=== PATIENT | male | born 1955 | race Caucasian/White ===

== ENCOUNTER 2016-12-12 16:45 | Emergency (ER) | payer BC, OTHER ==
[~2016-12-12] VITALS: Ht 193 cm; Wt 95.0 kg
[~2016-12-12 16:45] MED LIST: CLIN1CAP5 PO; VENTAER INH
[2016-12-12 16:48] VITALS: BP 102/63; PULSE 72; RESP 18; TEMP 98.1; O2SAT 92
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
[2016-12-12] MEDS ORDERED: SODIUM CHLORIDE 0.9% FLUSH 5 ML FLUSH IVF PRN (17:45)
[2016-12-12] MEDS ORDERED: methylPREDNISolone SOD SUCC 125 MG/2 ML VIAL IVP ONE (17:45)
--- NOTE | 2016-12-12 18:01 | RADRPT ---
EXAM DATE/TIME: 12/12/2016 17:45 [facility] COMPARISON: CHEST PA & LAT, July 04, 2016, 11:59. INDICATIONS : Cough, shortness of breath, chest pain. MEDICAL HISTORY : None. SURGICAL HISTORY : None. ENCOUNTER: Initial ACUITY: 1 week PAIN SCORE: 5/10 LOCATION: Bilateral chest FINDINGS: PA and lateral views of the chest demonstrate the lungs to be symmetrically aerated without evidence of mass, infiltrate or effusion. The cardiomediastinal contours are unremarkable. Osseous structure s are intact. CONCLUSION: No acute disease. Mian Freire MD on December 12, 2016 at 18:00 Board Certified Radiologist. This report was verified electronically.
[2016-12-12] MEDS: RESP: ALBUTEROL 2.5 MG/IPRATROPIUM 0.5 MG NEB (SCH) INH (18:02)
--- NOTE | 2016-12-12 18:05 | PD ---
Data Data Last Documented VS Vital Signs Date Time Temp Pulse Resp B/P Pulse Ox O2 Delivery O2 Flow Rate FiO2 12/12/16 17:19 65 18 92 Room Air 12/12/16 16:48 98.1 102/63 Orders Complete Blood Count With Diff (12/12/16 17:32) Comprehensive Metabolic Panel (12/12/16 17:32) B-Type Natriuretic Peptide (12/12/16 17:32) Act Partial Throm Time (Ptt) (12/12/16 17:32) Prothrombin Time / Inr (Pt) (12/12/16 17:32) Magnesium (Mg) (12/12/16 17:32) Ckmb (Isoenzyme) Profile (12/12/16 17:32) Troponin I (12/12/16 17:32) Influenzae A/B Antigen (12/12/16 17:32) Blood Culture (12/12/16 17:32) Iv Access Insert/Monitor (12/12/16 17:32) Electrocardiogram (12/12/16 17:32) Ecg Monitoring (12/12/16 17:32) Oximetry (12/12/16 17:32) Oxygen Administration (12/12/16 17:32) Chest, Pa & Lat (12/12/16 17:32) Sodium Chloride 0.9% Flush (Ns Flush) (12/12/16 17:45) Methylprednisolone So Succ Inj (Solumedr (12/12/16 17:45) Albuterol-Ipratropium Neb (Duoneb Neb) (12/12/16 17:45) Lactic Acid (12/12/16 17:32) MDM Supervised Visit with BRENT: Yes Narrative Course I, Dr. Snell, have reviewed the advance practice practioner's documentation and am in agreement, met with the patient face to face, made the diagnosis, and the medical decision making was done by me. *My assessment and Findings: 61-year-old homeless male with history of COPD still smoking here with approximately one week of cough, cold, chest congestion , subjective fevers and chills. He no longer has any home inhalers. patient looks miserable and has a hacking cough productive of clear sputum on exam but does not appear sick. Diffuse rhonchi and wheezing bilaterally. Smells of alcohol. Differential includes COPD exacerbation, pneumonia, influenza, unlikely sepsis, ACS, new onset heart failure.Will treat symptomatically with nebs, steroids and obtained chest x-ray and blood work for hopeful disposition to home. Deann Snell MD Dec 12, 2016 18:05
[2016-12-12] MEDS ORDERED: MORPHINE SULFATE 4 MG/ML INJ IV PUSH ONE (18:30)
[2016-12-12 18:53] LABS: AUTOMATED NEUTROPHIL # 1.8 TH/MM3 (1.8-7.7); BASOPHIL % 0.8 % (0.0-2.0); EOSINOPHIL % 0.7 % (0.0-4.0); HEMATOCRIT 36.2 % (39.0-51.0); LYMPH % 36.4 % (9.0-44.0); LYMPHOCYTE # 1.5 TH/MM3 (1.0-4.8); MEAN CELL VOLUME 94.6 FL (80.0-100.0); MEAN CORPUSCULAR HEMOGLOBIN 32.9 PG (27.0-34.0); MEAN CORPUSCULAR HGB CONC 34.7 % (32.0-36.0); MONO % 18.1 % (0.0-8.0); PLATELET COUNT 84 TH/MM3 (150-450); RED BLOOD COUNT 3.83 MIL/MM3 (4.50-5.90); WHITE BLOOD COUNT 4.1 TH/MM3 (4.0-11.0)
[2016-12-12 18:57] LABS: HEMO FLAGS AUTO DIFF
[2016-12-12 18:59] LABS: APTT (PATIENT) 29.6 SEC (24.3-30.1); PROTHROMBIN TIME - PATIENT 11.1 SEC (9.8-11.6)
[2016-12-12] MEDS ORDERED: AZITHROMYCIN 250 MG TAB PO ONE (19:15)
[2016-12-12 19:18] LABS: ALKALINE PHOSPHATASE 97 U/L (45-117); ALT (GPT) 55 U/L (12-78); ANION GAP 12 MEQ/L (5-15); AST (GOT) 108 U/L (15-37); BICARBONATE 28.1 MEQ/L (21.0-32.0); BLOOD UREA NITROGEN 6 MG/DL (7-18); CHLORIDE 90 MEQ/L (98-107); CREATINE KINASE 173 U/L (39-308); GLOMERULAR FILTRATION RATE 115 ML/MIN (>89); MAGNESIUM 1.9 MG/DL (1.5-2.5); POTASSIUM 3.5 MEQ/L (3.5-5.1); SODIUM (NA) 130 MEQ/L (136-145); TOTAL BILIRUBIN ADULT 0.4 MG/DL (0.2-1.0)
[2016-12-12 19:31] LABS: CKMB 1.6 NG/ML (0.5-3.6)
[2016-12-12] MEDS ORDERED: PRED20 PO (19:46)
[2016-12-12] MEDS ORDERED: TRAM50TA PO ×2 (19:46→19:49)
[2016-12-12] MEDS ORDERED: AZIT500T2 PO (19:46)
[2016-12-12] MEDS ORDERED: VENTAER INH (19:46)
[2016-12-12 20:16] VITALS: O2SAT 96
[2016-12-12 20:16] LABS: BASOPHILS 1 % (0-2); METAMYELOCYTES 2 % (0-1); PLATELET ESTIMATE SMEAR LOW (NORMAL); PLATELET MORPHOLOGY NORMAL (NORMAL); POLYS (SEG NEUTROPHILS) 47 % (16-70); SCAN/DIFF FINAL DIFF MANUAL; WBC DIFF SAMPLE 100
[2016-12-12 20:17] VITALS: BP 108/58; PULSE 83; RESP 18; O2SAT 96
--- NOTE | 2016-12-13 16:11 | EKG ---
Date Performed: 12/12/2016 Time Performed: 18:59:57 PTAGE: 61 years EKG: Sinus rhythm Compared to prior tracing no significant change BORDERLINE ECG PREVIOUS TRACING : 10/08/2016 19.36 DOCTOR: Devyn Vazquez Interpretating Date/Time 12/13/2016 16:10:07
== END 2016-12-12 20:57 | disposition home or self-care (01) ==
LOC: NEPE 16:45
DX: J44.1 Chronic obstructive pulmonary disease with (acute) exacerbation (principal); R07.89 Other chest pain; R94.31 Abnormal electrocardiogram [ECG] [EKG]; I25.2 Old myocardial infarction; I10 Essential (primary) hypertension; J44.9 Chronic obstructive pulmonary disease, unspecified; G47.30 Sleep apnea, unspecified; F17.210 Nicotine dependence, cigarettes, uncomplicated; Z59.0 Homelessness
CPT/HCPCS: 71020; 80053; 82550; 82552; 83605; 83735; 83880; 84484; 85007; 85027; 85610; 85730; 87040; 93005; 94640; 94664; 96374; 96375; 99284; J2270; J2930

== ENCOUNTER 2017-02-11 17:03 | Inpatient (IN) | payer BC, OTHER ==
[~2017-02-11] VITALS: Ht 190.5 cm; Wt 82.5 kg
[~2017-02-11 17:03] MED LIST changes: +AZIT500T2 PO; +PRED20 PO; +TRAM50TA PO
--- NOTE | 2017-02-11 18:37 | RADRPT ---
EXAM DATE/TIME: 02/11/2017 18:22 [facility] COMPARISON: No previous studies available for comparison. INDICATIONS : Right hip pain after fall. MEDICAL HISTORY : None. SURGICAL HISTORY : None. ENCOUNTER: Initial ACUITY: 1 day PAIN SCORE: 10/10 LOCATION: Right hip. FINDINGS: Normal bone density. Mildly displaced fracture is seen across the right femoral trochanters. CONCLUSION: Right proximal femur fracture. Joey Banks MD on February 11, 2017 at 18:35 Board Certified Radiologist. This report was verified electronically.
[2017-02-11 18:42] VITALS: BP 158/78; PULSE 65; RESP 18; TEMP 98.1; O2SAT 96
[2017-02-11 19:23] VITALS: BP 158/81; PULSE 78; RESP 16; TEMP 98.5; O2SAT 96
--- NOTE | 2017-02-11 19:25 | PD ---
HPI Chief Complaint: Fall Time Seen by Provider: 19:16 Travel History International Travel<30 days: No Contact w/Intl Traveler<30days: No Traveled to known affect area: No History of Present Illness HPI 61-year-old male presents with right hip pain. He tripped on a curb several hours prior to arrival landing on his right hip. No head trauma or loss of consciousness. He is complaining of moderate pain in the right hip, aching, worse with movement. He admits to drinking 4 beers today. Last meal 7-8 hours ago. No other complaints. PFSH Past Medical History Arthritis: Yes Asthma: No Autoimmune Disease: No Blood Disorders: No Anxiety: No Depression: No Heart Rhythm Problems: No Cancer: No Cardiac Catheterization: No Cardiovascular Problems: Yes ([place] 2001) High Cholesterol: No Chemotherapy: No Chest Pain: Yes Congestive Heart Failure: No COPD: Yes Diabetes: Yes (denies) Patient Takes Glucophage: No Diminished Hearing: Yes ([place] ON LEFT) Endocrine: Yes Gastrointestinal Disorders: No GERD: No Glaucoma: No Genitourinary: No Headaches: No Hepatitis: No Hiatal Hernia: Yes Heparin Induced Thrombocytopen: No Hypertension: Yes Immune Disorder: No Inguinal Hernia: Yes Implanted Vascular Access Dvce: No Kidney Stones: No Musculoskeletal: Yes (arthritis) Neurologic: Yes Psychiatric: No Reproductive: No Respiratory: Yes (COPD) Immunizations Current: Yes Migraines: No Myocardial Infarction: Yes Radiation Therapy: No Renal Failure: No Seizures: No Sickle Cell Disease: No Sleep Apnea: Yes Thyroid Disease: No Ulcer: No ?: Not Past Surgical History Abdominal Surgery: Yes (LEFT INGUINAL HERNIA REPAIR) AICD: No Appendectomy: No Arteriovenous Shunt: No Cardiac Surgery: No Cholecystectomy: No Coronary Artery Bypass Graft: No Ear Surgery: No Endocrine Surgery: No Eye Surgery: No Genitourinary Surgery: No Gynecologic Surgery: No Insulin Pump: No Joint Replacement: No Neurologic Surgery: Yes (C-SPINE FUSION (C5-C7 PER EMR)) Oral Surgery: No Pacemaker: No Thoracic Surgery: No Other Surgery: Yes (LT INGUINAL HERNIA REPAIR) Family History Family Myocardial Infarction: No Social History Alcohol Use: Yes (etoh-BEER (USUALLY 4 DAILY)) Tobacco Use: Yes (1/2ppd) Substance Use: No Allergies-Medications (Allergen,Severity, Reaction): Coded Allergies: Ativan (Verified Adverse Reaction, Intermediate, MAKES HIM CRAZY, 02/11/17 ) Ibuprofen (Verified Adverse Reaction, Intermediate, Rash, 02/11/17) Keflex (Verified Adverse Reaction, Intermediate, Hives, 02/11/17) PT STATED THAT THE FIRST TIME HE TOOK KEFLEX IT CAUSED HIVE AND STOMACH UPSET Motrin (Verified Adverse Reaction, Intermediate, N/V, 02/11/17) Zofran (Verified Adverse Reaction, Intermediate, HIVES, 02/11/17) *MDRO Multi-Drug Resistant Organism (Verified Adverse Reaction, Unknown, ) MRSA (wounds) - 08/2014, 07/2014, 2007, 2005 Reported Meds & Prescriptions Reported Meds & Active Scripts Active Tramadol (Tramadol HCl) 50 Mg Tab 50 Mg PO Q6H PRN Prednisone 20 Mg Tab 20 Mg PO BID Ventolin Hfa 18 GM Inh (Albuterol Sulfate) 90 Mcg/Act Aer 2 Puff INH Q4-6H PRN Azithromycin 500 Mg Tab 500 Mg PO DAILY Clindamycin (Clindamycin HCl) 150 Mg Cap 300 Mg PO Q6H 10 Days Review of Systems Except as stated in HPI: all other systems reviewed are Neg Physical Exam Narrative GENERAL: Well-developed well-nourished male in no acute distress SKIN: Warm and dry. Small abrasion lateral right hip. HEAD: Atraumatic. Normocephalic. EYES: Pupils equal and round. No scleral icterus. No injection or drainage. ENT: No nasal bleeding or discharge. Mucous membranes pink and moist. NECK: Trachea midline. No JVD. CARDIOVASCULAR: Regular rate and rhythm. No murmur appreciated. RESPIRATORY: No accessory muscle use. Clear to auscultation. Breath sounds equal bilaterally. GASTROINTESTINAL: Abdomen soft, non-tender, nondistended. Hepatic and splenic margins not palpable. MUSCULOSKELETAL: No obvious deformities. Tender to palpation lateral right hip. Pain with range of motion of the right hip limiting exam. 2+ dorsalis pedis and posterior tibial pulses. NEUROLOGICAL: Awake and alert. No obvious cranial nerve deficits. Motor grossly within normal limits. Normal speech. Data Data Last Documented VS Vital Signs Date Time Temp Pulse Resp B/P Pulse Ox O2 Delivery O2 Flow Rate FiO2 02/11/17 19:23 98.5 78 16 158/81 96 Room Air Orders Hip, Uni(Ap&Lat) W Ap Pelvis (02/11/17 ) Complete Blood Count With Diff (02/11/17 18:51) Basic Metabolic Panel (Bmp) (02/11/17 18:51) Comprehensive Metabolic Panel (02/11/17 18:51) Electrocardiogram (02/11/17 ) Chest, Single Ap (02/11/17 ) Urinalysis - C+S If Indicated (02/11/17 19:45) Splint Or Brace Apply/Monitor (02/11/17 19:45) Morphine Inj (Morphine Inj) (02/11/17 19:45) Consult Orthopedic (02/11/17 ) Admit Order (Ed Use Only) (02/11/17 19:55) Admit To Inpatient (02/11/17 ) Vital Signs (Adult) Q4H (02/11/17 19:56) Activity Bed Rest (02/11/17 19:56) Ruffling Hemmer Automatic / Telemetry .CONTINUOUS (02/11/17 19:56) Diet Npo (02/12/17 Breakfast) Sodium Chloride 0.9% Flush (Ns Flush) (02/11/17 20:00) Sodium Chloride 0.9% Flush (Ns Flush) (02/11/17 21:00) Basic Metabolic Panel (Bmp) (02/12/17 06:00) Complete Blood Count With Diff (02/12/17 06:00) Case Management Consult (02/11/17 19:56) Scd Bilateral/Knee High GREY.BID (02/11/17 19:56) Naloxone Inj (Narcan Inj) (02/11/17 20:00) Inpatient Certification (02/11/17 ) Chlordiazepoxide (Librium) (02/12/17 09:00) Thiamine (Vit B1) (Vitamin B1) (02/11/17 20:00) Thiamine (Vit B1) (Vitamin B1) (02/12/17 09:00) ^ Etoh Withdrawal Precautions (02/11/17 19:56) Morphine Inj (Morphine Inj) (02/11/17 20:00) Metoclopramide Inj (Reglan Inj) (02/11/17 20:15) MDM Medical Decision Making Medical Screen Exam Complete: Yes Emergency Medical Condition: Yes Medical Record Reviewed: Yes Interpretation(s) Hips/pelvic x-ray FINDINGS: Normal bone density. Mildly displaced fracture is seen across the right femoral trochanters. Differential Diagnosis Fracture, contusion, sprain, dislocation, abrasion, bursitis Narrative Course X-ray imaging reveals a proximal right femur fracture. We'll discuss with on- call orthopedist. Discussed with Dr. Barth who would like the patient admitted to medicine, nothing by mouth after midnight, 10 pounds of Mckeon's traction. Procedures EKG Prior to Arrival: Yes Diagnosis Primary Impression: Closed right hip fracture Qualified Code: S72.001A - Closed right hip fracture, initial encounter Admitting Information Admitting Physician Requests: Admit Mark Mendoza Feb 11, 2017 19:25
--- NOTE | 2017-02-11 19:43 | RADRPT ---
EXAM DATE/TIME: 02/11/2017 18:56 [facility] COMPARISON: CHEST SINGLE AP, October 08, 2016, 19:48. INDICATIONS : Evaluate for pneumonia, pneumothorax, or communicable. Patient fell, hip fracture. MEDICAL HISTORY : Hypertension. Chronic obstructive pulmonary disease. Hernia, hiatal.diabetes, SURGICAL HISTORY : None. ENCOUNTER: Subsequent ACUITY: 1 day PAIN SCORE: 0/10 LOCATION: Bilateral chest FINDINGS: A single view of the chest demonstrates the lungs to be symmetrically aerated without evidence of mas s, infiltrate or effusion. The cardiomediastinal contours are unremarkable. Osseous structures are intact. CONCLUSION: No acute disease. Joey Banks MD on February 11, 2017 at 19:41 Board Certified Radiologist. This report was verified electronically.
[2017-02-11] MEDS ORDERED: MORPHINE SULFATE 4 MG/ML INJ IV PUSH ONE (19:45)
[2017-02-11] MEDS ORDERED: SODIUM CHLORIDE 0.9% FLUSH 5 ML FLUSH FLUSH PRN (20:00)
[2017-02-11] MEDS ORDERED: NALOXONE HCL 0.4 MG/ML AMP IV PRN (20:00)
[2017-02-11] MEDS ORDERED: THIAMINE HCL 100 MG TAB PO ONE (20:00)
[2017-02-11 20:05] LABS: AUTOMATED NEUTROPHIL # 1.7 TH/MM3 (1.8-7.7); EOSINOPHIL # 0.1 TH/MM3 (0-0.4); HEMATOCRIT 34.3 % (39.0-51.0); LYMPH % 31.7 % (9.0-44.0); MEAN CELL VOLUME 94.4 FL (80.0-100.0); MEAN CORPUSCULAR HEMOGLOBIN 33.3 PG (27.0-34.0); MEAN CORPUSCULAR HGB CONC 35.2 % (32.0-36.0); MONO % 12.6 % (0.0-8.0); NEUT % 52.7 % (16.0-70.0); PLATELET COUNT 63 TH/MM3 (150-450); RED BLOOD COUNT 3.63 MIL/MM3 (4.50-5.90); RED CELL DISTRIBUTION WIDTH 13.6 % (11.6-17.2); WHITE BLOOD COUNT 3.2 TH/MM3 (4.0-11.0)
[2017-02-11 20:13] LABS: HEMO FLAGS AUTO DIFF
[2017-02-11] MEDS ORDERED: METOCLOPRAMIDE HCL 10 MG/2 ML VIAL IV PUSH ONE (20:15)
[2017-02-11 20:23] LABS: ALT (GPT) 26 U/L (12-78); ANION GAP 7 MEQ/L (5-15); AST (GOT) 54 U/L (15-37); BICARBONATE 30.6 MEQ/L (21.0-32.0); BLOOD UREA NITROGEN 4 MG/DL (7-18); CHLORIDE 101 MEQ/L (98-107); GLOMERULAR FILTRATION RATE 119 ML/MIN (>89); POTASSIUM 3.9 MEQ/L (3.5-5.1); SODIUM (NA) 139 MEQ/L (136-145)
[2017-02-11 20:26] LABS: ALKALINE PHOSPHATASE 66 U/L (45-117); TOTAL BILIRUBIN ADULT 0.3 MG/DL (0.2-1.0)
[2017-02-11 20:27] LABS: BLOOD, URINE TRACE (NEG); COMMENT (UR) CULT NOT INDICATED; CULTURE IF INDICATED CULT NOT INDICATED; GLUCOSE,URINE NEG (NEG); KETONE, URINE NEG (NEG); MUCUS URINE FEW /lpf (OCC); NITRITE,URINE NEG (NEG); URINE COLOR YELLOW (YELLW/STRAW)
--- NOTE | 2017-02-11 20:32 | MB ---
cc: ANGIE BINGHAM M.D. DATE OF CONSULTATION: 02/11/2017 REASON FOR CONSULTATION: Fracture right hip. HISTORY This patient is a 61-year-old white male who states that he was at the local transfer center for the local [employer] system. He tripped over a curb, fell, and sustained injury to his right hip. He was evaluated and brought to the emergency room. He complained of pain in the right hip and unable to ambulate. Denied any loss of consciousness or head trauma. He is complaining of moderate pain in the right hip mostly. He states he ate earlier today. Evaluation showed evidence of a right peritrochanteric hip fracture. I have been asked to see him in consultation by same. PAST MEDICAL HISTORY: Significant for: 1. Arthritis. 2. Previous right shoulder surgery, undergoing repair. 3. COPD. 4. High blood pressure. 5. Previous inguinal hernia repair. 6. History of myocardial infarction. PAST SURGICAL HISTORY Significant for hernia repair as indicated. Cervical spine fusion, C5 to C7. SOCIAL HISTORY He admits to ethanol four beers per day and half pack cigarettes per day. ALLERGIES ATIVAN IBUPROFEN KEFLEX MOTRIN ZOFRAN UNKNOWN ADVERSE REACTION TO MULTI-DRUG RESISTANT ORGANISM. The patient had a history of MRSA. MEDICATIONS 1. Tramadol. 2. Prednisone. 3. Ventolin 4. Erythromycin 5. Clindamycin REVIEW OF SYSTEMS: Negative except for pain in the region of the right hip. PHYSICAL EXAMINATION Alert, cooperative white male. He appears older than his stated age. He complained of pain in the right hip. His right leg is externally rotated. HEENT: Normocephalic, atraumatic. Pupils equal, round, reactive to light. He is missing multiple teeth. Neck: Supple. Well-healed incision is seen. Chest: Clear. Heart: Regular rate and rhythm. Abdomen: Soft, nontender, normoactive bowel sounds. Musculoskeletal: Right hip pain. Evaluation of the right hip, mild swelling. His pain is mostly with internal and external rotation. Dorsalis pedis is 1+, posterior S1 plus, sensation normal, he wiggles his toes. X-RAYS: X-rays reviewed. The radiologist interpretation shows evidence of a right peritrochanteric hip fracture extending to the lesser trochanter. IMPRESSION Right peritrochanteric hip fracture. PLAN Open treatment internal fixation right hip fracture with intramedullary harry. CONSENT: There are risks with surgery including infection, bleeding, loss of motion, continued pain, need for further surgery, neurologic and vascular injury. The patient understands these issues and wishes to press on with surgery as outlined above. The patient has a history of MRSA. The patient is at significant risk for infection with that orginism. The patient is likely colonized. Angie Bingham MD [facility] [place] /7:49 PM /8:20 PM
[2017-02-11 20:42] LABS: PLATELET ESTIMATE SMEAR LOW (NORMAL); PLATELET MORPHOLOGY NORMAL (NORMAL); SCAN/DIFF AUTO DIFF CONFIRMED
[2017-02-11 20:51] VITALS: BP 153/74; TEMP 98.2
[2017-02-11] MEDS: SODIUM CHLORIDE 0.9% FLUSH 5 ML FLUSH FLUSH SCH (21:50)
--- NOTE | 2017-02-11 21:52 | HHI.HP ---
[facility] Service [facility] Primary Care Physician No Primary Care Physician Admission Diagnosis right hip fracture Diagnoses: Chief Complaint: right hip pain Travel History International Travel<30 Days: No Contact w/Intl Traveler <30 Da: No Traveled to Known Affected Are: No History of Present Illness 61 y/o male with a history of CAD, [place], HTN, COPD and arthritis presented to the ED after suffering a fall. [place] and fell landing on his right hip. He is very painful in the right hip and the pain increases with movement. He is currently awaiting to be placed in a bed in order for bucks traction to be applied. He states prior to the fall he denies any chest pain, dizziness, fever or chills. Last 1-2 weeks patient also denies any illness, chest pain, fever or chills. He states he is always short of breath due to his COPD. He does drink daily and states today he had 4 beers. He currently does not have a PCP. Review of Systems Constitutional: DENIES: Fever, Chills Respiratory: COMPLAINS OF: Shortness of breath (always due to copd), DENIES: Cough, Sputum production Cardiovascular: DENIES: Chest pain, Palpitations, Dyspnea on Exertion, Lower Extremity Edema Gastrointestinal: DENIES: Constipation, Diarrhea, Nausea, Vomiting Genitourinary: DENIES: Hematuria, Dysuria Musculoskeletal: COMPLAINS OF: Joint pain, DENIES: Back pain, Neck pain Integumentary: DENIES: Rash Hematologic/lymphatic: DENIES: Lymphadenopathy Neurologic: DENIES: Headache Past Family Social History Past Medical History CAD IA at age 42 HTN COPD not on any oxygen Arthritis Past Surgical History Cervical fusion C5-7 Right Elbow surgery Right Knee surgery bilateral shoulder surgery Reported Medications Reported Meds & Active Scripts Active Tramadol (Tramadol HCl) 50 Mg Tab 50 Mg PO Q6H PRN Ventolin Hfa 18 GM Inh (Albuterol Sulfate) 90 Mcg/Act Aer 2 Puff INH Q4-6H PRN Allergies: Coded Allergies: Ativan (Verified Adverse Reaction, Intermediate, MAKES HIM CRAZY, 02/11/17 ) Ibuprofen (Verified Adverse Reaction, Intermediate, Rash, 02/11/17) Keflex (Verified Adverse Reaction, Intermediate, Hives, 02/11/17) PT STATED THAT THE FIRST TIME HE TOOK KEFLEX IT CAUSED HIVE AND STOMACH UPSET Motrin (Verified Adverse Reaction, Intermediate, N/V, 02/11/17) *MDRO Multi-Drug Resistant Organism (Verified Adverse Reaction, Unknown, ) MRSA (wounds) - 08/2014, 07/2014, 2007, 2005 Active Ordered Medications Current Medications Medications (Trade) Dose Ordered Sig/Guru Route Start Time Stop Time Status Last Admin (NS Flush) 2 ml UNSCH PRN FLUSH 02/11/17 20:00 (NS Flush) 2 ml BID FLUSH 02/11/17 21:00 (Narcan Inj) 0.4 mg UNSCH PRN IV 02/11/17 20:00 (Librium) 25 mg TID PO 02/12/17 09:00 (Vitamin B1) 100 mg DAILY PO 02/12/17 09:00 (Morphine Inj) 2 mg Q3H PRN IV PUSH 02/11/17 20:00 Family History Mom: from ovarian cancer Dad: from Heart disease Sister: Cancer Social History Tobacco use: 1/2 ppd Alcohol use: 4 beers a day Illicit use: Denies Physical Exam Vital Signs Vital Signs Date Time Temp Pulse Resp B/P Pulse Ox O2 Delivery O2 Flow Rate FiO2 02/11/17 20:51 98.2 61 14 153/74 96 02/11/17 20:37 16 02/11/17 19:23 98.5 78 16 158/81 96 Room Air 02/11/17 18:42 98.1 65 18 158/78 96 Room Air 02/11/17 18:42 65 20 98 Room Air Physical Exam GENERAL: This is a well-nourished, patient who is in pain and tremulous SKIN: No rashes, ecchymoses or lesions. Cool and dry. HEAD: Atraumatic. Normocephalic. EYES: Pupils equal round and reactive. Extraocular motions intact. ENT: Nose without bleeding, purulent drainage or septal hematoma. Airway patent. NECK: Trachea midline. No JVD or lymphadenopathy. CARDIOVASCULAR: Regular rate and rhythm without murmurs, gallops, or rubs. RESPIRATORY: Clear to auscultation. Breath sounds equal bilaterally. No wheezes , rales, or rhonchi. GASTROINTESTINAL: Abdomen soft, non-tender, nondistended. No hepato-splenomegaly , or palpable masses. No guarding. MUSCULOSKELETAL: Right leg shorter than left. Right hip joint tenderness. No calf tenderness. NEUROLOGICAL: Awake and alert. Motor and sensory grossly within normal limits. Normal speech. Laboratory Laboratory Tests Test 02/11/17 02/11/17 19:15 19:50 White Blood Count 3.2 Red Blood Count 3.63 Hemoglobin 12.1 Hematocrit 34.3 Mean Corpuscular Volume 94.4 Mean Corpuscular Hemoglobin 33.3 Mean Corpuscular Hemoglobin 35.2 Concent Red Cell Distribution Width 13.6 Platelet Count 63 Mean Platelet Volume 8.8 Neutrophils (%) (Auto) 52.7 Lymphocytes (%) (Auto) 31.7 Monocytes (%) (Auto) 12.6 Eosinophils (%) (Auto) 2.0 Basophils (%) (Auto) 1.0 Neutrophils # (Auto) 1.7 Lymphocytes # (Auto) 1.0 Monocytes # (Auto) 0.4 Eosinophils # (Auto) 0.1 Basophils # (Auto) 0.0 CBC Comment AUTO DIFF Differential Comment AUTO DIFF CONFIRMED Platelet Estimate LOW Platelet Morphology Comment NORMAL Sodium Level 139 Potassium Level 3.9 Chloride Level 101 Carbon Dioxide Level 30.6 Anion Gap 7 Blood Urea Nitrogen 4 Creatinine 0.68 Estimat Glomerular Filtration 119 Rate Random Glucose 102 Calcium Level 7.8 Total Bilirubin 0.3 Aspartate Amino Transf 54 (AST/SGOT) Alanine Aminotransferase 26 (ALT/SGPT) Alkaline Phosphatase 66 Total Protein 7.0 Albumin 3.3 Urine Color YELLOW Urine Turbidity CLEAR Urine pH 5.0 Urine Specific [place] 1.007 Urine Protein NEG Urine Glucose (UA) NEG Urine Ketones NEG Urine Occult Blood TRACE Urine Nitrite NEG Urine Bilirubin NEG Urine Urobilinogen LESS THAN 2.0 Urine Leukocyte Esterase NEG Urine RBC LESS THAN 1 Urine WBC 1 Urine Mucus FEW Microscopic Urinalysis Comment CULT NOT INDICATED Result Diagram: 02/11/17191402/11/171914 Imaging Last Impressions Hip and Pelvis X-Ray 02/11/17 0000 Signed Impressions: Service Date/Time: Saturday, February 11, 2017 18:22 - CONCLUSION: Right proximal femur fracture. Joey Banks MD Chest X-Ray 02/11/17 0000 Signed Impressions: Service Date/Time: Saturday, February 11, 2017 18:56 - CONCLUSION: No acute disease. Joey Banks MD Assessment and Plan Problem List: (1) Closed right hip fracture ICD Code: S72.001A Status: Acute (2) Alcohol abuse ICD Code: F10.10 Status: Chronic Assessment and Plan 61 y/o male with a history of CAD, [place], COPD and arthritis presented to the ED after suffering a fall and landing on his right hip. Closed right hip fracture Images reviewed: hip xray shows a right proximal femur fracture. EKG shows SR. -Consult Orthopedic, Dr. Salmon will take patient to surgery in AM -[place] traction ordered by ortho -Pain management with IV Morphine Alcohol abuse, patient drinks at least 4 beers a day/ with current active withdrawal - pt with noted tremors, tachycardia, flushed skin- reports from pain though looks to be more in acute withdrawal - will give pain meds now - if no improvement, to be aggressive on benzo sedation - checked allergy confirmation with patient - pt is not allergic- will use ativan -Withdrawal precautions -Librium, thiamine and folate scheduled, Ativan PRN -Encouraged to quit COPD, chronic, patient is currently having wheezing Images reviewed: Chest xray shows no acute disease. -Duonebs schedules -Oxygen as needed DVT prophylaxis: SCDs Written by Patricia DUMONT, acting as scribe for Dr. Santoyo on 02/11/17 at 2210. All or portions of this note were transcribed by scribe [PATRICIA GUZMAN]. I, Dr. Linsey Santoyo personally performed the history, physical exam, and medical decision making; and confirmed the accuracy of the information in the transcribed note. Authenticated by Dr. Linsey Santoyo on 02/11/17 at 2210. Discussed Condition With Patient, ED physician and RN Physician Certification 2 Midnight Certification Type: Admission for Inpatient Services Order for Inpatient Services The services are ordered in accordance with Medicare regulations or non- Medicare payer requirements, as applicable. In the case of services not specified as inpatient-only, they are appropriately provided as inpatient services in accordance with the 2-midnight benchmark. Estimated LOS (days): 3 days is the estimated time the patient will need to remain in the hospital, assuming treatment plan goals are met and no additional complications. Post-Hospital Plan: Home Problem Qualifiers (1) Closed right hip fracture: Qualified Code: S72.001A - Closed right hip fracture, initial encounter Patricia Guzman Feb 11, 2017 21:52 Linsey Santoyo MD Feb 12, 2017 07:00
[2017-02-11 22:25] VITALS: BP 135/84; PULSE 86; RESP 19; TEMP 96.6; O2SAT 93
[2017-02-11] MEDS: MORPHINE SULFATE 4 MG/ML INJ IV PUSH PRN (22:35)
[2017-02-11] MEDS ORDERED: RESP: ALBUTEROL 2.5 MG/IPRATROPIUM 0.5 MG NEB (PRN) NEB (23:15)
[2017-02-12] VITALS (7 sets, daily range): BP systolic 118–182; BP diastolic 62–97; PULSE 90–123; RESP 18–22; TEMP 95.7–97.8; O2SAT 93–96
[2017-02-12] MEDS: LORazepam 2 MG/ML VIAL IV PUSH PRN ×3 (00:34→10:31)
[2017-02-12] MEDS: MORPHINE SULFATE 4 MG/ML INJ IV PUSH PRN ×5 (01:28→15:58)
[2017-02-12] MEDS ORDERED: INSULIN HUMAN REGULAR 1,000 UNITS/10 ML VIAL SQ PRN (03:15)
[2017-02-12] MEDS ORDERED: chlordiazePOXIDE 25 MG CAP PO ONE (04:45)
[2017-02-12] MEDS ORDERED: LORazepam 2 MG/ML VIAL IV PUSH ONE (04:45)
[2017-02-12] MEDS: SODIUM CHLORID 0.9% 500 ML IV SCH ×2 (05:00→21:38)
[2017-02-12] MEDS: LACTATED RINGER'S 1000 ML IV SCH (05:07)
[2017-02-12] MEDS: RESP: ALBUTEROL 2.5 MG/IPRATROPIUM 0.5 MG NEB (SCH) NEB ×3 (05:11→16:00)
[2017-02-12 07:12] LABS: BASOPHIL % 0.5 % (0.0-2.0); EOSINOPHIL % 0.1 % (0.0-4.0); LYMPH % 8.5 % (9.0-44.0); LYMPHOCYTE # 0.5 TH/MM3 (1.0-4.8); MEAN CELL VOLUME 94.7 FL (80.0-100.0); MEAN CORPUSCULAR HEMOGLOBIN 32.7 PG (27.0-34.0); MEAN CORPUSCULAR HGB CONC 34.5 % (32.0-36.0); MONO % 11.9 % (0.0-8.0); PLATELET COUNT 52 TH/MM3 (150-450); RED BLOOD COUNT 3.48 MIL/MM3 (4.50-5.90); RED CELL DISTRIBUTION WIDTH 13.4 % (11.6-17.2); WHITE BLOOD COUNT 6.3 TH/MM3 (4.0-11.0)
[2017-02-12 07:15] LABS: HEMO FLAGS AUTO DIFF
[2017-02-12 07:23] LABS: BICARBONATE 27.3 MEQ/L (21.0-32.0); POTASSIUM 3.6 MEQ/L (3.5-5.1)
[2017-02-12 08:00] LABS: PLATELET ESTIMATE SMEAR LOW (NORMAL); PLATELET MORPHOLOGY NORMAL (NORMAL); SCAN/DIFF AUTO DIFF CONFIRMED
[2017-02-12] MEDS: chlordiazePOXIDE 25 MG CAP PO SCH ×3 (08:26→21:38)
[2017-02-12] MEDS: SODIUM CHLORIDE 0.9% FLUSH 5 ML FLUSH FLUSH SCH ×2 (08:26→21:38)
[2017-02-12] MEDS: THIAMINE HCL 100 MG TAB PO SCH (08:30)
[2017-02-12] MEDS ORDERED: cloNIDine HCL 0.1 MG TAB PO PRN (10:30)
--- NOTE | 2017-02-12 11:14 | HHI.PR ---
Subjective Remarks Pt just got some pain meds. States pain is better controlled. at bedside. states that pt doesn't drink much 2 pack but then pt states he drank a 4 pack yesterday morning. She later corrects that they both shared it. she states that he has "nervous shakes" usually. Pt denies any chest pains, SOB, nausea or vomiting but he is somewhat somnolent from the pain medication. Discussed w RN, and pt scheduled for OR at 2:30pm Objective Vitals Vital Signs Date Time Temp Pulse Resp B/P Pulse Ox O2 Delivery O2 Flow Rate FiO2 02/12/17 09:22 95 Nasal Cannula 3.00 02/12/17 08:00 97.8 116 22 182/97 95 02/12/17 06:45 Nasal Cannula 2.00 02/12/17 03:50 96.8 99 20 169/88 96 02/11/17 22:25 96.6 86 19 135/84 93 02/11/17 20:51 98.2 61 14 153/74 96 02/11/17 20:37 16 02/11/17 19:23 98.5 78 16 158/81 96 Room Air 02/11/17 18:42 98.1 65 18 158/78 96 Room Air 02/11/17 18:42 65 20 98 Room Air I/O 02/11/17 02/11/17 02/11/17 02/12/17 02/12/17 02/12/17 07:00 15:00 23:00 07:00 15:00 23:00 Intake Total 180 ml Output Total 300 ml Balance -120 ml Intake Oral 180 ml Output Urine Total 300 ml # Bowel Movements 0 Result Diagram: 02/12/1718 02/12/1718 Imaging Last Impressions Hip and Pelvis X-Ray 02/11/17 0000 Signed Impressions: Service Date/Time: Saturday, February 11, 2017 18:22 - CONCLUSION: Right proximal femur fracture. Joey Banks MD Chest X-Ray 02/11/17 0000 Signed Impressions: Service Date/Time: Saturday, February 11, 2017 18:56 - CONCLUSION: No acute disease. Joey Banks MD Objective Remarks GENERAL: This is a well-nourished, somewhat somnolent but able to answer some questions and tremulous at times. CARDIOVASCULAR: Regular rate and rhythm without murmurs RESPIRATORY: Clear to auscultation. Breath sounds equal bilaterally. No wheezes GASTROINTESTINAL: Abdomen soft, non-tender, nondistended. No hepato-splenomegaly , or palpable masses. No guarding. MUSCULOSKELETAL: right leg w traction. able to wiggle his toes and sensation is intact. NEUROLOGICAL: somnolent secondary to pain meds. some tremors noted in upper extremities. A/P Problem List: (1) Closed right hip fracture ICD Code: S72.001A Status: Acute (2) Alcohol abuse ICD Code: F10.10 Status: Chronic Assessment and Plan 61 y/o male with a history of CAD, [place], COPD and arthritis presented to the ED after suffering a fall and landing on his right hip. Closed right hip fracture hip xray shows a right proximal femur fracture. EKG shows SR. - Dr. Salmon planning to take pt in OR today -[place] traction in place -Pain management with IV Morphine for now and transition to PO narcotics per ortho Alcohol abuse, patient drinks at least 4 beers a day, still has tremors. - folate/thiamine/MV - on librium 25mg TID and ativan prn -Withdrawal/fall and seizure precautions -Encouraged to quit COPD, chronic, patient is currently having wheezing Images reviewed: Chest xray shows no acute disease. -Duonebs schedules -Oxygen as needed elevated BP: could be from pain and/or withdrawal. Added clonidine prn DVT prophylaxis: SCDs and per ortho post surgery Discharge Planning d/c pending further work-up and clinical improvement Problem Qualifiers (1) Closed right hip fracture: Qualified Code: S72.001A - Closed right hip fracture, initial encounter Alison Hadley MD Feb 12, 2017 11:13
[2017-02-12] MEDS ORDERED: FOLIC ACID 1 MG TAB PO ONE (11:15)
[2017-02-12] MEDS ORDERED: MULTIVITAMIN TAB PO ONE (11:15)
[2017-02-12] MEDS ORDERED: NORMOSOL R INJ 1,000 ML IV ONE (12:00)
[2017-02-12] MEDS ORDERED: PHENYLEPH/NS 1000 MCG/10 ML SYR IV ONE (12:00)
[2017-02-12] MEDS ORDERED: NEOSTIGMINE 3 MG/3 ML SYR IV ONE (12:00)
[2017-02-12] MEDS ORDERED: ONDANSETRON HCL 4 MG/2 ML VIAL IV PUSH ONE (12:00)
[2017-02-12] MEDS ORDERED: SODIUM CHLOR 0.9% 250 ML INJ 500 ML IV ONE (12:00)
[2017-02-12] MEDS ORDERED: PROPOFOL 200 MG/20 ML AMP IV ONE (12:00)
--- NOTE | 2017-02-12 13:57 | EKG ---
Date Performed: 02/11/2017 Time Performed: 19:38:03 PTAGE: 61 years EKG: SINUS BRADYCARDIA BORDERLINE ECG PREVIOUS TRACING : 12/12/2016 18.59 DOCTOR: Nicholas Pitt Interpretating Date/Time 02/12/2017 13:52:16
[2017-02-12] MEDS ORDERED: GENTAMICIN SULFATE 80 MG/2 ML VIAL ONE (16:18)
[2017-02-12] MEDS ORDERED: VANCOMYCIN HCL 1000 MG VIAL ONE (17:40)
[2017-02-12] MEDS ORDERED: CLINDAMYCIN PHOS 600 MG/4 ML VIAL ONE (17:40)
[2017-02-12 18:12] LABS: APTT (PATIENT) 27.5 SEC (24.3-30.1); INTERNATIONAL NORMALIZED RATIO 1.1 RATIO; PROTHROMBIN TIME - PATIENT 12.1 SEC (9.8-11.6)
[2017-02-12] MEDS: LACTATED RINGER'S 1000 ML INJ 1,000 ML IV SCH (18:54)
[2017-02-12] MEDS ORDERED: MISCELLANEOUS NURSING INFORMATION XX PRN (19:00)
[2017-02-12] MEDS ORDERED: ONDANSETRON HCL 4 MG/2 ML VIAL IVP PRN (19:00)
[2017-02-12] MEDS ORDERED: MORPHINE SULFATE 8 MG/ML INJ IM PRN (19:00)
[2017-02-12] MEDS ORDERED: SODIUM CHLORIDE 0.9% FLUSH 5 ML FLUSH IVF PRN (19:00)
[2017-02-12] MEDS ORDERED: Post-op Orders (for Pharmacy) MISC XX ONE (19:00)
[2017-02-12] MEDS ORDERED: ALUMINUM/MAGNESIUM/SIMETH 30 ML CUP PO PRN (19:00)
[2017-02-12] MEDS ORDERED: MISCELLANEOUS PHARMACY INFORMATION XX ONE (19:00)
--- NOTE | 2017-02-12 19:00 | PD.OP ---
cc: Levar Barth MD Operative Report Date of Surgery: Feb 12, 2017 Preoperative Diagnosis: Right peritrochanteric hip fracture Postoperative Diagnosis: Same Procedure: Open treatment internal fixation right peritrochanteric hip fracture with intramedullary harry Anesthesia: Gen. Surgeon: Levar Barth Claim Technician(s): FUNMI Taylor Operation and Findings: EBL: 100 INDICATION: This patient is a 61-year-old male who fell yesterday at a local bus stop. He sustained the above fracture. He is felt to be a candidate for open treatment internal fixation. NOTE: She FUNMI Taylor was present for the entire surgical procedure as my speech correction assistant. In my medical opinion her skill and care was necessary for proper management of this patient PROCEDURE: The patient was brought to the operating room and anesthetized in the supine position. He was placed on the fracture table with the right leg held extended. The opposite leg was in the well leg bautista. The hip fracture was reduced anatomically. The hip and leg was scrubbed with alcohol followed by Hibiclens followed by ChloraPrep. A timeout was done and antibiotics were given within 1 hour time window. A longitudinal incision was made over the lateral aspect of the proximal femur. Dissection continued down to the top of the greater trochanter. A cannulated awl was placed down through the top of the greater trochanter followed by placement of the guidepin along the shaft of the femur. This was reamed distally to 1 mm greater than the harry size and proximally to 17 mm. A separate incision was made laterally followed by placement of guidepin to the proper position of the femoral head. This is reamed and tapped in the proper length was placed up into the proper location. A single transverse screw was placed distally through the harry. Intraoperative x-rays were obtained. Alignment was satisfactory. No complication was noted. The wound was irrigated copiously. Hemostasis was controlled. The fascia was closed with interrupted Vicryl suture, subcutaneous tissue 2-0 Vicryl suture, skin with running intradermal 3-0 Vicryl followed by Steri-Strips and benzoin. A sterile dressing was applied The patient was awakened and taken to the recovery room in satisfactory condition. FINDINGS: There was evidence of a peritrochanteric fracture with minimal displacement. The overall alignment was anatomic. No complication was noted. Levar Barth MD Feb 12, 2017 19:00
[2017-02-12] MEDS ORDERED: HYDR-3580 PO (19:07)
[2017-02-12] MEDS ORDERED: ENOX30P SQ (19:07)
[2017-02-12] MEDS ORDERED: *hydrOXYzine 25 MG VIAL PERIprocedural Use ONLY IM ONE (19:30)
[2017-02-12] MEDS ORDERED: *MEPERIDINE 25 MG INJ VIAL PERIprocedural Use ONLY ONE (19:32)
[2017-02-12] MEDS ORDERED: *LABETALOL HCL 100 MG/20 ML VIAL PERIprocedural Use ONLY ONE (19:37)
[2017-02-12] MEDS ORDERED: fentaNYL CITRATE 250 MCG/5 ML AMP ONE (19:40)
[2017-02-12] MEDS ORDERED: *morphine SULFATE 8 MG/ML PERIprocedure ONLY ONE (20:01)
--- NOTE | 2017-02-12 20:22 | RADRPT ---
EXAM DATE/TIME: 02/12/2017 18:48 [facility] COMPARISON: HIP RIGHT (AP&LAT 2/3VWS) W AP PELVIS, February 11, 2017, 18:22. INDICATIONS : ORIF right hip. MEDICAL HISTORY : None. SURGICAL HISTORY : None. ENCOUNTER: Subsequent ACUITY: 2 days PAIN SCORE: Non-responsive. LOCATION: Right hip FINDINGS: Interim nail and harry fixation of the intertrochanteric fracture of the right femur. Alignment is norm al. No new fracture or other acute complication. CONCLUSION: Nail and harry fixation of intertrochanteric fracture with normal appearing alignment. Ward Grant MD on February 12, 2017 at 20:20 Board Certified Radiologist. This report was verified electronically.
[2017-02-12] MEDS ORDERED: SODIUM CHLORIDE 0.9% FLUSH 5 ML FLUSH IVF SCH (21:00)
[2017-02-12] MEDS: SENNOSIDES 8.6 MG TAB PO SCH (21:38)
[2017-02-12] MEDS: MAGNESIUM HYDROXIDE SUSP 30 ML CUP PO SCH (21:38)
[2017-02-13] VITALS (10 sets, daily range): BP systolic 104–155; BP diastolic 66–85; PULSE 81–111; RESP 17–20; TEMP 97–99.2; O2SAT 93–99
[2017-02-13] MEDS: LACTATED RINGER'S 1000 ML INJ 1,000 ML IV SCH ×2 (02:15→19:54)
[2017-02-13] MEDS: LORazepam 2 MG/ML VIAL IV PUSH PRN ×2 (02:15→22:58)
[2017-02-13] MEDS: LACTATED RINGER'S 1000 ML IV SCH (02:16)
[2017-02-13] MEDS: RESP: ALBUTEROL 2.5 MG/IPRATROPIUM 0.5 MG NEB (SCH) NEB ×4 (03:55→22:19)
[2017-02-13] MEDS: VANCOMYCIN INJ 1,000 MG in SODIUM CHLOR 0.9% 250 ML INJ 250 ML IV SCH ×2 (05:01→18:12)
[2017-02-13 05:18] LABS: HEMATOCRIT 28.8 % (39.0-51.0)
[2017-02-13 05:19] LABS: REVIEW FLAG FINAL
--- NOTE | 2017-02-13 07:39 | PD.ORT.PN ---
Subjective Subjective Remarks Moderate right hip pain. No new radiating leg pain. No fever, SOB or CP. Questions about surgery. Does not have a home so questions discharge. Objective Vitals Vital Signs Date Time Temp Pulse Resp B/P Pulse Ox O2 Delivery O2 Flow Rate FiO2 02/13/17 05:25 93 02/13/17 04:00 99.1 111 18 126/66 93 02/13/17 03:57 98 21 02/13/17 00:00 97.0 102 17 121/68 93 02/12/17 20:45 97.0 90 18 118/62 95 02/12/17 20:07 94 16 145/81 94 Nasal Cannula 5 02/12/17 20:00 106 18 162/85 95 Nasal Cannula 5 02/12/17 19:56 Nasal Cannula 4.00 02/12/17 19:45 125 22 176/110 95 Nasal Cannula 5 02/12/17 19:30 98.2 100 22 199/112 96 Nasal Cannula 5 02/12/17 16:00 97.8 117 20 162/90 94 02/12/17 11:50 95.7 123 22 176/93 93 02/12/17 09:22 95 Nasal Cannula 3.00 02/12/17 08:00 97.8 116 22 182/97 95 02/12/17 07:45 101 I/O 02/12/17 02/12/17 02/12/17 02/13/17 02/13/17 02/13/17 07:00 15:00 23:00 07:00 15:00 23:00 Intake Total 180 ml 2000 ml 457 ml Output Total 300 ml 450 ml 500 ml 400 ml Balance -120 ml -450 ml 1500 ml 57 ml Intake Oral 180 ml 0 ml 240 ml IV Total 500 ml 217 ml Other 1500 ml Output Urine Total 300 ml 450 ml 0 ml 400 ml Estimated Blood Loss 200 ml Other 300 ml # Bowel Movements 0 Result Diagram: 02/13/17 0455 02/12/17 0618 Other Results Laboratory Tests Test 02/12/17 17:50 Prothrombin Time 12.1 SEC (9.8-11.6) Prothromb Time International 1.1 RATIO Ratio Objective Remarks Laying in bed, NAD VSS Female friend in room RLE Dressing c/d/i, mild swelling hip, tender, no erythema +motor/sens, +sens, +nvi neg homans Assessment & Plan Ortho Post Op Day #: 1 Problem List: Assessment and Plan pod#1 s/p ORIF R Hip Pain moderately controlled. Right hip tender, postsurgical. PO pain meds as needed. Dry dressing changes daily beginning pod#2. PT - TTWBing RLE. Walker as needed. Lovenox for dvt prophylaxis D/C planning, likely SNF as patient is homeless. F/U in 2 weeks outpatient at [facility]. Edda Uriarte Feb 13, 2017 07:39
[2017-02-13] MEDS: MAGNESIUM HYDROXIDE SUSP 30 ML CUP PO SCH ×2 (09:18→20:05)
[2017-02-13] MEDS: THIAMINE HCL 100 MG TAB PO SCH (09:19)
[2017-02-13] MEDS: FOLIC ACID 1 MG TAB PO SCH (09:19)
[2017-02-13] MEDS: MULTIVITAMIN TAB PO SCH (09:19)
[2017-02-13] MEDS: chlordiazePOXIDE 25 MG CAP PO SCH ×3 (09:19→18:12)
[2017-02-13] MEDS: SODIUM CHLORIDE 0.9% FLUSH 5 ML FLUSH FLUSH SCH ×2 (09:19→20:06)
[2017-02-13] MEDS: ENOXAPARIN SODIUM 30 MG/0.3 ML SYRINGE SQ SCH (09:19)
[2017-02-13] MEDS: ACETAMINOPHEN/HYDROcodone 325 MG/7.5 MG TAB PO PRN ×2 (09:51→17:01)
[2017-02-13] MEDS: BACITRACIN TOP OINT 15 GM TUBE TOP SCH ×2 (16:59→20:04)
--- NOTE | 2017-02-13 17:27 | HHI.PR ---
Subjective Remarks late entry pt feels ok. still has pain, no nausea or vomiting. no CP/SOB. tremors are improved. at bedside. Pt fell trying to get up to use the commode, RN did notify me to this, no LOC, pt did hit his brett. Objective Vitals Vital Signs Date Time Temp Pulse Resp B/P Pulse Ox O2 Delivery O2 Flow Rate FiO2 02/13/17 16:10 98.1 81 19 145/77 99 02/13/17 12:10 97.0 97 18 118/76 96 02/13/17 11:10 99.2 106 18 104/71 93 02/13/17 10:10 98.2 106 20 150/78 98 02/13/17 08:00 99.1 102 18 155/85 94 02/13/17 05:25 93 02/13/17 04:00 99.1 111 18 126/66 93 02/13/17 03:57 98 21 02/13/17 00:00 97.0 102 17 121/68 93 02/12/17 20:45 97.0 90 18 118/62 95 02/12/17 20:07 94 16 145/81 94 Nasal Cannula 5 02/12/17 20:00 106 18 162/85 95 Nasal Cannula 5 02/12/17 19:56 Nasal Cannula 4.00 02/12/17 19:45 125 22 176/110 95 Nasal Cannula 5 02/12/17 19:30 98.2 100 22 199/112 96 Nasal Cannula 5 I/O 02/12/17 02/12/17 02/12/17 02/13/17 02/13/17 02/13/17 07:00 15:00 23:00 07:00 15:00 23:00 Intake Total 180 ml 2000 ml 457 ml Output Total 300 ml 450 ml 500 ml 400 ml Balance -120 ml -450 ml 1500 ml 57 ml Intake Oral 180 ml 0 ml 240 ml IV Total 500 ml 217 ml Other 1500 ml Output Urine Total 300 ml 450 ml 0 ml 400 ml Estimated Blood Loss 200 ml Other 300 ml # Bowel Movements 0 Result Diagram: 02/13/17 0455 02/12/17 0618 Imaging Last Impressions Hip X-Ray 02/12/17 0000 Signed Impressions: Service Date/Time: January 18:48 - CONCLUSION: Nail and harry fixation of intertrochanteric fracture with normal appearing alignment. Ward Grant MD Hip and Pelvis X-Ray 02/11/17 0000 Signed Impressions: Service Date/Time: Saturday, February 11, 2017 18:22 - CONCLUSION: Right proximal femur fracture. Joey Banks MD Chest X-Ray 02/11/17 0000 Signed Impressions: Service Date/Time: Saturday, February 11, 2017 18:56 - CONCLUSION: No acute disease. Joey Banks MD Objective Remarks GENERAL: This is a well-nourished, comfortable. laying in bed CARDIOVASCULAR: Regular rate and rhythm without murmurs RESPIRATORY: Clear to auscultation. Breath sounds equal bilaterally. No wheezes GASTROINTESTINAL: Abdomen soft, non-tender, nondistended. MUSCULOSKELETAL: dressing in place, d/c/i. able to wiggle his toes and sensation is intact. NEUROLOGICAL: tremors improved. awake and alert. A/P Problem List: (1) Closed right hip fracture ICD Code: S72.001A Status: Acute (2) Alcohol abuse ICD Code: F10.10 Status: Chronic Assessment and Plan 61 y/o male with a history of CAD, [place], COPD and arthritis presented to the ED after suffering a fall and landing on his right hip. Closed right hip fracture hip xray shows a right proximal femur fracture. s/p open treatment internal fixation, right perithrochanteric hip fx w intramedulary harry POD#1 -Pain management with IV Morphine and PO narcotics per ortho Alcohol abuse, patient drinks at least 4 beers a day, still has tremors. - folate/thiamine/MV - on librium 25mg TID and ativan prn -Withdrawal/fall and seizure precautions -Encouraged to quit COPD, chronic, patient is currently having wheezing Images reviewed: Chest xray shows no acute disease. -Duonebs schedules -Oxygen as needed elevated BP: could be from pain and/or withdrawal. on clonidine prn DVT prophylaxis: SCDs/lovenox per ortho post surgery Discharge Planning d/c when cleared by orthopedic sx Problem Qualifiers (1) Closed right hip fracture: Qualified Code: S72.001A - Closed right hip fracture, initial encounter Alison Hadley MD Feb 13, 2017 17:27 Alison Hadley MD Feb 13, 2017 17:27
[2017-02-13] MEDS: SENNOSIDES 8.6 MG TAB PO SCH (20:05)
[2017-02-14] VITALS (8 sets, daily range): BP systolic 129–174; BP diastolic 73–87; PULSE 77–106; RESP 18–20; TEMP 96.4–98.1; O2SAT 92–100
[2017-02-14] MEDS: ACETAMINOPHEN/HYDROcodone 325 MG/7.5 MG TAB PO PRN ×2 (02:38→20:56)
[2017-02-14] MEDS: LACTATED RINGER'S 1000 ML INJ 1,000 ML IV SCH ×2 (03:53→18:47)
[2017-02-14] MEDS: LACTATED RINGER'S 1000 ML IV SCH (03:53)
--- NOTE | 2017-02-14 08:01 | PD.ORT.PN ---
Subjective Subjective Remarks pt complains of post op right hip pain did fall out of bed yesterday and has laceration to chin Objective Vitals Vital Signs Date Time Temp Pulse Resp B/P Pulse Ox O2 Delivery O2 Flow Rate FiO2 02/14/17 04:10 97.4 106 20 129/78 98 02/14/17 03:10 18 02/14/17 01:52 Nasal Cannula 2.00 02/14/17 00:10 97.0 89 18 142/73 92 02/13/17 21:00 Nasal Cannula 2.00 02/13/17 20:10 98.6 93 19 125/67 97 02/13/17 16:10 98.1 81 19 145/77 99 02/13/17 12:10 97.0 97 18 118/76 96 02/13/17 11:10 99.2 106 18 104/71 93 02/13/17 10:10 98.2 106 20 150/78 98 I/O 02/13/17 02/13/17 02/13/17 02/14/17 02/14/17 02/14/17 07:00 15:00 23:00 07:00 15:00 23:00 Intake Total 457 ml 960 ml 120 ml Output Total 400 ml 225 ml Balance 57 ml 735 ml 120 ml Intake Oral 240 ml 960 ml 120 ml IV Total 217 ml Output Urine Total 400 ml 225 ml # Voids 5 6 # Bowel Movements 0 0 Result Diagram: 02/13/17 0455 02/12/17 0618 Objective Remarks also seen by Dr. Levar Barth abduction pillow lower extremity NAD VSS Female friend in room RLE Dressing c/d/i, mild swelling hip, tender, no erythema +motor/sens, +sens, +nvi neg homans Assessment & Plan Assessment and Plan pod#2 s/p ORIF R Hip PO pain meds as needed. Dry dressing changes daily beginning today PT - TTWBing RLE. Walker as needed. Lovenox for dvt prophylaxis D/C planning, likely SNF tomorrow as patient is homeless. F/U in 2 weeks outpatient at [facility]. Yenifer Bojorquez Feb 14, 2017 08:01
[2017-02-14] MEDS: MAGNESIUM HYDROXIDE SUSP 30 ML CUP PO SCH ×2 (08:59→20:56)
[2017-02-14] MEDS: FOLIC ACID 1 MG TAB PO SCH (08:59)
[2017-02-14] MEDS: MULTIVITAMIN TAB PO SCH (08:59)
[2017-02-14] MEDS: THIAMINE HCL 100 MG TAB PO SCH (08:59)
[2017-02-14] MEDS: chlordiazePOXIDE 25 MG CAP PO SCH ×3 (08:59→18:22)
[2017-02-14] MEDS: ENOXAPARIN SODIUM 30 MG/0.3 ML SYRINGE SQ SCH (09:00)
[2017-02-14] MEDS: SODIUM CHLORIDE 0.9% FLUSH 5 ML FLUSH FLUSH SCH ×2 (09:00→21:04)
[2017-02-14] MEDS: BACITRACIN TOP OINT 15 GM TUBE TOP SCH ×2 (09:00→21:00)
--- NOTE | 2017-02-14 10:03 | HHI.PR ---
Subjective Remarks Pt states he is ok. Pain controlled. Wants to go home. Denies any CP/SOB/N/V discussed w RN, pt was agitated overnight, pulled IVs, crawling out of bed. Objective Vitals Vital Signs Date Time Temp Pulse Resp B/P Pulse Ox O2 Delivery O2 Flow Rate FiO2 02/14/17 08:10 96.4 77 20 142/77 96 02/14/17 04:10 97.4 106 20 129/78 98 02/14/17 03:10 18 02/14/17 01:52 Nasal Cannula 2.00 02/14/17 00:10 97.0 89 18 142/73 92 02/13/17 21:00 Nasal Cannula 2.00 02/13/17 20:10 98.6 93 19 125/67 97 02/13/17 16:10 98.1 81 19 145/77 99 02/13/17 12:10 97.0 97 18 118/76 96 02/13/17 11:10 99.2 106 18 104/71 93 02/13/17 10:10 98.2 106 20 150/78 98 I/O 02/13/17 02/13/17 02/13/17 02/14/17 02/14/17 02/14/17 07:00 15:00 23:00 07:00 15:00 23:00 Intake Total 457 ml 960 ml 120 ml Output Total 400 ml 225 ml Balance 57 ml 735 ml 120 ml Intake Oral 240 ml 960 ml 120 ml IV Total 217 ml Output Urine Total 400 ml 225 ml # Voids 5 6 # Bowel Movements 0 0 Result Diagram: 02/13/17 0455 02/12/17 0618 Imaging Last Impressions Hip X-Ray 02/12/17 0000 Signed Impressions: Service Date/Time: January 18:48 - CONCLUSION: Nail and harry fixation of intertrochanteric fracture with normal appearing alignment. Ward Grant MD Hip and Pelvis X-Ray 02/11/17 0000 Signed Impressions: Service Date/Time: Saturday, February 11, 2017 18:22 - CONCLUSION: Right proximal femur fracture. Joey Banks MD Chest X-Ray 02/11/17 0000 Signed Impressions: Service Date/Time: Saturday, February 11, 2017 18:56 - CONCLUSION: No acute disease. Joey Banks MD Objective Remarks GENERAL: This is a well-nourished, comfortable. laying in bed CARDIOVASCULAR: Regular rate and rhythm without murmurs RESPIRATORY: Clear to auscultation. Breath sounds equal bilaterally. No wheezes GASTROINTESTINAL: Abdomen soft, non-tender, nondistended. MUSCULOSKELETAL: dressing in place, d/c/i. able to wiggle his toes and sensation is intact. NEUROLOGICAL: tremors improved but still present. Calm when I saw him. awake and alert. A/P Problem List: (1) Closed right hip fracture ICD Code: S72.001A Status: Acute (2) Alcohol abuse ICD Code: F10.10 Status: Chronic Assessment and Plan 61 y/o male with a history of CAD, [place], COPD and arthritis presented to the ED after suffering a fall and landing on his right hip. Closed right hip fracture hip xray shows a right proximal femur fracture. s/p open treatment internal fixation, right perithrochanteric hip fx w intramedulary harry POD#2 -Pain management with IV Morphine and PO narcotics per ortho Alcohol abuse, patient drinks at least 4 beers a day, still has tremors. - folate/thiamine/MV - I will increase librium 50mg TID x 1 day then taper down as pt continues to be agitated per nursing staff, I'm hoping to avoid restraints and ativan prn -Withdrawal/fall and seizure precautions -Encouraged to quit COPD, chronic, patient is currently having wheezing Images reviewed: Chest xray shows no acute disease. -Duonebs schedules -Oxygen as needed elevated BP: could be from pain and/or withdrawal, at this time controlled. on clonidine prn DVT prophylaxis: SCDs/lovenox per ortho post surgery Discharge Planning d/c when cleared by orthopedic sx however it may be a difficult discharge as apparently pt is homeless and has no insurance. I spoke w CM today regarding d/ c planning Problem Qualifiers (1) Closed right hip fracture: Qualified Code: S72.001A - Closed right hip fracture, initial encounter Alison Hadley MD Feb 14, 2017 10:03
[2017-02-14] MEDS: RESP: ALBUTEROL 2.5 MG/IPRATROPIUM 0.5 MG NEB (SCH) NEB ×3 (10:50→21:05)
[2017-02-14 10:57] LABS: HEMATOCRIT 27.3 % (39.0-51.0); MEAN CELL VOLUME 95.5 FL (80.0-100.0); MEAN CORPUSCULAR HEMOGLOBIN 32.9 PG (27.0-34.0); MEAN CORPUSCULAR HGB CONC 34.5 % (32.0-36.0); PLATELET COUNT 67 TH/MM3 (150-450); RED BLOOD COUNT 2.86 MIL/MM3 (4.50-5.90); RED CELL DISTRIBUTION WIDTH 13.3 % (11.6-17.2); WHITE BLOOD COUNT 7.7 TH/MM3 (4.0-11.0)
[2017-02-14 11:00] LABS: REVIEW FLAG FINAL
--- NOTE | 2017-02-14 16:47 | HHI.PR ---
Addendum to Inpatient Note Addendum Reason: Additional Documentation Additional Information Pt has been trying to get out of bed, nursing staff and myself explained to patient that he must remain in bed, he states that he needs to go talk to a nurse then tells nurse that he needs to get out of bed to go smoke. at this time, will try a vest restraint. i did explain to pt that he need to calm down and follow our instructions as he had surgery and can hurt himself. pt voices his understanding but again tries later to get out of bed. restraint in place Alison Hadley MD Feb 14, 2017 16:47
[2017-02-14] MEDS: LORazepam 2 MG/ML VIAL IV PUSH PRN (16:58)
[2017-02-14] MEDS: SENNOSIDES 8.6 MG TAB PO SCH (20:56)
[2017-02-15] VITALS (7 sets, daily range): BP systolic 139–169; BP diastolic 65–83; PULSE 74–92; RESP 18–22; TEMP 96.1–98.3; O2SAT 94–100
[2017-02-15] MEDS: RESP: ALBUTEROL 2.5 MG/IPRATROPIUM 0.5 MG NEB (SCH) NEB ×4 (04:40→21:01)
[2017-02-15] MEDS: LACTATED RINGER'S 1000 ML IV SCH (05:00)
[2017-02-15 06:50] LABS: HEMATOCRIT 24.1 % (39.0-51.0); MEAN CELL VOLUME 93.8 FL (80.0-100.0); MEAN CORPUSCULAR HEMOGLOBIN 33.7 PG (27.0-34.0); MEAN CORPUSCULAR HGB CONC 35.9 % (32.0-36.0); PLATELET COUNT 75 TH/MM3 (150-450); RED BLOOD COUNT 2.57 MIL/MM3 (4.50-5.90); RED CELL DISTRIBUTION WIDTH 12.9 % (11.6-17.2); WHITE BLOOD COUNT 6.2 TH/MM3 (4.0-11.0)
[2017-02-15 06:59] LABS: REVIEW FLAG FINAL
[2017-02-15] MEDS: MAGNESIUM HYDROXIDE SUSP 30 ML CUP PO SCH ×2 (08:25→21:34)
[2017-02-15] MEDS: chlordiazePOXIDE 25 MG CAP PO SCH ×3 (08:26→18:22)
[2017-02-15] MEDS: SODIUM CHLORIDE 0.9% FLUSH 5 ML FLUSH FLUSH SCH ×2 (08:26→21:34)
[2017-02-15] MEDS: ENOXAPARIN SODIUM 30 MG/0.3 ML SYRINGE SQ SCH (08:26)
[2017-02-15] MEDS: THIAMINE HCL 100 MG TAB PO SCH (08:26)
[2017-02-15] MEDS: MULTIVITAMIN TAB PO SCH (08:26)
[2017-02-15] MEDS: FOLIC ACID 1 MG TAB PO SCH (08:26)
[2017-02-15] MEDS: ACETAMINOPHEN/HYDROcodone 325 MG/7.5 MG TAB PO PRN ×2 (08:27→17:18)
--- NOTE | 2017-02-15 08:29 | PD.ORT.PN ---
Subjective Subjective Remarks patient doing well no complaints right hip doing better Objective Vitals Vital Signs Date Time Temp Pulse Resp B/P Pulse Ox O2 Delivery O2 Flow Rate FiO2 02/15/17 04:22 96.8 92 22 145/79 96 02/15/17 00:36 Room Air 02/15/17 00:00 97.6 81 21 169/83 95 02/14/17 22:16 18 02/14/17 20:00 97.9 88 18 174/86 100 02/14/17 15:57 96.8 82 19 169/87 98 02/14/17 15:32 99 21 02/14/17 12:10 98.1 78 19 157/84 93 02/14/17 10:53 96 21 I/O 02/14/17 02/14/17 02/14/17 02/15/17 02/15/17 02/15/17 07:00 15:00 23:00 07:00 15:00 23:00 Intake Total 120 ml 620 ml 50 ml 50 ml Balance 120 ml 620 ml 50 ml 50 ml Intake Oral 120 ml 620 ml 50 ml 50 ml # Voids 6 2 3 3 # Bowel Movements 0 0 0 0 Result Diagram: 02/15/17 0605 02/12/17 0618 Objective Remarks also seen by Dr. Levar Barth patient is in restraints NAD RLE Dressing c/d/i, miminal swelling hip, no erythema +motor/sens, +sens, +nvi neg homans Assessment & Plan Assessment and Plan pod#3 s/p ORIF R Hip PO pain meds as needed. Dry dressing changes daily PT - TTWBing RLE. Walker as needed. Lovenox for dvt prophylaxis D/C planning, may be discharged when bed available, fine from ortho standpoint to be discharged F/U in 2 weeks outpatient at [facility]. Yenifer Bojorquez Feb 15, 2017 08:29
[2017-02-15] MEDS: BACITRACIN TOP OINT 15 GM TUBE TOP SCH ×2 (08:32→21:34)
--- NOTE | 2017-02-15 09:16 | HHI.PR ---
Subjective Remarks Pt laying in bed, wakes up briefly tells me he is tired then falls back to sleep. Pt still agitated trying to get out of bed per RN. She gave him the librium this AM Objective Vitals Vital Signs Date Time Temp Pulse Resp B/P Pulse Ox O2 Delivery O2 Flow Rate FiO2 02/15/17 04:22 96.8 92 22 145/79 96 02/15/17 00:36 Room Air 02/15/17 00:00 97.6 81 21 169/83 95 02/14/17 22:16 18 02/14/17 20:00 97.9 88 18 174/86 100 02/14/17 15:57 96.8 82 19 169/87 98 02/14/17 15:32 99 21 02/14/17 12:10 98.1 78 19 157/84 93 02/14/17 10:53 96 21 I/O 02/14/17 02/14/17 02/14/17 02/15/17 02/15/17 02/15/17 07:00 15:00 23:00 07:00 15:00 23:00 Intake Total 120 ml 620 ml 50 ml 50 ml Balance 120 ml 620 ml 50 ml 50 ml Intake Oral 120 ml 620 ml 50 ml 50 ml # Voids 6 2 3 3 # Bowel Movements 0 0 0 0 Result Diagram: 02/15/17 0602/12/17 0618 Imaging Last Impressions Hip X-Ray 02/12/17 0000 Signed Impressions: Service Date/Time: January 18:48 - CONCLUSION: Nail and harry fixation of intertrochanteric fracture with normal appearing alignment. Ward Grant MD Hip and Pelvis X-Ray 02/11/17 0000 Signed Impressions: Service Date/Time: Saturday, February 11, 2017 18:22 - CONCLUSION: Right proximal femur fracture. Joey Banks MD Chest X-Ray 02/11/17 0000 Signed Impressions: Service Date/Time: Saturday, February 11, 2017 18:56 - CONCLUSION: No acute disease. Joey Banks MD Objective Remarks GENERAL: This is a well-nourished, comfortable. laying in bed asleep CARDIOVASCULAR: Regular rate and rhythm without murmurs RESPIRATORY: Clear to auscultation. Breath sounds equal bilaterally. No wheezes GASTROINTESTINAL: Abdomen soft, non-tender, nondistended. MUSCULOSKELETAL: dressing in place, d/c/i. able to wiggle his toes and sensation is intact. NEUROLOGICAL: tremors improved but still present. wakes up then fall asleep A/P Problem List: (1) Closed right hip fracture ICD Code: S72.001A Status: Acute (2) Alcohol abuse ICD Code: F10.10 Status: Chronic Assessment and Plan 61 y/o male with a history of CAD, [place], COPD and arthritis presented to the ED after suffering a fall and landing on his right hip. Closed right hip fracture hip xray shows a right proximal femur fracture. s/p open treatment internal fixation, right perithrochanteric hip fx w intramedulary harry POD#3 -Pain management with IV Morphine and PO narcotics per ortho Alcohol abuse, patient drinks at least 4 beers a day, still has tremors. - folate/thiamine/MV - Ion librium 50mg TID then start tapering down tomorrow as pt continues to be agitated per nursing staff, currently using vest as restraint. -Withdrawal/fall and seizure precautions -Encouraged to quit COPD, chronic, patient is currently having wheezing Images reviewed: Chest xray shows no acute disease. -Duonebs schedules -Oxygen as needed elevated BP: could be from pain and/or withdrawal, at this time controlled. on clonidine prn DVT prophylaxis: SCDs/lovenox per ortho post surgery Discharge Planning cleared by orthopedic sx however it may be a difficult discharge as apparently pt is homeless and has no insurance. I spoke w CM today regarding d/c planning Problem Qualifiers (1) Closed right hip fracture: Qualified Code: S72.001A - Closed right hip fracture, initial encounter Alison Hadley MD Feb 15, 2017 09:16
[2017-02-15] MEDS: LACTATED RINGER'S 1000 ML INJ 1,000 ML IV SCH ×2 (09:24→21:34)
[2017-02-15] MEDS: SENNOSIDES 8.6 MG TAB PO SCH (21:34)
[2017-02-16] VITALS: BP 142/78; PULSE 69; RESP 20; TEMP 98.6; O2SAT 96
[2017-02-16] MEDS: LACTATED RINGER'S 1000 ML IV SCH (03:43)
[2017-02-16] MEDS: RESP: ALBUTEROL 2.5 MG/IPRATROPIUM 0.5 MG NEB (SCH) NEB (03:46)
[2017-02-16 04:45] VITALS: BP 158/74; PULSE 72; RESP 20; TEMP 98.6; O2SAT 96
[2017-02-16 08:00] VITALS: BP 145/72; PULSE 63; RESP 20; TEMP 99.3; O2SAT 97
[2017-02-16] MEDS: BACITRACIN TOP OINT 15 GM TUBE TOP SCH ×2 (09:00→21:00)
[2017-02-16] MEDS: ENOXAPARIN SODIUM 30 MG/0.3 ML SYRINGE SQ SCH (09:16)
[2017-02-16] MEDS: THIAMINE HCL 100 MG TAB PO SCH (09:16)
[2017-02-16] MEDS: FOLIC ACID 1 MG TAB PO SCH (09:16)
[2017-02-16] MEDS: MULTIVITAMIN TAB PO SCH (09:16)
[2017-02-16] MEDS: chlordiazePOXIDE 25 MG CAP PO SCH ×3 (09:16→17:24)
[2017-02-16] MEDS: MAGNESIUM HYDROXIDE SUSP 30 ML CUP PO SCH ×2 (09:16→21:00)
[2017-02-16] MEDS: ACETAMINOPHEN/HYDROcodone 325 MG/7.5 MG TAB PO PRN (09:17)
[2017-02-16] MEDS: SODIUM CHLORIDE 0.9% FLUSH 5 ML FLUSH FLUSH SCH ×2 (09:17→21:00)
[2017-02-16] MEDS: LACTATED RINGER'S 1000 ML INJ 1,000 ML IV SCH ×2 (10:24→21:44)
[2017-02-16 12:08] VITALS: BP 142/74; PULSE 70; RESP 20; TEMP 97.9; O2SAT 98
--- NOTE | 2017-02-16 12:49 | HHI.PR ---
Subjective Remarks Follow up for right hip fracture. Patient requests to go out and smoke cigarettes. When told that he cannot smoke, patient expressed desire to leave AMA. We discussed at length regarding the risks he will take if he leaves the hospital AGAINST MEDICAL ADVICE. However he insists on leaving the hospital. Objective Vitals Vital Signs Date Time Temp Pulse Resp B/P Pulse Ox O2 Delivery O2 Flow Rate FiO2 02/16/17 12:08 97.9 70 20 142/74 98 02/16/17 08:00 99.3 63 20 145/72 97 02/16/17 04:45 98.6 72 20 158/74 96 02/16/17 00:00 98.6 69 20 142/78 96 02/15/17 21:01 94 21 02/15/17 20:50 98.3 79 20 139/69 100 02/15/17 16:00 96.9 74 22 156/65 97 I/O 02/15/17 02/15/17 02/15/17 02/16/17 02/16/17 02/16/17 07:00 15:00 23:00 07:00 15:00 23:00 Intake Total 50 ml 480 ml 50 ml 120 ml Output Total 0 ml 200 ml Balance 50 ml 480 ml 50 ml -80 ml Intake Oral 50 ml 480 ml 50 ml 120 ml Output Urine Total 0 ml 200 ml # Voids 3 4 # Bowel Movements 0 1 0 0 Result Diagram: 02/15/17 0605 02/12/17 0618 Imaging Last Impressions Hip X-Ray 02/12/17 0000 Signed Impressions: Service Date/Time: January 18:48 - CONCLUSION: Nail and harry fixation of intertrochanteric fracture with normal appearing alignment. Ward Grant MD Hip and Pelvis X-Ray 02/11/17 0000 Signed Impressions: Service Date/Time: Saturday, February 11, 2017 18:22 - CONCLUSION: Right proximal femur fracture. Joey Banks MD Chest X-Ray 02/11/17 0000 Signed Impressions: Service Date/Time: Saturday, February 11, 2017 18:56 - CONCLUSION: No acute disease. Joey Bnaks MD Objective Remarks GENERAL: Alert, oriented 3, NAD. SKIN: Warm and dry. HEAD: Normocephalic. EYES: No scleral icterus. No injection or drainage. NECK: Supple, trachea midline. No JVD or lymphadenopathy. CARDIOVASCULAR: Regular rate and rhythm without murmurs, gallops, or rubs. RESPIRATORY: Breath sounds equal bilaterally. No accessory muscle use. GASTROINTESTINAL: Abdomen soft, non-tender, nondistended. MUSCULOSKELETAL: No cyanosis, or edema. BACK: Nontender without obvious deformity. No CVA tenderness. Procedures Open treatment internal fixation right peritrochanteric hip fracture with intramedullary harry 02/12/2017 A/P Problem List: (1) Closed right hip fracture ICD Code: S72.001A Status: Acute (2) Alcohol abuse ICD Code: F10.10 Status: Chronic Assessment and Plan 61 y/o male with a history of CAD, [place], COPD and arthritis presented to the ED after suffering a fall and landing on his right hip. Closed right hip fracture hip xray shows a right proximal femur fracture. s/p open treatment internal fixation, right perithrochanteric hip fx w intramedulary harry - Pain management with IV Morphine and PO narcotics per ortho - SNF cannot be arranged due to lack of insurance. - Patient cannot be safely discharged either. - Patient wanted to leave AMA today. However, after he tried to get up on his own using a walker, he realized he cannot even stand up. He decided to stay in the hospital. - Continue PT. Alcohol abuse, patient drinks at least 4 beers a day - folate/thiamine/MV - on librium 50mg TID. We will start tapering this week. -Withdrawal/fall and seizure precautions - Encouraged to quit COPD, chronic, patient is currently having wheezing Images reviewed: Chest xray shows no acute disease. -Duonebs schedules -Oxygen as needed Hypertension - currently reasonably controlled. Full code. Lovenox 30mg Q24hrs. Problem Qualifiers (1) Closed right hip fracture: Qualified Code: S72.001A - Closed right hip fracture, initial encounter Vicente Peterson DO Feb 16, 2017 12:49 pm
[2017-02-16 16:13] VITALS: BP 116/63; PULSE 87; RESP 18; TEMP 96.4; O2SAT 97
[2017-02-16 20:00] VITALS: BP 152/72; PULSE 67; RESP 16; TEMP 97; O2SAT 94
[2017-02-16] MEDS: SENNOSIDES 8.6 MG TAB PO SCH (21:00)
[2017-02-17] VITALS: BP 149/76; PULSE 71; RESP 16; TEMP 99.2; O2SAT 94
[2017-02-17] MEDS: LACTATED RINGER'S 1000 ML IV SCH ×2 (03:25→22:08)
[2017-02-17 04:00] VITALS: BP 155/79; PULSE 71; RESP 16; TEMP 97; O2SAT 98
[2017-02-17 08:00] VITALS: BP 113/61; PULSE 76; RESP 18; TEMP 96.8; O2SAT 96
[2017-02-17] MEDS: MAGNESIUM HYDROXIDE SUSP 30 ML CUP PO SCH ×2 (10:16→21:00)
[2017-02-17] MEDS: chlordiazePOXIDE 25 MG CAP PO SCH ×3 (10:17→17:49)
[2017-02-17] MEDS: MULTIVITAMIN TAB PO SCH (10:17)
[2017-02-17] MEDS: ENOXAPARIN SODIUM 30 MG/0.3 ML SYRINGE SQ SCH (10:17)
[2017-02-17] MEDS: THIAMINE HCL 100 MG TAB PO SCH (10:17)
[2017-02-17] MEDS: FOLIC ACID 1 MG TAB PO SCH (10:17)
[2017-02-17] MEDS: SODIUM CHLORIDE 0.9% FLUSH 5 ML FLUSH FLUSH SCH ×2 (10:18→21:00)
[2017-02-17] MEDS: BACITRACIN TOP OINT 15 GM TUBE TOP SCH ×2 (10:19→21:00)
--- NOTE | 2017-02-17 11:12 | HHI.PR ---
Subjective Remarks Follow up for right hip fracture. Patient is doing well. No acute concerns. Denies any chest pain, SOB, fever, chills. Does not talk much. Objective Vitals Vital Signs Date Time Temp Pulse Resp B/P Pulse Ox O2 Delivery O2 Flow Rate FiO2 02/17/17 04:00 97.0 71 16 155/79 98 02/17/17 00:00 99.2 71 16 149/76 94 02/16/17 20:00 97.0 67 16 152/72 94 02/16/17 16:13 96.4 87 18 116/63 97 02/16/17 12:08 97.9 70 20 142/74 98 I/O 02/16/17 02/16/17 02/16/17 02/17/17 02/17/17 02/17/17 07:00 15:00 23:00 07:00 15:00 23:00 Intake Total 120 ml 720 ml 240 ml 240 ml Output Total 200 ml Balance -80 ml 720 ml 240 ml 240 ml Intake Oral 120 ml 720 ml 240 ml 240 ml Output Urine Total 200 ml # Voids 2 2 1 # Bowel Movements 0 1 0 0 Result Diagram: 02/15/17 0605 Imaging Last Impressions Hip X-Ray 02/12/17 0000 Signed Impressions: Service Date/Time: January 18:48 - CONCLUSION: Nail and harry fixation of intertrochanteric fracture with normal appearing alignment. Ward Grant MD Hip and Pelvis X-Ray 02/11/17 0000 Signed Impressions: Service Date/Time: Saturday, February 11, 2017 18:22 - CONCLUSION: Right proximal femur fracture. Joey Banks MD Chest X-Ray 02/11/17 0000 Signed Impressions: Service Date/Time: Saturday, February 11, 2017 18:56 - CONCLUSION: No acute disease. Joey Banks MD Objective Remarks GENERAL: Alert, oriented 3, NAD. SKIN: Warm and dry. HEAD: Normocephalic. EYES: No scleral icterus. No injection or drainage. NECK: Supple, trachea midline. No JVD or lymphadenopathy. CARDIOVASCULAR: Regular rate and rhythm without murmurs, gallops, or rubs. RESPIRATORY: Breath sounds equal bilaterally. No accessory muscle use. GASTROINTESTINAL: Abdomen soft, non-tender, nondistended. MUSCULOSKELETAL: No cyanosis, or edema. BACK: Nontender without obvious deformity. No CVA tenderness. Procedures Open treatment internal fixation right peritrochanteric hip fracture with intramedullary harry 02/12/2017 A/P Problem List: (1) Closed right hip fracture ICD Code: S72.001A Status: Acute (2) Alcohol abuse ICD Code: F10.10 Status: Chronic Assessment and Plan 61 y/o male with a history of CAD, [place], COPD and arthritis presented to the ED after suffering a fall and landing on his right hip. Closed right hip fracture hip xray shows a right proximal femur fracture. s/p open treatment internal fixation, right perithrochanteric hip fx w intramedulary harry - Pain management with IV Morphine and PO narcotics per ortho - SNF cannot be arranged due to lack of insurance. - Patient cannot be safely discharged either. - Patient wanted to leave AMA yesterday. However, after he tried to get up on his own using a walker, he realized he cannot even stand up. He decided to stay in the hospital. - Continue PT. Will request PT To work with him on the weekend as well. Alcohol abuse, patient drinks at least 4 beers a day - folate/thiamine/MV - on librium 50mg TID. We will start tapering this week. -Withdrawal/fall and seizure precautions - Encouraged to quit COPD, chronic, patient is currently having wheezing Images reviewed: Chest xray shows no acute disease. -Duonebs schedules -Oxygen as needed Hypertension - currently reasonably controlled. Full code. Lovenox 30mg Q24hrs. Problem Qualifiers (1) Closed right hip fracture: Qualified Code: S72.001A - Closed right hip fracture, initial encounter Vicente Peterson DO Feb 17, 2017 11:12
[2017-02-17] MEDS: LACTATED RINGER'S 1000 ML INJ 1,000 ML IV SCH ×2 (11:24→22:07)
[2017-02-17 12:00] VITALS: BP_SYST 125; PULSE 76; RESP 18; TEMP 97.4; O2SAT 97
[2017-02-17 16:43] VITALS: BP 148/79; PULSE 67; RESP 14; TEMP 98.7; O2SAT 99
[2017-02-17 17:42] LABS: C. DIFF EPI 027 PRESUMPTIVE NEGATIVE (NEGATIVE); C. DIFF TOXIN PCR NEGATIVE (NEGATIVE)
[2017-02-17 19:26] VITALS: BP 154/79; PULSE 68; RESP 14; TEMP 97.7; O2SAT 97
[2017-02-17] MEDS: SENNOSIDES 8.6 MG TAB PO SCH (21:00)
[2017-02-17] MEDS: ACETAMINOPHEN/HYDROcodone 325 MG/7.5 MG TAB PO PRN (22:12)
[2017-02-18] VITALS: BP 152/79; PULSE 62; RESP 16; TEMP 96.4; O2SAT 97
[2017-02-18 08:00] VITALS: BP 160/77; PULSE 61; RESP 18; TEMP 96.5; O2SAT 98
[2017-02-18] MEDS: FOLIC ACID 1 MG TAB PO SCH (10:21)
[2017-02-18] MEDS: MULTIVITAMIN TAB PO SCH (10:21)
[2017-02-18] MEDS: chlordiazePOXIDE 25 MG CAP PO SCH ×3 (10:21→17:36)
[2017-02-18] MEDS: THIAMINE HCL 100 MG TAB PO SCH (10:21)
[2017-02-18] MEDS: MAGNESIUM HYDROXIDE SUSP 30 ML CUP PO SCH ×3 (10:21→21:35)
[2017-02-18] MEDS: SODIUM CHLORIDE 0.9% FLUSH 5 ML FLUSH FLUSH SCH ×2 (10:21→21:35)
[2017-02-18] MEDS: ENOXAPARIN SODIUM 30 MG/0.3 ML SYRINGE SQ SCH (10:21)
[2017-02-18] MEDS: BACITRACIN TOP OINT 15 GM TUBE TOP SCH ×2 (10:22→21:36)
[2017-02-18 12:00] VITALS: BP 148/84; PULSE 89; RESP 18; TEMP 98.9; O2SAT 98
[2017-02-18] MEDS: LACTATED RINGER'S 1000 ML INJ 1,000 ML IV SCH ×2 (12:24→21:29)
--- NOTE | 2017-02-18 14:18 | HHI.PR ---
Subjective Remarks Follow-up for right hip fracture. Patient is currently doing well, eating his lunch. However he remains somewhat confused. He thinks he is at a fire station. Denies any fever or chills. Objective Vitals Vital Signs Date Time Temp Pulse Resp B/P Pulse Ox O2 Delivery O2 Flow Rate FiO2 02/18/17 12:00 98.9 89 18 148/84 98 02/18/17 08:00 96.5 61 18 160/77 98 02/18/17 00:00 96.4 62 16 152/79 97 02/17/17 19:26 97.7 68 14 154/79 97 02/17/17 16:43 98.7 67 14 148/79 99 I/O 02/17/17 02/17/17 02/17/17 02/18/17 02/18/17 02/18/17 07:00 15:00 23:00 07:00 15:00 23:00 Intake Total 240 ml 600 ml 240 ml 240 ml Balance 240 ml 600 ml 240 ml 240 ml Intake Oral 240 ml 600 ml 240 ml 240 ml # Voids 1 3 2 2 # Bowel Movements 0 1 0 0 Result Diagram: 02/15/17 0605 Imaging Last Impressions Hip X-Ray 02/12/17 0000 Signed Impressions: Service Date/Time: January 18:48 - CONCLUSION: Nail and harry fixation of intertrochanteric fracture with normal appearing alignment. Ward Grant MD Hip and Pelvis X-Ray 02/11/17 0000 Signed Impressions: Service Date/Time: Saturday, February 11, 2017 18:22 - CONCLUSION: Right proximal femur fracture. Joey Banks MD Chest X-Ray 02/11/17 0000 Signed Impressions: Service Date/Time: Saturday, February 11, 2017 18:56 - CONCLUSION: No acute disease. Joey Banks MD Objective Remarks GENERAL: Alert, NAD. SKIN: Warm and dry. HEAD: Normocephalic. EYES: No scleral icterus. No injection or drainage. NECK: Supple, trachea midline. No JVD or lymphadenopathy. CARDIOVASCULAR: Regular rate and rhythm without murmurs, gallops, or rubs. RESPIRATORY: Breath sounds equal bilaterally. No accessory muscle use. GASTROINTESTINAL: Abdomen soft, non-tender, nondistended. MUSCULOSKELETAL: No cyanosis, or edema. BACK: Nontender without obvious deformity. No CVA tenderness. Procedures Open treatment internal fixation right peritrochanteric hip fracture with intramedullary harry 02/12/2017 A/P Problem List: (1) Closed right hip fracture ICD Code: S72.001A Status: Acute (2) Alcohol abuse ICD Code: F10.10 Status: Chronic Assessment and Plan 61 y/o male with a history of CAD, [place], COPD and arthritis presented to the ED after suffering a fall and landing on his right hip. Closed right hip fracture hip xray shows a right proximal femur fracture. s/p open treatment internal fixation, right perithrochanteric hip fx w intramedulary harry - Pain management with IV Morphine and PO narcotics per ortho - SNF cannot be arranged due to lack of insurance. - Patient cannot be safely discharged either. - Continue PT. Alcohol abuse, patient drinks at least 4 beers a day - folate/thiamine/MV - on librium 50mg TID. We will start tapering this week. -Withdrawal/fall and seizure precautions - Encouraged to quit COPD, chronic, patient is currently having wheezing Images reviewed: Chest xray shows no acute disease. -Duonebs schedules -Oxygen as needed Hypertension - currently reasonably controlled. Full code. Lovenox 30mg Q24hrs. Problem Qualifiers (1) Closed right hip fracture: Qualified Code: S72.001A - Closed right hip fracture, initial encounter Vicente Peterson DO Feb 18, 2017 2:18 pm
[2017-02-18 16:20] VITALS: BP 152/80; PULSE 75; RESP 20; TEMP 97.6; O2SAT 98
[2017-02-18 19:59] VITALS: BP 140/70; PULSE 70; RESP 16; TEMP 98.3; O2SAT 96
[2017-02-18] MEDS: LACTATED RINGER'S 1000 ML IV SCH (21:29)
[2017-02-18] MEDS: SENNOSIDES 8.6 MG TAB PO SCH (21:35)
[2017-02-19] VITALS: BP 153/69; PULSE 71; RESP 16; TEMP 97.1; O2SAT 94
[2017-02-19 08:20] VITALS: BP 156/80; PULSE 62; RESP 18; TEMP 95.9; O2SAT 100
[2017-02-19] MEDS: BACITRACIN TOP OINT 15 GM TUBE TOP SCH ×2 (09:00→21:00)
[2017-02-19] MEDS: FOLIC ACID 1 MG TAB PO SCH (10:01)
[2017-02-19] MEDS: MULTIVITAMIN TAB PO SCH (10:01)
[2017-02-19] MEDS: chlordiazePOXIDE 25 MG CAP PO SCH ×3 (10:01→18:43)
[2017-02-19] MEDS: ENOXAPARIN SODIUM 30 MG/0.3 ML SYRINGE SQ SCH (10:01)
[2017-02-19] MEDS: MAGNESIUM HYDROXIDE SUSP 30 ML CUP PO SCH ×2 (10:01→21:01)
[2017-02-19] MEDS: THIAMINE HCL 100 MG TAB PO SCH (10:01)
[2017-02-19] MEDS: SODIUM CHLORIDE 0.9% FLUSH 5 ML FLUSH FLUSH SCH ×2 (10:02→21:01)
--- NOTE | 2017-02-19 12:47 | HHI.PR ---
Subjective Remarks Follow-up for right hip fracture. Patient is currently doing well. Eating lunch. Denies any chest pain, shortness of breath, fever or chills. He reports improvements with physical therapy. Objective Vitals Vital Signs Date Time Temp Pulse Resp B/P Pulse Ox O2 Delivery O2 Flow Rate FiO2 02/19/17 08:20 95.9 62 18 156/80 100 02/19/17 00:00 97.1 71 16 153/69 94 02/18/17 19:59 98.3 70 16 140/70 96 02/18/17 16:20 97.6 75 20 152/80 98 I/O 02/18/17 02/18/17 02/18/17 02/19/17 02/19/17 02/19/17 07:00 15:00 23:00 07:00 15:00 23:00 Intake Total 240 ml 840 ml 240 ml Output Total 600 ml 300 ml Balance 240 ml 240 ml -60 ml Intake Oral 240 ml 840 ml 240 ml Output Urine Total 600 ml 300 ml Stool Total 0 ml # Voids 2 # Bowel Movements 0 0 0 Result Diagram: 02/15/17 0605 Imaging Last Impressions Hip X-Ray 02/12/17 0000 Signed Impressions: Service Date/Time: January 18:48 - CONCLUSION: Nail and harry fixation of intertrochanteric fracture with normal appearing alignment. Ward Grant MD Hip and Pelvis X-Ray 02/11/17 0000 Signed Impressions: Service Date/Time: Saturday, February 11, 2017 18:22 - CONCLUSION: Right proximal femur fracture. Joey Banks MD Chest X-Ray 02/11/17 0000 Signed Impressions: Service Date/Time: Saturday, February 11, 2017 18:56 - CONCLUSION: No acute disease. Joey Banks MD Objective Remarks GENERAL: Alert, NAD. SKIN: Warm and dry. HEAD: Normocephalic. EYES: No scleral icterus. No injection or drainage. NECK: Supple, trachea midline. No JVD or lymphadenopathy. CARDIOVASCULAR: Regular rate and rhythm without murmurs, gallops, or rubs. RESPIRATORY: Breath sounds equal bilaterally. No accessory muscle use. GASTROINTESTINAL: Abdomen soft, non-tender, nondistended. MUSCULOSKELETAL: No cyanosis, or edema. BACK: Nontender without obvious deformity. No CVA tenderness. Procedures Open treatment internal fixation right peritrochanteric hip fracture with intramedullary harry 02/12/2017 A/P Problem List: (1) Closed right hip fracture ICD Code: S72.001A Status: Acute (2) Alcohol abuse ICD Code: F10.10 Status: Chronic Assessment and Plan 61 y/o male with a history of CAD, [place], COPD and arthritis presented to the ED after suffering a fall and landing on his right hip. Closed right hip fracture hip xray shows a right proximal femur fracture. s/p open treatment internal fixation, right perithrochanteric hip fx w intramedulary harry - Pain management with IV Morphine and PO narcotics per ortho - SNF cannot be arranged due to lack of insurance. - Patient cannot be safely discharged either. - Continue daily PT. Alcohol abuse, patient drinks at least 4 beers a day - folate/thiamine/MV - on Librium 50mg TID. -Withdrawal/fall and seizure precautions - Encouraged to quit COPD, chronic, patient is currently having wheezing Images reviewed: Chest xray shows no acute disease. -Duonebs schedules -Oxygen as needed Hypertension - Will start patient on Amlodipine 5mg Qday. Full code. Lovenox 30mg Q24hrs. Problem Qualifiers (1) Closed right hip fracture: Qualified Code: S72.001A - Closed right hip fracture, initial encounter Vicente Peterson DO Feb 19, 2017 12:47 pm
[2017-02-19] MEDS: LACTATED RINGER'S 1000 ML INJ 1,000 ML IV SCH (13:24)
[2017-02-19 14:55] VITALS: BP 159/77; PULSE 65; RESP 18; TEMP 97.7; O2SAT 95
[2017-02-19] MEDS: amLODIPine BESYLATE 5 MG TAB PO SCH (16:44)
[2017-02-19 19:05] VITALS: BP 123/63; PULSE 73; RESP 16; TEMP 98.4; O2SAT 97
[2017-02-19] MEDS: SENNOSIDES 8.6 MG TAB PO SCH (21:01)
[2017-02-20] VITALS: BP 157/77; PULSE 69; RESP 16; TEMP 97.9; O2SAT 95
[2017-02-20] MEDS: LACTATED RINGER'S 1000 ML INJ 1,000 ML IV SCH ×2 (01:54→14:24)
[2017-02-20] MEDS: LACTATED RINGER'S 1000 ML IV SCH (05:00)
[2017-02-20 08:00] VITALS: BP 101/56; PULSE 82; RESP 16; TEMP 96.5; O2SAT 99
[2017-02-20] MEDS: MAGNESIUM HYDROXIDE SUSP 30 ML CUP PO SCH ×3 (09:26→20:27)
[2017-02-20] MEDS: FOLIC ACID 1 MG TAB PO SCH (09:26)
[2017-02-20] MEDS: SODIUM CHLORIDE 0.9% FLUSH 5 ML FLUSH FLUSH SCH ×2 (09:26→20:27)
[2017-02-20] MEDS: chlordiazePOXIDE 25 MG CAP PO SCH ×3 (09:26→17:34)
[2017-02-20] MEDS: THIAMINE HCL 100 MG TAB PO SCH (09:26)
[2017-02-20] MEDS: MULTIVITAMIN TAB PO SCH (09:26)
[2017-02-20] MEDS: amLODIPine BESYLATE 5 MG TAB PO SCH (09:26)
[2017-02-20] MEDS: ENOXAPARIN SODIUM 30 MG/0.3 ML SYRINGE SQ SCH (09:27)
[2017-02-20] MEDS: BACITRACIN TOP OINT 15 GM TUBE TOP SCH ×2 (09:36→20:11)
--- NOTE | 2017-02-20 11:47 | HHI.PR ---
Subjective Remarks Follow-up for right hip fracture. Patient is currently doing well sitting at the side of his bed. Denies any chest pain, shortness of breath, fever or chills. Patient complains of eye allergies. Objective Vitals Vital Signs Date Time Temp Pulse Resp B/P Pulse Ox O2 Delivery O2 Flow Rate FiO2 02/20/17 08:00 96.5 82 16 101/56 99 02/20/17 07:15 Room Air 02/20/17 00:00 97.9 69 16 157/77 95 02/19/17 19:05 98.4 73 16 123/63 97 02/19/17 14:55 97.7 65 18 159/77 95 I/O 02/19/17 02/19/17 02/19/17 02/20/17 02/20/17 02/20/17 07:00 15:00 23:00 07:00 15:00 23:00 Intake Total 240 ml 660 ml 360 ml 480 ml Output Total 300 ml 400 ml Balance -60 ml 660 ml -40 ml 480 ml Intake Oral 240 ml 660 ml 360 ml 480 ml Output Urine Total 300 ml 400 ml # Voids 4 2 # Bowel Movements 0 Imaging Last Impressions Hip X-Ray 02/12/17 0000 Signed Impressions: Service Date/Time: January 18:48 - CONCLUSION: Nail and harry fixation of intertrochanteric fracture with normal appearing alignment. Ward Grant MD Hip and Pelvis X-Ray 02/11/17 0000 Signed Impressions: Service Date/Time: Saturday, February 11, 2017 18:22 - CONCLUSION: Right proximal femur fracture. Joey Banks MD Chest X-Ray 02/11/17 0000 Signed Impressions: Service Date/Time: Saturday, February 11, 2017 18:56 - CONCLUSION: No acute disease. Joey Banks MD Objective Remarks GENERAL: Alert, NAD. SKIN: Warm and dry. HEAD: Normocephalic. EYES: No scleral icterus. Continuous tear drainage. No redness noted. NECK: Supple, trachea midline. No JVD or lymphadenopathy. CARDIOVASCULAR: Regular rate and rhythm without murmurs, gallops, or rubs. RESPIRATORY: Breath sounds equal bilaterally. No accessory muscle use. GASTROINTESTINAL: Abdomen soft, non-tender, nondistended. MUSCULOSKELETAL: No cyanosis, or edema. BACK: Nontender without obvious deformity. No CVA tenderness. Procedures Open treatment internal fixation right peritrochanteric hip fracture with intramedullary harry 02/12/2017 A/P Problem List: (1) Closed right hip fracture ICD Code: S72.001A Status: Acute (2) Alcohol abuse ICD Code: F10.10 Status: Chronic Assessment and Plan 61 y/o male with a history of CAD, [place], COPD and arthritis presented to the ED after suffering a fall and landing on his right hip. Closed right hip fracture hip xray shows a right proximal femur fracture. s/p open treatment internal fixation, right perithrochanteric hip fx w intramedulary harry - Pain management with IV Morphine and PO narcotics per ortho - SNF cannot be arranged due to lack of insurance. - Patient cannot be safely discharged to the street. - Continue daily PT. Alcohol abuse, patient drinks at least 4 beers a day - folate/thiamine/MV - on Librium 50mg TID. -Withdrawal/fall and seizure precautions - Encouraged to quit COPD, chronic, patient is currently having wheezing Images reviewed: Chest xray shows no acute disease. -Duonebs schedules -Oxygen as needed Hypertension - Continue Amlodipine 5mg Qday. - Allergic conjunctivitis - Will start Olopatadine 0.1% Ophth solution in each each Q12hrs. Full code. Lovenox 30mg Q24hrs. Problem Qualifiers (1) Closed right hip fracture: Qualified Code: S72.001A - Closed right hip fracture, initial encounter Vicente Peterson DO Feb 20, 2017 11:47 am
[2017-02-20 12:00] VITALS: BP 115/64; PULSE 79; RESP 17; TEMP 98.8; O2SAT 98
[2017-02-20] MEDS: OLOPATADINE HCL 0.1% OPHT SOLN 5 ML BTL EACH EYE SCH ×2 (13:39→20:10)
[2017-02-20 16:00] VITALS: BP 105/62; PULSE 69; RESP 16; TEMP 97.1; O2SAT 100
[2017-02-20] MEDS: ACETAMINOPHEN/HYDROcodone 325 MG/7.5 MG TAB PO PRN (17:43)
[2017-02-20 20:00] VITALS: BP 119/58; PULSE 66; RESP 16; TEMP 96; O2SAT 100
[2017-02-20] MEDS: SENNOSIDES 8.6 MG TAB PO SCH (20:10)
[2017-02-21] VITALS: BP 142/74; PULSE 63; RESP 16; TEMP 96.4; O2SAT 97
[2017-02-21] MEDS: LACTATED RINGER'S 1000 ML INJ 1,000 ML IV SCH ×3 (02:54→21:00)
[2017-02-21] MEDS: LACTATED RINGER'S 1000 ML IV SCH ×2 (05:00→21:00)
[2017-02-21 08:00] VITALS: BP 147/69; PULSE 66; RESP 18; TEMP 95.6; O2SAT 96
--- NOTE | 2017-02-21 08:41 | HHI.PR ---
Subjective Remarks Follow up for right hip fracture. Patient is currently doing well. Continues to work with physical therapy. Not able to stand up on his own yet. No fever or chills. Objective Vitals Vital Signs Date Time Temp Pulse Resp B/P Pulse Ox O2 Delivery O2 Flow Rate FiO2 02/21/17 00:00 96.4 63 16 142/74 97 02/20/17 20:00 96.0 66 16 119/58 100 02/20/17 16:00 97.1 69 16 105/62 100 02/20/17 12:00 98.8 79 17 115/64 98 I/O 02/20/17 02/20/17 02/20/17 02/21/17 02/21/17 02/21/17 07:00 15:00 23:00 07:00 15:00 23:00 Intake Total 480 ml 240 ml 720 ml Output Total 300 ml Balance 480 ml -60 ml 720 ml Intake Oral 480 ml 240 ml 720 ml Output Urine Total 300 ml # Voids 2 1 2 Objective Remarks GENERAL: Alert, NAD. SKIN: Warm and dry. HEAD: Normocephalic. EYES: No scleral icterus. Continuous tear drainage. No redness noted. NECK: Supple, trachea midline. No JVD or lymphadenopathy. CARDIOVASCULAR: Regular rate and rhythm without murmurs, gallops, or rubs. RESPIRATORY: Breath sounds equal bilaterally. No accessory muscle use. GASTROINTESTINAL: Abdomen soft, non-tender, nondistended. MUSCULOSKELETAL: No cyanosis, or edema. BACK: Nontender without obvious deformity. No CVA tenderness. Procedures Open treatment internal fixation right peritrochanteric hip fracture with intramedullary harry 02/12/2017 A/P Problem List: (1) Closed right hip fracture ICD Code: S72.001A Status: Acute (2) Alcohol abuse ICD Code: F10.10 Status: Chronic Assessment and Plan 61 y/o male with a history of CAD, [place], COPD and arthritis presented to the ED after suffering a fall and landing on his right hip. Closed right hip fracture hip xray shows a right proximal femur fracture. s/p open treatment internal fixation, right perithrochanteric hip fx w intramedulary harry - Pain management with IV Morphine and PO narcotics per ortho - SNF cannot be arranged due to lack of insurance. - Patient cannot be safely discharged to the street. - Continue daily PT. Alcohol abuse, patient drinks at least 4 beers a day - folate/thiamine/MV - on Librium 50mg TID. -Withdrawal/fall and seizure precautions - Encouraged to quit COPD, chronic, patient is currently having wheezing Images reviewed: Chest xray shows no acute disease. -Duonebs schedules -Oxygen as needed Hypertension - Continue Amlodipine 5mg Qday. - Allergic conjunctivitis - Will start Olopatadine 0.1% Ophth solution in each each Q12hrs. Full code. Lovenox 30mg Q24hrs. 02/21/2017 : No change in management. Continue PT. Problem Qualifiers (1) Closed right hip fracture: Qualified Code: S72.001A - Closed right hip fracture, initial encounter Vicente Peterson DO Feb 21, 2017 08:41
[2017-02-21] MEDS: THIAMINE HCL 100 MG TAB PO SCH (08:56)
[2017-02-21] MEDS: chlordiazePOXIDE 25 MG CAP PO SCH ×3 (08:56→18:09)
[2017-02-21] MEDS: amLODIPine BESYLATE 5 MG TAB PO SCH (08:56)
[2017-02-21] MEDS: MULTIVITAMIN TAB PO SCH (08:56)
[2017-02-21] MEDS: FOLIC ACID 1 MG TAB PO SCH (08:56)
[2017-02-21] MEDS: SODIUM CHLORIDE 0.9% FLUSH 5 ML FLUSH FLUSH SCH ×2 (09:00→20:57)
[2017-02-21] MEDS: ENOXAPARIN SODIUM 30 MG/0.3 ML SYRINGE SQ SCH (09:00)
[2017-02-21] MEDS: MAGNESIUM HYDROXIDE SUSP 30 ML CUP PO SCH ×2 (09:02→20:56)
[2017-02-21] MEDS: OLOPATADINE HCL 0.1% OPHT SOLN 5 ML BTL EACH EYE SCH ×2 (09:03→20:57)
[2017-02-21] MEDS: BACITRACIN TOP OINT 15 GM TUBE TOP SCH ×2 (09:03→20:55)
[2017-02-21 12:00] VITALS: BP 120/61; PULSE 52; RESP 18; TEMP 95.8; O2SAT 100
[2017-02-21] MEDS: ACETAMINOPHEN/HYDROcodone 325 MG/7.5 MG TAB PO PRN ×2 (12:16→18:09)
[2017-02-21 16:00] VITALS: BP 115/67; PULSE 69; RESP 18; TEMP 98; O2SAT 98
[2017-02-21 20:00] VITALS: BP 104/59; PULSE 61; RESP 20; TEMP 96.9; O2SAT 97
[2017-02-21] MEDS: SENNOSIDES 8.6 MG TAB PO SCH (20:56)
[2017-02-22] VITALS: BP 120/68; PULSE 70; RESP 18; TEMP 95.4; O2SAT 97
[2017-02-22 04:00] VITALS: BP 117/59; PULSE 67; RESP 18; TEMP 96.8; O2SAT 98
[2017-02-22] MEDS: ACETAMINOPHEN/HYDROcodone 325 MG/7.5 MG TAB PO PRN ×2 (05:15→20:19)
[2017-02-22 08:00] VITALS: BP 118/71; PULSE 63; RESP 18; TEMP 96.9; O2SAT 95
[2017-02-22] MEDS: MAGNESIUM HYDROXIDE SUSP 30 ML CUP PO SCH ×2 (09:00→20:19)
[2017-02-22] MEDS: SODIUM CHLORIDE 0.9% FLUSH 5 ML FLUSH FLUSH SCH ×2 (09:00→20:19)
[2017-02-22] MEDS: FOLIC ACID 1 MG TAB PO SCH (10:08)
[2017-02-22] MEDS: THIAMINE HCL 100 MG TAB PO SCH (10:08)
[2017-02-22] MEDS: chlordiazePOXIDE 25 MG CAP PO SCH ×3 (10:09→17:22)
[2017-02-22] MEDS: amLODIPine BESYLATE 5 MG TAB PO SCH (10:09)
[2017-02-22] MEDS: MULTIVITAMIN TAB PO SCH (10:09)
[2017-02-22] MEDS: OLOPATADINE HCL 0.1% OPHT SOLN 5 ML BTL EACH EYE SCH ×2 (10:10→20:19)
[2017-02-22] MEDS: ENOXAPARIN SODIUM 30 MG/0.3 ML SYRINGE SQ SCH (10:10)
[2017-02-22] MEDS: BACITRACIN TOP OINT 15 GM TUBE TOP SCH ×2 (10:13→20:19)
[2017-02-22 12:00] VITALS: BP 135/61; PULSE 60; RESP 18; TEMP 96.6; O2SAT 98
[2017-02-22 16:00] VITALS: BP 131/72; PULSE 65; RESP 18; TEMP 96.5; O2SAT 98
[2017-02-22] MEDS: LACTATED RINGER'S 1000 ML INJ 1,000 ML IV SCH (16:24)
[2017-02-22 20:00] VITALS: BP 137/70; PULSE 65; RESP 16; TEMP 98; O2SAT 98
[2017-02-22] MEDS: SENNOSIDES 8.6 MG TAB PO SCH (20:19)
--- NOTE | 2017-02-22 23:38 | HHI.PR ---
Subjective Remarks Follow up for right hip fracture. Patient wakes up and indicates no acute concerns. However, he has been very drowsy today. Objective Vitals Vital Signs Date Time Temp Pulse Resp B/P Pulse Ox O2 Delivery O2 Flow Rate FiO2 02/22/17 20:00 98.0 65 16 137/70 98 02/22/17 19:19 Room Air 02/22/17 16:00 96.5 65 18 131/72 98 02/22/17 12:00 96.6 60 18 135/61 98 02/22/17 08:00 98 Room Air 02/22/17 08:00 96.9 63 18 118/71 95 02/22/17 04:00 96.8 67 18 117/59 98 02/22/17 00:00 95.4 70 18 120/68 97 I/O 02/21/17 02/21/17 02/21/17 02/22/17 02/22/17 02/22/17 07:00 15:00 23:00 07:00 15:00 23:00 Intake Total 1300 ml 480 ml Output Total 400 ml 450 ml Balance 900 ml 30 ml Intake Oral 1300 ml 480 ml Output Urine Total 400 ml 450 ml # Voids 2 # Bowel Movements 1 0 Imaging Last Impressions Hip X-Ray 02/12/17 0000 Signed Impressions: Service Date/Time: January 18:48 - CONCLUSION: Nail and harry fixation of intertrochanteric fracture with normal appearing alignment. Ward Grant MD Hip and Pelvis X-Ray 02/11/17 0000 Signed Impressions: Service Date/Time: Saturday, February 11, 2017 18:22 - CONCLUSION: Right proximal femur fracture. Joey Banks MD Chest X-Ray 02/11/17 0000 Signed Impressions: Service Date/Time: Saturday, February 11, 2017 18:56 - CONCLUSION: No acute disease. Joey Banks MD Objective Remarks GENERAL: Alert, NAD. SKIN: Warm and dry. HEAD: Normocephalic. EYES: No scleral icterus. Continuous tear drainage. No redness noted. NECK: Supple, trachea midline. No JVD or lymphadenopathy. CARDIOVASCULAR: Regular rate and rhythm without murmurs, gallops, or rubs. RESPIRATORY: Breath sounds equal bilaterally. No accessory muscle use. GASTROINTESTINAL: Abdomen soft, non-tender, nondistended. MUSCULOSKELETAL: No cyanosis, or edema. BACK: Nontender without obvious deformity. No CVA tenderness. Procedures Open treatment internal fixation right peritrochanteric hip fracture with intramedullary harry 02/12/2017 A/P Problem List: (1) Closed right hip fracture ICD Code: S72.001A Status: Acute (2) Alcohol abuse ICD Code: F10.10 Status: Chronic Assessment and Plan 61 y/o male with a history of CAD, [place], COPD and arthritis presented to the ED after suffering a fall and landing on his right hip. Closed right hip fracture hip xray shows a right proximal femur fracture. s/p open treatment internal fixation, right perithrochanteric hip fx w intramedulary harry - Pain management with IV Morphine and PO narcotics per ortho - SNF cannot be arranged due to lack of insurance. - Patient cannot be safely discharged to the street. - Continue daily PT. Alcohol abuse, patient drinks at least 4 beers a day - folate/thiamine/MV - on Librium 50mg TID. -Withdrawal/fall and seizure precautions - Encouraged to quit COPD, chronic, patient is currently having wheezing Images reviewed: Chest xray shows no acute disease. -Duonebs schedules -Oxygen as needed Hypertension - Continue Amlodipine 5mg Qday. - Allergic conjunctivitis - Will start Olopatadine 0.1% Ophth solution in each each Q12hrs. Full code. Lovenox 30mg Q24hrs. 02/22/2017 : No change in management. Continue PT. Problem Qualifiers (1) Closed right hip fracture: Qualified Code: S72.001A - Closed right hip fracture, initial encounter Vicente Peterson DO Feb 22, 2017 23:38
[2017-02-23] VITALS: BP 129/71; PULSE 67; RESP 16; TEMP 97.2; O2SAT 100
[2017-02-23] MEDS: LACTATED RINGER'S 1000 ML INJ 1,000 ML IV SCH ×2 (04:54→07:57)
[2017-02-23] MEDS: LACTATED RINGER'S 1000 ML IV SCH (05:00)
[2017-02-23 08:00] VITALS: BP 116/63; PULSE 72; RESP 16; TEMP 97.9; O2SAT 97
[2017-02-23] MEDS: SODIUM CHLORIDE 0.9% FLUSH 5 ML FLUSH FLUSH SCH ×2 (09:00→21:00)
[2017-02-23] MEDS: OLOPATADINE HCL 0.1% OPHT SOLN 5 ML BTL EACH EYE SCH ×2 (09:00→21:18)
[2017-02-23] MEDS: amLODIPine BESYLATE 5 MG TAB PO SCH (09:53)
[2017-02-23] MEDS: MAGNESIUM HYDROXIDE SUSP 30 ML CUP PO SCH ×2 (09:53→21:00)
[2017-02-23] MEDS: THIAMINE HCL 100 MG TAB PO SCH (09:53)
[2017-02-23] MEDS: chlordiazePOXIDE 25 MG CAP PO SCH ×3 (09:53→16:49)
[2017-02-23] MEDS: ENOXAPARIN SODIUM 30 MG/0.3 ML SYRINGE SQ SCH (09:53)
[2017-02-23] MEDS: MULTIVITAMIN TAB PO SCH (09:53)
[2017-02-23] MEDS: FOLIC ACID 1 MG TAB PO SCH (09:53)
[2017-02-23] MEDS: BACITRACIN TOP OINT 15 GM TUBE TOP SCH ×2 (09:54→21:32)
[2017-02-23] MEDS: ACETAMINOPHEN/HYDROcodone 325 MG/7.5 MG TAB PO PRN ×2 (09:55→21:19)
[2017-02-23 12:00] VITALS: BP 96/50; PULSE 67; RESP 16; TEMP 98.1; O2SAT 97
[2017-02-23 16:00] VITALS: BP 110/60; PULSE 72; RESP 18; TEMP 98; O2SAT 97
--- NOTE | 2017-02-23 16:31 | HHI.PR ---
Subjective Remarks Follow up for right hip fracture. Mr. Ochoa is doing well. Denies any acute concerns. He reports improvement with physical therapy. Objective Vitals Vital Signs Date Time Temp Pulse Resp B/P Pulse Ox O2 Delivery O2 Flow Rate FiO2 02/23/17 08:00 97.9 72 16 116/63 97 02/23/17 00:00 97.2 67 16 129/71 100 02/22/17 20:00 98.0 65 16 137/70 98 02/22/17 19:19 Room Air I/O 02/22/17 02/22/17 02/22/17 02/23/17 02/23/17 02/23/17 07:00 15:00 23:00 07:00 15:00 23:00 Intake Total 1320 ml Output Total 950 ml Balance 370 ml Intake Oral 1320 ml Output Urine Total 950 ml # Bowel Movements 0 Objective Remarks GENERAL: Alert, NAD. SKIN: Warm and dry. HEAD: Normocephalic. EYES: No scleral icterus. Continuous tear drainage. No redness noted. NECK: Supple, trachea midline. No JVD or lymphadenopathy. CARDIOVASCULAR: Regular rate and rhythm without murmurs, gallops, or rubs. RESPIRATORY: Breath sounds equal bilaterally. No accessory muscle use. GASTROINTESTINAL: Abdomen soft, non-tender, nondistended. MUSCULOSKELETAL: No cyanosis, or edema. BACK: Nontender without obvious deformity. No CVA tenderness. Procedures Open treatment internal fixation right peritrochanteric hip fracture with intramedullary harry 02/12/2017 A/P Problem List: (1) Closed right hip fracture ICD Code: S72.001A Status: Acute (2) Alcohol abuse ICD Code: F10.10 Status: Chronic Assessment and Plan 61 y/o male with a history of CAD, [place], COPD and arthritis presented to the ED after suffering a fall and landing on his right hip. Closed right hip fracture hip xray shows a right proximal femur fracture. s/p open treatment internal fixation, right perithrochanteric hip fx w intramedulary harry - Pain management with IV Morphine and PO narcotics per ortho - SNF cannot be arranged due to lack of insurance. - Patient cannot be safely discharged to the street. - Continue daily PT. Alcohol abuse, patient drinks at least 4 beers a day - folate/thiamine/MV - on Librium 50mg TID. -Withdrawal/fall and seizure precautions - Encouraged to quit COPD, chronic, patient is currently having wheezing Images reviewed: Chest xray shows no acute disease. -Duonebs schedules -Oxygen as needed Hypertension - Continue Amlodipine 5mg Qday. - Allergic conjunctivitis - Olopatadine 0.1% Ophth solution in each each Q12hrs. - D/C Sitter. If no sitter required, potentially transfer patient to [facility] (5th floor) on 02/24/2017. Full code. Lovenox 30mg Q24hrs. Problem Qualifiers (1) Closed right hip fracture: Qualified Code: S72.001A - Closed right hip fracture, initial encounter Vicente Peterson DO Feb 23, 2017 4:31 pm
[2017-02-23 19:45] VITALS: BP 122/62; PULSE 67; RESP 18; TEMP 97; O2SAT 99
[2017-02-23] MEDS: SENNOSIDES 8.6 MG TAB PO SCH (21:32)
[2017-02-24 00:44] VITALS: BP 147/75; PULSE 58; RESP 17; TEMP 96; O2SAT 97
[2017-02-24] MEDS: LACTATED RINGER'S 1000 ML IV SCH (01:04)
[2017-02-24] MEDS: LACTATED RINGER'S 1000 ML INJ 1,000 ML IV SCH ×2 (01:05→09:16)
[2017-02-24] MEDS: ACETAMINOPHEN/HYDROcodone 325 MG/7.5 MG TAB PO PRN ×4 (01:20→15:49)
[2017-02-24 04:41] VITALS: BP 143/71; PULSE 56; RESP 17; TEMP 97.9; O2SAT 97
[2017-02-24 08:00] VITALS: BP 96/56; PULSE 75; RESP 18; TEMP 97; O2SAT 98
[2017-02-24] MEDS: SODIUM CHLORIDE 0.9% FLUSH 5 ML FLUSH FLUSH SCH ×2 (09:00→20:36)
[2017-02-24] MEDS: OLOPATADINE HCL 0.1% OPHT SOLN 5 ML BTL EACH EYE SCH ×2 (09:00→20:36)
[2017-02-24] MEDS: BACITRACIN TOP OINT 15 GM TUBE TOP SCH ×2 (09:00→20:38)
[2017-02-24] MEDS: chlordiazePOXIDE 25 MG CAP PO SCH ×4 (09:14→17:06)
[2017-02-24] MEDS: FOLIC ACID 1 MG TAB PO SCH (09:14)
[2017-02-24] MEDS: MAGNESIUM HYDROXIDE SUSP 30 ML CUP PO SCH ×2 (09:14→20:30)
[2017-02-24] MEDS: MULTIVITAMIN TAB PO SCH (09:14)
[2017-02-24] MEDS: THIAMINE HCL 100 MG TAB PO SCH (09:14)
[2017-02-24] MEDS: amLODIPine BESYLATE 5 MG TAB PO SCH (09:14)
[2017-02-24] MEDS: ENOXAPARIN SODIUM 30 MG/0.3 ML SYRINGE SQ SCH (09:15)
[2017-02-24 12:00] VITALS: BP 114/61; PULSE 72; RESP 16; TEMP 98.4; O2SAT 95
--- NOTE | 2017-02-24 13:57 | HHI.PR ---
Subjective Remarks Follow up for right hip fracture. Sitting in his chair, Mr. Ochoa has no specific concerns. He feels that his strength is improving with physical therapy. [place] at bedside. Patient is going to be transferred to [facility]. Fiance requests a ride to [facility] with patient. Objective Vitals Vital Signs Date Time Temp Pulse Resp B/P Pulse Ox O2 Delivery O2 Flow Rate FiO2 02/24/17 12:00 98.4 72 16 114/61 95 02/24/17 08:00 97.0 75 18 96/56 98 02/24/17 04:41 97.9 56 17 143/71 97 02/24/17 00:44 96.0 58 17 147/75 97 02/23/17 19:45 97.0 67 18 122/62 99 02/23/17 16:00 98.0 72 18 110/60 97 I/O 02/23/17 02/23/17 02/23/17 02/24/17 02/24/17 02/24/17 07:00 15:00 23:00 07:00 15:00 23:00 Intake Total 240 ml 240 ml 240 ml Output Total 300 ml Balance -60 ml 240 ml 240 ml Intake Oral 240 ml 240 ml 240 ml Output Urine Total 300 ml # Voids 1 2 11 # Bowel Movements 0 0 Imaging Last Impressions Hip X-Ray 02/12/17 0000 Signed Impressions: Service Date/Time: January 18:48 - CONCLUSION: Nail and harry fixation of intertrochanteric fracture with normal appearing alignment. Ward Grant MD Hip and Pelvis X-Ray 02/11/17 0000 Signed Impressions: Service Date/Time: Saturday, February 11, 2017 18:22 - CONCLUSION: Right proximal femur fracture. Joey Banks MD Chest X-Ray 02/11/17 0000 Signed Impressions: Service Date/Time: Saturday, February 11, 2017 18:56 - CONCLUSION: No acute disease. Joey Banks MD Objective Remarks GENERAL: Alert, NAD. SKIN: Warm and dry. HEAD: Normocephalic. EYES: No scleral icterus. Continuous tear drainage. No redness noted. NECK: Supple, trachea midline. No JVD or lymphadenopathy. CARDIOVASCULAR: Regular rate and rhythm without murmurs, gallops, or rubs. RESPIRATORY: Breath sounds equal bilaterally. No accessory muscle use. GASTROINTESTINAL: Abdomen soft, non-tender, nondistended. MUSCULOSKELETAL: No cyanosis, or edema. BACK: Nontender without obvious deformity. No CVA tenderness. Procedures Open treatment internal fixation right peritrochanteric hip fracture with intramedullary harry 02/12/2017 A/P Problem List: (1) Closed right hip fracture ICD Code: S72.001A Status: Acute (2) Alcohol abuse ICD Code: F10.10 Status: Chronic Assessment and Plan 61 y/o male with a history of CAD, [place], COPD and arthritis presented to the ED after suffering a fall and landing on his right hip. Closed right hip fracture hip xray shows a right proximal femur fracture. s/p open treatment internal fixation, right perithrochanteric hip fx w intramedulary harry - Pain management with IV Morphine and PO narcotics per ortho - SNF cannot be arranged due to lack of insurance. - Patient cannot be safely discharged to the street. - Continue daily PT. Alcohol abuse, patient drinks at least 4 beers a day - folate/thiamine/MV - Was on Librium 50mg TID, we will reduce Librium to 25mg TID. We can gradually decrease Librium dosage. -Withdrawal/fall and seizure precautions - Encouraged to quit COPD, chronic, patient is currently having wheezing Images reviewed: Chest xray shows no acute disease. -Duonebs schedules -Oxygen as needed Hypertension - Continue Amlodipine 5mg Qday. - Allergic conjunctivitis - Olopatadine 0.1% Ophth solution in each each Q12hrs. - Transfer patient to [facility]. Full code. Lovenox 30mg Q24hrs. Problem Qualifiers (1) Closed right hip fracture: Qualified Code: S72.001A - Closed right hip fracture, initial encounter Vicente Peterson DO Feb 24, 2017 13:57
[2017-02-24 15:30] VITALS: BP 130/77; PULSE 62; RESP 20; TEMP 96.8; O2SAT 98
[2017-02-24 20:00] VITALS: BP 101/58; PULSE 72; RESP 14; TEMP 97.4; O2SAT 95
[2017-02-24] MEDS: SENNOSIDES 8.6 MG TAB PO SCH (20:31)
[2017-02-25] MEDS: LACTATED RINGER'S 1000 ML IV SCH (05:00)
[2017-02-25] MEDS: LACTATED RINGER'S 1000 ML INJ 1,000 ML IV SCH ×2 (06:54→17:30)
[2017-02-25 08:00] VITALS: BP 115/69; PULSE 76; RESP 17; TEMP 97.8; O2SAT 98
[2017-02-25] MEDS: chlordiazePOXIDE 25 MG CAP PO SCH ×3 (08:28→17:30)
[2017-02-25] MEDS: MAGNESIUM HYDROXIDE SUSP 30 ML CUP PO SCH (08:28)
[2017-02-25] MEDS: amLODIPine BESYLATE 5 MG TAB PO SCH (08:28)
[2017-02-25] MEDS: THIAMINE HCL 100 MG TAB PO SCH (08:28)
[2017-02-25] MEDS: MULTIVITAMIN TAB PO SCH (08:28)
[2017-02-25] MEDS: FOLIC ACID 1 MG TAB PO SCH (08:28)
[2017-02-25] MEDS: OLOPATADINE HCL 0.1% OPHT SOLN 5 ML BTL EACH EYE SCH (08:29)
[2017-02-25] MEDS: ENOXAPARIN SODIUM 30 MG/0.3 ML SYRINGE SQ SCH (08:29)
[2017-02-25] MEDS: SODIUM CHLORIDE 0.9% FLUSH 5 ML FLUSH FLUSH SCH (08:30)
[2017-02-25] MEDS: BACITRACIN TOP OINT 15 GM TUBE TOP SCH ×2 (08:30→21:21)
--- NOTE | 2017-02-25 17:58 | HHI.PR ---
Subjective Remarks Patient seen and examined today. Patient is very lethargic. Review records does indicate patient is on high doses of sedating medications. Patient is was sitter because he keeps trying to climb out of bed. Patient denies any pain at this time. Objective Vitals Vital Signs Date Time Temp Pulse Resp B/P Pulse Ox O2 Delivery O2 Flow Rate FiO2 02/25/17 08:00 97.8 76 17 115/69 98 02/24/17 20:00 97.4 72 14 101/58 95 I/O 02/24/17 02/24/17 02/24/17 02/25/17 02/25/17 02/25/17 07:00 15:00 23:00 07:00 15:00 23:00 Intake Total 240 ml 500 ml 480 ml 720 ml Output Total 350 ml 600 ml 400 ml Balance 240 ml 500 ml 130 ml 120 ml -400 ml Intake Oral 240 ml 500 ml 480 ml 720 ml Output Urine Total 350 ml 600 ml 400 ml # Voids 11 3 # Bowel Movements 0 0 0 0 1 Objective Remarks GENERAL: Well-developed, well-nourished, in no acute distress. Rather somnolent HEENT: Head is normocephalic without any lesions or masses noted. Facial features are symmetric. Eyes: Extraocular muscles are intact. Patient does have dried exudative material and eyelashes. NECK: Supple without any masses. Trachea midline no deviation. No JVD, CARDIAC: Regular rhythm, regular rate. S1/S2 are heard. No murmurs gallops or rubs. LUNGS: Clear to auscultation bilaterally. No wheeze, rhonchi or rales. No use of accessory muscles on inspiration or expiration. ABDOMEN: Soft, nontender. Nondistended. Bowel sounds heard in all 4 quadrants. No organomegaly or masses. Negative rebound, negative guarding EXTREMITIES: No edema, pulses are equal bilaterally. No cyanosis or clubbing NEUROLOGY: Mood and affect appear appropriate. Cranial nerves II through XII grossly intact. Moving all extremities, speech is clear Procedures Open treatment internal fixation right peritrochanteric hip fracture with intramedullary harry 02/12/2017 Urinary Catheter: No Vascular Central Line Catheter: No A/P Assessment and Plan Closed right hip fracture, status post fall s/p open treatment internal fixation, right perithrochanteric hip fx w intramedulary harry Will require orthopedic management while in [place] for weightbearing status and physical therapy recommendations Orthopedic recommendations is toe-touch weightbearing right lower extremity, walker as needed Pain management, patient denying any pain at this time Lortab 7.5, 2 tablets every 4 hours as needed for pain 510, discontinue this dose at this time Start Lortab 7.5 one tablet every 6 hours as needed for pain less than 610 Start Lortab 5 one tablet every 6 hours needed for pain 15 Alcohol abuse, patient did drink at least 4 beers a day At this point patient been hospitalized for 14 days, no longer at risk for any withdrawal symptoms from alcohol Continue folate/thiamine Patient was on high-dose Librium for initial withdrawal. We'll need to wean at this time to avoid benzodiazepine withdrawal Librium 25mg TID. Reduced to 15 mg 3 times daily Chronic obstructive pulmonary disease Patient without any clinical symptoms at this time, O2 saturation is 98% on room air Hypertension, blood pressure stable Continue Norvasc 5 mg daily Conjunctivitis Erythromycin ophthalmologic solution 4 times daily for 7 days DVT prevention Subcutaneous Lovenox Attending Statement Patient seen. Agree with above. Rupesh Land Feb 25, 2017 17:58 Rupesh Portillo MD Feb 25, 2017 18:10
[2017-02-25] MEDS ORDERED: LACTULOSE SYRUP 20 GM/30 ML CUP PO PRN (18:00)
[2017-02-25] MEDS ORDERED: ONDANSETRON ODT 4 MG TAB PO PRN (18:00)
[2017-02-25] MEDS ORDERED: chlordiazePOXIDE 25 MG CAP PO SCH (18:00)
[2017-02-25] MEDS: ERYTHROMYCIN 0.5% OPTH OINT 3.5 GM TUBO EACH EYE SCH (18:13)
[2017-02-25 20:00] VITALS: BP 141/79; PULSE 73; RESP 16; TEMP 97.8; O2SAT 100
--- NOTE | 2017-02-25 22:17 | PD.ORT.PN ---
Subjective Subjective Remarks Patients progress reviewed. Not following commands well Sedated 13 day post op Objective Vitals Vital Signs Date Time Temp Pulse Resp B/P Pulse Ox O2 Delivery O2 Flow Rate FiO2 02/25/17 08:00 97.8 76 17 115/69 98 I/O 02/24/17 02/24/17 02/24/17 02/25/17 02/25/17 02/25/17 07:00 15:00 23:00 07:00 15:00 23:00 Intake Total 240 ml 500 ml 480 ml 720 ml Output Total 350 ml 600 ml 400 ml Balance 240 ml 500 ml 130 ml 120 ml -400 ml Intake Oral 240 ml 500 ml 480 ml 720 ml Output Urine Total 350 ml 600 ml 400 ml # Voids 11 3 # Bowel Movements 0 0 0 0 1 Objective Remarks also seen by Dr. Levar Barth patient is in restraints NAD RLE Dressing c/d/i, miminal swelling hip, no erythema +motor/sens, +sens, +nvi neg homans Assessment & Plan Assessment and Plan pod#[id number] s/p ORIF R Hip PO pain meds as needed. Will defer to managing physician Dry dressing changes daily. If stays dry can leave open to air. PT - TTWBing RLE. Walker as needed. This will not change until 6 weeks post op Lovenox for dvt prophylaxis, usually for 25 days post op Fine from ortho standpoint to be discharged, when arrangements made F/U in 4 weeks outpatient at [facility]. Will obtain xray now Levar Barth MD Feb 25, 2017 22:17
[2017-02-26] MEDS: ERYTHROMYCIN 0.5% OPTH OINT 3.5 GM TUBO EACH EYE SCH ×4 (00:16→17:09)
[2017-02-26 08:13] VITALS: BP 128/66; PULSE 65; RESP 18; TEMP 97.1; O2SAT 97
[2017-02-26] MEDS: BACITRACIN TOP OINT 15 GM TUBE TOP SCH ×2 (09:00→22:12)
--- NOTE | 2017-02-26 10:17 | HHI.PR ---
Subjective Remarks Patient seen and examined today. Patient is much more alert after decreasing down sedative medication. Patient is able to speak today. Voice and his opinion about his condition and that he is getting stronger and walking. He does not want a sitter in the room. I notified him that we will continue monitor him while we decrease to medications and/or if there is no risk will discontinue the sitter. Objective Vitals Vital Signs Date Time Temp Pulse Resp B/P Pulse Ox O2 Delivery O2 Flow Rate FiO2 02/26/17 08:13 97.1 65 18 128/66 97 02/25/17 20:00 97.8 73 16 141/79 100 I/O 02/25/17 02/25/17 02/25/17 02/26/17 02/26/17 02/26/17 07:00 15:00 23:00 07:00 15:00 23:00 Intake Total 720 ml 480 ml 480 ml Output Total 600 ml 2100 ml 450 ml Balance 120 ml -1620 ml 30 ml Intake Oral 720 ml 480 ml 480 ml Output Urine Total 600 ml 2100 ml 450 ml # Bowel Movements 0 1 0 Objective Remarks GENERAL: Well-developed, well-nourished, in no acute distress. Rather somnolent HEENT: Head is normocephalic without any lesions or masses noted. Facial features are symmetric. Eyes: Extraocular muscles are intact. Patient does have dried exudative material and eyelashes. NECK: Supple without any masses. Trachea midline no deviation. No JVD, CARDIAC: Regular rhythm, regular rate. S1/S2 are heard. No murmurs gallops or rubs. LUNGS: Clear to auscultation bilaterally. No wheeze, rhonchi or rales. No use of accessory muscles on inspiration or expiration. ABDOMEN: Soft, nontender. Nondistended. Bowel sounds heard in all 4 quadrants. No organomegaly or masses. Negative rebound, negative guarding EXTREMITIES: No edema, pulses are equal bilaterally. No cyanosis or clubbing NEUROLOGY: Mood and affect appear appropriate. Cranial nerves II through XII grossly intact. Moving all extremities, speech is clear Procedures Open treatment internal fixation right peritrochanteric hip fracture with intramedullary harry 02/12/2017 Urinary Catheter: No Vascular Central Line Catheter: No A/P Assessment and Plan Closed right hip fracture, status post fall s/p open treatment internal fixation, right perithrochanteric hip fx w intramedulary harry Will require orthopedic management while in [place] for weightbearing status and physical therapy recommendations Orthopedic recommendations is toe-touch weightbearing right lower extremity, walker as needed Pain management, patient denying any pain at this time Lortab 7.5, 2 tablets every 4 hours as needed for pain 510, discontinue this dose at this time Start Lortab 7.5 one tablet every 6 hours as needed for pain less than 610 Start Lortab 5 one tablet every 6 hours needed for pain 15 Alcohol abuse, patient did drink at least 4 beers a day At this point patient been hospitalized for 14 days, no longer at risk for any withdrawal symptoms from alcohol Continue folate/thiamine Patient was on high-dose Librium for initial withdrawal. We'll need to wean at this time to avoid benzodiazepine withdrawal Librium 15 mg TID, reduce to 10 mg 3 times a day Chronic obstructive pulmonary disease Patient without any clinical symptoms at this time, O2 saturation is 98% on room air Hypertension, blood pressure stable Continue Norvasc 5 mg daily Conjunctivitis Erythromycin ophthalmologic solution 4 times daily for 7 days DVT prevention Subcutaneous Lovenox Rupesh Land Feb 26, 2017 10:16
--- NOTE | 2017-02-26 11:27 | RADHPO ---
EXAM DATE/TIME: 02/26/2017 10:54 [facility] COMPARISON: HIP RIGHT (AP&LAT 2/3VWS) W AP PELVIS, February 11, 2017, 18:22. INDICATIONS : Right hip pain, post op 2 weeks. MEDICAL HISTORY : None. SURGICAL HISTORY : orif right hip ENCOUNTER: Subsequent ACUITY: 2 weeks PAIN SCORE: 9/10 LOCATION: Right hip FINDINGS: 3 views of the pelvis and right hip show interval placement of an intramedullary harry and femoral neck screw which traverses an intertrochanteric fracture of the right hip. He did alignment is noted. The femoral neck screw is contained within the cortical confines of the femoral head. Osteoarthritis is seen involving both hip joints. No other fracture seen. Prior left angle hernia repair utilizing mesh . Constipation. CONCLUSION: 1. Postoperative changes of the right hip with good alignment. 2. Bilateral hip osteoarthritis. 3. Constipation. Ephraim Vann Jr., MD on February 26, 2017 at 11:21 Board Certified Radiologist. This report was verified electronically.
[2017-02-26] MEDS: FOLIC ACID 1 MG TAB PO SCH (12:09)
[2017-02-26] MEDS: ENOXAPARIN SODIUM 30 MG/0.3 ML SYRINGE SQ SCH (12:09)
[2017-02-26] MEDS: THIAMINE HCL 100 MG TAB PO SCH (12:09)
--- NOTE | 2017-02-26 12:20 | PD.ORT.PN ---
Subjective Subjective Remarks Patients progress reviewed. Not following commands well Sedated 14 day post op Objective Vitals Vital Signs Date Time Temp Pulse Resp B/P Pulse Ox O2 Delivery O2 Flow Rate FiO2 02/26/17 08:13 97.1 65 18 128/66 97 02/25/17 20:00 97.8 73 16 141/79 100 I/O 02/25/17 02/25/17 02/25/17 02/26/17 02/26/17 02/26/17 07:00 15:00 23:00 07:00 15:00 23:00 Intake Total 720 ml 480 ml 480 ml Output Total 600 ml 2100 ml 450 ml Balance 120 ml -1620 ml 30 ml Intake Oral 720 ml 480 ml 480 ml Output Urine Total 600 ml 2100 ml 450 ml # Bowel Movements 0 1 0 Objective Remarks X-rays reviewed. No evidence of any significant subsidence. Alignment is satisfactory Assessment & Plan Ortho Post Op Day #: 14 Problem List: Assessment and Plan pod#14 s/p ORIF R Hip PO pain meds as needed. Will defer to managing physician Dry dressing changes daily. If stays dry can leave open to air. PT - TTWBing RLE. Walker as needed. This will not change until 6 weeks post op Lovenox for dvt prophylaxis, usually for 25 days post op Fine from ortho standpoint to be discharged, when arrangements made F/U in 4 weeks outpatient at [facility]. X-ray reviewed which shows excellent alignment, no signs of failure. Levar Barth MD Feb 26, 2017 12:20
[2017-02-26 20:00] VITALS: BP 135/77; PULSE 62; RESP 22; TEMP 97.8; O2SAT 98
[2017-02-26] MEDS: ACETAMINOPHEN/HYDROcodone 325 MG/7.5 MG TAB PO PRN (22:12)
[2017-02-26] MEDS ORDERED: HALOPERIDOL LACTATE 5 MG/ML AMP IV PUSH ONE (23:30)
[2017-02-27] MEDS: ERYTHROMYCIN 0.5% OPTH OINT 3.5 GM TUBO EACH EYE SCH ×5 (00:46→23:58)
[2017-02-27] MEDS: ACETAMINOPHEN/HYDROcodone 325 MG/7.5 MG TAB PO PRN (05:28)
[2017-02-27 07:15] VITALS: BP 117/67; PULSE 59; RESP 20; TEMP 97.9; O2SAT 99
[2017-02-27] MEDS: BACITRACIN TOP OINT 15 GM TUBE TOP SCH ×2 (09:00→21:06)
[2017-02-27] MEDS: THIAMINE HCL 100 MG TAB PO SCH (09:01)
[2017-02-27] MEDS: FOLIC ACID 1 MG TAB PO SCH (09:01)
[2017-02-27] MEDS: ENOXAPARIN SODIUM 30 MG/0.3 ML SYRINGE SQ SCH (09:01)
--- NOTE | 2017-02-27 11:42 | HHI.PR ---
Subjective Remarks Patient seen and examined today. Patient is indicating he wants to go home. Reviewed orthopedic note who indicated patient may be discharged with toe-touch weightbearing on his right lower extremity. Objective Vitals Vital Signs Date Time Temp Pulse Resp B/P Pulse Ox O2 Delivery O2 Flow Rate FiO2 02/27/17 07:15 97.9 59 20 117/67 99 02/27/17 06:28 16 02/26/17 20:00 97.8 62 22 135/77 98 I/O 02/26/17 02/26/17 02/26/17 02/27/17 02/27/17 02/27/17 07:00 15:00 23:00 07:00 15:00 23:00 Intake Total 480 ml 1070 ml 480 ml Output Total 450 ml 0 ml Balance 30 ml 1070 ml 480 ml Intake Oral 480 ml 1070 ml 480 ml Output Urine Total 450 ml 0 ml # Voids 6 2 # Bowel Movements 0 2 Objective Remarks GENERAL: Well-developed, well-nourished, in no acute distress. Rather somnolent HEENT: Head is normocephalic without any lesions or masses noted. Facial features are symmetric. Eyes: Extraocular muscles are intact. Patient does have dried exudative material and eyelashes. NECK: Supple without any masses. Trachea midline no deviation. No JVD, CARDIAC: Regular rhythm, regular rate. S1/S2 are heard. No murmurs gallops or rubs. LUNGS: Clear to auscultation bilaterally. No wheeze, rhonchi or rales. No use of accessory muscles on inspiration or expiration. ABDOMEN: Soft, nontender. Nondistended. Bowel sounds heard in all 4 quadrants. No organomegaly or masses. Negative rebound, negative guarding EXTREMITIES: No edema, pulses are equal bilaterally. No cyanosis or clubbing NEUROLOGY: Mood and affect appear appropriate. Cranial nerves II through XII grossly intact. Moving all extremities, speech is clear Procedures Open treatment internal fixation right peritrochanteric hip fracture with intramedullary harry 02/12/2017 Urinary Catheter: No Vascular Central Line Catheter: No A/P Assessment and Plan Closed right hip fracture, status post fall s/p open treatment internal fixation, right perithrochanteric hip fx w intramedulary harry Will require orthopedic management while in [place] for weightbearing status and physical therapy recommendations Orthopedic recommendations is toe-touch weightbearing right lower extremity, walker as needed Recommended continuation toe-touch weightbearing for total of 6 weeks postop Pain management, patient denying any pain at this time Lortab 7.5 one tablet every 6 hours as needed for pain less than 610 Lortab 5 one tablet every 6 hours needed for pain 15 Alcohol abuse, patient did drink at least 4 beers a day At this point patient been hospitalized for 14 days, no longer at risk for any withdrawal symptoms from alcohol Continue folate/thiamine Patient was on high-dose Librium for initial withdrawal. We'll need to wean at this time to avoid benzodiazepine withdrawal Librium 10 mg 3 times a day Chronic obstructive pulmonary disease Patient without any clinical symptoms at this time, O2 saturation is 98% on room air Hypertension, blood pressure stable Continue Norvasc 5 mg daily Conjunctivitis Erythromycin ophthalmologic solution 4 times daily for 7 days DVT prevention Subcutaneous Lovenox Discharge Planning gis manager discharge planning. PT still recommending patient needs to go to PT at rehabilitation. With bedside commode, wheelchair, wheeled walker. Rupesh Land Feb 27, 2017 11:42
[2017-02-27] MEDS ORDERED: ACETAMINOPHEN 325 MG TAB PO PRN (11:45)
[2017-02-27] MEDS: ACETAMINOPHEN/HYDROcodone 325 MG/5 MG TAB PO PRN (14:11)
[2017-02-27 20:00] VITALS: BP 158/87; PULSE 65; RESP 20; TEMP 95.9; O2SAT 100
[2017-02-28] MEDS: ERYTHROMYCIN 0.5% OPTH OINT 3.5 GM TUBO EACH EYE SCH ×4 (06:14→23:37)
[2017-02-28 08:00] VITALS: BP 109/59; PULSE 93; RESP 20; TEMP 96.9; O2SAT 99
[2017-02-28] MEDS: BACITRACIN TOP OINT 15 GM TUBE TOP SCH ×2 (09:00→20:12)
--- NOTE | 2017-02-28 09:34 | HHI.PR ---
Subjective Remarks Patient seen and examined today. Patient denies any new complaints. No change clinical status. patient wants to go home, constipated today Objective Vitals Vital Signs Date Time Temp Pulse Resp B/P Pulse Ox O2 Delivery O2 Flow Rate FiO2 02/27/17 20:00 95.9 65 20 158/87 100 I/O 02/27/17 02/27/17 02/27/17 02/28/17 02/28/17 02/28/17 07:00 15:00 23:00 07:00 15:00 23:00 Intake Total 480 ml 820 ml 240 ml 240 ml 100 ml Output Total 0 ml 600 ml 800 ml Balance 480 ml 820 ml -360 ml -560 ml 100 ml Intake Oral 480 ml 820 ml 240 ml 240 ml 100 ml Output Urine Total 0 ml 600 ml 800 ml # Voids 2 3 Objective Remarks GENERAL: Well-developed, well-nourished, in no acute distress. alert and orientated X 4 HEENT: Head is normocephalic without any lesions or masses noted. Facial features are symmetric. Eyes: Extraocular muscles are intact. Patient does have dried exudative material and eyelashes. NECK: Supple without any masses. Trachea midline no deviation. No JVD, CARDIAC: Regular rhythm, regular rate. S1/S2 are heard. No murmurs gallops or rubs. LUNGS: Clear to auscultation bilaterally. No wheeze, rhonchi or rales. No use of accessory muscles on inspiration or expiration. ABDOMEN: Soft, nontender. Nondistended. Bowel sounds heard in all 4 quadrants. No organomegaly or masses. Negative rebound, negative guarding EXTREMITIES: No edema, pulses are equal bilaterally. No cyanosis or clubbing NEUROLOGY: Mood and affect appear appropriate. Cranial nerves II through XII grossly intact. Moving all extremities, speech is clear Procedures Open treatment internal fixation right peritrochanteric hip fracture with intramedullary harry 02/12/2017 Urinary Catheter: No Vascular Central Line Catheter: No A/P Assessment and Plan Closed right hip fracture, status post fall s/p open treatment internal fixation, right perithrochanteric hip fx w intramedulary harry Will require orthopedic management while in [place] for weightbearing status and physical therapy recommendations Orthopedic recommendations is toe-touch weightbearing right lower extremity, walker as needed Recommended OK to be discharges with continuation toe-touch weightbearing for total of 6 weeks postop Pain management, patient denying any pain at this time Lortab 7.5 one tablet every 6 hours as needed for pain less than 610 Lortab 5 one tablet every 6 hours needed for pain 15 Alcohol abuse, patient did drink at least 4 beers a day At this point patient been hospitalized for 14 days, no longer at risk for any withdrawal symptoms from alcohol Continue folate/thiamine Patient was on high-dose Librium for initial withdrawal. We'll need to wean at this time to avoid benzodiazepine withdrawal Discontinue Librium 10 mg 3 times a day Chronic obstructive pulmonary disease Patient without any clinical symptoms at this time, O2 saturation is 98% on room air Hypertension, blood pressure stable Continue Norvasc 5 mg daily Conjunctivitis Erythromycin ophthalmologic solution 4 times daily for 7 days DVT prevention Subcutaneous Lovenox Discharge Planning recruiter account manager discharge planning. PT still recommending patient needs to go to PT at rehabilitation. With bedside commode, wheelchair, wheeled walker. Rupesh Land Feb 28, 2017 09:34
[2017-02-28] MEDS: FOLIC ACID 1 MG TAB PO SCH (09:40)
[2017-02-28] MEDS: THIAMINE HCL 100 MG TAB PO SCH (09:40)
[2017-02-28] MEDS: ENOXAPARIN SODIUM 30 MG/0.3 ML SYRINGE SQ SCH (09:40)
[2017-02-28 20:00] VITALS: BP 130/75; PULSE 64; RESP 20; TEMP 98.7; O2SAT 100
[2017-02-28] MEDS: ACETAMINOPHEN/HYDROcodone 325 MG/5 MG TAB PO PRN (20:19)
[2017-03-01] MEDS: ERYTHROMYCIN 0.5% OPTH OINT 3.5 GM TUBO EACH EYE SCH ×3 (06:37→17:16)
[2017-03-01 08:00] VITALS: BP 127/77; PULSE 79; RESP 18; TEMP 96.8; O2SAT 97
[2017-03-01] MEDS: ENOXAPARIN SODIUM 30 MG/0.3 ML SYRINGE SQ SCH (08:00)
[2017-03-01] MEDS: FOLIC ACID 1 MG TAB PO SCH (08:32)
[2017-03-01] MEDS: THIAMINE HCL 100 MG TAB PO SCH (08:32)
[2017-03-01] MEDS: ACETAMINOPHEN/HYDROcodone 325 MG/5 MG TAB PO PRN (08:33)
[2017-03-01] MEDS: BACITRACIN TOP OINT 15 GM TUBE TOP SCH ×2 (08:34→20:04)
--- NOTE | 2017-03-01 10:32 | HHI.PR ---
Subjective Remarks Patient seen and examined today. Patient frustrated because he cannot go home. Patient still with sitter. Nursing staff indicates that he is a fall risk and requires sitters still. Objective Vitals Vital Signs Date Time Temp Pulse Resp B/P Pulse Ox O2 Delivery O2 Flow Rate FiO2 03/01/17 09:36 16 03/01/17 08:00 96.8 79 18 127/77 97 02/28/17 20:00 98.7 64 20 130/75 100 I/O 02/28/17 02/28/17 02/28/17 03/01/17 03/01/17 03/01/17 07:00 15:00 23:00 07:00 15:00 23:00 Intake Total 240 ml 340 ml 600 ml 720 ml Output Total 800 ml 450 ml 250 ml 750 ml Balance -560 ml -110 ml 350 ml -30 ml Intake Oral 240 ml 340 ml 600 ml 720 ml Output Urine Total 800 ml 450 ml 250 ml 750 ml # Bowel Movements 0 0 0 Objective Remarks GENERAL: Well-developed, well-nourished, in no acute distress. alert and orientated X 4 HEENT: Head is normocephalic without any lesions or masses noted. Facial features are symmetric. Eyes: Extraocular muscles are intact. Patient does have dried exudative material and eyelashes. NECK: Supple without any masses. Trachea midline no deviation. No JVD, CARDIAC: Regular rhythm, regular rate. S1/S2 are heard. No murmurs gallops or rubs. LUNGS: Clear to auscultation bilaterally. No wheeze, rhonchi or rales. No use of accessory muscles on inspiration or expiration. ABDOMEN: Soft, nontender. Nondistended. Bowel sounds heard in all 4 quadrants. No organomegaly or masses. Negative rebound, negative guarding EXTREMITIES: No edema, pulses are equal bilaterally. No cyanosis or clubbing NEUROLOGY: Mood and affect appear appropriate. Cranial nerves II through XII grossly intact. Moving all extremities, speech is clear Procedures Open treatment internal fixation right peritrochanteric hip fracture with intramedullary harry 02/12/2017 Urinary Catheter: No Vascular Central Line Catheter: No A/P Assessment and Plan Closed right hip fracture, status post fall s/p open treatment internal fixation, right perithrochanteric hip fx w intramedulary harry Will require orthopedic management while in [place] for weightbearing status and physical therapy recommendations Orthopedic recommendations is toe-touch weightbearing right lower extremity, walker as needed Recommended OK to be discharges with continuation toe-touch weightbearing for total of 6 weeks postop Pain management, patient denying any pain at this time Lortab 5 one tablet every 6 hours needed for pain 6-10 Alcohol abuse, patient did drink at least 4 beers a day At that time patient presented to [facility] patient had been hospitalized over 14 days, no longer at risk for any withdrawal symptoms from alcohol Continue folate/thiamine Patient was on high-dose Librium for initial withdrawal. Patient has been weaned off all Librium at this time. Chronic obstructive pulmonary disease Patient without any clinical symptoms at this time, O2 saturation is 98% on room air Hypertension, blood pressure stable Continue Norvasc 5 mg daily Conjunctivitis Erythromycin ophthalmologic solution 4 times daily for 7 days DVT prevention Subcutaneous Lovenox Discharge Planning post exchange manager discharge planning. PT still recommending patient needs to go to PT at rehabilitation. With bedside commode, wheelchair, wheeled walker. Rupesh Land Mar 01, 2017 10:32
[2017-03-01 20:00] VITALS: BP 138/74; PULSE 70; RESP 22; TEMP 96.4; O2SAT 100
[2017-03-02] MEDS: ERYTHROMYCIN 0.5% OPTH OINT 3.5 GM TUBO EACH EYE SCH ×3 (00:20→10:10)
[2017-03-02 08:00] VITALS: BP 115/79; PULSE 68; RESP 16; TEMP 96.6; O2SAT 98
[2017-03-02] MEDS: ENOXAPARIN SODIUM 30 MG/0.3 ML SYRINGE SQ SCH (08:00)
[2017-03-02] MEDS: BACITRACIN TOP OINT 15 GM TUBE TOP SCH (09:00)
--- NOTE | 2017-03-02 09:54 | HHI.PR ---
Subjective Remarks Patient seen and examined today. Patient sitting on edge of bed with shoes on, wanting to leave today. Denies any new complaints. Afebrile. Objective Vitals Vital Signs Date Time Temp Pulse Resp B/P Pulse Ox O2 Delivery O2 Flow Rate FiO2 03/02/17 08:00 96.6 68 16 115/79 98 03/01/17 20:00 96.4 70 22 138/74 100 I/O 03/01/17 03/01/17 03/01/17 03/02/17 03/02/17 03/02/17 07:00 15:00 23:00 07:00 15:00 23:00 Intake Total 720 ml 360 ml 720 ml 480 ml 100 ml Output Total 750 ml 350 ml 600 ml Balance -30 ml 10 ml 120 ml 480 ml 100 ml Intake Oral 720 ml 360 ml 720 ml 480 ml 100 ml Output Urine Total 750 ml 350 ml 600 ml # Voids 2 3 # Bowel Movements 0 0 0 0 Objective Remarks GENERAL: Well-developed, well-nourished, in no acute distress. alert and orientated X 4 HEENT: Head is normocephalic without any lesions or masses noted. Facial features are symmetric. Eyes: Extraocular muscles are intact. Patient does have dried exudative material and eyelashes. NECK: Supple without any masses. Trachea midline no deviation. No JVD, CARDIAC: Regular rhythm, regular rate. S1/S2 are heard. No murmurs gallops or rubs. LUNGS: Clear to auscultation bilaterally. No wheeze, rhonchi or rales. No use of accessory muscles on inspiration or expiration. ABDOMEN: Soft, nontender. Nondistended. Bowel sounds heard in all 4 quadrants. No organomegaly or masses. Negative rebound, negative guarding EXTREMITIES: No edema, pulses are equal bilaterally. No cyanosis or clubbing NEUROLOGY: Mood and affect appear appropriate. Cranial nerves II through XII grossly intact. Moving all extremities, speech is clear Procedures Open treatment internal fixation right peritrochanteric hip fracture with intramedullary harry 02/12/2017 A/P Problem List: (1) Closed right hip fracture ICD Code: S72.001A Status: Acute (2) Alcohol abuse ICD Code: F10.10 Status: Chronic Assessment and Plan Closed right hip fracture, status post fall s/p open treatment internal fixation, right perithrochanteric hip fx w intramedulary harry Will require orthopedic management while in [place] for weightbearing status and physical therapy recommendations Orthopedic recommendations is toe-touch weightbearing right lower extremity, walker as needed Recommended [place] to be discharges with continuation toe-touch weightbearing for total of 6 weeks postop Pain management, patient denying any pain at this time Lortab 5 one tablet every 6 hours needed for pain 6-10 Alcohol abuse, patient did drink at least 4 beers a day At that time patient presented to [facility] patient had been hospitalized over 14 days, no longer at risk for any withdrawal symptoms from alcohol Continue folate/thiamine Patient was on high-dose Librium for initial withdrawal. Patient has been weaned off all Librium at this time. Chronic obstructive pulmonary disease Patient without any clinical symptoms at this time, O2 saturation is 98% on room air Hypertension, blood pressure stable Continue Norvasc 5 mg daily Conjunctivitis Erythromycin ophthalmologic solution 4 times daily for 7 days DVT prevention Subcutaneous Lovenox Discharge Planning personal fitness manager discharge planning. PT still recommending patient needs to go to PT at rehabilitation. With bedside commode, wheelchair, wheeled walker. Problem Qualifiers (1) Closed right hip fracture: Qualified Code: S72.001A - Closed right hip fracture, initial encounter Rupesh Land Mar 02, 2017 09:53
[2017-03-02] MEDS: FOLIC ACID 1 MG TAB PO SCH (10:09)
[2017-03-02] MEDS: THIAMINE HCL 100 MG TAB PO SCH (10:10)
--- NOTE | 2017-05-06 16:44 | HHI.DS ---
Discharge Summary Admission Date Feb 11, 2017 at 19:56 Discharge Date: Mar 02, 2017 Admitting Diagnosis right hip fracture (1) Closed right hip fracture ICD Code: S72.001A (2) Alcohol abuse ICD Code: F10.10 Procedures Open treatment internal fixation right peritrochanteric hip fracture with intramedullary harry 02/12/2017 Brief History - From Admission 61 y/o male with a history of CAD, LA, HTN, COPD and arthritis presented to the ED after suffering a fall. [place] and fell landing on his right hip. He is very painful in the right hip and the pain increases with movement. He is currently awaiting to be placed in a bed in order for bucks traction to be applied. He states prior to the fall he denies any chest pain, dizziness, fever or chills. Last 1-2 weeks patient also denies any illness, chest pain, fever or chills. He states he is always short of breath due to his COPD. He does drink daily and states today he had 4 beers. He currently does not have a PCP. Imaging Last Impressions Hip and Pelvis X-Ray 02/25/17 0000 Signed Impressions: Service Date/Time: January 10:54 - CONCLUSION: 1. Postoperative changes of the right hip with good alignment. 2. Bilateral hip osteoarthritis. 3. Constipation. Ephraim Vann Jr., MD Hip X-Ray 02/12/17 0000 Signed Impressions: Service Date/Time: January 18:48 - CONCLUSION: Nail and harry fixation of intertrochanteric fracture with normal appearing alignment. Ward Grant MD Chest X-Ray 02/11/17 0000 Signed Impressions: Service Date/Time: Saturday, February 11, 2017 18:56 - CONCLUSION: No acute disease. Joey Banks MD PE at Discharge GENERAL: Well-developed, well-nourished, in no acute distress. alert and orientated X 4 HEENT: Head is normocephalic without any lesions or masses noted. Facial features are symmetric. Eyes: Extraocular muscles are intact. Patient does have dried exudative material and eyelashes. NECK: Supple without any masses. Trachea midline no deviation. No JVD, CARDIAC: Regular rhythm, regular rate. S1/S2 are heard. No murmurs gallops or rubs. LUNGS: Clear to auscultation bilaterally. No wheeze, rhonchi or rales. No use of accessory muscles on inspiration or expiration. ABDOMEN: Soft, nontender. Nondistended. Bowel sounds heard in all 4 quadrants. No organomegaly or masses. Negative rebound, negative guarding EXTREMITIES: No edema, pulses are equal bilaterally. No cyanosis or clubbing NEUROLOGY: Mood and affect appear appropriate. Cranial nerves II through XII grossly intact. Moving all extremities, speech is clear Hospital Course Patient left AGAINST MEDICAL ADVICE Closed right hip fracture, status post fall s/p open treatment internal fixation, right perithrochanteric hip fx w intramedulary harry Will require orthopedic management while in [place] for weightbearing status and physical therapy recommendations Orthopedic recommendations is toe-touch weightbearing right lower extremity, walker as needed Recommended OK to be discharges with continuation toe-touch weightbearing for total of 6 weeks postop Pain management, patient denying any pain at this time Lortab 5 one tablet every 6 hours needed for pain 6-10 Alcohol abuse, patient did drink at least 4 beers a day At that time patient presented to [facility] patient had been hospitalized over 14 days, no longer at risk for any withdrawal symptoms from alcohol Continue folate/thiamine Patient was on high-dose Librium for initial withdrawal. Patient has been weaned off all Librium at this time. Chronic obstructive pulmonary disease Patient without any clinical symptoms at this time, O2 saturation is 98% on room air Hypertension, blood pressure stable Continue Norvasc 5 mg daily Conjunctivitis Erythromycin ophthalmologic solution 4 times daily for 7 days Pt Condition on Discharge: Guarded Discharge Disposition: Discharge Home Discharge Time: <= 30 minutes Rupesh Land May 06, 2017 16:43
== END 2017-03-02 11:11 | disposition left against medical advice (07) | DRG 481 ==
LOC: NEDAMB 17:03 → NEDA 19:56 → N06A 22:28 → PH5A 02-24 15:33
PROVIDERS: ADMIT Family Medicine; ATTEND Family Medicine
PROC: 0QS606Z Reposition Right Upper Femur with Intramedullary Internal Fixation Device, Open Approach (ICD-10-PCS; principal; 2017-02-12 17:41)
DX: S72.101A Unspecified trochanteric fracture of right femur, initial encounter for closed fracture (principal); F10.231 Alcohol dependence with withdrawal delirium; I10 Essential (primary) hypertension; S01.81XA Laceration without foreign body of other part of head, initial encounter; H10.10 Acute atopic conjunctivitis, unspecified eye; Z78.1 Physical restraint status; J44.9 Chronic obstructive pulmonary disease, unspecified; I25.2 Old myocardial infarction; M19.90 Unspecified osteoarthritis, unspecified site; H91.92 Unspecified hearing loss, left ear; I25.10 Atherosclerotic heart disease of native coronary artery without angina pectoris; G47.30 Sleep apnea, unspecified; K59.00 Constipation, unspecified; F17.210 Nicotine dependence, cigarettes, uncomplicated; W10.1XXA Fall (on)(from) sidewalk curb, initial encounter; W06.XXXA Fall from bed, initial encounter; Y92.521 Bus station as the place of occurrence of the external cause; Z59.0 Homelessness; Z88.1 Allergy status to other antibiotic agents; Z88.6 Allergy status to analgesic agent; Z98.1 Arthrodesis status
CPT/HCPCS: 71010; 73502; 76000; 76937; 80048; 80053; 81001; 85014; 85018; 85025; 85027; 85384; 85610; 85730; 86850; 86900; 86901; 87493; 87641; 93005; 94150; 94640; 94664; C1713; J1580; J1650; J2060; J2175; J2270; J2370; J2405; J2710; J2765; J3010; J3370; J3410; J7050; J7120

== ENCOUNTER 2017-03-12 15:17 | Inpatient (IN) | payer OTHER ==
[~2017-03-12] VITALS: Ht 190.5 cm; Wt 88.2 kg
[~2017-03-12 15:17] MED LIST changes: -AZIT500T2 PO; -CLIN1CAP5 PO; +ENOX30P SQ; +HYDR-3580 PO; -PRED20 PO
[2017-03-12 15:54] VITALS: BP 119/70; PULSE 85; RESP 20; TEMP 98.5; O2SAT 96
--- NOTE | 2017-03-12 16:33 | PD ---
Physical Exam Time Seen by Provider: 16:28 Narrative 61yo M c/o R leg pain and swelling x 1 week. ago. Had broken femur and surgical repair x [address] Gomez is surgeon; has f/u appt Thursday. Right foot numbness. Taking Coumadin. Denies fever, vomiting. VSS Seen in triage. Awaiting bed placement. Data Data Last Documented VS Vital Signs Date Time Temp Pulse Resp B/P Pulse Ox O2 Delivery O2 Flow Rate FiO2 03/12/17 15:54 98.5 85 20 119/70 96 Room Air MDM Supervised Visit with BRENT: Janice Randall Mar 12, 2017 16:33
--- NOTE | 2017-03-12 18:08 | PD ---
HPI Chief Complaint: Edema Time Seen by Provider: 18:07 Travel History International Travel<30 days: No Contact w/Intl Traveler<30days: No Traveled to known affect area: No History of Present Illness HPI 61-year-old male came to the emergency room with history of right leg numbness and swelling. Patient says that he had a hip replacement surgery done a few weeks ago. His right leg has been swelling and that's the leg at the hip or was operated on. He is mostly on wheelchair. He says he was not discharged home on any medication from the rehabilitation. He lives in a house with some people. He looks disheveled and extremely poor skin hygiene. Vital signs were stable. [facility] Past Medical History Narrative Medical List of his past medical, surgical, social and family history was reviewed from the nursing note. Hx Anticoagulant Therapy: Yes (coumadin) Arthritis: Yes Asthma: No Autoimmune Disease: No Blood Disorders: No Anxiety: No Depression: No Heart Rhythm Problems: No Cancer: No Cardiac Catheterization: No Cardiovascular Problems: Yes (htn,mi) High Cholesterol: No Chemotherapy: No Chest Pain: Yes Congestive Heart Failure: No COPD: Yes Diabetes: Yes (denies) Diminished Hearing: Yes (IQUGMIUT ON LEFT) Endocrine: Yes Gastrointestinal Disorders: No GERD: No Glaucoma: No Genitourinary: No Headaches: No Hepatitis: No Hiatal Hernia: Yes Heparin Induced Thrombocytopen: No Hypertension: Yes Immune Disorder: No Inguinal Hernia: Yes Implanted Vascular Access Dvce: No Kidney Stones: No Musculoskeletal: Yes (arthritis) Neurologic: Yes Psychiatric: No Reproductive: No Respiratory: Yes (COPD) Immunizations Current: Yes Migraines: No Myocardial Infarction: Yes Radiation Therapy: No Renal Failure: No Seizures: No Sickle Cell Disease: No Sleep Apnea: Yes Thyroid Disease: No Ulcer: No Past Surgical History Abdominal Surgery: Yes (LEFT INGUINAL HERNIA REPAIR) AICD: No Appendectomy: No Arteriovenous Shunt: No Cardiac Surgery: No Cholecystectomy: No Coronary Artery Bypass Graft: No Ear Surgery: No Endocrine Surgery: No Eye Surgery: No Genitourinary Surgery: No Gynecologic Surgery: No Insulin Pump: No Joint Replacement: No Neurologic Surgery: Yes (C-SPINE FUSION (C5-C7 PER EMR)) Oral Surgery: No Pacemaker: No Thoracic Surgery: No Other Surgery: Yes (LT INGUINAL HERNIA REPAIR) Social History Alcohol Use: Yes (etoh-BEER (USUALLY 4 DAILY)) Tobacco Use: Yes (1/2ppd) Substance Use: No Allergies-Medications (Allergen,Severity, Reaction): 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 Reported Meds & Prescriptions Reported Meds & Active Scripts Active Hydrocodone-Acetaminophen 7.5-325 mg Tab 1 Tab PO Q4H PRN Lovenox Inj (Enoxaparin Sodium) 30 Mg/0.3 Ml Syr 30 Mg SQ Q24H Tramadol (Tramadol HCl) 50 Mg Tab 50 Mg PO Q6H PRN Ventolin Hfa 18 GM Inh (Albuterol Sulfate) 90 Mcg/Act Aer 2 Puff INH Q4-6H PRN Narrative Medication List of his home medications reviewed from the nursing note Review of Systems Except as stated in HPI: all other systems reviewed are Neg Physical Exam Narrative GENERAL: Awake, alert, disheveled, extremely poor skin hygiene SKIN: Focused skin assessment warm/dry. HEAD: Atraumatic. Normocephalic. EYES: Pupils equal and round. No scleral icterus. No injection or drainage. ENT: No nasal bleeding or discharge. Mucous membranes pink and moist. NECK: Trachea midline. No JVD. CARDIOVASCULAR: Regular rate and rhythm. No murmur appreciated. RESPIRATORY: No accessory muscle use. Clear to auscultation. Breath sounds equal bilaterally. GASTROINTESTINAL: Abdomen soft, non-tender, nondistended. Hepatic and splenic margins not palpable. MUSCULOSKELETAL: No obvious deformities. No clubbing. No cyanosis. Right leg swelling, distal pulses present NEUROLOGICAL: Awake and alert. No obvious cranial nerve deficits. Motor grossly within normal limits. Normal speech. PSYCHIATRIC: Appropriate mood and affect; insight and judgment normal. Data Data Last Documented VS Orders Us Leg Venous Doppler (03/12/17 ) Basic Metabolic Panel (Bmp) (03/12/17 20:09) Complete Blood Count With Diff (03/12/17 20:09) Prothrombin Time / Inr (Pt) (03/12/17 20:09) Act Partial Throm Time (Ptt) (03/12/17 20:09) Iv Access Insert/Monitor (03/12/17 20:09) Ecg Monitoring (03/12/17 20:09) Oximetry (03/12/17 20:09) Sodium Chloride 0.9% Flush (Ns Flush) (03/12/17 20:15) Enoxaparin Inj (Lovenox Inj) (03/12/17 21:30) Consult Orthopedic (03/12/17 ) Admit Order (Ed Use Only) (03/12/17 21:24) MDM Medical Decision Making Medical Screen Exam Complete: Yes Emergency Medical Condition: Yes Medical Record Reviewed: Yes Differential Diagnosis Right leg DVT, dependent edema, postsurgical changes Narrative Course 6:25 PM I have ordered an ultrasound to rule out DVT. Awaiting for the ultrasound to be done and reported. Most probably I'll have to sign out the case to the oncoming ER physician at 7 PM. Scripts Rivaroxaban Starter Pack 15 & 20 mg (Xarelto Starter Pack 15 & 20 mg)1 Tab Tab1 Tab PO DIRECTED 30 Days Ref 0 take 15 mg PO BID for 14 days, then take 20 mg PO daily thereafter. Prov:Viviana Mendoza MD 03/14/17 Didier Sanchez MD Mar 12, 2017 18:08
--- NOTE | 2017-03-12 20:00 | RADRPT ---
EXAM DATE/TIME: 03/12/2017 18:43 [facility] COMPARISON: No previous studies available for comparison. INDICATIONS : Right leg swelling and pain. MEDICAL HISTORY : Hypertension. Myocardial infarction. Chronic obstructive pulmonary disease. Hearing loss. Cerebrov ascular accident. Anticoagulant therapy, Coumadin. Chest pain. Sleep apnea. Hiatal hernia. Inguinal h ernia. Arthritis. Back pain. Endocrine disorder. MRSA. SURGICAL HISTORY : C-spine fusion C5-C7. Left inguinal hernia surgery. Bilateral shoulder surgery. Left ankle surgery. L eft elbow surgery. ENCOUNTER: Initial ACUITY: 2 weeks PAIN SCORE: 10/10 LOCATION: Right leg. TECHNIQUE: Venous ultrasound of the leg was performed from the inguinal ligament to the proximal calf. Real-soledad e, color Doppler and spectral tracing, compression and augmentation techniques were used. FINDINGS: There is incomplete compressibility of the right calf posterior tibial vein. The popliteal vein, supe rficial femoral vein, common femoral vein and visualized iliac are patent and unremarkable. CONCLUSION: DVT with partial recanalization involving the right calf posterior tibial vein. Ward Wolfe MD on March 12, 2017 at 19:48 Board Certified Radiologist. This report was verified electronically.
[2017-03-12] MEDS ORDERED: SODIUM CHLORIDE 0.9% FLUSH 10 ML FLUSH IV FLUSH PRN ×2 (20:15→21:30)
[2017-03-12 20:26] LABS: BASOPHIL % 0.8 % (0.0-2.0); EOSINOPHIL # 0.2 TH/MM3 (0-0.4); EOSINOPHIL % 4.2 % (0.0-4.0); HEMATOCRIT 31.2 % (39.0-51.0); HEMO FLAGS DIFF FINAL; LYMPH % 33.5 % (9.0-44.0); LYMPHOCYTE # 1.9 TH/MM3 (1.0-4.8); MEAN CELL VOLUME 92.1 FL (80.0-100.0); MEAN CORPUSCULAR HEMOGLOBIN 32.3 PG (27.0-34.0); MEAN CORPUSCULAR HGB CONC 35.1 % (32.0-36.0); MONO % 7.6 % (0.0-8.0); NEUT % 53.9 % (16.0-70.0); PLATELET COUNT 226 TH/MM3 (150-450); RED BLOOD COUNT 3.38 MIL/MM3 (4.50-5.90); RED CELL DISTRIBUTION WIDTH 14.6 % (11.6-17.2); WHITE BLOOD COUNT 5.6 TH/MM3 (4.0-11.0)
[2017-03-12 20:44] LABS: PROTHROMBIN TIME - PATIENT 11.4 SEC (9.8-11.6)
[2017-03-12 20:49] LABS: BICARBONATE 29.2 MEQ/L (21.0-32.0); POTASSIUM 3.5 MEQ/L (3.5-5.1)
[2017-03-12 21:00] VITALS: BP 119/71; PULSE 67; RESP 16; O2SAT 96
--- NOTE | 2017-03-12 21:23 | PD ---
Physical Exam Narrative The patient was initially evaluated by the previous provider and sent out to me at the beginning of my shift pending right lower extremity venous duplex and disposition. See her note for further details. Briefly this is a 61-year-old male who last month had a right proximal femur/ right hip fracture that was operated on by Dr. Levar Barth, here for evaluation of right lower extremity pain and swelling. Symptoms have been progressively worsening over the last week. Pain is moderate to severe, constant, worse with palpation and movement. Patient reports that he is unable to ambulate because of the pain. He is also complaining of feeling numbness in his right leg. No chest pain or dyspnea. No fevers or chills. Vital signs are within normal limits. CBC shows WBC 5.6, hemoglobin 10.9, hematocrit 31.2, platelets 226. BMP is unremarkable. Right lower extremity duplex: CONCLUSION: DVT with partial recanalization involving the right calf posterior tibial vein. On exam the patient has significant right lower extremity swelling with diffuse tenderness. There is good capillary refill. Brisk dorsalis pedis pulses bilaterally. No signs of phlegmasia cerulea dolens. Right lateral hip surgical incision scar is well-healed with no signs of infection. The patient is very disheveled. He has no insurance and has no primary care physician will follow-up with. Case discussed with orthopedic surgeon Dr. Warner who is covering for Dr. Barth. He agrees with admission for anticoagulation and would like a courtesy consult be placed to Dr. Barth. Case discussed with hospitalist Dr. Santoyo who will admit the patient to her service. Data Data Last Documented VS Vital Signs Date Time Temp Pulse Resp B/P Pulse Ox O2 Delivery O2 Flow Rate FiO2 03/12/17 21:00 67 16 119/71 96 Room Air 03/12/17 15:54 98.5 Orders Us Leg Venous Doppler (03/12/17 ) Basic Metabolic Panel (Bmp) (03/12/17 20:09) Complete Blood Count With Diff (03/12/17 20:09) Prothrombin Time / Inr (Pt) (03/12/17 20:09) Act Partial Throm Time (Ptt) (03/12/17 20:09) Iv Access Insert/Monitor (03/12/17 20:09) Ecg Monitoring (03/12/17 20:09) Oximetry (03/12/17 20:09) Sodium Chloride 0.9% Flush (Ns Flush) (03/12/17 20:15) Enoxaparin Inj (Lovenox Inj) (03/12/17 21:30) Consult Orthopedic (03/12/17 ) Labs Laboratory Tests Test 03/12/17 19:00 White Blood Count 5.6 TH/MM3 Red Blood Count 3.38 MIL/MM3 Hemoglobin 10.9 GM/DL Hematocrit 31.2 % Mean Corpuscular Volume 92.1 FL Mean Corpuscular Hemoglobin 32.3 PG Mean Corpuscular Hemoglobin 35.1 % Concent Red Cell Distribution Width 14.6 % Platelet Count 226 TH/MM3 Mean Platelet Volume 8.0 FL Neutrophils (%) (Auto) 53.9 % Lymphocytes (%) (Auto) 33.5 % Monocytes (%) (Auto) 7.6 % Eosinophils (%) (Auto) 4.2 % Basophils (%) (Auto) 0.8 % Neutrophils # (Auto) 3.0 TH/MM3 Lymphocytes # (Auto) 1.9 TH/MM3 Monocytes # (Auto) 0.4 TH/MM3 Eosinophils # (Auto) 0.2 TH/MM3 Basophils # (Auto) 0.0 TH/MM3 CBC Comment DIFF FINAL Differential Comment Prothrombin Time 11.4 SEC Prothromb Time International 1.0 RATIO Ratio Activated Partial 29.0 SEC Thromboplast Time Sodium Level 136 MEQ/L Potassium Level 3.5 MEQ/L Chloride Level 99 MEQ/L Carbon Dioxide Level 29.2 MEQ/L Anion Gap 8 MEQ/L Blood Urea Nitrogen 5 MG/DL Creatinine 0.70 MG/DL Estimat Glomerular Filtration 115 ML/MIN Rate Random Glucose 78 MG/DL Calcium Level 8.4 MG/DL [facility] Supervised Visit with BRENT: No Diagnosis Primary Impression: DVT (deep venous thrombosis) Qualified Code: I82.401 - Acute deep vein thrombosis (DVT) of right lower extremity, unspecified vein Admitting Information Admitting Physician Requests: Observation Ken Fregoso MD Mar 12, 2017 21:23
[2017-03-12] MEDS ORDERED: ALBUTEROL SULFATE 90 MCG/ACT HFA 8 GM INHALER INH PRN (21:30)
[2017-03-12] MEDS ORDERED: ONDANSETRON HCL 4 MG/2 ML VIAL IVP PRN (21:30)
[2017-03-12] MEDS ORDERED: ACETAMINOPHEN 325 MG TAB PO PRN (21:30)
[2017-03-12] MEDS ORDERED: ENOXAPARIN SODIUM 100 MG/ML SYRINGE SQ ONE (21:30)
[2017-03-12] MEDS ORDERED: NALOXONE HCL 0.4 MG/ML AMP IV PRN (21:30)
[2017-03-12] MEDS: ACETAMINOPHEN/HYDROcodone 325 MG/7.5 MG TAB PO PRN (22:40)
[2017-03-12 22:50] VITALS: BP 114/60; PULSE 87; RESP 20; TEMP 98.9; O2SAT 97
[2017-03-13] VITALS (9 sets, daily range): BP systolic 120–173; BP diastolic 63–83; PULSE 58–86; RESP 17–22; TEMP 96.7–98.7; O2SAT 93–99
[2017-03-13] MEDS ORDERED: LORazepam 2 MG/ML VIAL IV PUSH PRN ×4 (00:15)
[2017-03-13] MEDS ORDERED: LORazepam 2 MG TAB PO PRN (00:15)
[2017-03-13] MEDS ORDERED: FLUMAZENIL 0.5 MG/5 ML VIAL IV PUSH PRN (00:15)
[2017-03-13] MEDS ORDERED: LORazepam 1 MG TAB PO PRN (00:15)
--- NOTE | 2017-03-13 03:01 | HHI.HP ---
[facility] No Primary Care Physician Admission Diagnosis DVT Diagnoses: Chief Complaint: R ankle edema and pain Travel History International Travel<30 Days: No Contact w/Intl Traveler <30 Da: No Traveled to Known Affected Are: No History of Present Illness This is a 61-year-old male patient with past medical history which includes hypertension, CAD status post [place] in his 40s without cardiac stent placement, COPD not on home oxygen. Patient was discharged on 03/03/2017 after having a RLE edema since Thursday or Thursday. On 02/12/2017 patient underwent Open treatment internal fixation right peritrochanteric hip fracture with intramedullary harry by Dr Barth and was discharged 03/03/2017. Patient has not been taking anticoagulation since discharge. Patient presented to the emergency department today with complaints of right lower extremity edema and pain. Symptoms have been progressively worsening over the last week. Pain is moderate to severe, constant, worse with palpation and movement. Patient reports that he is unable to ambulate because of the pain. He is also complaining of feeling numbness in his right leg for the past 2-3 days. Patient denies signs of active bleeding, shortness of breath, chest pain, history of DVT. Patient does complain of occasional burning with urination. Review of Systems Except as stated in HPI: all other systems reviewed are Neg Past Family Social History Past Medical History hypertension, CAD status post [place] in his 40s without cardiac stent placement, COPD not on home oxygen Past Surgical History 02/12/2017 patient underwent Open treatment internal fixation right peritrochanteric hip fracture with intramedullary harry by Dr Barth Cervical fusion C5-7 Right Elbow surgery Right Knee surgery bilateral shoulder surgery Reported Medications Hydrocodone-Acetaminophen 7.5-325 mg Tab 1 Tab PO Q4H PRN Tramadol (Tramadol HCl) 50 Mg Tab 50 Mg PO Q6H PRN Ventolin Hfa 18 GM Inh (Albuterol Sulfate) 90 Mcg/Act Aer 2 Puff INH Q4-6H PRN Allergies: 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, 07/2014, 2007, 2005; (hip) - 03/26/17 MRSA PCR Screen POSITIVE - 02/12/2017 Active Ordered Medications Current Medications Medications (Trade) Dose Ordered Sig/Guru Route Start Time Stop Time Status Last Admin (NS Flush) 2 ml UNSCH PRN IV FLUSH 03/12/17 20:15 (NS Flush) 2 ml UNSCH PRN IV FLUSH 03/12/17 21:30 (NS Flush) 2 ml BID IV FLUSH 03/13/17 09:00 (Tylenol) 650 mg Q4H PRN PO 03/12/17 21:30 (Zofran Inj) 4 mg Q6H PRN IVP 03/12/17 21:30 (Narcan Inj) 0.4 mg UNSCH PRN IV 03/12/17 21:30 Enoxaparin Sodium 90 mg 90 mg Q12H SQ 03/13/17 09:30 (Coumadin Consult Pharmacy) 0 ml @ 0 mls/hr UNSCH OTHER 03/12/17 21:30 (Proair Hfa Inh) 2 puff Q4H PRN INH 03/12/17 21:30 ([place] 7.5-325 Mg) 1 tab Q4H PRN PO 03/12/17 21:30 03/13/17 04:43 (Ultram) 50 mg Q6H PRN PO 03/12/17 21:30 (Romazicon Inj) 0.2 mg Q1M PRN IV PUSH 03/13/17 00:15 (Ativan) 1 mg Q4H PRN PO 03/13/17 00:15 (Ativan Inj) 1 mg Q4H PRN IV PUSH 03/13/17 00:15 (Ativan) 2 mg Q2H PRN PO 03/13/17 00:15 (Ativan Inj) 2 mg Q2H PRN IV PUSH 03/13/17 00:15 (Ativan Inj) 2 mg Q1H PRN IV PUSH 03/13/17 00:15 (Ativan Inj) 2 mg Q15M PRN IV PUSH 03/13/17 00:15 Family History Mom: from ovarian cancer Dad: from Heart disease Sister: Cancer Social History Tobacco use: 1/2 ppd Alcohol use: 4 beers a day Illicit drug use: Denies Physical Exam Vital Signs Vital Signs Date Time Temp Pulse Resp B/P Pulse Ox O2 Delivery O2 Flow Rate FiO2 03/13/17 01:41 67 03/13/17 00:34 98.7 86 18 127/63 94 03/12/17 23:54 16 03/12/17 22:50 98.9 87 20 114/60 97 03/12/17 21:00 67 16 119/71 96 Room Air 03/12/17 15:54 98.5 85 20 119/70 96 Room Air Physical Exam GENERAL: This is a well-nourished, well-developed patient, appears uncomfortable but in no acute distress SKIN: Right lower extremity edematous and erythematous EYES: Extraocular motions intact. No scleral icterus. No injection or drainage. CARDIOVASCULAR: Regular rate and rhythm without murmurs, gallops, or rubs. RESPIRATORY: Clear to auscultation. Breath sounds equal bilaterally. No wheezes , rales, or rhonchi. GASTROINTESTINAL: Abdomen soft, non-tender, nondistended. No hepato-splenomegaly , or palpable masses. No guarding. MUSCULOSKELETAL: Right lower extremity edematous and erythematous NEUROLOGICAL: Awake and alert. No focal deficits appreciated. Motor and sensory grossly within normal limits. Five out of 5 muscle strength in all muscle groups. Normal speech. Laboratory Laboratory Tests Test 03/12/17 19:00 White Blood Count 5.6 Red Blood Count 3.38 Hemoglobin 10.9 Hematocrit 31.2 Mean Corpuscular Volume 92.1 Mean Corpuscular Hemoglobin 32.3 Mean Corpuscular Hemoglobin 35.1 Concent Red Cell Distribution Width 14.6 Platelet Count 226 Mean Platelet Volume 8.0 Neutrophils (%) (Auto) 53.9 Lymphocytes (%) (Auto) 33.5 Monocytes (%) (Auto) 7.6 Eosinophils (%) (Auto) 4.2 Basophils (%) (Auto) 0.8 Neutrophils # (Auto) 3.0 Lymphocytes # (Auto) 1.9 Monocytes # (Auto) 0.4 Eosinophils # (Auto) 0.2 Basophils # (Auto) 0.0 CBC Comment DIFF FINAL Differential Comment Prothrombin Time 11.4 Prothromb Time International 1.0 Ratio Activated Partial 29.0 Thromboplast Time Sodium Level 136 Potassium Level 3.5 Chloride Level 99 Carbon Dioxide Level 29.2 Anion Gap 8 Blood Urea Nitrogen 5 Creatinine 0.70 Estimat Glomerular Filtration 115 Rate Random Glucose 78 Calcium Level 8.4 Result Diagram: 03/12/17 1900 03/12/17 190 Imaging Last Impressions Lower Extremity Ultrasound 03/12/17 0000 Signed Impressions: Service Date/Time: , March 12, 2017 18:43 - CONCLUSION: DVT with partial recanalization involving the right calf posterior tibial vein. Ward Wolfe MD Assessment and Plan Problem List: (1) DVT (deep venous thrombosis) ICD Code: I82.409 Status: Acute (2) Alcohol abuse ICD Code: F10.10 Status: Chronic Assessment and Plan This is a 61-year-old male patient with past medical history which includes hypertension, CAD status post [place] in his 40s without cardiac stent placement, COPD not on home oxygen. Patient was discharged on 03/03/2017 after having a RLE edema since Thursday or Thursday. On 02/12/2017 patient underwent Open treatment internal fixation right peritrochanteric hip fracture with intramedullary harry by Dr Barth and was discharged 03/03/2017. Patient has not been taking anticoagulation since discharge. Patient presented to the emergency department today with complaints of right lower extremity edema and pain. Right lower extremity DVT Lower extremity ultrasound reveals: DVT with partial recanalization involving the right calf posterior tibial vein. Heparin drip patient did not take anticoagulation after discharge due to cost Consulted pharmacy for Coumadin Coumadin teaching ordered Dysuria- UA ordered and pending Hypertension- chronic not on home medication Monitor trend while in the hospital EtOH abuse/dependence CIWA protocol Add Thiamine and folic acid supplementation DVT prophylaxis patient is on heparin drip Discussed with ER provider, nursing inpatient Written by Aure Fitzpatrick, acting as scribe for Dr. Santoyo on 03/13/17 at 05: 55. This note was transcribed by scribe [Aure Fitzpatrick]. I, Dr. Linsey Santoyo personally performed the history, physical exam, and medical decision making; and confirmed the accuracy of the information in the transcribed note. Authenticated by Dr. Linsey Santoyo on03/13/17 at 05:55. Problem Qualifiers (1) DVT (deep venous thrombosis): Qualified Code: I82.401 - Acute deep vein thrombosis (DVT) of right lower extremity, unspecified vein Aure Fitzpatrick Mar 13, 2017 03:01 Linsey Santoyo MD May 11, 2017 11:35
[2017-03-13] MEDS: ACETAMINOPHEN/HYDROcodone 325 MG/7.5 MG TAB PO PRN ×3 (04:43→18:26)
[2017-03-13] MEDS: SODIUM CHLORIDE 0.9% FLUSH 10 ML FLUSH IV FLUSH SCH ×2 (09:00→21:39)
[2017-03-13 09:22] LABS: AUTOMATED NEUTROPHIL # 2.2 TH/MM3 (1.8-7.7); BASOPHIL % 0.7 % (0.0-2.0); EOSINOPHIL # 0.2 TH/MM3 (0-0.4); EOSINOPHIL % 4.2 % (0.0-4.0); HEMATOCRIT 31.6 % (39.0-51.0); HEMO FLAGS DIFF FINAL; LYMPH % 29.2 % (9.0-44.0); LYMPHOCYTE # 1.2 TH/MM3 (1.0-4.8); MEAN CELL VOLUME 92.8 FL (80.0-100.0); MEAN CORPUSCULAR HEMOGLOBIN 31.2 PG (27.0-34.0); MEAN CORPUSCULAR HGB CONC 33.6 % (32.0-36.0); MONO % 12.9 % (0.0-8.0); PLATELET COUNT 175 TH/MM3 (150-450); RED BLOOD COUNT 3.41 MIL/MM3 (4.50-5.90); RED CELL DISTRIBUTION WIDTH 14.8 % (11.6-17.2); WHITE BLOOD COUNT 4.1 TH/MM3 (4.0-11.0)
[2017-03-13] MEDS ORDERED: ENOXAPARIN SODIUM 100 MG/ML SYRINGE SQ SCH (09:30)
[2017-03-13 09:45] LABS: BICARBONATE 29.9 MEQ/L (21.0-32.0); POTASSIUM 3.9 MEQ/L (3.5-5.1)
[2017-03-13] MEDS: RIVAROXABAN 15 MG TAB PO SCH ×2 (10:00→21:39)
[2017-03-13] MEDS: FOLIC ACID 1 MG TAB PO SCH (10:01)
[2017-03-13] MEDS: THIAMINE HCL 100 MG TAB PO SCH (10:02)
--- NOTE | 2017-03-13 10:35 | HHI.PR ---
Subjective Remarks Follow-up for RLE DVT s/p right hip fracture repair. Patient's at bedside. The patient recently left the hospital in [place] against medical advice. The patient states that he was not giving any medications when he was discharged from the hospital there. He does not believe that he left AGAINST MEDICAL ADVICE. He had previously been recommended for right lower extremity toe touch weightbearing. He states that he's been trying to ambulate since being discharged, but is only been able to walk for 5 steps. For the past few days she's developed pain and swelling in his right lower extremity. He verbalizes understanding of the need to be on full anticoagulation and to continue with outpatient follow-up for that. He is agreeable for Xarelto. He states that he's been staying in a friend's home, normally stays with different friends at their homes. Objective Vitals Vital Signs Date Time Temp Pulse Resp B/P Pulse Ox O2 Delivery O2 Flow Rate FiO2 03/13/17 08:35 93 21 03/13/17 08:34 97.0 61 18 173/79 93 03/13/17 06:15 67 18 169/77 94 03/13/17 05:56 16 03/13/17 04:55 98.4 58 20 170/83 97 03/13/17 01:41 67 03/13/17 00:34 98.7 86 18 127/63 94 03/12/17 22:50 98.9 87 20 114/60 97 03/12/17 21:00 67 16 119/71 96 Room Air 03/12/17 15:54 98.5 85 20 119/70 96 Room Air Result Diagram: 03/13/17 0847 03/13/17 0847 Imaging Last Impressions Lower Extremity Ultrasound 03/12/17 0000 Signed Impressions: Service Date/Time: February 18:43 - CONCLUSION: DVT with partial recanalization involving the right calf posterior tibial vein. Ward Wolfe MD Objective Remarks GENERAL: Well-developed well-nourished. In no acute distress. SKIN: Warm and dry. Sunburn on bilateral lower extremities. HEENT: Normocephalic. Pupils equal and round. Mucous membranes pink and moist. CARDIOVASCULAR: Regular rate and rhythm. No murmur appreciated. RESPIRATORY: No accessory muscle use. Clear to auscultation. Breath sounds equal bilaterally. GASTROINTESTINAL: Abdomen soft, non-tender, nondistended. Bowel sounds x4. MUSCULOSKELETAL: Right lower extremity with some swelling and edema below the knee. No clubbing or cyanosis. NEUROLOGICAL: Awake and alert. No focal neurological deficits. Moves upper and lower extremities spontaneously. Normal speech. PSYCHIATRIC: Appropriate mood and affect; insight and judgment normal. A/P Problem List: (1) DVT (deep venous thrombosis) ICD Code: I82.409 Status: Acute (2) Alcohol abuse ICD Code: F10.10 Status: Chronic Assessment and Plan 61-year-old male patient with past medical history which includes hypertension, CAD status post [place] in his 40s without cardiac stent placement, COPD not on home oxygen. Patient was discharged on 03/03/2017 after having a RLE edema since Thursday or Thursday. On 02/12/2017 patient underwent Open treatment internal fixation right peritrochanteric hip fracture with intramedullary harry by Dr Barth and was discharged 03/03/2017. Patient has not been taking anticoagulation since discharge. Patient presented to the emergency department today with complaints of right lower extremity edema and pain. Right lower extremity DVT Lower extremity ultrasound reveals: DVT with partial recanalization involving the right calf posterior tibial vein. Discussed with case management, patient qualifies for patient assistance, change full anticoagulation from Lovenox to Xarelto Pain control with oral [place] Dysuria- UA ordered and pending Hypertension- chronic not on home medication Clonidine as needed EtOH abuse/dependence [facility] protocol Thiamine and folic acid supplementation S/P ORIF right hip fracture Consult Dr. Barth Bedrest for now, activity per orthopedics, previously toe-touch weightbearing PT eval after orthopedic recommendation DVT prophylaxis: Xarelto Discharge Planning Discussed with case management, patient meets inpatient criteria, will admit. Problem Qualifiers (1) DVT (deep venous thrombosis): Qualified Code: I82.401 - Acute deep vein thrombosis (DVT) of right lower extremity, unspecified vein Kota Roman Mar 13, 2017 10:35
[2017-03-13] MEDS: cloNIDine HCL 0.1 MG TAB PO PRN (21:40)
[2017-03-14] VITALS (10 sets, daily range): BP systolic 139–176; BP diastolic 67–94; PULSE 47–69; RESP 16–22; TEMP 96.7–98.5; O2SAT 97–100
[2017-03-14 06:10] LABS: BACTERIA, URINE RARE /hpf; BLOOD, URINE NEG (NEG); COMMENT (UR) CULT NOT INDICATED; CULTURE IF INDICATED CULT NOT INDICATED; GLUCOSE,URINE NEG (NEG); KETONE, URINE NEG (NEG); NITRITE,URINE NEG (NEG); RENAL EPITHELIAL CELLS <1 /hpf; SQUAMOUS EPITHELIAL CELL URINE <1 /hpf (0-5); URINE COLOR YELLOW (YELLW/STRAW)
--- NOTE | 2017-03-14 08:39 | PD.ORT.PN ---
Subjective Subjective Remarks Patient laying comfortably in bed. Presented to [facility] where DVT was found in right lower extremity, posterior tibial vein. 1 month out from ORIF of right hip fracture with Dr. Levar Barth. He states '[facility] did not give me anything upon discharge'. It is documented patient left AMA. Admits to right lower extremity calf pain and numbess. No new complaints at this time. Objective Vitals Vital Signs Date Time Temp Pulse Resp B/P Pulse Ox O2 Delivery O2 Flow Rate FiO2 03/14/17 04:00 96.7 69 22 159/79 97 03/14/17 01:10 97 03/14/17 00:00 97.9 67 22 161/81 98 03/13/17 20:00 96.7 60 22 120/64 93 03/13/17 15:48 97.0 74 17 165/79 99 03/13/17 13:33 16 03/13/17 08:35 93 21 03/13/17 08:34 97.0 61 18 173/79 93 I/O 03/13/17 03/13/17 03/13/17 03/14/17 03/14/17 03/14/17 07:00 15:00 23:00 07:00 15:00 23:00 Intake Total 480 ml 480 ml Balance 480 ml 480 ml Intake Oral 480 ml 480 ml # Voids 3 3 # Bowel Movements 0 0 Result Diagram: 03/13/17 0847 03/13/17 0847 Imaging Last Impressions Lower Extremity Ultrasound 03/12/17 0000 Signed Impressions: Service Date/Time: February 18:43 - CONCLUSION: DVT with partial recanalization involving the right calf posterior tibial vein. Ward Wolfe MD Procedures Open treatment internal fixation right peritrochanteric hip fracture with intramedullary harry (02/11/17 Dr Levar Barth) Objective Remarks RLE: incision line is well healed. No erythema or drainage from operative site. Admits to calf and thigh pain. Positive Alayna's sign. 2+ pedal pulses. Good cap refill. Neurovascular intact. Assessment & Plan Problem List: (1) Closed right hip fracture (2) DVT (deep venous thrombosis) (3) Alcohol abuse Assessment and Plan Open treatment internal fixation right peritrochanteric hip fracture with intramedullary harry (02/11/17 Dr Levar Barth) Ortho status stable. As the patient has not followed up in an out patient setting, right hip x-rays have been ordered for evaluation. Ok to consult physical therapy. Progress rehab per DVT protocol. Weight bear as tolerated from an orthopedic standpoint. Appreciate medical team's involvement in patient 's care and DVT management. Xarelto for DVT management per medicine. Discharge planning. Latonia Taylor Mar 14, 2017 08:39
[2017-03-14] MEDS: RIVAROXABAN 15 MG TAB PO SCH ×2 (08:53→20:06)
[2017-03-14] MEDS: THIAMINE HCL 100 MG TAB PO SCH (08:53)
[2017-03-14] MEDS: SODIUM CHLORIDE 0.9% FLUSH 10 ML FLUSH IV FLUSH SCH ×2 (08:53→20:07)
[2017-03-14] MEDS: FOLIC ACID 1 MG TAB PO SCH (08:53)
[2017-03-14] MEDS: cloNIDine HCL 0.1 MG TAB PO PRN (08:53)
[2017-03-14] MEDS: ACETAMINOPHEN/HYDROcodone 325 MG/7.5 MG TAB PO PRN ×2 (08:54→12:42)
[2017-03-14] MEDS ORDERED: RIVA1TAB PO (11:03)
--- NOTE | 2017-03-14 13:33 | HHI.PR ---
Subjective Remarks Follow-up for RLE DVT s/p right hip fracture repair. The patient continues to complain of right hip pain today. He also still has some swelling of his right foot. He states he tried to stand with therapy today, and was unable to stand up secondary to hip pain. He denies any tremors or feelings of withdrawal. Currently [place] living in a camp and does not have a permanent residence. Agreeable for transfer to [place] for continued PT until he is able to ambulate safely. Objective Vitals Vital Signs Date Time Temp Pulse Resp B/P Pulse Ox O2 Delivery O2 Flow Rate FiO2 03/14/17 12:00 98.1 50 18 146/70 98 03/14/17 10:16 99 21 03/14/17 07:40 97.1 47 17 176/81 99 03/14/17 04:00 96.7 69 22 159/79 97 03/14/17 01:10 97 03/14/17 00:00 97.9 67 22 161/81 98 03/13/17 20:00 96.7 60 22 120/64 93 03/13/17 15:48 97.0 74 17 165/79 99 03/13/17 13:33 16 I/O 03/13/17 03/13/17 03/13/17 03/14/17 03/14/17 03/14/17 07:00 15:00 23:00 07:00 15:00 23:00 Intake Total 480 ml 480 ml Balance 480 ml 480 ml Intake Oral 480 ml 480 ml # Voids 3 3 # Bowel Movements 0 0 Result Diagram: 03/13/17 0847 03/13/17 0847 Imaging Last Impressions Lower Extremity Ultrasound 03/12/17 0000 Signed Impressions: Service Date/Time: February 18:43 - CONCLUSION: DVT with partial recanalization involving the right calf posterior tibial vein. Ward Wolfe MD Objective Remarks GENERAL: Well-developed well-nourished. In no acute distress. SKIN: Warm and dry. Sunburn on bilateral lower extremities. HEENT: Normocephalic. Pupils equal and round. Mucous membranes pink and moist. CARDIOVASCULAR: Regular rate and rhythm. No murmur appreciated. RESPIRATORY: No accessory muscle use. Clear to auscultation. Breath sounds equal bilaterally. GASTROINTESTINAL: Abdomen soft, non-tender, nondistended. Bowel sounds x4. MUSCULOSKELETAL: Right lower extremity with some mild swelling and edema below the knee. No clubbing or cyanosis. NEUROLOGICAL: Awake and alert. No focal neurological deficits. Moves upper and lower extremities spontaneously. Normal speech. PSYCHIATRIC: Appropriate mood and affect; insight and judgment normal. A/P Problem List: (1) DVT (deep venous thrombosis) ICD Code: I82.409 Status: Acute (2) Alcohol abuse ICD Code: F10.10 Status: Chronic Assessment and Plan 61-year-old male patient with past medical history which includes hypertension, CAD status post [place] in his 40s without cardiac stent placement, COPD not on home oxygen. Patient was discharged on 03/03/2017 after having a RLE edema since Thursday or Thursday. On 02/12/2017 patient underwent Open treatment internal fixation right peritrochanteric hip fracture with intramedullary harry by Dr Barth and was discharged 03/03/2017. Patient has not been taking anticoagulation since discharge. Patient presented to the emergency department today with complaints of right lower extremity edema and pain. Right lower extremity DVT Lower extremity ultrasound reveals: DVT with partial recanalization involving the right calf posterior tibial vein. Discussed with case management, patient qualifies for patient assistance, continue Xarelto Pain control with oral [place] Dysuria- UA ordered and pending Hypertension- chronic not on home medication Clonidine as needed EtOH abuse/dependence [facility] protocol Thiamine and folic acid supplementation Patient counseled on cessation S/P ORIF right hip fracture Consulted Dr. Barth, recommended repeat imaging for stability, and patient cleared for PT and weightbearing as tolerated to the right lower extremity PT consulted, patient is unable to stand currently and is nonambulatory, continue PT while admitted DVT prophylaxis: Xarelto Discharge Planning The patient will need to remain in the hospital for continued therapy until he is able to ambulate safely. Attending Statement This note was transcribed by mirian Roman. I, Dr. Viviana Mendoza personally performed the history, physical exam, and medical decision making; and confirmed the accuracy of the information in the transcribed note. Authenticated by Dr. Viviana Mendoza on 03/14/17 at 20:40. Problem Qualifiers (1) DVT (deep venous thrombosis): Qualified Code: I82.401 - Acute deep vein thrombosis (DVT) of right lower extremity, unspecified vein Kota Roman Mar 14, 2017 13:33 Viviana Mendoza MD Mar 14, 2017 20:41
--- NOTE | 2017-03-14 17:34 | RADRPT ---
EXAM DATE/TIME: 03/14/2017 17:06 [place] COMPARISON: HIP RIGHT (AP&LAT 2/3VWS) WO AP PELVIS, February 12, 2017, 18:48. INDICATIONS : Right hip pain after fall. MEDICAL HISTORY : None. SURGICAL HISTORY : ORIF right hip. ENCOUNTER: Subsequent ACUITY: 1 month PAIN SCORE: 10/10 LOCATION: Right hip. FINDINGS: Previous harry and screw fixation right femur for fracture. Hypertrophic changes of lesser trochanter. No acute fracture or dislocation. CONCLUSION: 1. Fixation right hip. No acute findings. Aurelio Romero MD on March 14, 2017 at 17:31 Board Certified Radiologist. This report was verified electronically.
[2017-03-15] MEDS: ACETAMINOPHEN/HYDROcodone 325 MG/7.5 MG TAB PO PRN ×2 (00:06→05:17)
[2017-03-15 08:00] VITALS: BP 180/70; PULSE 52; RESP 20; TEMP 97.1; O2SAT 97
[2017-03-15] MEDS: RIVAROXABAN 15 MG TAB PO SCH ×2 (10:07→20:02)
[2017-03-15] MEDS: THIAMINE HCL 100 MG TAB PO SCH (10:08)
[2017-03-15] MEDS: FOLIC ACID 1 MG TAB PO SCH (10:08)
[2017-03-15] MEDS: SODIUM CHLORIDE 0.9% FLUSH 10 ML FLUSH IV FLUSH SCH (10:08)
--- NOTE | 2017-03-15 11:39 | HHI.PR ---
Subjective Remarks Patient seen and examined today with Dr. Easley. Patient was recently admitted the hospital from 02/11/17 until 03/02/17 in which at that time he left the hospital AGAINST MEDICAL ADVICE. During that admission the patient was in [place] at the end of his stay because of long-term care needs. The patient was with toe-touch weightbearing to right lower extremity due to a closed right hip fracture. The patient left the hospital his medical advice. The patient came back to the hospital on 03/12/17 because of right lower extremity numbness and swelling. Patient had workup done in found to have DVT of the right lower extremity. Patient was admitted the hospital started on Xarelto. It was indicated that the patient cannot ambulate on his right lower extremity due to the pain and swelling. Because of difficult discharging it was recommended the patient be transferred back to [place] for continued care and management. Upon evaluating the patient today he is still complaining of right lower extremity pain. He is anticoagulated at this time on Xarelto, orthopedic has evaluated the patient and indicates that physical therapy can be consulted and he can weight-bear as tolerated on his right lower extremity. Physical therapy will be consulted and await their clearance for patient to be discharged Objective Vitals Vital Signs Date Time Temp Pulse Resp B/P Pulse Ox O2 Delivery O2 Flow Rate FiO2 03/15/17 08:00 97.1 52 20 180/70 97 03/15/17 06:17 16 03/14/17 20:30 98.0 48 22 160/78 100 03/14/17 20:00 97.8 58 18 166/94 98 03/14/17 15:32 98.5 60 16 139/67 98 03/14/17 12:00 98.1 50 18 146/70 98 I/O 03/14/17 03/14/17 03/14/17 03/15/17 03/15/17 03/15/17 07:00 15:00 23:00 07:00 15:00 23:00 Intake Total 480 ml 720 ml 240 ml 480 ml Output Total 700 ml 550 ml Balance 480 ml 20 ml 240 ml -70 ml Intake Oral 480 ml 720 ml 240 ml 480 ml Output Urine Total 700 ml 550 ml # Voids 3 1 # Bowel Movements 0 0 0 Result Diagram: 03/13/17 0847 03/13/1747 Objective Remarks GENERAL: Well-developed, well-nourished, in no acute distress. alert and orientated HEENT: Head is normocephalic without any lesions or masses noted. Facial features are symmetric. Eyesextraocular muscles are intact. Conjunctivae were clear. NECK: Supple without any masses. Trachea midline no deviation. No JVD, CARDIAC: Regular rhythm, regular rate. S1/S2 are heard. No murmurs gallops or rubs. LUNGS: Clear to auscultation bilaterally. No wheeze, rhonchi or rales. No use of accessory muscles on inspiration or expiration. ABDOMEN: Soft, nontender. Nondistended. Bowel sounds heard in all 4 quadrants. No organomegaly or masses. Negative rebound, negative guarding EXTREMITIES: No edema, pulses are equal bilaterally. No cyanosis or clubbing NEUROLOGY: Mood and affect appear appropriate. Cranial nerves II through XII grossly intact. Moving all extremities, speech is clear Urinary Catheter: No Vascular Central Line Catheter: No A/P Assessment and Plan Right lower extremity DVT Lower extremity ultrasound reveals: DVT with partial recanalization involving the right calf posterior tibial vein. Patient started on Xarelto, case management indicates that the patient qualifies for patient assistance, Pain control with oral [place] Dysuria- Urinalysis is clear Hypertension Start Norvasc 5 mg daily Clonidine as needed EtOH abuse/dependence Discontinue CIWA protocol Continue Thiamine and folic acid supplementation Patient counseled on cessation S/P ORIF right hip fracture Consulted Dr. Barth, repeat imaging did not indicate any acute abnormality Orthopedic clear the patient for weightbearing as tolerated and physical therapy DVT prophylaxis: Xarelto Written by Rupesh Land, acting as scribe for Dr. Easley on 03/15/17 at 16: 07. This note was transcribed by scribe Rupesh Land. I, Dr. Vernon Easley personally performed the history, physical exam, and medical decision making; and confirmed the accuracy of the information in the transcribed note. Authenticated by Dr. Vernon Easley on 03/15/17 at 16:08. Discharge Planning Discharge home once cleared by physical therapy Rupesh Land Mar 15, 2017 11:39 Veronn Easley MD Mar 15, 2017 16:07
[2017-03-15] MEDS ORDERED: ONDANSETRON ODT 4 MG TAB PO PRN (11:45)
[2017-03-15] MEDS ORDERED: CALCIUM CARBONATE 500 MG CHEWABLE TAB CHEW PRN (11:45)
[2017-03-15] MEDS ORDERED: MAGNESIUM HYDROXIDE SUSP 30 ML CUP PO PRN (11:45)
[2017-03-15] MEDS ORDERED: amLODIPine BESYLATE 5 MG TAB PO SCH (12:00)
[2017-03-15 20:00] VITALS: BP 178/87; PULSE 53; RESP 20; TEMP 98.8; O2SAT 97
[2017-03-15] MEDS: traMADol HCL 50 MG TAB PO PRN (20:02)
[2017-03-16 08:00] VITALS: BP 143/81; PULSE 52; RESP 16; TEMP 96.8; O2SAT 97
[2017-03-16] MEDS: FOLIC ACID 1 MG TAB PO SCH (09:29)
[2017-03-16] MEDS: RIVAROXABAN 15 MG TAB PO SCH ×2 (09:30→21:41)
[2017-03-16] MEDS: THIAMINE HCL 100 MG TAB PO SCH (09:30)
[2017-03-16] MEDS: amLODIPine BESYLATE 5 MG TAB PO SCH (09:30)
[2017-03-16] MEDS: traMADol HCL 50 MG TAB PO PRN ×2 (10:24→18:49)
--- NOTE | 2017-03-16 10:34 | HHI.PR ---
Subjective Remarks Patient seen and examined today in follow-up for DVT of the right lower extremity. Patient states that he still experiencing numbness on the bottom of his right foot since surgery. Notify this could be a normal variant could take 6 months to year to recover feeling. Repeat x-rays do not indicate any acute abnormality. Patient still DVT and he states that his leg is very weak. Objective Vitals Vital Signs Date Time Temp Pulse Resp B/P Pulse Ox O2 Delivery O2 Flow Rate FiO2 03/16/17 08:00 96.8 52 16 143/81 97 03/15/17 21:02 16 03/15/17 20:00 98.8 53 20 178/87 97 Manual Cuff/Auscultation I/O 03/15/17 03/15/17 03/15/17 03/16/17 03/16/17 03/16/17 07:00 15:00 23:00 07:00 15:00 23:00 Intake Total 480 ml 722 ml 240 ml Output Total 550 ml 675 ml 725 ml 600 ml Balance -70 ml 47 ml -485 ml -600 ml Intake Oral 480 ml 720 ml 240 ml IV Total 2 ml Output Urine Total 550 ml 675 ml 725 ml 600 ml # Voids 2 2 # Bowel Movements 0 0 1 Result Diagram: 03/13/1747 03/13/1747 Objective Remarks GENERAL: Well-developed, well-nourished, in no acute distress. alert and orientated HEENT: Head is normocephalic without any lesions or masses noted. Facial features are symmetric. Eyesextraocular muscles are intact. Conjunctivae were clear. NECK: Supple without any masses. Trachea midline no deviation. No JVD, CARDIAC: Regular rhythm, regular rate. S1/S2 are heard. No murmurs gallops or rubs. LUNGS: Clear to auscultation bilaterally. No wheeze, rhonchi or rales. No use of accessory muscles on inspiration or expiration. ABDOMEN: Soft, nontender. Nondistended. Bowel sounds heard in all 4 quadrants. No organomegaly or masses. Negative rebound, negative guarding EXTREMITIES: No edema, pulses are equal bilaterally. No cyanosis or clubbing NEUROLOGY: Mood and affect appear appropriate. Cranial nerves II through XII grossly intact. Moving all extremities, speech is clear Urinary Catheter: No Vascular Central Line Catheter: No A/P Assessment and Plan Right lower extremity DVT Lower extremity ultrasound reveals: DVT with partial recanalization involving the right calf posterior tibial vein. Patient started on Xarelto, case management indicates that the patient qualifies for patient assistance, Pain control Tylenol for pain 1-5, tramadol for pain 610 Dysuria- Urinalysis is clear Hypertension Increased to Norvasc 10 mg daily Clonidine as needed EtOH abuse/dependence Discontinued [facility] protocol Continue Thiamine and folic acid supplementation Patient counseled on cessation S/P ORIF right hip fracture Consulted Dr. Barth, repeat imaging did not indicate any acute abnormality Orthopedic clear the patient for weightbearing as tolerated and physical therapy Continue physical therapy, await their recommendations for discharge DVT prophylaxis: Xarelto Discharge Planning Discharge home once cleared by physical therapy Rupesh Land Mar 16, 2017 10:34
[2017-03-16 20:00] VITALS: BP 148/90; PULSE 56; RESP 20; TEMP 98.7; O2SAT 98
[2017-03-17] MEDS: traMADol HCL 50 MG TAB PO PRN ×3 (05:29→20:41)
[2017-03-17 08:00] VITALS: BP 154/88; PULSE 50; RESP 18; TEMP 96.8; O2SAT 97
[2017-03-17] MEDS: THIAMINE HCL 100 MG TAB PO SCH (09:24)
[2017-03-17] MEDS: FOLIC ACID 1 MG TAB PO SCH (09:26)
[2017-03-17] MEDS: amLODIPine BESYLATE 5 MG TAB PO SCH (09:26)
[2017-03-17] MEDS: RIVAROXABAN 15 MG TAB PO SCH ×2 (09:27→20:40)
--- NOTE | 2017-03-17 14:59 | HHI.PR ---
Subjective Remarks Follow-up for right lower extremity DVT s/p right hip fracture. The patient states that he's been getting stronger when ambulating with PT and being able to walk farther. Still requiring some assistance to ambulate and only able to ambulate around the room. Still has some hip pain with weightbearing, but it is improving. Right foot numbness has improved. Right lower extremity swelling has improved. The patient does have some pain of his right knee. He' s been eating well. He states he's only had one bowel movement in 3 days. Objective Vitals Vital Signs Date Time Temp Pulse Resp B/P Pulse Ox O2 Delivery O2 Flow Rate FiO2 03/17/17 08:00 96.8 50 18 154/88 97 03/17/17 07:00 18 03/16/17 20:00 98.7 56 20 148/90 98 I/O 03/16/17 03/16/17 03/16/17 03/17/17 03/17/17 03/17/17 07:00 15:00 23:00 07:00 15:00 23:00 Intake Total 1200 ml 150 ml 240 ml Output Total 600 ml 150 ml 300 ml 300 ml Balance -600 ml 1050 ml -150 ml -60 ml Intake Oral 1200 ml 150 ml 240 ml Output Urine Total 600 ml 150 ml 300 ml 300 ml # Voids 2 4 1 # Bowel Movements 1 0 0 Result Diagram: 03/13/17 0847 03/13/17 0847 Imaging Last Impressions Hip X-Ray 03/14/17 0000 Signed Impressions: Service Date/Time: Tuesday, March 14, 2017 17:06 - CONCLUSION: 1. Fixation right hip. No acute findings. Aurelio Romero MD Lower Extremity Ultrasound 03/12/17 0000 Signed Impressions: Service Date/Time: February 18:43 - CONCLUSION: DVT with partial recanalization involving the right calf posterior tibial vein. Ward Wolfe MD Objective Remarks GENERAL: Well-developed well-nourished. In no acute distress. SKIN: Warm and dry. No lesions noted. HEENT: Normocephalic. Pupils equal and round. Mucous membranes pink and moist. CARDIOVASCULAR: Regular rate and rhythm. No murmur appreciated. RESPIRATORY: No accessory muscle use. Clear to auscultation. Breath sounds equal bilaterally. GASTROINTESTINAL: Abdomen soft, non-tender, nondistended. Bowel sounds x4. MUSCULOSKELETAL: No edema. Right knee with no effusion, full passive ROM. No clubbing or cyanosis. NEUROLOGICAL: Awake and alert. No focal neurological deficits. Moves upper and lower extremities spontaneously. Normal speech. No tremors. PSYCHIATRIC: Appropriate mood and affect; insight and judgment normal. A/P Problem List: (1) DVT (deep venous thrombosis) ICD Code: I82.409 Status: Acute (2) Alcohol abuse ICD Code: F10.10 Status: Chronic Assessment and Plan 61-year-old male patient with past medical history which includes hypertension, CAD status post [place] in his 40s without cardiac stent placement, COPD not on home oxygen. Patient was discharged on 03/03/2017 after having a RLE edema since Thursday or Thursday. On 02/12/2017 patient underwent Open treatment internal fixation right peritrochanteric hip fracture with intramedullary harry by Dr Barth and was discharged 03/03/2017. Patient has not been taking anticoagulation since discharge. Patient presented to the emergency department with complaints of right lower extremity edema and pain. Right lower extremity DVT Lower extremity ultrasound reveals: DVT with partial recanalization involving the right calf posterior tibial vein. Discussed with case management, patient qualifies for patient assistance, continue Xarelto Pain control with tramadol and Tylenol Hypertension- chronic not on home medication Started on amlodipine, dose titrated up to 10 mg. Clonidine as needed BP improving, monitor and adjust meds as needed EtOH abuse/dependence No further signs of withdrawal, CIWA protocol was discontinued Thiamine and folic acid supplementation Patient counseled on cessation S/P ORIF right hip fracture Consulted Dr. Barth, repeat imaging of the hip did not indicate any acute abnormality. Orthopedics cleared the patient for PT and weightbearing as tolerated to the right lower extremity Continue PT while admitted, patient slowly improving Constipation, likely secondary to narcotics and decreased activity Start Colace scheduled and continue MOM as needed DVT prophylaxis: Xarelto Discharge Planning Patient is uninsured. The patient will need to remain in the hospital for continued therapy until he is able to ambulate safely. Problem Qualifiers (1) DVT (deep venous thrombosis): Qualified Code: I82.401 - Acute deep vein thrombosis (DVT) of right lower extremity, unspecified vein Kota Roman Mar 17, 2017 14:59
[2017-03-17] MEDS: DOCUSATE SODIUM 100 MG CAP PO SCH ×2 (16:00→20:40)
[2017-03-17 20:00] VITALS: BP 146/70; PULSE 62; RESP 21; TEMP 96.4; O2SAT 100
[2017-03-18 08:00] VITALS: BP 143/82; PULSE 54; RESP 19; TEMP 98; O2SAT 97
[2017-03-18] MEDS: DOCUSATE SODIUM 100 MG CAP PO SCH ×2 (08:56→20:47)
[2017-03-18] MEDS: FOLIC ACID 1 MG TAB PO SCH (08:57)
[2017-03-18] MEDS: RIVAROXABAN 15 MG TAB PO SCH ×2 (08:57→20:47)
[2017-03-18] MEDS: amLODIPine BESYLATE 5 MG TAB PO SCH (08:57)
[2017-03-18] MEDS: THIAMINE HCL 100 MG TAB PO SCH (08:57)
[2017-03-18] MEDS: traMADol HCL 50 MG TAB PO PRN ×2 (08:58→20:51)
--- NOTE | 2017-03-18 10:34 | HHI.PR ---
Subjective Remarks Follow-up for DVT status post right hip fracture. Admits to some pain in his R knee and hip. Patient states he started working with PT recently and is progressing and was able to transfer independently from bed to recliner. Objective Vitals Vital Signs Date Time Temp Pulse Resp B/P Pulse Ox O2 Delivery O2 Flow Rate FiO2 03/18/17 08:00 98.0 54 19 143/82 97 03/17/17 20:00 96.4 62 21 146/70 100 03/17/17 15:23 18 I/O 03/17/17 03/17/17 03/17/17 03/18/17 03/18/17 03/18/17 07:00 15:00 23:00 07:00 15:00 23:00 Intake Total 150 ml 240 ml 840 ml 240 ml 420 ml Output Total 300 ml 300 ml 250 ml 750 ml 200 ml Balance -150 ml -60 ml 590 ml -510 ml 220 ml Intake Oral 150 ml 240 ml 840 ml 240 ml 420 ml Output Urine Total 300 ml 300 ml 250 ml 750 ml 200 ml # Voids 1 3 # Bowel Movements 0 Objective Remarks GENERAL: Well-nourished, well-developed patient in no apparent distress. SKIN: Warm and dry. HEAD: Atraumatic. Normocephalic. CARDIOVASCULAR: Regular rate and rhythm. RESPIRATORY: No accessory muscle use. Clear to auscultation. Breath sounds equal bilaterally. GASTROINTESTINAL: Abdomen soft, non-tender, nondistended. MUSCULOSKELETAL: Mildly limited extension of the right knee. 2+ DP and TP pulses bilaterally. No lower extremity edema bilaterally. NEUROLOGICAL: Awake and alert. Normal speech. PSYCHIATRIC: Appropriate mood and affect; insight and judgment normal. Urinary Catheter: No Vascular Central Line Catheter: No A/P Problem List: (1) DVT (deep venous thrombosis) ICD Code: I82.409 Status: Acute (2) Alcohol abuse ICD Code: F10.10 Status: Chronic Assessment and Plan 61-year-old male patient with past medical history which includes hypertension, CAD status post [place] in his 40s without cardiac stent placement, COPD not on home oxygen. On 02/12/2017 patient underwent open reduction internal fixation right peritrochanteric hip fracture with intramedullary harry by Dr Barth and was discharged 03/03/2017. Patient presented to the emergency department with complaints of right lower extremity edema and pain. Patient had not been taking anticoagulation since discharge. Right lower extremity DVT Lower extremity ultrasound reveals: DVT with partial recanalization involving the right calf posterior tibial vein. Discussed with case management, patient qualifies for patient assistance, continue Xarelto Pain control with tramadol and Tylenol Hypertension- chronic not on home medication Started on amlodipine, dose titrated up to 10 mg on 03/16. Clonidine as needed BP improving, monitor and adjust meds as needed EtOH abuse/dependence No further signs of withdrawal, CIWA protocol was discontinued Thiamine and folic acid supplementation Patient counseled on cessation S/P ORIF right hip fracture Consulted Dr. Barth, repeat imaging of the hip did not indicate any acute abnormality. Orthopedics cleared the patient for PT and weightbearing as tolerated to the right lower extremity Continue PT while admitted, patient slowly improving Constipation, likely secondary to narcotics and decreased activity Continue scheduled Colace and MOM as needed DVT prophylaxis: Xarelto Discharge Planning PT recommends home health care. Patient is self-pay. CM following. Will discharge when cleared by PT. Problem Qualifiers (1) DVT (deep venous thrombosis): Qualified Code: I82.401 - Acute deep vein thrombosis (DVT) of right lower extremity, unspecified vein Juani Tillman Mar 18, 2017 10:34
[2017-03-18 20:00] VITALS: BP 131/78; PULSE 62; RESP 20; TEMP 97.3; O2SAT 97
[2017-03-19 08:00] VITALS: BP 146/87; PULSE 53; RESP 18; TEMP 98.7; O2SAT 99
[2017-03-19] MEDS: amLODIPine BESYLATE 5 MG TAB PO SCH (08:59)
[2017-03-19] MEDS: RIVAROXABAN 15 MG TAB PO SCH ×2 (09:00→20:37)
[2017-03-19] MEDS: DOCUSATE SODIUM 100 MG CAP PO SCH ×2 (09:00→20:37)
[2017-03-19] MEDS: FOLIC ACID 1 MG TAB PO SCH (09:00)
[2017-03-19] MEDS: THIAMINE HCL 100 MG TAB PO SCH (09:00)
--- NOTE | 2017-03-19 11:11 | HHI.PR ---
Subjective Remarks Follow-up for DVT status post right hip fracture. at bedside. No acute complaints. Objective Vitals Vital Signs Date Time Temp Pulse Resp B/P Pulse Ox O2 Delivery O2 Flow Rate FiO2 03/19/17 08:00 98.7 53 18 146/87 99 03/18/17 21:51 16 03/18/17 20:00 97.3 62 20 131/78 97 I/O 03/18/17 03/18/17 03/18/17 03/19/17 03/19/17 03/19/17 07:00 15:00 23:00 07:00 15:00 23:00 Intake Total 240 ml 1020 ml 240 ml 240 ml Output Total 750 ml 200 ml 200 ml 550 ml 300 ml Balance -510 ml 820 ml 40 ml -310 ml -300 ml Intake Oral 240 ml 1020 ml 240 ml 240 ml Output Urine Total 750 ml 200 ml 200 ml 550 ml 300 ml Objective Remarks GENERAL: Well-nourished, well-developed patient in no apparent distress. SKIN: Warm and dry. HEAD: Atraumatic. Normocephalic. CARDIOVASCULAR: Regular rate and rhythm. RESPIRATORY: No accessory muscle use. Clear to auscultation. Breath sounds equal bilaterally. GASTROINTESTINAL: Abdomen soft, non-tender, nondistended. MUSCULOSKELETAL: Tender over R proximal lateral femur. R knee with normal extension compared to yesterday. 2+ DP and TP pulses bilaterally. No lower extremity edema bilaterally. NEUROLOGICAL: Awake and alert. Normal speech. PSYCHIATRIC: Appropriate mood and affect; insight and judgment normal. Urinary Catheter: No Vascular Central Line Catheter: No A/P Problem List: (1) DVT (deep venous thrombosis) ICD Code: I82.409 Status: Acute (2) Alcohol abuse ICD Code: F10.10 Status: Chronic Assessment and Plan 61-year-old male patient with past medical history which includes hypertension, CAD status post [place] in his 40s without cardiac stent placement, COPD not on home oxygen. On 02/12/2017 patient underwent open reduction internal fixation right peritrochanteric hip fracture with intramedullary harry by Dr Batrh and was discharged 03/03/2017. Patient presented to the emergency department with complaints of right lower extremity edema and pain. Patient had not been taking anticoagulation since discharge. Right lower extremity DVT Lower extremity ultrasound reveals: DVT with partial recanalization involving the right calf posterior tibial vein. Discussed with case management, patient qualifies for patient assistance, continue Xarelto Pain control with tramadol and Tylenol Hypertension- chronic not on home medication Started on amlodipine, dose titrated up to 10 mg on 03/16. Clonidine as needed BP elevated at 146/87 this morning but it's only been a few days since increasing amlodipine dose. If BP continues to run high, will need to add another agent. EtOH abuse/dependence No further signs of withdrawal, CIWA protocol was discontinued Thiamine and folic acid supplementation Patient counseled on cessation S/P ORIF right hip fracture Consulted Dr. Barth, repeat imaging of the hip did not indicate any acute abnormality. Orthopedics cleared the patient for PT and weightbearing as tolerated to the right lower extremity Continue PT Constipation, likely secondary to narcotics and decreased activity Continue scheduled Colace and MOM as needed DVT prophylaxis: Xarelto Discharge Planning 03/19: Spoke to Arnav CARRANZA, in regards to possibly establishing home health PT as recommended by PT. Problem Qualifiers (1) DVT (deep venous thrombosis): Qualified Code: I82.401 - Acute deep vein thrombosis (DVT) of right lower extremity, unspecified vein Juani Tillman Mar 19, 2017 11:10
[2017-03-19 20:00] VITALS: BP 143/77; PULSE 59; RESP 22; TEMP 99; O2SAT 99
[2017-03-20 08:00] VITALS: BP 119/71; PULSE 63; RESP 18; TEMP 97; O2SAT 97
[2017-03-20] MEDS: DOCUSATE SODIUM 100 MG CAP PO SCH ×2 (08:52→20:44)
[2017-03-20] MEDS: amLODIPine BESYLATE 5 MG TAB PO SCH (08:52)
[2017-03-20] MEDS: THIAMINE HCL 100 MG TAB PO SCH (08:52)
[2017-03-20] MEDS: FOLIC ACID 1 MG TAB PO SCH (08:52)
[2017-03-20] MEDS: traMADol HCL 50 MG TAB PO PRN ×2 (08:53→20:44)
[2017-03-20] MEDS: RIVAROXABAN 15 MG TAB PO SCH ×2 (08:53→20:44)
--- NOTE | 2017-03-20 10:11 | HHI.PR ---
Subjective Remarks Follow-up for DVT status post right hip fracture. Patient states his right ankle pain is improved but he still has pain in the right knee and hip. Denies any shortness of breath. Objective Vitals Vital Signs Date Time Temp Pulse Resp B/P Pulse Ox O2 Delivery O2 Flow Rate FiO2 03/20/17 08:00 97.0 63 18 119/71 97 03/19/17 20:00 99.0 59 22 143/77 99 I/O 03/19/17 03/19/17 03/19/17 03/20/17 03/20/17 03/20/17 07:00 15:00 23:00 07:00 15:00 23:00 Intake Total 240 ml 600 ml 480 ml 480 ml Output Total 550 ml 1100 ml 400 ml 750 ml Balance -310 ml -500 ml 80 ml -270 ml Intake Oral 240 ml 600 ml 480 ml 480 ml Output Urine Total 550 ml 1100 ml 400 ml 750 ml # Bowel Movements 1 0 0 Objective Remarks GENERAL: Well-nourished, well-developed patient in no apparent distress. SKIN: Warm and dry. HEAD: Atraumatic. Normocephalic. CARDIOVASCULAR: Regular rate and rhythm. RESPIRATORY: No accessory muscle use. Clear to auscultation. Breath sounds equal bilaterally. MUSCULOSKELETAL: 2+ DP and TP pulses bilaterally. NEUROLOGICAL: Awake and alert. Normal speech. PSYCHIATRIC: Appropriate mood and affect; insight and judgment normal. Urinary Catheter: No Vascular Central Line Catheter: No A/P Problem List: (1) DVT (deep venous thrombosis) ICD Code: I82.409 Status: Acute (2) Alcohol abuse ICD Code: F10.10 Status: Chronic Assessment and Plan 61-year-old male patient with past medical history which includes hypertension, CAD status post [place] in his 40s without cardiac stent placement, COPD not on home oxygen. On 02/12/2017 patient underwent open reduction internal fixation right peritrochanteric hip fracture with intramedullary harry by Dr Barth and was discharged 03/03/2017. Patient presented to the emergency department with complaints of right lower extremity edema and pain. Patient had not been taking anticoagulation since discharge. Right lower extremity DVT Lower extremity ultrasound reveals: DVT with partial recanalization involving the right calf posterior tibial vein. Discussed with case management, patient qualifies for patient assistance, continue Xarelto Pain control with tramadol and Tylenol Hypertension- chronic not on home medication: Improved. BP this morning 119/71. Started on amlodipine, dose titrated up to 10 mg on 03/16. Clonidine as needed EtOH abuse/dependence No further signs of withdrawal, CIWA protocol was discontinued Thiamine and folic acid supplementation Patient counseled on cessation S/P ORIF right hip fracture Consulted Dr. Barth, repeat imaging of the hip did not indicate any acute abnormality. Orthopedics cleared the patient for PT and weightbearing as tolerated to the right lower extremity Continue PT Constipation, likely secondary to narcotics and decreased activity Continue scheduled Colace and MOM as needed DVT prophylaxis: Xarelto Discharge Planning 03/20: Patient informs me he and his live in [place] [facility]; homeless. Patient to remain hospitalized until cleared by PT. Problem Qualifiers (1) DVT (deep venous thrombosis): Qualified Code: I82.401 - Acute deep vein thrombosis (DVT) of right lower extremity, unspecified vein Juani Tillman Mar 20, 2017 10:11 extremity, unspecified vein Juani Tillman Mar 20, 2017 10:11
[2017-03-20 20:00] VITALS: BP 139/83; PULSE 54; RESP 18; TEMP 98.2; O2SAT 100
[2017-03-21 08:00] VITALS: BP 141/80; PULSE 54; RESP 18; TEMP 98; O2SAT 97
[2017-03-21] MEDS: FOLIC ACID 1 MG TAB PO SCH (08:37)
[2017-03-21] MEDS: DOCUSATE SODIUM 100 MG CAP PO SCH ×2 (08:37→20:46)
[2017-03-21] MEDS: amLODIPine BESYLATE 5 MG TAB PO SCH (08:37)
[2017-03-21] MEDS: THIAMINE HCL 100 MG TAB PO SCH (08:37)
[2017-03-21] MEDS: RIVAROXABAN 15 MG TAB PO SCH ×2 (08:37→20:46)
[2017-03-21] MEDS: traMADol HCL 50 MG TAB PO PRN ×2 (08:38→17:06)
--- NOTE | 2017-03-21 11:52 | HHI.PR ---
Subjective Remarks Follow-up for DVT status post right hip fracture. Admits to pain lateral R hip and knee last night. Objective Vitals Vital Signs Date Time Temp Pulse Resp B/P Pulse Ox O2 Delivery O2 Flow Rate FiO2 03/21/17 09:38 16 03/21/17 08:00 98.0 54 18 141/80 97 03/20/17 20:00 98.2 54 18 139/83 100 I/O 03/20/17 03/20/17 03/20/17 03/21/17 03/21/17 03/21/17 07:00 15:00 23:00 07:00 15:00 23:00 Intake Total 480 ml 1080 ml 720 ml Output Total 750 ml 200 ml 575 ml Balance -270 ml 880 ml 145 ml Intake Oral 480 ml 1080 ml 720 ml Output Urine Total 750 ml 200 ml 575 ml # Voids 1 # Bowel Movements 0 0 0 Objective Remarks GENERAL: Well-nourished, well-developed patient in no apparent distress. SKIN: Warm and dry. HEAD: Atraumatic. Normocephalic. CARDIOVASCULAR: Regular rate and rhythm. RESPIRATORY: No accessory muscle use. Clear to auscultation. Breath sounds equal bilaterally. MUSCULOSKELETAL: 2+ DP and TP pulses bilaterally. Tender over R lateral knee. NEUROLOGICAL: Awake and alert. Normal speech. PSYCHIATRIC: Appropriate mood and affect; insight and judgment normal. Urinary Catheter: No Vascular Central Line Catheter: No A/P Problem List: (1) DVT (deep venous thrombosis) ICD Code: I82.409 Status: Acute (2) Alcohol abuse ICD Code: F10.10 Status: Chronic Assessment and Plan 61-year-old male patient with past medical history which includes hypertension, CAD status post [place] in his 40s without cardiac stent placement, COPD not on home oxygen. On 02/12/2017 patient underwent open reduction internal fixation right peritrochanteric hip fracture with intramedullary harry by Dr Barth and was discharged 03/03/2017. Patient presented to the emergency department with complaints of right lower extremity edema and pain. Patient had not been taking anticoagulation since discharge. Right lower extremity DVT Lower extremity ultrasound reveals: DVT with partial recanalization involving the right calf posterior tibial vein. Discussed with case management, patient qualifies for patient assistance, continue Xarelto Pain control with tramadol and Tylenol Hypertension- chronic not on home medication: Started on amlodipine, dose titrated up to 10 mg on 03/16. Clonidine as needed Monitor BP and adjust medication as needed EtOH abuse/dependence No further signs of withdrawal, CIWA protocol was discontinued Thiamine and folic acid supplementation Patient counseled on cessation S/P ORIF right hip fracture Consulted Dr. Barth, repeat imaging of the hip did not indicate any acute abnormality. Orthopedics cleared the patient for PT and weightbearing as tolerated to the right lower extremity Continue PT Constipation, likely secondary to narcotics and decreased activity Continue scheduled Colace and MOM as needed DVT prophylaxis: Xarelto Discharge Planning 03/20: Patient informs me he and his live in a camp in the [facility]; homeless. Patient to remain hospitalized until cleared by PT. Problem Qualifiers (1) DVT (deep venous thrombosis): Qualified Code: I82.401 - Acute deep vein thrombosis (DVT) of right lower extremity, unspecified vein Juani Tillman Mar 21, 2017 11:52
[2017-03-21 19:15] VITALS: BP 140/80; PULSE 98; RESP 20; TEMP 98.5; O2SAT 99
[2017-03-22 08:00] VITALS: BP 147/77; PULSE 53; RESP 20; TEMP 97.7; O2SAT 97
[2017-03-22] MEDS: amLODIPine BESYLATE 5 MG TAB PO SCH (09:02)
[2017-03-22] MEDS: RIVAROXABAN 15 MG TAB PO SCH ×2 (09:02→20:55)
[2017-03-22] MEDS: DOCUSATE SODIUM 100 MG CAP PO SCH ×2 (09:02→20:56)
[2017-03-22] MEDS: THIAMINE HCL 100 MG TAB PO SCH (09:02)
[2017-03-22] MEDS: FOLIC ACID 1 MG TAB PO SCH (09:02)
[2017-03-22] MEDS: traMADol HCL 50 MG TAB PO PRN ×2 (09:03→17:31)
--- NOTE | 2017-03-22 11:57 | HHI.PR ---
Subjective Remarks Follow-up for DVT right leg status post right hip fracture. Patient states he never received his pain medication last night after asking for it several times. He states he couldn't sleep and went to bed around 2 AM only sleeping approximately 2 hours until he was up again. He states the pain around the knee is better but he now has pain in the thigh. He states he may have had trouble sleeping regardless of the pain. Objective Vitals Vital Signs Date Time Temp Pulse Resp B/P Pulse Ox O2 Delivery O2 Flow Rate FiO2 03/22/17 10:03 16 03/22/17 08:00 97.7 53 20 147/77 97 03/21/17 19:15 98.5 98 20 140/80 99 I/O 03/21/17 03/21/17 03/21/17 03/22/17 03/22/17 03/22/17 07:00 15:00 23:00 07:00 15:00 23:00 Intake Total 720 ml 1240 ml 240 ml Output Total 575 ml 1100 ml 450 ml Balance 145 ml 140 ml -210 ml Intake Oral 720 ml 1240 ml 240 ml Output Urine Total 575 ml 1100 ml 450 ml # Bowel Movements 0 1 Objective Remarks GENERAL: Well-nourished, well-developed patient in no apparent distress. SKIN: Warm and dry. HEAD: Atraumatic. Normocephalic. CARDIOVASCULAR: Regular rate and rhythm. RESPIRATORY: No accessory muscle use. Clear to auscultation. Breath sounds equal bilaterally. MUSCULOSKELETAL: 2+ DP and TP pulses bilaterally. NEUROLOGICAL: Awake and alert. Normal speech. PSYCHIATRIC: Appropriate mood and affect; insight and judgment normal. Urinary Catheter: No Vascular Central Line Catheter: No A/P Problem List: (1) DVT (deep venous thrombosis) ICD Code: I82.409 Status: Acute (2) Alcohol abuse ICD Code: F10.10 Status: Chronic Assessment and Plan 61-year-old male patient with past medical history which includes hypertension, CAD status post [place] in his 40s without cardiac stent placement, COPD not on home oxygen. On 02/12/2017 patient underwent open reduction internal fixation right peritrochanteric hip fracture with intramedullary harry by Dr Barth and was discharged 03/03/2017. Patient presented to the emergency department with complaints of right lower extremity edema and pain. Patient had not been taking anticoagulation since discharge. Right lower extremity DVT Lower extremity ultrasound reveals: DVT with partial recanalization involving the right calf posterior tibial vein. Discussed with case management, patient qualifies for patient assistance, continue Xarelto Pain control with tramadol and Tylenol Hypertension- chronic not on home medication: Started on amlodipine, dose titrated up to 10 mg on 03/16. BP has improved since increasing dose. Still elevated this morning before med given, but BP is not persistently high any longer. Clonidine as needed EtOH abuse/dependence No further signs of withdrawal, CIWA protocol was discontinued Thiamine and folic acid supplementation Patient counseled on cessation S/P ORIF right hip fracture Consulted Dr. Barth, repeat imaging of the hip did not indicate any acute abnormality. Orthopedics cleared the patient for PT and weightbearing as tolerated to the right lower extremity Continue PT Constipation, likely secondary to narcotics and decreased activity Continue scheduled Colace and MOM as needed Insomnia: Patient states he barely slept last night which could be mostly due to pain and not receiving his medication. Avoid antihistamines due to interaction with tramadol. Avoid narcotics. Will start melatonin and ensure patient's pain medication is administered as indicated. DVT prophylaxis: Xarelto Discharge Planning 03/20: Patient informs me he and his live in a camp in the [facility]; homeless. Patient to remain hospitalized until cleared by PT. Problem Qualifiers (1) DVT (deep venous thrombosis): Qualified Code: I82.401 - Acute deep vein thrombosis (DVT) of right lower extremity, unspecified vein Juani Tillman Mar 22, 2017 11:57
[2017-03-22 19:15] VITALS: BP 123/71; PULSE 68; RESP 17; TEMP 98; O2SAT 98
[2017-03-22] MEDS: MELATONIN 5 MG TAB PO PRN (20:56)
[2017-03-23] MEDS: traMADol HCL 50 MG TAB PO PRN ×3 (00:34→22:07)
[2017-03-23 08:00] VITALS: BP 125/90; PULSE 59; RESP 58; TEMP 98; O2SAT 96
[2017-03-23] MEDS: FOLIC ACID 1 MG TAB PO SCH (08:18)
[2017-03-23] MEDS: DOCUSATE SODIUM 100 MG CAP PO SCH ×2 (08:19→21:06)
[2017-03-23] MEDS: THIAMINE HCL 100 MG TAB PO SCH (08:19)
[2017-03-23] MEDS: amLODIPine BESYLATE 5 MG TAB PO SCH (08:19)
[2017-03-23] MEDS: RIVAROXABAN 15 MG TAB PO SCH ×2 (08:19→21:06)
--- NOTE | 2017-03-23 10:36 | HHI.PR ---
Subjective Remarks Follow-up for DVT right leg status post right hip fracture, recent insomnia. Patient was started on melatonin last night. He states he dozed off at 11:30pm , woke up at 12:30am and took the melatonin and then slept till 6 am, much improved from prior night. Objective Vitals Vital Signs Date Time Temp Pulse Resp B/P Pulse Ox O2 Delivery O2 Flow Rate FiO2 03/23/17 08:00 98.0 59 58 125/90 96 03/23/17 07:51 20 03/22/17 19:15 98.0 68 17 123/71 98 I/O 03/22/17 03/22/17 03/22/17 03/23/17 03/23/17 03/23/17 07:00 15:00 23:00 07:00 15:00 23:00 Intake Total 240 ml 800 ml Output Total 450 ml 1400 ml 350 ml Balance -210 ml -600 ml -350 ml Intake Oral 240 ml 800 ml Output Urine Total 450 ml 1400 ml 350 ml # Bowel Movements 0 Objective Remarks GENERAL: Well-nourished, well-developed patient in no apparent distress. SKIN: Warm and dry. HEAD: Atraumatic. Normocephalic. CARDIOVASCULAR: Regular rate and rhythm. RESPIRATORY: No accessory muscle use. Clear to auscultation. Breath sounds equal bilaterally. GASTROINTESTINAL: Abdomen soft, non-tender, non-distended. MUSCULOSKELETAL: 2+ DP and TP pulses bilaterally. NEUROLOGICAL: Awake and alert. Normal speech. PSYCHIATRIC: Appropriate mood and affect; insight and judgment normal. Urinary Catheter: No Vascular Central Line Catheter: No A/P Problem List: (1) DVT (deep venous thrombosis) ICD Code: I82.409 Status: Acute (2) Alcohol abuse ICD Code: F10.10 Status: Chronic Assessment and Plan 61-year-old male patient with past medical history which includes hypertension, CAD status post [place] in his 40s without cardiac stent placement, COPD not on home oxygen. On 02/12/2017 patient underwent open reduction internal fixation right peritrochanteric hip fracture with intramedullary harry by Dr Barth and was discharged 03/03/2017. Patient presented to the emergency department with complaints of right lower extremity edema and pain. Patient had not been taking anticoagulation since discharge. Right lower extremity DVT Lower extremity ultrasound reveals: DVT with partial recanalization involving the right calf posterior tibial vein. Discussed with case management, patient qualifies for patient assistance, continue Xarelto Pain control with tramadol and Tylenol Hypertension- chronic not on home medication: Started on amlodipine, dose titrated up to 10 mg on 03/16. BP has improved since increasing dose. Monitor. Clonidine as needed EtOH abuse/dependence No further signs of withdrawal, CIWA protocol was discontinued Thiamine and folic acid supplementation Patient counseled on cessation S/P ORIF right hip fracture Consulted Dr. Barth, repeat imaging of the hip did not indicate any acute abnormality. Orthopedics cleared the patient for PT and weightbearing as tolerated to the right lower extremity Continue PT Constipation, likely secondary to narcotics and decreased activity Continue scheduled Colace and MOM as needed Insomnia: Improved. Avoid antihistamines due to interaction with tramadol. Avoid narcotics. Continue Melatonin and ensure patient's pain medication is administered as indicated. DVT prophylaxis: Xarelto Discharge Planning 03/20: Patient informs me he and his live in a camp in the [facility]; homeless. Patient to remain hospitalized until cleared by PT. 03/23: Per CM, patient can utilize services through homeless [facility] and patient assistance program once discharged. Problem Qualifiers (1) DVT (deep venous thrombosis): Qualified Code: I82.401 - Acute deep vein thrombosis (DVT) of right lower extremity, unspecified vein Juani Tillman Mar 23, 2017 10:36
[2017-03-23 20:00] VITALS: BP 128/71; PULSE 56; RESP 16; TEMP 98.6; O2SAT 96
[2017-03-23] MEDS: MELATONIN 5 MG TAB PO PRN (22:07)
[2017-03-24] MEDS: DOCUSATE SODIUM 100 MG CAP PO SCH ×2 (07:50→20:09)
[2017-03-24] MEDS: FOLIC ACID 1 MG TAB PO SCH (07:50)
[2017-03-24] MEDS: amLODIPine BESYLATE 5 MG TAB PO SCH (07:50)
[2017-03-24] MEDS: RIVAROXABAN 15 MG TAB PO SCH ×2 (07:50→20:09)
[2017-03-24] MEDS: THIAMINE HCL 100 MG TAB PO SCH (07:51)
[2017-03-24 08:00] VITALS: BP 141/86; PULSE 53; RESP 18; TEMP 97.7; O2SAT 98
--- NOTE | 2017-03-24 11:26 | HHI.PR ---
Subjective Remarks Patient seen and examined today for follow-up on DVT of the right lower extremity. Patient denies any new complaints today. He was seen resting in bed and flexing his legs without any signs of discomfort. He indicates that the swelling and pain is improving. I review medical records it does appear as if he is requiring pain medication as prescribed. Awaiting physical therapy to clear the patient be discharged Objective Vitals Vital Signs Date Time Temp Pulse Resp B/P Pulse Ox O2 Delivery O2 Flow Rate FiO2 03/24/17 08:00 97.7 53 18 141/86 98 03/23/17 20:00 98.6 56 16 128/71 96 I/O 03/23/17 03/23/17 03/23/17 03/24/17 03/24/17 03/24/17 07:00 15:00 23:00 07:00 15:00 23:00 Intake Total 720 ml 480 ml 480 ml 100 ml Output Total 350 ml 500 ml 800 ml Balance -350 ml 720 ml -20 ml -320 ml 100 ml Intake Oral 720 ml 480 ml 480 ml 100 ml Output Urine Total 350 ml 500 ml 800 ml # Voids 7 # Bowel Movements 1 0 0 Objective Remarks GENERAL: Well-developed, well-nourished, in no acute distress. alert and orientated HEENT: Head is normocephalic without any lesions or masses noted. Facial features are symmetric. Eyesextraocular muscles are intact. Conjunctivae were clear. NECK: Supple without any masses. Trachea midline no deviation. No JVD, CARDIAC: Regular rhythm, regular rate. S1/S2 are heard. No murmurs gallops or rubs. LUNGS: Clear to auscultation bilaterally. No wheeze, rhonchi or rales. No use of accessory muscles on inspiration or expiration. ABDOMEN: Soft, nontender. Nondistended. Bowel sounds heard in all 4 quadrants. No organomegaly or masses. Negative rebound, negative guarding EXTREMITIES: No edema, pulses are equal bilaterally. No cyanosis or clubbing NEUROLOGY: Mood and affect appear appropriate. Cranial nerves II through XII grossly intact. Moving all extremities, speech is clear Urinary Catheter: No Vascular Central Line Catheter: No A/P Assessment and Plan Right lower extremity DVT Lower extremity ultrasound reveals: DVT with partial recanalization involving the right calf posterior tibial vein. Continue Xarelto, case management indicates that the patient qualifies for patient assistance, Pain control Tylenol for pain 1-10 Dysuria- Urinalysis is clear Hypertension Norvasc 10 mg daily Clonidine as needed EtOH abuse/dependence Discontinued [facility] protocol Continue Thiamine and folic acid supplementation Patient counseled on cessation S/P ORIF right hip fracture Consulted Dr. Barth, repeat imaging did not indicate any acute abnormality Orthopedic clear the patient for weightbearing as tolerated and physical therapy Continue physical therapy, await their recommendations for discharge DVT prophylaxis: Xarelto Discharge Planning Discharge home once cleared by physical therapy. At the present time he is ambulating 60 feet slowly with contact guard. Physical therapy indicated patient required to be discharged home with home health PT Rupesh Land Mar 24, 2017 11:26
[2017-03-24 20:00] VITALS: BP 141/78; PULSE 62; RESP 17; TEMP 98.2; O2SAT 96
[2017-03-25] MEDS: FOLIC ACID 1 MG TAB PO SCH (07:42)
[2017-03-25] MEDS: DOCUSATE SODIUM 100 MG CAP PO SCH ×2 (07:42→21:00)
[2017-03-25] MEDS: THIAMINE HCL 100 MG TAB PO SCH (07:42)
[2017-03-25] MEDS: amLODIPine BESYLATE 5 MG TAB PO SCH (07:42)
[2017-03-25] MEDS: RIVAROXABAN 15 MG TAB PO SCH ×2 (07:43→21:16)
[2017-03-25 08:00] VITALS: BP 140/84; PULSE 64; RESP 19; TEMP 98.6; O2SAT 98
--- NOTE | 2017-03-25 10:08 | HHI.PR ---
Subjective Remarks Patient seen and examined today for follow-up on DVT. Patient states that his right foot still feels as if the skin is still tight. He is concerned that he developed a red inflamed area on his surgical site. Objective Vitals Vital Signs Date Time Temp Pulse Resp B/P Pulse Ox O2 Delivery O2 Flow Rate FiO2 03/25/17 08:00 98.6 64 19 140/84 98 03/24/17 20:00 98.2 62 17 141/78 96 I/O 03/24/17 03/24/17 03/24/17 03/25/17 03/25/17 03/25/17 07:00 15:00 23:00 07:00 15:00 23:00 Intake Total 480 ml 960 ml 480 ml 480 ml 100 ml Output Total 800 ml 700 ml 250 ml 800 ml 250 ml Balance -320 ml 260 ml 230 ml -320 ml -150 ml Intake Oral 480 ml 960 ml 480 ml 480 ml 100 ml Output Urine Total 800 ml 700 ml 250 ml 800 ml 250 ml # Bowel Movements 0 1 0 0 Objective Remarks GENERAL: Well-developed, well-nourished, in no acute distress. alert and orientated HEENT: Head is normocephalic without any lesions or masses noted. Facial features are symmetric. Eyesextraocular muscles are intact. Conjunctivae were clear. NECK: Supple without any masses. Trachea midline no deviation. No JVD, CARDIAC: Regular rhythm, regular rate. S1/S2 are heard. No murmurs gallops or rubs. LUNGS: Clear to auscultation bilaterally. No wheeze, rhonchi or rales. No use of accessory muscles on inspiration or expiration. ABDOMEN: Soft, nontender. Nondistended. Bowel sounds heard in all 4 quadrants. No organomegaly or masses. Negative rebound, negative guarding EXTREMITIES: No edema, pulses are equal bilaterally. No cyanosis or clubbing. Right hip surgical incision area with inflammation and erythema noted at the distal end of the scar. No fluctuance was noted. NEUROLOGY: Mood and affect appear appropriate. Cranial nerves II through XII grossly intact. Moving all extremities, speech is clear Urinary Catheter: No Vascular Central Line Catheter: No A/P Assessment and Plan Right lower extremity DVT Lower extremity ultrasound reveals: DVT with partial recanalization involving the right calf posterior tibial vein. Continue Xarelto, case management indicates that the patient qualifies for patient assistance, Pain control Tylenol for pain 1-10 Dysuria- Urinalysis is clear Hypertension Norvasc 10 mg daily Clonidine as needed EtOH abuse/dependence Discontinued [facility] protocol Continue Thiamine and folic acid supplementation Patient counseled on cessation S/P ORIF right hip fracture Consulted Dr. Barth, repeat imaging did not indicate any acute abnormality Orthopedic clear the patient for weightbearing as tolerated and physical therapy Continue physical therapy, await their recommendations for discharge Wound care nurse evaluation of surgical incision site. Indicates that there is fluctuance, exudative material Wound care nurse recommending orthopedic reevaluation for surgical site infection DVT prophylaxis: Xarelto Discharge Planning Discharge home once cleared by physical therapy. At the present time he is ambulating 70 feet slowly with standby assist. Physical therapy indicated patient required to be discharged home with home health PT Rupesh Land Mar 25, 2017 10:08
[2017-03-25 20:00] VITALS: BP 133/75; PULSE 74; RESP 20; TEMP 98.8; O2SAT 98
[2017-03-25] MEDS: MELATONIN 5 MG TAB PO PRN (23:08)
[2017-03-26] MEDS: amLODIPine BESYLATE 5 MG TAB PO SCH (08:57)
[2017-03-26] MEDS: DOCUSATE SODIUM 100 MG CAP PO SCH ×2 (08:58→21:18)
[2017-03-26] MEDS: RIVAROXABAN 15 MG TAB PO SCH ×2 (08:58→21:18)
[2017-03-26] MEDS: FOLIC ACID 1 MG TAB PO SCH (08:58)
[2017-03-26] MEDS: THIAMINE HCL 100 MG TAB PO SCH (08:58)
[2017-03-26 09:36] VITALS: BP 138/68; PULSE 59; RESP 15; TEMP 97.4; O2SAT 100
--- NOTE | 2017-03-26 11:03 | HHI.PR ---
Subjective Remarks Patient seen and examined today for follow-up on DVT. Patient denies any new complaints. No change in clinical status. Still awaiting physical therapy to clear the patient to be discharged Objective Vitals Vital Signs Date Time Temp Pulse Resp B/P Pulse Ox O2 Delivery O2 Flow Rate FiO2 03/26/17 09:36 97.4 59 15 138/68 100 03/25/17 20:00 98.8 74 20 133/75 98 I/O 03/25/17 03/25/17 03/25/17 03/26/17 03/26/17 03/26/17 07:00 15:00 23:00 07:00 15:00 23:00 Intake Total 480 ml 820 ml 240 ml 360 ml Output Total 800 ml 900 ml 300 ml 400 ml Balance -320 ml -80 ml -60 ml -40 ml Intake Oral 480 ml 820 ml 240 ml 360 ml Output Urine Total 800 ml 900 ml 300 ml 400 ml # Voids 0 3 # Bowel Movements 0 1 0 0 Objective Remarks GENERAL: Well-developed, well-nourished, in no acute distress. alert and orientated HEENT: Head is normocephalic without any lesions or masses noted. Facial features are symmetric. Eyesextraocular muscles are intact. Conjunctivae were clear. NECK: Supple without any masses. Trachea midline no deviation. No JVD, CARDIAC: Regular rhythm, regular rate. S1/S2 are heard. No murmurs gallops or rubs. LUNGS: Clear to auscultation bilaterally. No wheeze, rhonchi or rales. No use of accessory muscles on inspiration or expiration. ABDOMEN: Soft, nontender. Nondistended. Bowel sounds heard in all 4 quadrants. No organomegaly or masses. Negative rebound, negative guarding EXTREMITIES: No edema, pulses are equal bilaterally. No cyanosis or clubbing. Right hip surgical incision area with inflammation and erythema noted at the distal end of the scar. No fluctuance was noted. NEUROLOGY: Mood and affect appear appropriate. Cranial nerves II through XII grossly intact. Moving all extremities, speech is clear Urinary Catheter: No Vascular Central Line Catheter: No A/P Problem List: (1) Alcohol abuse ICD Code: F10.10 Status: Chronic Assessment and Plan Right lower extremity DVT Lower extremity ultrasound reveals: DVT with partial recanalization involving the right calf posterior tibial vein. Continue Xarelto, case management indicates that the patient qualifies for patient assistance, Pain control Tylenol for pain 1-10 Hypertension Norvasc 10 mg daily Clonidine as needed EtOH abuse/dependence Discontinued [facility] protocol Continue Thiamine and folic acid supplementation Patient counseled on cessation S/P ORIF right hip fracture Reconsulted Dr. Barth, for postsurgical wound abscess Orthopedic clear the patient for weightbearing as tolerated and physical therapy Continue physical therapy, await their recommendations for discharge Wound care nurse evaluation of surgical incision site. Indicates that there is fluctuance, exudative material Wound care nurse recommending orthopedic reevaluation for surgical site infection DVT prophylaxis: Rowdy Discharge Planning Discharge home once cleared by physical therapy. At the present time he is ambulating 80 feet slowly with standby assist. Physical therapy indicated patient required to be discharged home with home health PT Rupesh Land Mar 26, 2017 11:03
--- NOTE | 2017-03-26 15:54 | PD.ORT.PN ---
Subjective Subjective Remarks Sitting in chair. I have been asked to reevaluate him for an infection in his right hip. He is 6 weeks now status post IM harry of the right occipital femur for a peritrochanteric fracture Objective Vitals Vital Signs Date Time Temp Pulse Resp B/P Pulse Ox O2 Delivery O2 Flow Rate FiO2 03/26/17 09:36 97.4 59 15 138/68 100 03/25/17 20:00 98.8 74 20 133/75 98 I/O 03/25/17 03/25/17 03/25/17 03/26/17 03/26/17 03/26/17 07:00 15:00 23:00 07:00 15:00 23:00 Intake Total 480 ml 820 ml 240 ml 360 ml 100 ml Output Total 800 ml 900 ml 300 ml 400 ml Balance -320 ml -80 ml -60 ml -40 ml 100 ml Intake Oral 480 ml 820 ml 240 ml 360 ml 100 ml Output Urine Total 800 ml 900 ml 300 ml 400 ml # Voids 0 3 # Bowel Movements 0 1 0 0 Imaging Last Impressions Lower Extremity Ultrasound 03/12/17 0000 Signed Impressions: Service Date/Time: February 18:43 - CONCLUSION: DVT with partial recanalization involving the right calf posterior tibial vein. Ward Wolfe MD Procedures Open treatment internal fixation right peritrochanteric hip fracture with intramedullary harry (02/11/17 Dr Levar Barth) Objective Remarks RLE: Incision shows a small area approximately the there appears to been a stitch abscess with slight drainage. There is no evidence of an abscess. This does not communicate deep. Full range of motion the hip. The distal incisions looked totally normal. A slight amount of drainage from the incision is noted. Calf tenderness. Mild swelling right leg versus left Assessment & Plan Problem List: (1) Closed right hip fracture (2) DVT (deep venous thrombosis) (3) Alcohol abuse Assessment and Plan Open treatment internal fixation right peritrochanteric hip fracture with intramedullary harry (02/11/17 Dr Levar Barth) A culture should be obtained from the hip. I spoke with the nurse about this. Dressing change daily and scrubbed this area. This should be watched over time, but I doubt that will need surgical treatment. Consider antibiotics for appropriate coverage of this infection. This appears to be a very superficial infection that has no evidence of deep communication Levar Barth MD Mar 26, 2017 15:54
[2017-03-26 20:00] VITALS: BP 115/71; PULSE 68; RESP 20; TEMP 97.6; O2SAT 100
[2017-03-27 08:00] VITALS: BP 126/74; PULSE 60; RESP 16; TEMP 98.7; O2SAT 100
[2017-03-27] MEDS: FOLIC ACID 1 MG TAB PO SCH (09:03)
[2017-03-27] MEDS: RIVAROXABAN 15 MG TAB PO SCH ×2 (09:03→22:04)
[2017-03-27] MEDS: DOCUSATE SODIUM 100 MG CAP PO SCH ×2 (09:03→22:05)
[2017-03-27] MEDS: amLODIPine BESYLATE 5 MG TAB PO SCH (09:03)
[2017-03-27] MEDS: THIAMINE HCL 100 MG TAB PO SCH (09:03)
--- NOTE | 2017-03-27 10:21 | HHI.PR ---
Subjective Remarks Patient seen and examined today in follow-up for DVT. Patient states that he is having some stiffness noted in his right groin area on same side that he had surgery. Patient was evaluated by orthopedics yesterday. Objective Vitals Vital Signs Date Time Temp Pulse Resp B/P Pulse Ox O2 Delivery O2 Flow Rate FiO2 03/27/17 08:00 98.7 60 16 126/74 100 03/26/17 20:00 97.6 68 20 115/71 100 I/O 03/26/17 03/26/17 03/26/17 03/27/17 03/27/17 03/27/17 07:00 15:00 23:00 07:00 15:00 23:00 Intake Total 360 ml 100 ml 1560 ml 480 ml Output Total 400 ml 750 ml Balance -40 ml 100 ml 1560 ml -270 ml Intake Oral 360 ml 100 ml 1560 ml 480 ml Output Urine Total 400 ml 750 ml # Voids 3 5 2 # Bowel Movements 0 1 0 Objective Remarks GENERAL: Well-developed, well-nourished, in no acute distress. alert and orientated HEENT: Head is normocephalic without any lesions or masses noted. Facial features are symmetric. Eyesextraocular muscles are intact. Conjunctivae were clear. NECK: Supple without any masses. Trachea midline no deviation. No JVD, CARDIAC: Regular rhythm, regular rate. S1/S2 are heard. No murmurs gallops or rubs. LUNGS: Clear to auscultation bilaterally. No wheeze, rhonchi or rales. No use of accessory muscles on inspiration or expiration. ABDOMEN: Soft, nontender. Nondistended. Bowel sounds heard in all 4 quadrants. No organomegaly or masses. Negative rebound, negative guarding EXTREMITIES: No edema, pulses are equal bilaterally. No cyanosis or clubbing. Right hip surgical incision area with inflammation and erythema noted at the distal end of the scar. No fluctuance was noted. NEUROLOGY: Mood and affect appear appropriate. Cranial nerves II through XII grossly intact. Moving all extremities, speech is clear Urinary Catheter: No Vascular Central Line Catheter: No A/P Assessment and Plan Right lower extremity DVT Lower extremity ultrasound reveals: DVT with partial recanalization involving the right calf posterior tibial vein. Continue Xarelto, case management indicates that the patient qualifies for patient assistance, Pain control Tylenol for pain 1-10 Hypertension Norvasc 10 mg daily Clonidine as needed EtOH abuse/dependence Discontinued [facility] protocol Continue Thiamine and folic acid supplementation Patient counseled on cessation S/P ORIF right hip fracture Reconsulted Dr. Barth, for postsurgical wound abscess Orthopedic clear the patient for weightbearing as tolerated and physical therapy Continue physical therapy, await their recommendations for discharge Right hip surgical scar cellulitis/abscess Orthopedic evaluated patient who indicates that is a non-complicated superficial wound, recommended appropriate antibiotics and culture Wound care nurse evaluation of surgical incision site. Indicates that there is fluctuance, exudative material Wound care nurse recommending orthopedic reevaluation for surgical site infection Started Bactrim DS 1 tablet twice daily Wound culture pending at this time DVT prophylaxis: Xarelto Discharge Planning Discharge home once cleared by physical therapy. At the present time he is ambulating 80 feet slowly with standby assist. Physical therapy indicated patient required to be discharged home with home health PT Rupesh Land Mar 27, 2017 10:21
[2017-03-27] MEDS: SULFAMETHOXAZOLE-TRIMETHOPRIM DS 800-160 MG TAB PO SCH ×2 (10:30→22:04)
[2017-03-27 20:00] VITALS: BP 136/77; PULSE 63; RESP 21; TEMP 97.8; O2SAT 100
[2017-03-27] MEDS ORDERED: ACETAMINOPHEN/HYDROcodone 325 MG/5 MG TAB PO ONE (21:00)
[2017-03-28 08:00] VITALS: BP 154/64; PULSE 57; RESP 20; TEMP 98.4; O2SAT 98
[2017-03-28] MEDS: DOCUSATE SODIUM 100 MG CAP PO SCH ×3 (09:00→21:02)
[2017-03-28] MEDS: SULFAMETHOXAZOLE-TRIMETHOPRIM DS 800-160 MG TAB PO SCH ×2 (09:19→21:02)
[2017-03-28] MEDS: THIAMINE HCL 100 MG TAB PO SCH (09:19)
[2017-03-28] MEDS: RIVAROXABAN 15 MG TAB PO SCH ×2 (09:19→21:02)
[2017-03-28] MEDS: FOLIC ACID 1 MG TAB PO SCH (09:19)
[2017-03-28] MEDS: amLODIPine BESYLATE 5 MG TAB PO SCH (09:19)
--- NOTE | 2017-03-28 11:54 | HHI.PR ---
Subjective Remarks Patient seen and examined today in follow-up on DVT. Patient states he still having pain in his right hip area. No change in clinical status Objective Vitals Vital Signs Date Time Temp Pulse Resp B/P Pulse Ox O2 Delivery O2 Flow Rate FiO2 03/28/17 08:00 98.4 57 20 154/64 98 03/27/17 20:00 97.8 63 21 136/77 100 I/O 03/27/17 03/27/17 03/27/17 03/28/17 03/28/17 03/28/17 07:00 15:00 23:00 07:00 15:00 23:00 Intake Total 480 ml 1230 ml 480 ml 240 ml Output Total 750 ml 650 ml 300 ml Balance -270 ml 1230 ml -170 ml -60 ml Intake Oral 480 ml 1230 ml 480 ml 240 ml Output Urine Total 750 ml 650 ml 300 ml # Voids 2 3 # Bowel Movements 0 Objective Remarks GENERAL: Well-developed, well-nourished, in no acute distress. alert and orientated HEENT: Head is normocephalic without any lesions or masses noted. Facial features are symmetric. Eyesextraocular muscles are intact. Conjunctivae were clear. NECK: Supple without any masses. Trachea midline no deviation. No JVD, CARDIAC: Regular rhythm, regular rate. S1/S2 are heard. No murmurs gallops or rubs. LUNGS: Clear to auscultation bilaterally. No wheeze, rhonchi or rales. No use of accessory muscles on inspiration or expiration. ABDOMEN: Soft, nontender. Nondistended. Bowel sounds heard in all 4 quadrants. No organomegaly or masses. Negative rebound, negative guarding EXTREMITIES: No edema, pulses are equal bilaterally. No cyanosis or clubbing. Right hip surgical incision area with inflammation and erythema noted at the distal end of the scar. No fluctuance was noted. NEUROLOGY: Mood and affect appear appropriate. Cranial nerves II through XII grossly intact. Moving all extremities, speech is clear Urinary Catheter: No Vascular Central Line Catheter: No A/P Assessment and Plan Right lower extremity DVT Lower extremity ultrasound reveals: DVT with partial recanalization involving the right calf posterior tibial vein. Continue Xarelto, case management indicates that the patient qualifies for patient assistance, Pain control Tylenol for pain 1-10 Hypertension Norvasc 10 mg daily Clonidine as needed EtOH abuse/dependence Discontinued [facility] protocol Continue Thiamine and folic acid supplementation Patient counseled on cessation S/P ORIF right hip fracture Reconsulted Dr. Barth, for postsurgical wound abscess Orthopedic clear the patient for weightbearing as tolerated and physical therapy Continue physical therapy, await their recommendations for discharge Physical therapy recommending wheelchair with removable legs. Right hip surgical scar cellulitis/abscess Orthopedic evaluated patient who indicates that is a non-complicated superficial wound, recommended appropriate antibiotics and culture Wound care nurse evaluation of surgical incision site. Indicates that there is fluctuance, exudative material Wound care nurse recommending orthopedic reevaluation for surgical site infection Started Bactrim DS 1 tablet twice daily Wound culture pending at this time DVT prophylaxis: Xarelto Discharge Planning Discharge home once wheelchair can be arranged. At the present time he is ambulating 100 feet slowly with standby assist. Physical therapy indicated patient required to be discharged with outpatient PT if can be arranged. uRpesh Land Mar 28, 2017 11:53
[2017-03-28] MEDS ORDERED: WHEEMIS3 (11:57)
[2017-03-28 20:00] VITALS: BP 126/71; PULSE 70; RESP 16; TEMP 98.7; O2SAT 96
[2017-03-28] MEDS: MELATONIN 5 MG TAB PO PRN (21:02)
[2017-03-29 08:00] VITALS: BP 121/75; PULSE 63; RESP 21; TEMP 95.9; O2SAT 99
[2017-03-29] MEDS: FOLIC ACID 1 MG TAB PO SCH (09:51)
[2017-03-29] MEDS: amLODIPine BESYLATE 5 MG TAB PO SCH (09:51)
[2017-03-29] MEDS: SULFAMETHOXAZOLE-TRIMETHOPRIM DS 800-160 MG TAB PO SCH ×2 (09:51→21:40)
[2017-03-29] MEDS: DOCUSATE SODIUM 100 MG CAP PO SCH ×2 (09:51→21:41)
[2017-03-29] MEDS: THIAMINE HCL 100 MG TAB PO SCH (09:52)
[2017-03-29] MEDS: RIVAROXABAN 15 MG TAB PO SCH ×2 (09:52→21:41)
--- NOTE | 2017-03-29 11:03 | HHI.PR ---
Subjective Remarks Patient seen and examined today for follow-up on DVT. Patient denies any new complaints today. Awaiting case management to supply the patient with wheelchair for discharge planning Objective Vitals Vital Signs Date Time Temp Pulse Resp B/P Pulse Ox O2 Delivery O2 Flow Rate FiO2 03/29/17 08:00 95.9 63 21 121/75 99 03/28/17 20:00 98.7 70 16 126/71 96 I/O 03/28/17 03/28/17 03/28/17 03/29/17 03/29/17 03/29/17 07:00 15:00 23:00 07:00 15:00 23:00 Intake Total 240 ml 960 ml 480 ml 480 ml Output Total 300 ml 650 ml 850 ml Balance -60 ml 310 ml 480 ml -370 ml Intake Oral 240 ml 960 ml 480 ml 480 ml Output Urine Total 300 ml 650 ml 850 ml # Voids 2 # Bowel Movements 0 0 0 Objective Remarks GENERAL: Well-developed, well-nourished, in no acute distress. alert and orientated HEENT: Head is normocephalic without any lesions or masses noted. Facial features are symmetric. Eyesextraocular muscles are intact. Conjunctivae were clear. NECK: Supple without any masses. Trachea midline no deviation. No JVD, CARDIAC: Regular rhythm, regular rate. S1/S2 are heard. No murmurs gallops or rubs. LUNGS: Clear to auscultation bilaterally. No wheeze, rhonchi or rales. No use of accessory muscles on inspiration or expiration. ABDOMEN: Soft, nontender. Nondistended. Bowel sounds heard in all 4 quadrants. No organomegaly or masses. Negative rebound, negative guarding EXTREMITIES: No edema, pulses are equal bilaterally. No cyanosis or clubbing. Right hip surgical incision area with inflammation and erythema noted at the distal end of the scar. No fluctuance was noted. NEUROLOGY: Mood and affect appear appropriate. Cranial nerves II through XII grossly intact. Moving all extremities, speech is clear Urinary Catheter: No Vascular Central Line Catheter: No A/P Assessment and Plan Right lower extremity DVT Lower extremity ultrasound reveals: DVT with partial recanalization involving the right calf posterior tibial vein. Continue Xarelto, case management indicates that the patient qualifies for patient assistance, Pain control Tylenol for pain 1-10 Hypertension Norvasc 10 mg daily Clonidine as needed EtOH abuse/dependence Discontinued [facility] protocol Continue Thiamine and folic acid supplementation Patient counseled on cessation S/P ORIF right hip fracture Reconsulted Dr. Barth, for postsurgical wound abscess Orthopedic clear the patient for weightbearing as tolerated and physical therapy Continue physical therapy, await their recommendations for discharge Physical therapy recommending wheelchair with removable legs. Right hip surgical scar cellulitis/abscess Orthopedic evaluated patient who indicates that is a non-complicated superficial wound, recommended appropriate antibiotics and culture Wound care nurse evaluation of surgical incision site. Indicates that there is fluctuance, exudative material Wound care nurse recommending orthopedic reevaluation for surgical site infection Started Bactrim DS 1 tablet twice daily Wound culture indicate MRSA which is sensitive to Bactrim DVT prophylaxis: Xarelto Discharge Planning Discharge home once wheelchair can be arranged. At the present time he is ambulating 100 feet slowly with standby assist. Physical therapy indicated patient required to be discharged with outpatient PT if can be arranged. Rupesh Land Mar 29, 2017 11:03
[2017-03-29 20:00] VITALS: BP 147/84; PULSE 61; RESP 21; TEMP 98.7; O2SAT 100
[2017-03-29] MEDS: MELATONIN 5 MG TAB PO PRN (21:40)
[2017-03-30 08:00] VITALS: BP 104/74; PULSE 62; RESP 18; TEMP 97.6; O2SAT 99
[2017-03-30] MEDS: amLODIPine BESYLATE 5 MG TAB PO SCH (09:00)
[2017-03-30] MEDS: SULFAMETHOXAZOLE-TRIMETHOPRIM DS 800-160 MG TAB PO SCH ×2 (09:53→20:22)
[2017-03-30] MEDS: THIAMINE HCL 100 MG TAB PO SCH (09:54)
[2017-03-30] MEDS: DOCUSATE SODIUM 100 MG CAP PO SCH ×2 (09:54→20:22)
[2017-03-30] MEDS: FOLIC ACID 1 MG TAB PO SCH (09:54)
[2017-03-30] MEDS: RIVAROXABAN 15 MG TAB PO SCH ×2 (09:54→20:22)
--- NOTE | 2017-03-30 13:22 | HHI.PR ---
Subjective Remarks Patient seen and examined today in follow-up for DVT. Patient is doing better. Physical therapy has cleared patient to go home and is recommending a wheelchair. Patient will be discharged once wheelchair provided by case management Objective Vitals Vital Signs Date Time Temp Pulse Resp B/P Pulse Ox O2 Delivery O2 Flow Rate FiO2 03/30/17 08:00 97.6 62 18 104/74 99 03/29/17 20:00 98.7 61 21 147/84 100 I/O 03/29/17 03/29/17 03/29/17 03/30/17 03/30/17 03/30/17 07:00 15:00 23:00 07:00 15:00 23:00 Intake Total 480 ml 720 ml 720 ml 720 ml Output Total 850 ml 950 ml 275 ml 500 ml Balance -370 ml -230 ml 445 ml 220 ml Intake Oral 480 ml 720 ml 720 ml 720 ml IV Total 0 ml Output Urine Total 850 ml 950 ml 275 ml 500 ml # Bowel Movements 0 0 0 0 Objective Remarks GENERAL: Well-developed, well-nourished, in no acute distress. alert and orientated HEENT: Head is normocephalic without any lesions or masses noted. Facial features are symmetric. Eyesextraocular muscles are intact. Conjunctivae were clear. NECK: Supple without any masses. Trachea midline no deviation. No JVD, CARDIAC: Regular rhythm, regular rate. S1/S2 are heard. No murmurs gallops or rubs. LUNGS: Clear to auscultation bilaterally. No wheeze, rhonchi or rales. No use of accessory muscles on inspiration or expiration. ABDOMEN: Soft, nontender. Nondistended. Bowel sounds heard in all 4 quadrants. No organomegaly or masses. Negative rebound, negative guarding EXTREMITIES: No edema, pulses are equal bilaterally. No cyanosis or clubbing. Right hip surgical incision area with inflammation and erythema noted at the distal end of the scar. No fluctuance was noted. NEUROLOGY: Mood and affect appear appropriate. Cranial nerves II through XII grossly intact. Moving all extremities, speech is clear Urinary Catheter: No Vascular Central Line Catheter: No A/P Assessment and Plan Right lower extremity DVT Lower extremity ultrasound reveals: DVT with partial recanalization involving the right calf posterior tibial vein. Continue Xarelto, case management indicates that the patient qualifies for patient assistance, Pain control Tylenol for pain 1-10 Hypertension Norvasc 10 mg daily Clonidine as needed EtOH abuse/dependence Discontinued [facility] protocol Continue Thiamine and folic acid supplementation Patient counseled on cessation S/P ORIF right hip fracture Reconsulted Dr. Barth, for postsurgical wound abscess Orthopedic clear the patient for weightbearing as tolerated and physical therapy Continue physical therapy, await their recommendations for discharge Physical therapy recommending wheelchair with removable legs. Right hip surgical scar cellulitis/abscess Orthopedic evaluated patient who indicates that is a non-complicated superficial wound, recommended appropriate antibiotics and culture Wound care nurse evaluation of surgical incision site. Indicates that there is fluctuance, exudative material Wound care nurse recommending orthopedic reevaluation for surgical site infection Started Bactrim DS 1 tablet twice daily Wound culture indicate MRSA which is sensitive to Bactrim DVT prophylaxis: Xarelto Discharge Planning Discharge home once wheelchair can be arranged. At the present time he is ambulating 100 feet slowly with standby assist. Physical therapy indicated patient required to be discharged with outpatient PT if can be arranged. Rupesh Land March 30, 2017 13:21
[2017-03-30 20:00] VITALS: BP 103/71; PULSE 77; RESP 20; TEMP 97.8; O2SAT 99
[2017-03-31 08:00] VITALS: BP 115/67; PULSE 59; RESP 16; TEMP 99.2; O2SAT 100
[2017-03-31] MEDS: DOCUSATE SODIUM 100 MG CAP PO SCH ×2 (08:20→20:22)
[2017-03-31] MEDS: SULFAMETHOXAZOLE-TRIMETHOPRIM DS 800-160 MG TAB PO SCH ×2 (08:20→20:21)
[2017-03-31] MEDS: RIVAROXABAN 15 MG TAB PO SCH ×2 (08:20→20:22)
[2017-03-31] MEDS: FOLIC ACID 1 MG TAB PO SCH (08:20)
[2017-03-31] MEDS: THIAMINE HCL 100 MG TAB PO SCH (08:20)
[2017-03-31] MEDS: amLODIPine BESYLATE 5 MG TAB PO SCH (08:20)
[2017-03-31] MEDS ORDERED: ACETAMINOPHEN/HYDROcodone 325 MG/5 MG TAB PO SCH (15:30)
--- NOTE | 2017-03-31 16:09 | HHI.PR ---
Subjective Remarks Follow-up for DVT status post right hip fracture. Patient rates his pain right hip is 7/10 and states he gets cramping in the right thigh. Denies any shortness of breath. Objective Vitals Vital Signs Date Time Temp Pulse Resp B/P Pulse Ox O2 Delivery O2 Flow Rate FiO2 03/31/17 08:00 99.2 59 16 115/67 100 03/30/17 20:00 97.8 77 20 103/71 99 I/O 03/30/17 03/30/17 03/30/17 03/31/17 03/31/17 03/31/17 07:00 15:00 23:00 07:00 15:00 23:00 Intake Total 720 ml 240 ml 860 ml 870 ml Output Total 500 ml 800 ml Balance 220 ml 240 ml 60 ml 870 ml Intake Oral 720 ml 240 ml 860 ml 870 ml Output Urine Total 500 ml 800 ml # Voids 2 3 # Bowel Movements 0 1 0 1 Objective Remarks GENERAL: Well-nourished, well-developed patient in no apparent distress. SKIN: Warm and dry. CARDIOVASCULAR: Regular rate and rhythm. RESPIRATORY: No accessory muscle use. Clear to auscultation. Breath sounds equal bilaterally. GASTROINTESTINAL: Abdomen soft, non-tender, non-distended. MUSCULOSKELETAL: 2+ DP and TP pulses bilaterally. No lower leg edema bilaterally. NEUROLOGICAL: Awake and alert. Normal speech. PSYCHIATRIC: Appropriate mood and affect; insight and judgment normal. Urinary Catheter: No Vascular Central Line Catheter: No A/P Problem List: (1) Alcohol abuse ICD Code: F10.10 Status: Chronic Assessment and Plan 61-year-old male patient with past medical history which includes hypertension, CAD status post [place] in his 40s without cardiac stent placement, COPD not on home oxygen. On 02/12/2017 patient underwent open reduction internal fixation right peritrochanteric hip fracture with intramedullary harry by Dr Barth and was discharged 03/03/2017. Patient presented to the emergency department with complaints of right lower extremity edema and pain. Patient had not been taking anticoagulation since discharge. Right lower extremity DVT Lower extremity ultrasound reveals: DVT with partial recanalization involving the right calf posterior tibial vein. Continue Xarelto, case management indicates that the patient qualifies for patient assistance, Pain control Tylenol for pain 1-10 Patient requests pain med be added back on; agreeable to once daily as needed ; Lortab 5/325 mg once daily prn pain 5-10 ordered. Hypertension Norvasc 10 mg daily Clonidine as needed EtOH abuse/dependence Discontinued [facility] protocol Continue Thiamine and folic acid supplementation Patient counseled on cessation S/P ORIF right hip fracture Reconsulted Dr. Barth, for postsurgical wound abscess Weightbearing as tolerated Continue physical therapy; recommending wheelchair with removable legs. Right hip surgical scar cellulitis/abscess Wound care nurse evaluation of surgical incision site. Indicates that there is fluctuance, exudative material Wound care nurse recommending orthopedic reevaluation for surgical site infection Orthopedic evaluated patient who indicates that is a non-complicated superficial wound, recommended appropriate antibiotics and culture Continue Bactrim DS 1 tablet twice daily stop date 04/06/17. Wound culture indicate MRSA which is sensitive to Bactrim DVT prophylaxis: Xarelto Discharge Planning 03/20: Patient informs me he and his live in a camp in the [facility]; homeless. Patient to remain hospitalized until cleared by PT. 03/23: Per CM, patient can utilize services through [facility] and patient assistance program once discharged. 03/31/17: I spoke with upper caser Arnav Roman who states that wheelchair should have been delivered yesterday. I informed case management the patient will need Xarelto. Will provide 30 day free voucher. manager php states the patient can then follow up with nurse at the [facility] to further assist him with obtaining medication. I spoke with PT who states the patient is able to ambulate, but does not know if he can stand up from the supine position on the ground as patient [place] no bed [place]. manager php states patient does not qualify for correction placement. Will discuss with PT again tomorrow. Likely discharge tomorrow. Needs bus pass on discharge. Juani Tillman March 31, 2017 16:09
[2017-03-31] MEDS ORDERED: ACETAMINOPHEN/HYDROcodone 325 MG/5 MG TAB PO PRN (16:15)
[2017-03-31 20:00] VITALS: BP 153/83; PULSE 70; RESP 20; TEMP 97.6; O2SAT 100
[2017-04-01 08:00] VITALS: BP 138/78; PULSE 56; RESP 20; TEMP 97.5; O2SAT 99
--- NOTE | 2017-04-01 08:52 | HHI.PR ---
Subjective Remarks Follow-up for DVT status post right hip fracture. The patient states he took a pain pill last night. Patient is currently on Bactrim for right hip infection. He is tolerating it well. Denies any diarrhea. Denies any shortness of breath. Objective Vitals Vital Signs Date Time Temp Pulse Resp B/P Pulse Ox O2 Delivery O2 Flow Rate FiO2 04/01/17 08:00 97.5 56 20 138/78 99 04/01/17 00:00 18 03/31/17 20:00 97.6 70 20 153/83 100 I/O 03/31/17 03/31/17 03/31/17 04/01/17 04/01/17 04/01/17 07:00 15:00 23:00 07:00 15:00 23:00 Intake Total 860 ml 870 ml 480 ml 480 ml 100 ml Output Total 800 ml Balance 60 ml 870 ml 480 ml 480 ml 100 ml Intake Oral 860 ml 870 ml 480 ml 480 ml 100 ml Output Urine Total 800 ml # Voids 3 2 3 # Bowel Movements 0 1 Objective Remarks GENERAL: Well-nourished, well-developed patient in no apparent distress. SKIN: Warm and dry. Surgical site to right hip appears only with small opening distally. No active drainage. No surrounding erythema. No palpable fluctuance. CARDIOVASCULAR: Regular rate and rhythm. RESPIRATORY: No accessory muscle use. Clear to auscultation. Breath sounds equal bilaterally. GASTROINTESTINAL: Abdomen soft, non-tender, non-distended. MUSCULOSKELETAL: 2+ DP pulses bilaterally. No lower leg edema bilaterally. NEUROLOGICAL: Awake and alert. Normal speech. PSYCHIATRIC: Appropriate mood and affect; insight and judgment normal. Urinary Catheter: No Vascular Central Line Catheter: No A/P Problem List: (1) Alcohol abuse ICD Code: F10.10 Status: Chronic Assessment and Plan 61-year-old male patient with past medical history which includes hypertension, CAD status post [place] in his 40s without cardiac stent placement, COPD not on home oxygen. On 02/12/2017 patient underwent open reduction internal fixation right peritrochanteric hip fracture with intramedullary harry by Dr Barth and was discharged 03/03/2017. Patient presented to the emergency department with complaints of right lower extremity edema and pain. Patient had not been taking anticoagulation since discharge. Right lower extremity DVT Lower extremity ultrasound reveals: DVT with partial recanalization involving the right calf posterior tibial vein. Continue Xarelto, case management indicates that the patient qualifies for patient assistance. Pain control Tylenol for pain 1-10 Lortab 5/325 mg once daily prn pain 5-10. Hypertension Norvasc 10 mg daily Clonidine as needed EtOH abuse/dependence Discontinued [facility] protocol Continue Thiamine and folic acid supplementation Patient counseled on cessation S/P ORIF right hip fracture Reconsulted Dr. Barth, for postsurgical wound abscess Weightbearing as tolerated Continue physical therapy; recommending wheelchair with removable legs. Right hip surgical scar cellulitis/abscess: Resolving Wound care nurse evaluation of surgical incision site. Indicates that there is fluctuance, exudative material Wound care nurse recommending orthopedic reevaluation for surgical site infection Orthopedic evaluated patient who indicates that is a non-complicated superficial wound, recommended appropriate antibiotics and culture Continue Bactrim DS 1 tablet twice daily stop date 04/06/17. Wound culture indicates MRSA which is sensitive to Bactrim. DVT prophylaxis: Xarelto Discharge Planning 04/01/17: Patient states he has a mattress at his encamp[place] and will not be lying directly on the ground. He believes he will be able to get up from it ok. I spoke with CHRISTIANNE Hurtado, who has cleared the patient for discharge. He is advised to keep the wound to his right hip clean to avoid hardware infection. Patient is advised to follow-up with nurse at [facility] for wound dressings to right hip, instructions in discharge. The Xarelto regimen was explained to the patient and he understands that he needs to finish the 15 mg twice a day and then start the 20 mg daily. A Xarelto voucher has been placed on the chart. I spoke with Arnav Roman, renal case manager, who will arrange for the patient's medications to be obtained. The wheelchair is to be delivered this afternoon to the hospital. Needs bus pass on discharge. Patient was informed of the risk of development of PE with DVT. He is advised to return to the emergency department if he develops any chest pain or shortness of breath. Juani Tillman April 01, 2017 08:52
[2017-04-01] MEDS: RIVAROXABAN 15 MG TAB PO SCH (09:05)
[2017-04-01] MEDS: amLODIPine BESYLATE 5 MG TAB PO SCH (09:05)
[2017-04-01] MEDS: THIAMINE HCL 100 MG TAB PO SCH (09:05)
[2017-04-01] MEDS: FOLIC ACID 1 MG TAB PO SCH (09:05)
[2017-04-01] MEDS: SULFAMETHOXAZOLE-TRIMETHOPRIM DS 800-160 MG TAB PO SCH (09:05)
[2017-04-01] MEDS: DOCUSATE SODIUM 100 MG CAP PO SCH (09:05)
[2017-04-01] MEDS ORDERED: XARE15TA PO (09:16)
[2017-04-01] MEDS ORDERED: XARE20TA PO (09:16)
[2017-04-01] MEDS ORDERED: VITA100T2 PO (09:16)
[2017-04-01] MEDS ORDERED: AMLO5 PO (09:16)
[2017-04-01] MEDS ORDERED: FOLI1TAB4 PO (09:16)
[2017-04-01] MEDS ORDERED: BACT800T5 PO (09:31)
--- NOTE | 2017-04-01 16:13 | HHI.DCPOC ---
Discharge Care Plan Diagnosis: (1) DVT (deep venous thrombosis) (2) s/p ORIF R hip (3) Surgical wound infection Goals to Promote Your Health * To prevent worsening of your condition and complications * To maintain your health at the optimal level Directions to Meet Your Goals Take your medications as prescribed Follow your dietary instruction Follow activity as directed Keep your appointments as scheduled Take your immunizations and boosters as scheduled If your symptoms worsen call your PCP, if no PCP go to Urgent Care Center or Emergency Room Smoking is Dangerous to Your Health. Avoid second hand smoke Call the 24-hour hour crisis hotline for domestic abuse at Juani Tillman April 01, 2017 16:13
--- NOTE | 2017-04-01 18:11 | HHI.DS ---
Discharge Summary Admission Date Mar 13, 2017 at 13:48 Discharge Date: April 01, 2017 Admitting Diagnosis DVT (1) DVT (deep venous thrombosis) ICD Code: I82.409 Diagnosis: Principal (2) HTN (hypertension) ICD Code: I10 Diagnosis: Principal (3) s/p ORIF R hip Diagnosis: Principal (4) Alcohol abuse ICD Code: F10.10 Diagnosis: Principal Procedures None Brief History - From Admission This is a 61-year-old male patient with past medical history which includes hypertension, CAD status post IA in his 40s without cardiac stent placement, COPD not on home oxygen. Patient was discharged on 03/03/2017 after having a RLE edema since Thursday or Thursday. On 02/12/2017 patient underwent Open treatment internal fixation right peritrochanteric hip fracture with intramedullary harry by Dr Barth and was discharged 03/03/2017. Patient has not been taking anticoagulation since discharge. Patient presented to the emergency department today with complaints of right lower extremity edema and pain. Symptoms have been progressively worsening over the last week. Pain is moderate to severe, constant, worse with palpation and movement. Patient reports that he is unable to ambulate because of the pain. He is also complaining of feeling numbness in his right leg for the past 2-3 days. Patient denies signs of active bleeding, shortness of breath, chest pain, history of DVT. Patient does complain of occasional burning with urination. Imaging Last Impressions Hip X-Ray 03/14/17 0000 Signed Impressions: Service Date/Time: Tuesday, March 14, 2017 17:06 - CONCLUSION: 1. Fixation right hip. No acute findings. Aurelio Romero MD Lower Extremity Ultrasound 03/12/17 0000 Signed Impressions: Service Date/Time: February 18:43 - CONCLUSION: DVT with partial recanalization involving the right calf posterior tibial vein. Ward Wolfe MD PE at Discharge GENERAL: Well-nourished, well-developed patient in no apparent distress. SKIN: Warm and dry. Surgical site to right hip appears only with small opening distally. No active drainage. No surrounding erythema. No palpable fluctuance. CARDIOVASCULAR: Regular rate and rhythm. RESPIRATORY: No accessory muscle use. Clear to auscultation. Breath sounds equal bilaterally. GASTROINTESTINAL: Abdomen soft, non-tender, non-distended. MUSCULOSKELETAL: 2+ DP pulses bilaterally. No lower leg edema bilaterally. NEUROLOGICAL: Awake and alert. Normal speech. PSYCHIATRIC: Appropriate mood and affect; insight and judgment normal. Hospital Course Patient had presented to the ED on 03/12/17 with right lower extremity edema and pain after undergoing ORIF of the right hip on 02/12/17. Orthopedics had documented the patient left PO rehabilitation against medical advice after being discharged from hospital after surgery. Patient was found to have a DVT in his right lower extremity, partial recanalization involving the right calf posterior tibial vein. He was given 1 dose of Lovenox and subsequently started on Xarelto. The patient was evaluated by orthopedics regarding his hip fracture and had new x-rays; was advised to be weightbearing as tolerated. He was found to have a infection to his incision site and was started on Bactrim which he will continue until 04/06/17. Infection appears resolved; only slight opening distally. Patient has been working with physical therapy and has improved using a front wheeled walker without loss of balance today. His pain medication had been discontinued, but he requested again it be given once a day as needed as he continues to have hip pain. He received a dose last night but did not use any today and will not be discharged with any pain medication. The patient has had hypertension during hospitalization which has improved with amlodipine use. Patient cleared by PT. Stable for discharge. Pt Condition on Discharge: Fair Discharge Disposition: Discharge Home Discharge Time: <= 30 minutes Discharge Instructions DIET: Follow Instructions for: Heart Healthy Diet Activities you can perform: Weight Bearing as Harish Activities to Avoid: Lifting/Bending, Strenuous Activity, Driving Follow up Referrals: PCP Follow-up - 1 Week New Medications: Wheelchair (Wheelchair) 1 Mis Mis 1 EA .ROUTE DIRECTED Wheelchair with removable legs #1 Ref 0 EA Amlodipine (Norvasc) 5 Mg Tab 10 MG PO DAILY Blood Pressure Management #30 TAB Folic Acid (Folate) 1 Mg Tab 1 MG PO DAILY Nutritional Supplement #30 TAB Rivaroxaban (Xarelto) 20 Mg Tab 20 MG PO DAILY Start morning of 04/03/17. DVT #30 TAB Rivaroxaban (Xarelto) 15 Mg Tab 15 MG PO BID Start night of 04/01/17. DVT #3 TAB Sulfamethoxazole-Trimethoprim (Bactrim DS) 800-160 Mg Tab 1 TAB PO Q12HR Start night of 04/01/17. Infection #11 TAB Thiamine (Vitamin B-1) 100 Mg Tab 100 MG PO DAILY Nutritional Supplement #30 TAB Continued Medications: Albuterol 18 GM Inh (Ventolin Hfa 18 GM Inh) 90 Mcg/Act Aer 2 PUFF INH Q4-6H PRN SHORTNESS OF BREATH #1 INHALER Discontinued Medications: Enoxaparin Inj (Lovenox Inj) 30 Mg/0.3 Ml Syr 30 MG SQ Q24H Prevent Blood Clot #25 INJECTION Hydrocodone-Acetaminophen (Hydrocodone-Acetaminophen) 7.5-325 mg Tab 1 TAB PO Q4H PRN PAIN LESS THAN 5 ON SCALE #50 TAB Tramadol (Tramadol) 50 Mg Tab 50 MG PO Q6H PRN PAIN #20 TAB Juani Tillman April 01, 2017 18:10
[2017-04-03] MEDS ORDERED: RIVAROXABAN 20 MG TAB PO SCH (09:00)
== END 2017-04-01 16:00 | disposition home or self-care (01) | DRG 300 ==
LOC: NEPE 15:17 → NEDA 21:25 → NEPFCDU 22:18 → OBSVTOIN 03-13 13:48 → N06B 03-13 15:44 → PH5A 03-14 21:34
PROVIDERS: ADMIT Hospitalist; ATTEND Hospitalist
DX: I82.401 Acute embolism and thrombosis of unspecified deep veins of right lower extremity (principal); L03.115 Cellulitis of right lower limb; I10 Essential (primary) hypertension; T81.4XXA Infection following a procedure, initial encounter; J44.9 Chronic obstructive pulmonary disease, unspecified; G47.30 Sleep apnea, unspecified; G47.00 Insomnia, unspecified; I25.10 Atherosclerotic heart disease of native coronary artery without angina pectoris; I25.2 Old myocardial infarction; K59.03 Drug induced constipation; T40.605A Adverse effect of unspecified narcotics, initial encounter; F10.10 Alcohol abuse, uncomplicated; H91.90 Unspecified hearing loss, unspecified ear; F17.200 Nicotine dependence, unspecified, uncomplicated; Z79.01 Long term (current) use of anticoagulants; Z96.649 Presence of unspecified artificial hip joint; Z98.1 Arthrodesis status; I82.449 Acute embolism and thrombosis of unspecified tibial vein
CPT/HCPCS: 73502; 80048; 81001; 85025; 85610; 85730; 86403; 87070; 87147; 87186; 87205; 93971; G0378; J1650

== ENCOUNTER 2017-06-10 09:36 | Inpatient (IN) | payer SELFPAY ==
[~2017-06-10] VITALS: Ht 190.5 cm; Wt 92.5 kg
[~2017-06-10 09:36] MED LIST changes: +AMLO5 PO; +BACT800T5 PO; -ENOX30P SQ; +FOLI1TAB4 PO; -HYDR-3580 PO; -TRAM50TA PO; +VITA100T2 PO; +WHEEMIS3; +XARE15TA PO; +XARE20TA PO
[2017-06-10 09:43] VITALS: BP 100/63; PULSE 90; RESP 20; TEMP 99.5; O2SAT 96
[2017-06-10] MEDS ORDERED: VANCOMYCIN INJ 1,000 MG in SODIUM CHLOR 0.9% 250 ML INJ 250 ML IV ONE (11:15)
[2017-06-10] MEDS ORDERED: MORPHINE SULFATE 8 MG/ML INJ IV PUSH ONE (11:15)
[2017-06-10] MEDS ORDERED: ONDANSETRON HCL 4 MG/2 ML VIAL IV PUSH ONE (11:15)
[2017-06-10] MEDS ORDERED: CIPROFLOXACIN 400 MG PREMIX 200 ML IV ONE (11:15)
[2017-06-10 12:19] LABS: AUTOMATED NEUTROPHIL # 6.8 TH/MM3 (1.8-7.7); BASOPHIL % 0.4 % (0.0-2.0); EOSINOPHIL % 0.3 % (0.0-4.0); HEMATOCRIT 39.7 % (39.0-51.0); HEMO FLAGS DIFF FINAL; LYMPH % 10.4 % (9.0-44.0); MEAN CELL VOLUME 92.4 FL (80.0-100.0); MEAN CORPUSCULAR HEMOGLOBIN 32.8 PG (27.0-34.0); MEAN CORPUSCULAR HGB CONC 35.5 % (32.0-36.0); MONO % 16.3 % (0.0-8.0); NEUT % 72.6 % (16.0-70.0); PLATELET COUNT 154 TH/MM3 (150-450); RED CELL DISTRIBUTION WIDTH 15.1 % (11.6-17.2); WHITE BLOOD COUNT 9.4 TH/MM3 (4.0-11.0)
[2017-06-10 12:40] LABS: ALT (GPT) 16 U/L (12-78)
[2017-06-10 12:42] LABS: ANION GAP 12 MEQ/L (5-15); AST (GOT) 38 U/L (15-37); BICARBONATE 21.5 MEQ/L (21.0-32.0); BLOOD UREA NITROGEN 5 MG/DL (7-18); CHLORIDE 94 MEQ/L (98-107); GLOMERULAR FILTRATION RATE 135 ML/MIN (>89); SODIUM (NA) 127 MEQ/L (136-145)
[2017-06-10 12:44] LABS: POTASSIUM 4.3 MEQ/L (3.5-5.1)
[2017-06-10 12:45] LABS: ALKALINE PHOSPHATASE 98 U/L (45-117); TOTAL BILIRUBIN ADULT 0.7 MG/DL (0.2-1.0)
--- NOTE | 2017-06-10 13:55 | RADRPT ---
EXAM DATE/TIME: 06/10/2017 13:46 [facility] COMPARISON: No previous studies available for comparison. INDICATIONS : Left lower leg pain, wound on lateral side mid shaft for 1 week. MEDICAL HISTORY : None. SURGICAL HISTORY : None. ENCOUNTER: Initial ACUITY: 1 week PAIN SCORE: 9/10 LOCATION: Left tib/fib FINDINGS: No definite fractures, or dislocations are identified. No definite lytic or sclerotic lesion is seen . Soft tissue swelling is identified at the site of patient's wound without signs of osteomyelitis. CONCLUSION: Soft tissue swelling and no definite fracture or osteomyelitis for technique. KUbaldo Valerio MD on June 10, 2017 at 13:52 Board Certified Radiologist. This report was verified electronically.
--- NOTE | 2017-06-10 14:00 | HHI.HP ---
HPI Service [facility] Primary Care Physician Unknown Admission Diagnosis Diagnoses: Chief Complaint: left leg redness/swelling/pain Travel History International Travel<30 Days: No Contact w/Intl Traveler <30 Da: No Traveled to Known Affected Are: No History of Present Illness Written by Kelly Collazo, acting as scribe for Dr. Porter on 06/10/17 at 13: 59. 62-year-old homeless male with history of right hip fracture, DVT on Xarelto, COPD, HTN, alcohol abuse, tobacco use, presents with a 1 week history of worsening left lower extremity erythema, edema, and pain. The patient was recently hospitalized in January2017 for right hip fracture s/p ORIF by Dr. Barth on 02/12/17, then left AMA on 03/02/17, returned to [facility] -04/01/17 diagnosed with RLE DVT, discharged on Xarelto. He has been home for 2 months now. Approximately 1 month ago he started noticing bilateral worsening ankle edema. One week ago he noticed an open wound on the left lower lateral leg. He cannot recall any recent injury or fall although does continue to drink alcohol. He reports 10/10 uncontrolled throbbing pain of bilateral legs. He has been taking tylenol without any relief. A few days ago he started to notice worsening erythema surrounding the wound with purulent drainage. He also noticed a smaller ulceration on the right anterior hartley. Denies fevers/ chills. He has been ambulating only few steps but mostly wheelchair bound since his hip fracture. He reports compliance with his Xarelto however is "almost out " of the medication. He has no other medical complaints at this time. Review of Systems Except as stated in HPI: all other systems reviewed are Neg Past Family Social History Past Medical History CAD, NC x1, no stents COPD Chronic bronchitis Hypertension Right hip fracture DVT on Xarelto Past Surgical History 02/12/2017 ORIF right hip fracture with intramedullary harry by Dr Barth Left elbow surgery Hand surgery x7 Cervical fusion C5-7 Right Knee surgery bilateral shoulder surgery Reported Medications Bactrim DS (Sulfamethoxazole-Trimethoprim) 800-160 Mg Tab 1 Tab PO Q12HR Start night of 04/01/17. Xarelto (Rivaroxaban) 20 Mg Tab 20 Mg PO DAILY Start morning of 04/03/17. Norvasc (Amlodipine Besylate) 5 Mg Tab 10 Mg PO DAILY Wheelchair (Device) 1 Mis Mis 1 Ea .ROUTE DIRECTED Wheelchair with removable legs Ventolin Hfa 18 GM Inh (Albuterol Sulfate) 90 Mcg/Act Aer 2 Puff INH Q4-6H PRN Allergies: 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, 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, 2007, 2005; (hip) - 03/26/17 MRSA PCR Screen POSITIVE - 02/12/2017 Active Ordered Medications Current Medications Medications (Trade) Dose Ordered Sig/Guru Route Start Time Stop Time Status Last Admin (Norvasc) 10 mg DAILY PO 06/11/17 09:00 Rivaroxaban 20 mg 20 mg DAILY PO 06/11/17 09:00 Pharmacy Profile Note 0 ml @ 0 mls/hr UNSCH OTHER 06/10/17 14:15 (NS 1000 ml Inj) 1,000 ml @ 100 mls/hr Q10H IV 06/10/17 14:15 06/10/17 15:02 (NS Flush) 2 ml UNSCH PRN IV FLUSH 06/10/17 14:15 (NS Flush) 2 ml BID IV FLUSH 06/10/17 21:00 (Tylenol) 650 mg Q4H PRN PO 06/10/17 14:15 (Tylenol) 650 mg Q6H PRN PO 06/10/17 14:15 (Roxicodone) 10 mg Q4H PRN PO 06/10/17 14:15 (Morphine Inj) 2 mg Q3H PRN IV 06/10/17 14:15 (Roxicodone) 5 mg Q4H PRN PO 06/10/17 14:15 (Narcan Inj) 0.4 mg UNSCH PRN IV 06/10/17 14:15 Senna/Docusate Sodium 1 tab 1 tab BID PO 06/10/17 21:00 (Vancomycin Inj/ NS 500 ml Inj) 515 ml @ 250 mls/hr Q12H IV 06/10/17 21:00 Miscellaneous Information SPECIFIC LAB TO BE DRAWN:VANCOMYCIN TROUGH DATE TO... ONCE ONCE .XX 06/12/17 08:45 06/12/17 08:46 Family History Mother with ovarian cancer, Father with heart disease, CHF, Sister with cancer Social History Drinks alcohol daily, usually 4-5 beers, now down to 2-3 beers/day Smokes tobacco 1/2 PPD Denies any illicit drug use Physical Exam Vital Signs Vital Signs Date Time Temp Pulse Resp B/P Pulse Ox O2 Delivery O2 Flow Rate FiO2 06/10/17 09:43 99.5 90 20 100/63 96 Room Air Physical Exam GENERAL: Well-nourished, well-developed unkempt appearing male patient in NAD. SKIN: Warm and dry. No rash. Left lateral lower extremity with large wound/ ulceration with foul odor, purulent drainage, and surrounding erythema/edema/ induration; with +TTP. Right anterior hartley with smaller wound and mild surrounding erythema. HEAD: Normocephalic. Atraumatic. EYES: Pupils equal and round. No scleral icterus. No injection or drainage. ENT: No nasal bleeding or discharge. Mucous membranes pink and moist. NECK: Supple. Trachea midline. CARDIOVASCULAR: Regular rate and rhythm. S1, S2 noted. No murmur appreciated. RESPIRATORY: No accessory muscle use. Clear to auscultation. Breath sounds equal bilaterally. GASTROINTESTINAL: Abdomen soft, non-tender, nondistended. Normoactive bowel sounds x4. MUSCULOSKELETAL: No obvious deformities. Bilateral 1+ lower extremity edema with Left leg larger than the right; with +calf tenderness bilaterally. NEUROLOGICAL: Awake and alert. No obvious cranial nerve deficits. Motor grossly within normal limits. Normal speech. PSYCHIATRIC: Appropriate mood and affect; insight and judgment normal. Laboratory Laboratory Tests Test 06/10/17 11:20 White Blood Count 9.4 Red Blood Count 4.30 Hemoglobin 14.1 Hematocrit 39.7 Mean Corpuscular Volume 92.4 Mean Corpuscular Hemoglobin 32.8 Mean Corpuscular Hemoglobin 35.5 Concent Red Cell Distribution Width 15.1 Platelet Count 154 Mean Platelet Volume 8.9 Neutrophils (%) (Auto) 72.6 Lymphocytes (%) (Auto) 10.4 Monocytes (%) (Auto) 16.3 Eosinophils (%) (Auto) 0.3 Basophils (%) (Auto) 0.4 Neutrophils # (Auto) 6.8 Lymphocytes # (Auto) 1.0 Monocytes # (Auto) 1.5 Eosinophils # (Auto) 0.0 Basophils # (Auto) 0.0 CBC Comment DIFF FINAL Differential Comment Sodium Level 127 Potassium Level 4.3 Chloride Level 94 Carbon Dioxide Level 21.5 Anion Gap 12 Blood Urea Nitrogen 5 Creatinine 0.61 Estimat Glomerular Filtration 135 Rate Random Glucose 78 Calcium Level 8.7 Total Bilirubin 0.7 Aspartate Amino Transf 38 (AST/SGOT) Alanine Aminotransferase 16 (ALT/SGPT) Alkaline Phosphatase 98 Total Protein 8.0 Albumin 3.3 Date/Time Procedure Status Source Growth 06/10/17 13:45 Gram Stain Received Wound Leg Pending 06/10/17 13:45 Wound Culture Received Wound Leg Pending Result Diagram: 06/10/17 1120 06/10/17 1120 Imaging Last Impressions Tibia/Fibula X-Ray 06/10/17 0000 Signed Impressions: Service Date/Time: Saturday, June 10, 2017 13:46 - CONCLUSION: Soft tissue swelling and no definite fracture or osteomyelitis for technique. Darya Valerio MD Lower Extremity Ultrasound 06/10/17 0000 Signed Impressions: Service Date/Time: Saturday, June 10, 2017 14:43 - CONCLUSION: Normal examination. Darya Valerio MD Assessment and Plan Problem List: (1) Bilateral lower leg cellulitis ICD Code: L03.116 Status: Acute (2) Hyponatremia ICD Code: E87.1 Status: Acute Assessment and Plan 62-year-old homeless male with history of right hip fracture, DVT on Xarelto, COPD, HTN, presents with a 1 week history of worsening left lower extremity erythema, edema, and pain. Bilateral Lower Extremity Cellulitis: left leg worse than the right. BLE Doppler U/S negative for DVT. Left tib/fib xray with soft tissue swelling, no definite fracture or osteomyelitis. Afebrile, no leukocytosis however with mild left shift. -Continue antibiotics with IV Vanco, pharmacy consulted -Follow wound culture -Obtain blood culture -Elevate the legs -Pain control with tylenol, oxycodone prn, and IV morphine prn breakthrough pain -consult wound care and PT Chronic RLE DVT: diagnosed on 03/12/17, s/p right hip fracture/ORIF. Repeat Doppler U/S negative for DVT. -continue patient's Xarelto Acute Hyponatremia: Na 127, previously 139 in February2017. Suspect secondary to alcohol abuse. -give IVF with NS -repeat BMP in am Hypertension: BP currently well controlled. -continue patient's Norvasc -monitor BP, adjust antihypertensives as needed COPD: chronic, stable, does not appear to be in exacerbation -duonebs prn Alcohol Abuse: patient reportedly only drinks 2-3 beers daily, however previously drinking 4-5 beers/day -patient with allergy to Ativan, unable to initiate CIWA protocol -continue thiamine/folate/MV -seizure precautions -monitor closely for withdrawal Tobacco Abuse: chronic -patient decline nicotine patch at this time DVT Prophylaxis: on Xarelto Discussed Condition With Patient, ER MD Attending Statement This note was transcribed by mirian Collazo. I, Dr. David Porter personally performed the history, physical exam, and medical decision making; and confirmed the accuracy of the information in the transcribed note. Authenticated by Dr. David Porter on 06/11/17 at 09:18. Kelly Collazo PA-C Jun 10, 2017 13:59 David Porter DO Jun 11, 2017 09:18
[2017-06-10] MEDS ORDERED: MORPHINE SULFATE 4 MG/ML INJ IV PRN (14:15)
[2017-06-10] MEDS ORDERED: NALOXONE HCL 0.4 MG/ML AMP IV PRN (14:15)
[2017-06-10] MEDS ORDERED: Vancomycin Consult Pharmacy 1 EA OTHER SCH (14:15)
[2017-06-10] MEDS ORDERED: ACETAMINOPHEN 325 MG TAB PO PRN ×2 (14:15)
[2017-06-10] MEDS ORDERED: SODIUM CHLORIDE 0.9% FLUSH 10 ML FLUSH IV FLUSH PRN (14:15)
--- NOTE | 2017-06-10 14:54 | PD ---
HPI Chief Complaint: Skin Problem Time Seen by Provider: 10:29 Travel History International Travel<30 days: No Contact w/Intl Traveler<30days: No Traveled to known affect area: No History of Present Illness HPI This is a 62-year-old male patient who is homeless who presents with a complaint of left leg pain and swelling and discoloration. Patient states 2 weeks ago he noted a scratch on his left lower leg. Over the past 2 weeks he has noticed progressive progressive symptoms as previously discussed. Patient does not recall a traumatic injury to the affected left leg. Patient denies fever and chills. PFSH Past Medical History Hx Anticoagulant Therapy: Yes (coumadin) Arthritis: Yes Asthma: No Autoimmune Disease: No Blood Disorders: No Anxiety: No Depression: No Heart Rhythm Problems: No Cancer: No Cardiac Catheterization: No Cardiovascular Problems: Yes High Cholesterol: No Chemotherapy: No Chest Pain: Yes Congestive Heart Failure: No COPD: Yes Diabetes: Yes (denies) Patient Takes Glucophage: No Diminished Hearing: Yes (AGDAAGUX ON LEFT) Endocrine: Yes Gastrointestinal Disorders: No GERD: No Glaucoma: No Genitourinary: No Headaches: No Hepatitis: No Hiatal Hernia: Yes Heparin Induced Thrombocytopen: No Hypertension: Yes Immune Disorder: No Inguinal Hernia: Yes Implanted Vascular Access Dvce: No Kidney Stones: No Musculoskeletal: Yes (arthritis) Neurologic: Yes Psychiatric: No Reproductive: No Respiratory: Yes (COPD) Immunizations Current: Yes Migraines: No Myocardial Infarction: Yes Radiation Therapy: No Renal Failure: No Seizures: No Sickle Cell Disease: No Sleep Apnea: Yes Thyroid Disease: No Ulcer: No Past Surgical History Abdominal Surgery: Yes (LEFT INGUINAL HERNIA REPAIR) AICD: No Appendectomy: No Arteriovenous Shunt: No Cardiac Surgery: No Cholecystectomy: No Coronary Artery Bypass Graft: No Ear Surgery: No Endocrine Surgery: No Eye Surgery: No Genitourinary Surgery: No Gynecologic Surgery: No Insulin Pump: No Joint Replacement: No Neurologic Surgery: Yes (C-SPINE FUSION (C5-C7 PER EMR)) Oral Surgery: No Pacemaker: No Thoracic Surgery: No Other Surgery: Yes (LT INGUINAL HERNIA REPAIR) Social History Alcohol Use: Yes (etoh-BEER (USUALLY 4 DAILY)) Tobacco Use: Yes (1/2ppd) Substance Use: No Allergies-Medications (Allergen,Severity, Reaction): 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, 07/2014, 2007, 2005; (hip) - 03/26/17 MRSA PCR Screen POSITIVE - 02/12/2017 Reported Meds & Prescriptions Reported Meds & Active Scripts Active Bactrim DS (Sulfamethoxazole-Trimethoprim) 800-160 Mg Tab 1 Tab PO Q12HR Start night of 04/01/17. Xarelto (Rivaroxaban) 20 Mg Tab 20 Mg PO DAILY Start morning of 04/03/17. Norvasc (Amlodipine Besylate) 5 Mg Tab 10 Mg PO DAILY Wheelchair (Device) 1 Mis Mis 1 Ea .ROUTE DIRECTED Wheelchair with removable legs Ventolin Hfa 18 GM Inh (Albuterol Sulfate) 90 Mcg/Act Aer 2 Puff INH Q4-6H PRN Review of Systems ROS Limitations: Clinical Condition Except as stated in HPI: all other systems reviewed are Neg General / Constitutional: No: Fever, Chills, Weight Gain, Weight Loss, Other Eyes: No: Diploplia, Blurred Vision, Photophobia, Drainage, Redness, Foreign Body Sensation, Pain, Tearing, Blind Spots, Visual changes, Blindness, Other HENT: No: Headaches, Vertigo, Lightheadedness, Sore Throat, Rhinitis, Rhinorrhea, Congestion, Nosebleed, Neck Stiffness, Neck Pain, Masses, Gingival Bleeding, Dental Difficulties, Ear Discharge, Earache, Other Cardiovascular: No: Chest Pain or Discomfort, Palpitations, Irregular Rhythm, Tachycardia, Diaphoresis, Syncope, Dyspnea on exertion, Varicosities, Edema, Cyanosis, Varicosities, Phlebitis, Claudication, Other Respiratory: No: Cough, Shortness of Breath, Wheezing, Sneezing, Orthopnea, Hemoptysis, Stridor, Night Sweats, Pleuritic Pain, Other Gastrointestinal: No: Nausea, Vomiting, Diarrhea, Abdominal Pain, Hematemesis, Hematochezia, Constipation, Changes in Bowel Habits, Indigestion, Dysphagia, Loss of Appetite, Other Genitourinary: No: Urgency, Frequency, Dysuria, Nocturia, Hematuria, Decreased Urinary Output, Oliguria, Hesitancy, Dribbling, Incontinence, Pelvic Pain, Flank Pain, Dyspareunia, Discharge, Dysmenorrhea, Menorrhagia, Metorrhagia, Vaginal Bleeding, Other Musculoskeletal: Positive: Edema, Pain, No: Myalgias, Arthralgias, Limited ROM , Weakness, Cramping, Atrophy, Other Skin: Positive Change in Pigmentation, Positive Lesions, No Rash, No Itching, No Dryness, No Lumps, No Hives, No Change in nails, No Alopecia, No Breast Lumps , No Breast Tenderness, No Breast Swelling, No Other Neurologic: No: Weakness, Dizziness, Syncope, Focal Abnormalities, Coordination Problem, Tremor, Ataxia, Headache, Change in Mentation, Slurred Speech, Paresthesia, Incontinence, Seizures, Sensory Disturbance, Other Psychiatric: No: Anxiety, Depression, Suicidal Ideations, Disorder of Thought, Mood Disorder, Substance Abuse, Homicidal Ideation, Other Endocrine: No: Heat Intolerance, Cold Intolerance, Polyuria, Polydipsia, Other Hematologic/Lymphatic: No: Easy Bruising, Lymph Node Enlargement, Other Physical Exam Exam Limitations: Clinical Condition Narrative GENERAL: 62-year-old male patient in no acute distress patient has poor hygiene clothing is unkempt SKIN: There is gross swelling of the left lower extremity with associated erythema and warmth of the left lower extremity. There is an ulcerated lesion of the left lower extremity with drainage of yellow colored serous type fluid HEAD: Atraumatic. Normocephalic. EYES: Pupils equal and round and reactive . No scleral icterus. No injection or drainage. ENT: No nasal bleeding or discharge. Mucous membranes pink and moist. NECK: Trachea midline. No JVD. CARDIOVASCULAR: S1-S2 appreciated. Regular rate and rhythm. No murmur appreciated. Pulses normal throughout. RESPIRATORY: No accessory muscle use. Clear to auscultation. Breath sounds equal bilaterally. GASTROINTESTINAL: Abdomen soft, non-tender, nondistended. Hepatic and splenic margins not palpable. Bowel sounds normal. No peritoneal signs. MUSCULOSKELETAL: See skin exam range of motion of joints in the affected left lower extremity are normal obvious bony deformity noted NEUROLOGICAL: Awake and alert and oriented 3.. No obvious cranial nerve deficits. Motor and sensory exam grossly within normal limits. Normal speech. No meningeal signs. PSYCHIATRIC: Appropriate mood and affect; insight and judgment normal. No suicidal or homicidal ideation. Data Data Last Documented VS Vital Signs Date Time Temp Pulse Resp B/P Pulse Ox O2 Delivery O2 Flow Rate FiO2 06/10/17 09:43 99.5 90 20 100/63 96 Room Air Orders Complete Blood Count With Diff (06/10/17 11:11) Comprehensive Metabolic Panel (06/10/17 11:11) Wound Culture And Gram Stain (06/10/17 11:11) Morphine Inj (Morphine Inj) (06/10/17 11:15) Ondansetron Inj (Zofran Inj) (06/10/17 11:15) Ciprofloxacin 400 Mg Premix (Cipro 400 M (06/10/17 11:15) Vancomycin Inj (Vancomycin Inj) (06/10/17 11:15) Tibia/Fibula (Ap/Lat) (06/10/17 ) Amlodipine (Norvasc) (06/11/17 09:00) Rivaroxaban (Xarelto) (06/11/17 09:00) Vancomycin Consult Pharmacy (Vancomycin (06/10/17 14:15) Admit To Inpatient (06/10/17 ) Vital Signs (Adult) Q4H (06/10/17 14:15) Activity Oob With Assistance (06/10/17 14:15) Diet Heart Healthy (06/10/17 Dinner) Sodium Chlor 0.9% 1000 Ml Inj (Ns 1000 M (06/10/17 14:15) Sodium Chloride 0.9% Flush (Ns Flush) (06/10/17 14:15) Sodium Chloride 0.9% Flush (Ns Flush) (06/10/17 21:00) Acetaminophen (Tylenol) (06/10/17 14:15) Comprehensive Metabolic Panel (06/11/17 06:00) Complete Blood Count With Diff (06/11/17 06:00) Blood Culture (06/10/17 14:15) Pt Request For Service (06/10/17 14:15) Case Management Consult (06/10/17 14:15) Acetaminophen (Tylenol) (06/10/17 14:15) Oxycodone (Roxicodone) (06/10/17 14:15) Morphine Inj (Morphine Inj) (06/10/17 14:15) Oxycodone (Roxicodone) (06/10/17 14:15) Naloxone Inj (Narcan Inj) (06/10/17 14:15) Docusate Sodium-Senna (Tiffanie-Colace) (06/10/17 21:00) Inpatient Certification (06/10/17 ) Us Leg Venous Doppler Bilat (06/10/17 ) Consult Wound / Ostomy Nurse (06/10/17 ) Vancomycin Inj (Vancomycin Inj) (06/10/17 21:00) Misc. Nursing Information (06/12/17 08:45) Labs Laboratory Tests Test 06/10/17 11:20 White Blood Count 9.4 TH/MM3 Red Blood Count 4.30 MIL/MM3 Hemoglobin 14.1 GM/DL Hematocrit 39.7 % Mean Corpuscular Volume 92.4 FL Mean Corpuscular Hemoglobin 32.8 PG Mean Corpuscular Hemoglobin 35.5 % Concent Red Cell Distribution Width 15.1 % Platelet Count 154 TH/MM3 Mean Platelet Volume 8.9 FL Neutrophils (%) (Auto) 72.6 % Lymphocytes (%) (Auto) 10.4 % Monocytes (%) (Auto) 16.3 % Eosinophils (%) (Auto) 0.3 % Basophils (%) (Auto) 0.4 % Neutrophils # (Auto) 6.8 TH/MM3 Lymphocytes # (Auto) 1.0 TH/MM3 Monocytes # (Auto) 1.5 TH/MM3 Eosinophils # (Auto) 0.0 TH/MM3 Basophils # (Auto) 0.0 TH/MM3 CBC Comment DIFF FINAL Differential Comment Sodium Level 127 MEQ/L Potassium Level 4.3 MEQ/L Chloride Level 94 MEQ/L Carbon Dioxide Level 21.5 MEQ/L Anion Gap 12 MEQ/L Blood Urea Nitrogen 5 MG/DL Creatinine 0.61 MG/DL Estimat Glomerular Filtration 135 ML/MIN Rate Random Glucose 78 MG/DL Calcium Level 8.7 MG/DL Total Bilirubin 0.7 MG/DL Aspartate Amino Transf 38 U/L (AST/SGOT) Alanine Aminotransferase 16 U/L (ALT/SGPT) Alkaline Phosphatase 98 U/L Total Protein 8.0 GM/DL Albumin 3.3 GM/DL MDM Medical Decision Making Medical Screen Exam Complete: Yes Emergency Medical Condition: Yes Medical Record Reviewed: Yes Interpretation(s) X-ray of the tib-fib is negative for fracture or dislocation is no evidence of osteomyelitis at this time WBC is normal Sodium is 127 Differential Diagnosis Differential diagnosis cellulitis osteomyelitis puncture wound DVT Narrative Course This is a 8-year-old male homeless gentleman with evidence of left lower extremity cellulitis with an associated puncture wound that is draining serous fluid white cell count is normal but there is a slight left shift x-ray is negative for osteomyelitis at this time patient given ciprofloxacin and vancomycin and wound cultures were performed A shunt to be admitted to the medical floor sodium 127 given normal saline infusion . There is a question of DVT due to the marked swelling of the lower extremity ultrasound will be performed inpatient patient will be prophylactically placed on Lovenox patient is currently having no shortness of breath and denies chest pain. Maya Johnson MD Jun 10, 2017 14:54
[2017-06-10] MEDS ORDERED: ENOXAPARIN SODIUM 100 MG/ML SYRINGE SQ ONE (15:00)
[2017-06-10] MEDS: SODIUM CHLOR 0.9% 1000 ML INJ 1,000 ML IV SCH ×2 (15:02→22:56)
[2017-06-10 15:16] VITALS: BP_SYST 156; BP_SYST 78; BP_DIAS 78; PULSE 100; RESP 20
--- NOTE | 2017-06-10 15:42 | RADRPT ---
EXAM DATE/TIME: 06/10/2017 14:43 [facility] COMPARISON: No previous studies available for comparison. INDICATIONS : Bilateral leg pain. MEDICAL HISTORY : Hypertension. Myocardial infarction. Chronic obstructive pulmonary disease. SURGICAL HISTORY : C-spine fusion C5-C7. Left inguinal hernia surgery. Bilateral shoulder ENCOUNTER: Initial ACUITY: 2 day PAIN SCORE: 8/10 LOCATION: Bilateral legs. TECHNIQUE: Venous ultrasound of the left and right leg was performed from the inguinal ligament to the proximal calf. Real-time, color Doppler and spectral tracing, compression and augmentation techniques were us ed. FINDINGS: RIGHT LEG: There is normal compressibility of the deep venous system from the inguinal region to the proximal ca lf. No echogenic clot is seen in the lumen of the common femoral, femoral, popliteal, and posterior tibial veins. There is a normal response of the venous system to proximal and distal augmentation an d respiration. LEFT LEG: There is normal compressibility of the deep venous system from the inguinal region to the proximal ca lf. No echogenic clot is seen in the lumen of the common femoral, femoral, popliteal, and posterior tibial veins. There is a normal response of the venous system to proximal and distal augmentation an d respiration. CONCLUSION: Normal examination. Darya Valerio MD on June 10, 2017 at 15:40 Board Certified Radiologist. This report was verified electronically.
[2017-06-10] MEDS ORDERED: RESP: ALBUTEROL 2.5 MG/IPRATROPIUM 0.5 MG NEB (PRN) NEB (16:30)
[2017-06-10] MEDS ORDERED: cloNIDine HCL 0.1 MG TAB PO PRN (17:15)
[2017-06-10 18:48] VITALS: BP 151/72; PULSE 80
[2017-06-10 20:00] VITALS: BP 159/74; PULSE 80; RESP 18; TEMP 100.3; O2SAT 98
[2017-06-10] MEDS: SODIUM CHLORIDE 0.9% FLUSH 10 ML FLUSH IV FLUSH SCH (22:56)
[2017-06-10] MEDS: DOCUSATE SODIUM 50 MG/SENNA 8.6 MG TAB PO SCH (22:56)
[2017-06-10] MEDS: VANCOMYCIN INJ 1,500 MG in SODIUM CHLORID 0.9% 500 ML INJ 500 ML IV SCH (23:08)
[2017-06-11] VITALS: BP 142/80; PULSE 70; RESP 18; TEMP 98.7; O2SAT 98
[2017-06-11 04:00] VITALS: BP 143/69; PULSE 69; RESP 18; TEMP 98.6; O2SAT 98
[2017-06-11 08:00] VITALS: BP 136/72; PULSE 56; RESP 20; TEMP 96.6; O2SAT 97
[2017-06-11] MEDS: MULTIVITAMINS/MINERALS THERAPEUTIC TAB PO SCH (09:49)
[2017-06-11] MEDS: FOLIC ACID 1 MG TAB PO SCH (09:49)
[2017-06-11] MEDS: THIAMINE HCL 100 MG TAB PO SCH (09:49)
[2017-06-11] MEDS: RIVAROXABAN 20 MG TAB PO SCH (09:49)
[2017-06-11] MEDS: amLODIPine BESYLATE 5 MG TAB PO SCH (09:50)
[2017-06-11] MEDS: DOCUSATE SODIUM 50 MG/SENNA 8.6 MG TAB PO SCH ×2 (09:50→21:45)
[2017-06-11] MEDS: SODIUM CHLORIDE 0.9% FLUSH 10 ML FLUSH IV FLUSH SCH ×2 (09:50→21:45)
[2017-06-11 10:07] LABS: AUTOMATED NEUTROPHIL # 4.8 TH/MM3 (1.8-7.7); BASOPHIL % 0.5 % (0.0-2.0); EOSINOPHIL % 0.4 % (0.0-4.0); HEMATOCRIT 39.9 % (39.0-51.0); HEMO FLAGS DIFF FINAL; LYMPH % 10.7 % (9.0-44.0); LYMPHOCYTE # 0.7 TH/MM3 (1.0-4.8); MEAN CORPUSCULAR HEMOGLOBIN 31.4 PG (27.0-34.0); MEAN CORPUSCULAR HGB CONC 33.4 % (32.0-36.0); MONO % 16.8 % (0.0-8.0); NEUT % 71.6 % (16.0-70.0); PLATELET COUNT 124 TH/MM3 (150-450); RED BLOOD COUNT 4.25 MIL/MM3 (4.50-5.90); RED CELL DISTRIBUTION WIDTH 14.9 % (11.6-17.2); WHITE BLOOD COUNT 6.7 TH/MM3 (4.0-11.0)
[2017-06-11] MEDS: SODIUM CHLOR 0.9% 1000 ML INJ 1,000 ML IV SCH ×2 (10:30→18:27)
[2017-06-11 10:34] LABS: ANION GAP 6 MEQ/L (5-15); AST (GOT) 18 U/L (15-37); BICARBONATE 30.2 MEQ/L (21.0-32.0); BLOOD UREA NITROGEN 8 MG/DL (7-18); CHLORIDE 98 MEQ/L (98-107); GLOMERULAR FILTRATION RATE 143 ML/MIN (>89); POTASSIUM 3.7 MEQ/L (3.5-5.1); SODIUM (NA) 134 MEQ/L (136-145)
[2017-06-11 10:39] LABS: ALKALINE PHOSPHATASE 85 U/L (45-117); ALT (GPT) 13 U/L (12-78); TOTAL BILIRUBIN ADULT 0.6 MG/DL (0.2-1.0)
[2017-06-11] MEDS: VANCOMYCIN INJ 1,500 MG in SODIUM CHLORID 0.9% 500 ML INJ 500 ML IV SCH ×2 (11:22→21:45)
--- NOTE | 2017-06-11 11:40 | HHI.PR ---
Subjective Remarks Follow up for bilateral lower extremity cellulitis, hyponatremia, alcohol abuse. The patient was seen with PT and RN at bedside. The patient reports continued LLE pain, edema, and erythema with purulent drainage from the wound. Denies fevers/chills. He is attempting ambulation with physical therapy. He denies any tremor or abdominal pain. He is tolerating oral intake. Objective Vitals Vital Signs Date Time Temp Pulse Resp B/P Pulse Ox O2 Delivery O2 Flow Rate FiO2 06/11/17 08:00 96.6 56 20 136/72 97 06/11/17 04:44 Room Air 06/11/17 04:00 98.6 69 18 143/69 98 06/11/17 00:00 98.7 70 18 142/80 98 06/10/17 20:00 100.3 80 18 159/74 98 06/10/17 18:48 80 151/72 06/10/17 15:16 100 20 156/78 I/O 06/10/17 06/10/17 06/10/17 06/11/17 06/11/17 06/11/17 07:00 15:00 23:00 07:00 15:00 23:00 Intake Total 700 ml Output Total 500 ml Balance 200 ml Intake Oral 700 ml Output Urine Total 500 ml # Bowel Movements 0 Result Diagram: 06/11/1718 06/11/1718 Imaging Last Impressions Tibia/Fibula X-Ray 06/10/17 0000 Signed Impressions: Service Date/Time: Saturday, June 10, 2017 13:46 - CONCLUSION: Soft tissue swelling and no definite fracture or osteomyelitis for technique. KUbaldo Valerio MD Lower Extremity Ultrasound 06/10/17 0000 Signed Impressions: Service Date/Time: Saturday, June 10, 2017 14:43 - CONCLUSION: Normal examination. Darya Valerio MD Objective Remarks GENERAL: Well-nourished, well-developed unkempt appearing male patient in NAD. SKIN: Warm and dry. No rash. Left lateral lower extremity with large wound/ ulceration with foul odor, purulent drainage, and surrounding erythema/edema/ induration; with +TTP. Right anterior hartley with smaller wound and mild surrounding erythema/edema. HEENT: Normocephalic. Atraumatic.Pupils equal and round. Mucous membranes pink and moist. NECK: Supple. Trachea midline. CARDIOVASCULAR: Regular rate and rhythm. S1, S2 noted. No murmur appreciated. RESPIRATORY: No accessory muscle use. Clear to auscultation. Breath sounds equal bilaterally. GASTROINTESTINAL: Abdomen soft, non-tender, nondistended. Normoactive bowel sounds x4. MUSCULOSKELETAL: No obvious deformities. Bilateral 1+ lower extremity edema with Left leg larger than the right. Bilateral calves nontender today. NEUROLOGICAL: Awake and alert. No obvious cranial nerve deficits. Motor grossly within normal limits. Normal speech. PSYCHIATRIC: Appropriate mood and affect; insight and judgment normal. Medications and IVs Current Medications Medications (Trade) Dose Ordered Sig/Guru Route Start Time Stop Time Status Last Admin (Norvasc) 10 mg DAILY PO 06/11/17 09:00 06/11/17 09:50 Rivaroxaban 20 mg 20 mg DAILY PO 06/11/17 09:00 06/11/17 09:49 Pharmacy Profile Note 0 ml @ 0 mls/hr UNSCH OTHER 06/10/17 14:15 (NS 1000 ml Inj) 1,000 ml @ 100 mls/hr Q10H IV 06/10/17 14:15 06/11/17 10:30 (NS Flush) 2 ml UNSCH PRN IV FLUSH 06/10/17 14:15 (NS Flush) 2 ml BID IV FLUSH 06/10/17 21:00 06/11/17 09:50 (Tylenol) 650 mg Q4H PRN PO 06/10/17 14:15 (Tylenol) 650 mg Q6H PRN PO 06/10/17 14:15 (Roxicodone) 10 mg Q4H PRN PO 06/10/17 14:15 06/11/17 04:24 (Morphine Inj) 2 mg Q3H PRN IV 06/10/17 14:15 (Roxicodone) 5 mg Q4H PRN PO 06/10/17 14:15 (Narcan Inj) 0.4 mg UNSCH PRN IV 06/10/17 14:15 Senna/Docusate Sodium 1 tab 1 tab BID PO 06/10/17 21:00 06/11/17 09:50 (Vancomycin Inj/ NS 500 ml Inj) 515 ml @ 250 mls/hr Q12H IV 06/10/17 21:00 06/11/17 11:22 Miscellaneous Information SPECIFIC LAB TO BE DRAWN:VANCOMYCIN TROUGH DATE TO... ONCE ONCE .XX 06/12/17 08:45 06/12/17 08:46 (Folate) 1 mg DAILY PO 06/11/17 09:00 06/16/17 08:59 06/11/17 09:49 (Vitamin B1) 100 mg DAILY PO 06/11/17 09:00 06/11/17 09:49 (Theragran M Tab) 1 tab DAILY PO 06/11/17 09:00 06/16/17 08:59 06/11/17 09:49 (Catapres) 0.1 mg Q6H PRN PO 06/10/17 17:15 Urinary Catheter: No A/P Problem List: (1) Bilateral lower leg cellulitis ICD Code: L03.116 Status: Acute (2) Hyponatremia ICD Code: E87.1 Status: Acute Assessment and Plan 62-year-old homeless male with history of right hip fracture, DVT on Xarelto, COPD, HTN, presents with a 1 week history of worsening left lower extremity erythema, edema, and pain. Bilateral Lower Extremity Cellulitis: left leg worse than the right. BLE Doppler U/S negative for DVT. Left tib/fib xray with soft tissue swelling, no definite fracture or osteomyelitis. Afebrile, no leukocytosis however with mild left shift. -Continue antibiotics with IV Vanco, pharmacy consulted -Follow wound culture and blood cultures -Elevate the legs -Pain control with tylenol, oxycodone prn, and IV morphine prn breakthrough pain -consulted wound care and PT Chronic RLE DVT: diagnosed on 03/12/17, s/p right hip fracture/ORIF. Repeat Doppler U/S negative for DVT. -continue patient's Xarelto Acute Hyponatremia: Na 127, previously 139 in February2017. Suspect secondary to alcohol abuse. -give IVF with NS -repeat BMP shows improvement with Na 134 today Hypertension: BP currently well controlled. -continue patient's Norvasc -monitor BP, adjust antihypertensives as needed COPD: chronic, stable, does not appear to be in exacerbation -duonebs prn Alcohol Abuse: patient reportedly only drinks 2-3 beers daily, however previously drinking 4-5 beers/day -patient with allergy to Ativan, unable to initiate CIWA protocol -continue thiamine/folate/MV -seizure precautions -monitor closely for withdrawal Tobacco Abuse: chronic -patient decline nicotine patch at this time DVT Prophylaxis: on Xarelto Discharge Planning Discharge pending further clinical improvement. Likely discharge in 2-3 days. Kelly Collazo PA-C Jun 11, 2017 11:40 am
[2017-06-11 12:00] VITALS: BP 138/74; PULSE 62; RESP 20; TEMP 98.6; O2SAT 97
--- NOTE | 2017-06-11 12:33 | PD.WCN.NOT ---
Wound Consult Description: L lower extremity, R anterior hartley Communicated with: RN Nat caballero and Doctor Charlotte Recommendation: Recommend to cleanse wound with normal saline or wound cleanser and apply single layer of Xeroform gauze dressing over open part of wound only. cover with dry 4x4 gauze pads and secure with rolled gauze and tape.Please change dressing daily or PRN if saturated or dislodged Please cleanse weeping scabs to R anterior hartley with normal saline or wound cleanser. Please apply Xeroform gauze dressing in single over just over weeping scabs. Secure dressing with rolled gauze and tape. Please change dressing daily or PRN if saturated or dislodged. Please continue to elevate bilateral lower extremities. Additional Information: Patient seen on for evaluation of wound to L leg. Patient assessed with the assistance of Trudy WILBURN and headline writer. Patient is noted with pitting edema to bilateral lower extremities worse on Left than on Right. Removed rolled gauze and non stick dressing in place to reveal large deflated blister wound on L lower lateral leg, etiology is unknown. Patient is unable to remember how wound occurred. Entire deflated blister wound measures 9 cm x 10cm, with opening measuring 5cm x 5cm x ~0.2 cm. Tissue in opened area presents with ~80% pale red tissue and ~20% white tissue. Wound is without odor and minimal Sero- sanguinous drainage.Periwound is erythematous and with increased heat. Wound culture with heavy growth coag positive Staph Aureus . Cleansed opened wound with normal saline and applied Xeroform single layer gauze dressing just over opened area in deflated blister wound. Covered with 2 dry 4x4 gauze pads and secured with rolled gauze and tape. R anterior hartley noted with 2 weeping scabs. Drainage is minimal and sero- sanguinous without odor. Cleansed scabs with normal saline and applied Xeroform gauze dressing in single layer just over weeping areas to scabs. Secured dressings with rolled gauze and tape. Chari Pena [facility] Jun 11, 2017 12:33
[2017-06-11 16:00] VITALS: BP 124/62; PULSE 58; RESP 18; TEMP 98.7; O2SAT 96
[2017-06-11 20:00] VITALS: BP 156/72; PULSE 57; RESP 20; TEMP 98.3; O2SAT 98
[2017-06-12] VITALS: BP 134/66; PULSE 61; RESP 20; TEMP 97.6; O2SAT 98
[2017-06-12 04:00] VITALS: BP 150/78; PULSE 54; RESP 20; TEMP 98.1; O2SAT 99
[2017-06-12] MEDS: SODIUM CHLOR 0.9% 1000 ML INJ 1,000 ML IV SCH (05:49)
[2017-06-12 08:00] VITALS: BP 110/67; PULSE 53; RESP 20; TEMP 97.8; O2SAT 99
[2017-06-12] MEDS: RIVAROXABAN 20 MG TAB PO SCH (08:39)
[2017-06-12] MEDS: amLODIPine BESYLATE 5 MG TAB PO SCH (08:39)
[2017-06-12] MEDS: FOLIC ACID 1 MG TAB PO SCH (08:40)
[2017-06-12] MEDS: THIAMINE HCL 100 MG TAB PO SCH (08:40)
[2017-06-12] MEDS: MULTIVITAMINS/MINERALS THERAPEUTIC TAB PO SCH (08:40)
[2017-06-12] MEDS: SODIUM CHLORIDE 0.9% FLUSH 10 ML FLUSH IV FLUSH SCH ×2 (08:41→21:43)
[2017-06-12] MEDS: DOCUSATE SODIUM 50 MG/SENNA 8.6 MG TAB PO SCH ×2 (08:44→21:43)
[2017-06-12] MEDS ORDERED: PHARMACY ORDERED LAB ONE (08:45)
[2017-06-12] MEDS: VANCOMYCIN INJ 1,500 MG in SODIUM CHLORID 0.9% 500 ML INJ 500 ML IV SCH ×2 (09:31→21:45)
--- NOTE | 2017-06-12 10:11 | HHI.PR ---
Subjective Remarks Follow-up for bilateral lower extremity wounds. The patient continues to complain of pain and swelling in his left leg. Doesn't feel like the ulcer is having any improvement. Still with serosanguineous drainage from the left lower extremity ulcer. He reports difficulty walking secondary to leg pain and swelling. He has been trying to establish with [facility] to establish follow-up care. Patient verbalizes understanding that he may need to follow-up with outpatient wound care at discharge. Objective Vitals Vital Signs Date Time Temp Pulse Resp B/P Pulse Ox O2 Delivery O2 Flow Rate FiO2 06/12/17 08:00 97.8 53 20 110/67 99 06/12/17 04:00 98.1 54 20 150/78 99 06/12/17 00:00 97.6 61 20 134/66 98 06/11/17 20:00 98.3 57 20 156/72 98 06/11/17 16:00 98.7 58 18 124/62 96 06/11/17 12:00 98.6 62 20 138/74 97 I/O 06/11/17 06/11/17 06/11/17 06/12/17 06/12/17 06/12/17 07:00 15:00 23:00 07:00 15:00 23:00 Intake Total 700 ml 1022 ml 800 ml Output Total 500 ml Balance 200 ml 1022 ml 800 ml Intake Oral 700 ml IV Total 1022 ml 800 ml Output Urine Total 500 ml # Bowel Movements 0 Result Diagram: 06/11/1718 06/11/17 0918 Imaging Last Impressions Tibia/Fibula X-Ray 06/10/17 0000 Signed Impressions: Service Date/Time: Saturday, June 10, 2017 13:46 - CONCLUSION: Soft tissue swelling and no definite fracture or osteomyelitis for technique. Darya Valerio MD Lower Extremity Ultrasound 06/10/17 0000 Signed Impressions: Service Date/Time: Saturday, June 10, 2017 14:43 - CONCLUSION: Normal examination. Darya Valerio MD Objective Remarks GENERAL: Well-developed well-nourished. In no acute distress. SKIN: Warm and dry. Small noninfectious. Ulcerations on the left shoulder. HEENT: Normocephalic. Pupils equal and round. Mucous membranes pink and moist. CARDIOVASCULAR: Regular rate and rhythm. No murmur appreciated. RESPIRATORY: No accessory muscle use. Clear to auscultation. Breath sounds equal bilaterally. GASTROINTESTINAL: Abdomen soft, non-tender, nondistended. Bowel sounds x4. MUSCULOSKELETAL: Bilateral lower extremities with dressings in place. Left lower extremity with 1+ nonpitting edema. Large ulcer with raised edges on the left. NEUROLOGICAL: Awake and alert. No focal neurological deficits. Moves upper and lower extremities spontaneously. Normal speech. PSYCHIATRIC: Appropriate mood and affect; insight and judgment normal. A/P Problem List: (1) Bilateral lower leg cellulitis ICD Code: L03.116 Status: Acute (2) Hyponatremia ICD Code: E87.1 Status: Acute Assessment and Plan 62-year-old homeless male with history of right hip fracture, DVT on Xarelto, COPD, HTN, presents with a 1 week history of worsening left lower extremity erythema, edema, and pain. Bilateral Lower Extremity Cellulitis: left leg worse than the right. Reviewed: BLE Doppler U/S negative for DVT. Left tib/fib xray with soft tissue swelling, no definite fracture or osteomyelitis. Afebrile, no leukocytosis however with mild left shift. Wound culture with MRSA and GABS. -Continue antibiotics with IV Vanco, pharmacy consulted -Follow wound culture and blood cultures -Elevate the legs -Pain control with tylenol, oxycodone prn, and IV morphine prn breakthrough pain -consulted wound care, continue local wound care, rule out pandemic gangrenosum -Consult wound care M.D./podiatry Chronic RLE DVT: diagnosed on 03/12/17, s/p right hip fracture/ORIF. Repeat Doppler U/S negative for DVT. -continue patient's Xarelto Acute Hyponatremia: Na 127, previously 139 in February2017. Suspect secondary to alcohol abuse. -given IVF, improved to 134 Hypertension: BP currently well controlled. -continue patient's Norvasc -monitor BP, adjust antihypertensives as needed COPD: chronic, stable, does not appear to be in exacerbation -duonebs prn Alcohol Abuse: patient reportedly only drinks 2-3 beers daily, however previously drinking 4-5 beers/day -patient with allergy to Ativan, unable to initiate CIWA protocol -continue thiamine/folate/MV -seizure precautions -monitor closely for withdrawal Tobacco Abuse: chronic -patient declined nicotine patch DVT Prophylaxis: on Xarelto Discharge Planning Pending clinical improvement. Kota Roman Jun 12, 2017 10:11
[2017-06-12 12:00] VITALS: BP 131/64; PULSE 56; RESP 20; TEMP 98; O2SAT 99
[2017-06-12 16:00] VITALS: BP 148/72; PULSE 53; RESP 19; TEMP 98.2; O2SAT 98
[2017-06-12 20:00] VITALS: BP 144/77; PULSE 58; RESP 20; TEMP 98.7; O2SAT 99
[2017-06-13] VITALS: BP 141/88; PULSE 60; RESP 20; TEMP 98.6; O2SAT 99
[2017-06-13 04:00] VITALS: BP 142/80; PULSE 54; RESP 20; TEMP 98.7; O2SAT 98
[2017-06-13 08:00] VITALS: BP 174/88; PULSE 54; RESP 18; TEMP 98.1; O2SAT 98
[2017-06-13] MEDS: THIAMINE HCL 100 MG TAB PO SCH (08:14)
[2017-06-13] MEDS: amLODIPine BESYLATE 5 MG TAB PO SCH (08:15)
[2017-06-13] MEDS: DOCUSATE SODIUM 50 MG/SENNA 8.6 MG TAB PO SCH ×2 (08:15→21:25)
[2017-06-13] MEDS: FOLIC ACID 1 MG TAB PO SCH (08:15)
[2017-06-13] MEDS: RIVAROXABAN 20 MG TAB PO SCH (08:15)
[2017-06-13] MEDS: MULTIVITAMINS/MINERALS THERAPEUTIC TAB PO SCH (08:15)
[2017-06-13] MEDS: VANCOMYCIN INJ 1,500 MG in SODIUM CHLORID 0.9% 500 ML INJ 500 ML IV SCH ×2 (10:08→21:24)
[2017-06-13] MEDS: SODIUM CHLORIDE 0.9% FLUSH 10 ML FLUSH IV FLUSH SCH ×2 (10:08→21:24)
[2017-06-13] MEDS ORDERED: LISINOPRIL 5 MG TAB PO SCH (10:30)
--- NOTE | 2017-06-13 10:46 | PD.WOU.CON ---
Patient Intake Chief Complaint Bilateral lower extremity ulcerations Consult Requested by Dr. Pruitt Reason for Consult Evaluation and treatment of ulcerations Primary Care Physician Unknown History of Present Illness 62 year-old male with history of alcohol abuse and tobacco abuse. Patient was admitted and has bilateral lower extremity ulcerations. He was admitted for hyponatremia with cellulitis of the leg. Patient states the wound is been there a while. He has a history DVT on anticoagulant therapy. Also has a history of hypertension. Currently on Norvasc. 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, 07/2014, 2007, 2005; (hip) - 03/26/17 MRSA PCR Screen POSITIVE - 02/12/2017 MRSA (leg) 06/10/17 Preferred Language to Discuss: Georgian Barriers to Learning: None Teaching Method: Discussion Vital Signs Date Time Temp Pulse Resp B/P Pulse Ox O2 Delivery O2 Flow Rate FiO2 06/13/17 08:00 98.1 54 18 174/88 98 06/13/17 08:00 98 Room Air 06/13/17 04:00 98.7 54 20 142/80 98 06/13/17 00:00 98.6 60 20 141/88 99 06/12/17 20:30 Room Air 06/12/17 20:00 98.7 58 20 144/77 99 06/12/17 16:00 98.2 53 19 148/72 98 06/12/17 12:00 98.0 56 20 131/64 99 Pain scale used: 0-10 numeric scale Pain score: 1 Medications Current Medications Morphine Sulfate (Morphine Inj) 2 mg ONCE ONCE IV PUSH Last administered on t 12:00; Start 06/10/17 at 11:15; Stop 06/10/17 at 11:16; Status DC Ondansetron HCl 4 mg 4 mg ONCE ONCE IV PUSH Last administered on 06/10/17 12: 00; Start 06/10/17 at 11:15; Stop 06/10/17 at 11:16; Status DC Ciprofloxacin/ Dextrose 200 ml @ 200 mls/hr ONCE ONCE IV Last administered on 06/10/17 12:00; Start 06/10/17 at 11:15; Stop 06/10/17 at 12:14; Status DC Vancomycin HCl/ Sodium Chloride (Vancomycin Inj/ NS 250 ml Inj) 260 ml @ 262.5 mls/ hr ONCE ONCE IV Last administered on 06/10/17 12:59; Start 06/10/17 at 11:15; Stop 06/10/17 at 12:14; Status DC Amlodipine Besylate (Norvasc) 10 mg DAILY PO Last administered on 06/13/17 08: 15; Start 06/11/17 at 09:00 Rivaroxaban 20 mg 20 mg DAILY PO Last administered on 06/13/17 08:15; Start at 09:00 Pharmacy Profile Note 0 ml @ 0 mls/hr UNSCH OTHER ; Start 06/10/17 at 14:15 Sodium Chloride (NS 1000 ml Inj) 1,000 ml @ 100 mls/hr Q10H IV Last administered on 06/12/17 05:49; Start 06/10/17 at 14:15; Stop 06/12/17 at 10:04 ; Status DC Sodium Chloride (NS Flush) 2 ml UNSCH PRN IV FLUSH FLUSH AFTER USING IV ACCESS ; Start 06/10/17 at 14:15 Sodium Chloride (NS Flush) 2 ml BID IV FLUSH Last administered on 06/13/17 10: 08; Start 06/10/17 at 21:00 Acetaminophen (Tylenol) 650 mg Q4H PRN PO TEMP > 100.4; Start 06/10/17 at 14:15 Acetaminophen (Tylenol) 650 mg Q6H PRN PO PAIN SCALE 1 TO 2; Start 06/10/17 at 14:15 Oxycodone HCl (Roxicodone) 10 mg Q4H PRN PO PAIN SCALE 6 TO 10 Last administered on 06/13/17 08:16; Start 06/10/17 at 14:15 Morphine Sulfate (Morphine Inj) 2 mg Q3H PRN IV BREAKTHROUGH PAIN; Start at 14:15 Oxycodone HCl (Roxicodone) 5 mg Q4H PRN PO PAIN SCALE 3 TO 5; Start 06/10/17 at 14:15 Naloxone HCl (Narcan Inj) 0.4 mg UNSCH PRN IV SEE LABEL COMMENTS; Start at 14:15 Senna/Docusate Sodium 1 tab 1 tab BID PO Last administered on 06/13/17 08:15; Start 06/10/17 at 21:00 Vancomycin HCl/ Sodium Chloride (Vancomycin Inj/ NS 500 ml Inj) 515 ml @ 250 mls/hr Q12H IV Last administered on 06/13/17 10:08; Start 06/10/17 at 21:00 Miscellaneous Information SPECIFIC LAB TO BE DRAWN:VANCOMYCIN TROUGH DATE TO... ONCE ONCE .XX ; Start 06/12/17 at 08:45; Stop 06/12/17 at 08:46; Status DC Enoxaparin Sodium (Lovenox Inj) 100 mg ONCE ONCE SQ Last administered on 15:13; Start 06/10/17 at 15:00; Stop 06/10/17 at 15:02; Status DC Albuterol/ Ipratropium (Duoneb Neb) 1 ampule Q2HR NEB PRN NEB Dyspnea; Start at 16:30 Folic Acid (Folate) 1 mg DAILY PO Last administered on 06/13/17 08:15; Start 06/11/17 at 09:00; Stop 06/16/17 at 08:59 Thiamine HCl (Vitamin B1) 100 mg DAILY PO Last administered on 06/13/17 08:14 ; Start 06/11/17 at 09:00 Multivitamins/ Minerals Therapeutic (Theragran M Tab) 1 tab DAILY PO Last administered on 06/13/17 08:15; Start 06/11/17 at 09:00; Stop 06/16/17 at 08:59 Clonidine (Catapres) 0.1 mg Q6H PRN PO SEE LABEL COMMENTS; Start 06/10/17 at 17 :15 Lisinopril (Prinivil) 5 mg DAILY PO ; Start 06/13/17 at 10:30 Past, Family & Social History Past Medical History Respiratory: REPORTS HX OF: COPD Cardiovascular: REPORTS HX OF: Coronary artery disease, Deep venous thrombosis , Hypertension Review of Systems Constitutional: COMPLAINS OF: Good general health, DENIES: Recent weight change, Fever, Fatigue, Pain Eyes: DENIES: Blurred/Double vision, Hx eye disease Ears/Nose/Mouth/Throat: DENIES: Ringing in ears, Change in hearing, Deafness/ hearing aid, Sore throat, Trouble swallowing Cardiovascular: COMPLAINS OF: Swelling legs / ankles Respiratory: DENIES: Frequent colds, Difficulty breathing, Cough (productive?) , Asthma / hay fever, Emphysema, TB Gastrointestinal: DENIES: Heartburn, Vomiting, Constipation, Diarrhea, Black Stools, Blood in stools, Peptic ulcer, Abdominal pain Genitourinary: DENIES: Renal disease, Dialysis, Freq or burning urination, Blood in urine, Difficulty in urination, Incontinence Musculoskeletal: DENIES: Leg pain (rest or walk), Back pain, Joint pain/swell/ dysarthr, Deformaties Integumentary: DENIES: Rash, Hx masses/lumps, Birthmrk/wart/lump/nodule, Slow to heal after cuts, Bleeding/bruising tendncy Neurological: DENIES: CVA/Stroke, Spinal Cord Injury, Seizures, Tremors, Numbness/tingling, Changes in sensation, Difficulty with balance Psychiatric: DENIES: Depression/anxiety, Change in memory, Insomnia Endocrine: DENIES: Thyroid disease, Heat/cold intolerance, Excessive thirst Hematologic/Lymphatic: DENIES: Blood borne disease, Anemia, Blood abnormalities Allergic/Immunologic: DENIES: Rheumatoid Arthritis, Skin/Food/Drug reaction, Lupus, Sickle Cell disease, Scleroderma, Vasculitis Wound Assessment Vascular Assessment R Dorsails Pedis: Palpable L Dorsails Pedis: Palpable R Posterior Tibial: Palpable L Posterior Tibial: Palpable Wound Information - Wound One Wound Location: left lateral leg Wound Type: Venous Disease Classification: FT- full thickness Wound Length: 16 cm Wound Width: 10 cm Wound Depth: 0.1 cm deep Exudate: Moderate Exudate Type: Purulent Debridement: No Fibrin Amount: Moderate Granulation Tissue Color: None Granulation Tissue Texture: N/A Exposed: No exposed bone, muscle, tendon Eschar: No Odor: No Dressings: Maxorb Extra AG Wound Two Wound Location: multiple small lesions of the right lower leg Wound Type: Venous Disease Classification: FT- full thickness Exudate: Low Exudate Type: Yellow Debridement: No Fibrin Amount: Mild Granulation Tissue Color: None Granulation Tissue Texture: N/A Exposed: No exposed bone, muscle, tendon Eschar: No Odor: No Periwound Appearance: FINDINGS: Normal Dressings: Maxorb Extra AG Lab and Radiology Results Laboratory Microbiology Date/Time Procedure Status Source Growth 06/10/17 13:45 Gram Stain - Final Complete Wound Leg 06/10/17 13:45 Wound Culture - Final Complete S. Aureus Mrsa Group A Beta Strep 06/11/17 09:12 Aerobic Blood Culture - Preliminary Resulted Blood Peripheral NO GROWTH IN 1 DAY 06/11/17 09:12 Anaerobic Blood Culture - Preliminary Resulted Blood Peripheral NO GROWTH IN 1 DAY 06/11/17 09:18 Aerobic Blood Culture - Preliminary Resulted Blood Peripheral NO GROWTH IN 1 DAY 06/11/17 09:18 Anaerobic Blood Culture - Preliminary Resulted Blood Peripheral NO GROWTH IN 1 DAY Radiology Last Impressions Tibia/Fibula X-Ray 06/10/17 0000 Signed Impressions: Service Date/Time: Saturday, June 10, 2017 13:46 - CONCLUSION: Soft tissue swelling and no definite fracture or osteomyelitis for technique. Darya Valerio MD Lower Extremity Ultrasound 06/10/17 0000 Signed Impressions: Service Date/Time: Saturday, June 10, 2017 14:43 - CONCLUSION: Normal examination. Darya Valerio MD Assessment/Plan Problem List: (1) Bilateral lower leg cellulitis Status: Acute (2) Venous hypertension, chronic, with ulcer and inflammation Status: Chronic (3) Edema of lower extremity Status: Chronic Additional Plans & Procedures PLAN: Change the patient from iodoform to Maxorb extra AG. Change every other day. The patient can be placed on the [facility] plan he may be able to follow- up in the wound Center with myself. Continue to follow. D/W Dr. Pruitt Problem Qualifiers (1) Venous hypertension, chronic, with ulcer and inflammation: Qualified Code: I87.333 - Venous hypertension, chronic, with ulcer and inflammation, bilateral Deng Hays DPM Jun 13, 2017 10:46
--- NOTE | 2017-06-13 11:35 | HHI.PR ---
Subjective Remarks Follow-up for left lower extremity wound. The patient was seen by wound care Mellisa, recommended discontinuing the amlodipine and outpatient follow-up with the wound center. Discussed with RN, patient is able to ambulate unassisted to the restroom, which patient confirms. Left lower extremity remains swollen, but is improving. The patient complains of chronic blurred vision, that he is following up with an eye doctor for outpatient. Objective Vitals Vital Signs Date Time Temp Pulse Resp B/P Pulse Ox O2 Delivery O2 Flow Rate FiO2 06/13/17 08:00 98.1 54 18 174/88 98 06/13/17 08:00 98 Room Air 06/13/17 04:00 98.7 54 20 142/80 98 06/13/17 00:00 98.6 60 20 141/88 99 06/12/17 20:30 Room Air 06/12/17 20:00 98.7 58 20 144/77 99 06/12/17 16:00 98.2 53 19 148/72 98 06/12/17 12:00 98.0 56 20 131/64 99 I/O 06/12/17 06/12/17 06/12/17 06/13/17 06/13/17 06/13/17 07:00 15:00 23:00 07:00 15:00 23:00 Intake Total 800 ml 1360 ml 990 ml Output Total 845 ml 600 ml Balance 800 ml 515 ml 390 ml Intake Oral 1360 ml 480 ml IV Total 800 ml 510 ml Output Urine Total 845 ml 600 ml # Bowel Movements 0 Result Diagram: 06/11/1718 06/11/1718 Imaging Last Impressions Tibia/Fibula X-Ray 06/10/17 0000 Signed Impressions: Service Date/Time: Saturday, June 10, 2017 13:46 - CONCLUSION: Soft tissue swelling and no definite fracture or osteomyelitis for technique. Darya Valerio MD Lower Extremity Ultrasound 06/10/17 0000 Signed Impressions: Service Date/Time: Saturday, June 10, 2017 14:43 - CONCLUSION: Normal examination. Darya Valerio MD Objective Remarks GENERAL: Well-developed well-nourished. In no acute distress. SKIN: Warm and dry. Small, noninfectious appearing ulcerations on the left shoulder. Dry ulcers on the right hartley with no surrounding erythema or drainage. HEENT: Normocephalic. Pupils equal and round. Mucous membranes pink and moist. CARDIOVASCULAR: Regular rate and rhythm. No murmur appreciated. RESPIRATORY: No accessory muscle use. Clear to auscultation. Breath sounds equal bilaterally. GASTROINTESTINAL: Abdomen soft, non-tender, nondistended. Bowel sounds x4. MUSCULOSKELETAL: Large erythematous ulcer with serosanguineous drainage on the left lateral calf. Left lower extremity with 1+ nonpitting edema. NEUROLOGICAL: Awake and alert. No focal neurological deficits. Moves upper and lower extremities spontaneously. Normal speech. PSYCHIATRIC: Appropriate mood and affect; insight and judgment normal. A/P Problem List: (1) Bilateral lower leg cellulitis ICD Code: L03.116 Status: Acute (2) Hyponatremia ICD Code: E87.1 Status: Acute Assessment and Plan 62-year-old homeless male with history of right hip fracture, DVT on Xarelto, COPD, HTN, presents with a 1 week history of worsening left lower extremity erythema, edema, and pain. Left Lower Extremity Cellulitis: left leg worse than the right. Right lower extremity improved. Appears to be clinically improving. Reviewed: BLE Doppler U/S negative for DVT. Left tib/fib xray with soft tissue swelling, no definite fracture or osteomyelitis. Afebrile, no leukocytosis however with mild left shift. Wound culture with MRSA and GABS. Blood cultures with NGTD. -Continue antibiotics with IV Vanco, pharmacy consulted -Elevate lower extremity -Pain control with tylenol, oxycodone prn, and IV morphine prn breakthrough pain -Consulted wound care M.D./podiatry, continue local wound care and arrange for outpatient wound care follow-up -Continue PT Chronic RLE DVT: diagnosed on 03/12/17, s/p right hip fracture/ORIF. Repeat Doppler U/S negative for DVT. -continue patient's Xarelto Acute Hyponatremia: Na 127, previously 139 in February2017. Suspect secondary to alcohol abuse. -given IVF, improved to 134 Hypertension: BP not well-controlled. -discontinue patient's Norvasc with lower extremity edema -Add lisinopril, titrate dose as indicated -Clonidine as needed COPD: chronic, stable, does not appear to be in exacerbation -duonebs prn Alcohol Abuse: patient reportedly only drinks 2-3 beers daily, however previously drinking 4-5 beers/day -patient with allergy to Ativan, unable to initiate CIWA protocol -continue thiamine/folate/MV -seizure precautions -monitor closely for withdrawal Tobacco Abuse: chronic -patient declined nicotine patch DVT Prophylaxis: on Xarelto Discharge Planning Clinically improving, but not ready for oral antibiotics yet. Continue PT. mortuary operations manager consulted for assistance with outpatient follow-up. Kota Roman Jun 13, 2017 11:35
[2017-06-13 12:00] VITALS: BP 153/67; PULSE 66; RESP 20; TEMP 98.2; O2SAT 98
[2017-06-13 16:00] VITALS: BP 156/77; PULSE 52; RESP 20; TEMP 98.5; O2SAT 98
[2017-06-13 20:00] VITALS: BP 161/77; PULSE 57; RESP 18; TEMP 99.2; O2SAT 98
[2017-06-14] VITALS: BP 153/70; PULSE 55; RESP 18; TEMP 98.6; O2SAT 98
[2017-06-14 04:00] VITALS: BP 156/82; PULSE 55; RESP 18; TEMP 98.3; O2SAT 98
[2017-06-14 08:00] VITALS: BP 172/85; PULSE 49; RESP 18; TEMP 98.4; O2SAT 99
[2017-06-14] MEDS: VANCOMYCIN INJ 1,500 MG in SODIUM CHLORID 0.9% 500 ML INJ 500 ML IV SCH (09:08)
[2017-06-14] MEDS: SODIUM CHLORIDE 0.9% FLUSH 10 ML FLUSH IV FLUSH SCH ×2 (09:08→20:50)
[2017-06-14] MEDS: LISINOPRIL 10 MG TAB PO SCH (09:09)
[2017-06-14] MEDS: MULTIVITAMINS/MINERALS THERAPEUTIC TAB PO SCH (09:09)
[2017-06-14] MEDS: FOLIC ACID 1 MG TAB PO SCH (09:09)
[2017-06-14] MEDS: THIAMINE HCL 100 MG TAB PO SCH (09:09)
[2017-06-14] MEDS: RIVAROXABAN 20 MG TAB PO SCH (09:10)
[2017-06-14] MEDS: DOCUSATE SODIUM 50 MG/SENNA 8.6 MG TAB PO SCH ×2 (09:10→20:50)
[2017-06-14 12:00] VITALS: BP 146/70; PULSE 48; RESP 18; TEMP 98.6; O2SAT 100
--- NOTE | 2017-06-14 13:53 | HHI.PR ---
Subjective Remarks The patient was ambulating towards the bathroom. He said his pain in the leg was about a 7 out of 10. He said the pain medications were working. He said he will follow-up with wound care clinic or another community clinic. Discussed with nursing. Objective Vitals Vital Signs Date Time Temp Pulse Resp B/P Pulse Ox O2 Delivery O2 Flow Rate FiO2 06/14/17 12:00 98.6 48 18 146/70 100 06/14/17 08:16 Room Air 06/14/17 08:00 98.4 49 18 172/85 99 06/14/17 04:00 98.3 55 18 156/82 98 06/14/17 00:00 98.6 55 18 153/70 98 06/13/17 21:33 Room Air 06/13/17 20:00 99.2 57 18 161/77 98 06/13/17 16:00 98.5 52 20 156/77 98 I/O 06/13/17 06/13/17 06/13/17 06/14/17 06/14/17 06/14/17 06:59 14:59 22:59 06:59 14:59 22:59 Intake Total 840 ml 720 ml 480 ml Output Total 150 ml 1200 ml 2000 ml Balance 690 ml -480 ml -1520 ml Intake Oral 840 ml 720 ml 480 ml Output Urine Total 150 ml 1200 ml 2000 ml # Voids 3 # Bowel Movements 1 1 0 Result Diagram: 06/11/17 0918 06/14/17 1058 Imaging Last Impressions Tibia/Fibula X-Ray 06/10/17 0000 Signed Impressions: Service Date/Time: Saturday, June 10, 2017 13:46 - CONCLUSION: Soft tissue swelling and no definite fracture or osteomyelitis for technique. Darya Valerio MD Lower Extremity Ultrasound 06/10/17 0000 Signed Impressions: Service Date/Time: Saturday, June 10, 2017 14:43 - CONCLUSION: Normal examination. Darya Valerio MD Objective Remarks GENERAL: Well-developed well-nourished. In no acute distress. SKIN: Warm and dry. Small, noninfectious appearing ulcerations on the left shoulder. Dry ulcers on the right hartley with no surrounding erythema or drainage. HEENT: Normocephalic. Pupils equal and round. Mucous membranes pink and moist. CARDIOVASCULAR: Regular rate and rhythm. No murmur appreciated. RESPIRATORY: No accessory muscle use. Clear to auscultation. Breath sounds equal bilaterally. GASTROINTESTINAL: Abdomen soft, non-tender, nondistended. Bowel sounds x4. MUSCULOSKELETAL: Lower extremities are bandaged. NEUROLOGICAL: Awake and alert. No focal neurological deficits. Moves upper and lower extremities spontaneously. Normal speech. PSYCHIATRIC: Appropriate mood and affect; insight and judgment normal. Medications and IVs Current Medications Medications (Trade) Dose Ordered Sig/Guru Route Start Time Stop Time Status Last Admin Rivaroxaban 20 mg 20 mg DAILY PO 06/11/17 09:00 06/14/17 09:10 (Vancomycin Consult Pharmacy) 0 ml @ 0 mls/hr UNSCH OTHER 06/10/17 14:15 (NS Flush) 2 ml UNSCH PRN IV FLUSH 06/10/17 14:15 (NS Flush) 2 ml BID IV FLUSH 06/10/17 21:00 06/14/17 09:08 (Tylenol) 650 mg Q4H PRN PO 06/10/17 14:15 (Tylenol) 650 mg Q6H PRN PO 06/10/17 14:15 (Roxicodone) 10 mg Q4H PRN PO 06/10/17 14:15 06/13/17 21:27 (Morphine Inj) 2 mg Q3H PRN IV 06/10/17 14:15 (Roxicodone) 5 mg Q4H PRN PO 06/10/17 14:15 (Narcan Inj) 0.4 mg UNSCH PRN IV 06/10/17 14:15 Senna/Docusate Sodium 1 tab 1 tab BID PO 06/10/17 21:00 06/14/17 09:10 (Vancomycin Inj/ NS 500 ml Inj) 515 ml @ 250 mls/hr Q12H IV 06/10/17 21:00 06/14/17 09:08 (Folate) 1 mg DAILY PO 06/11/17 09:00 06/16/17 08:59 06/14/17 09:09 (Vitamin B1) 100 mg DAILY PO 06/11/17 09:00 06/14/17 09:09 (Theragran M Tab) 1 tab DAILY PO 06/11/17 09:00 06/16/17 08:59 06/14/17 09:09 (Catapres) 0.1 mg Q6H PRN PO 06/10/17 17:15 (Prinivil) 10 mg DAILY PO 06/14/17 09:00 06/14/17 09:09 A/P Problem List: (1) Bilateral lower leg cellulitis ICD Code: L03.116 Status: Acute (2) Hyponatremia ICD Code: E87.1 Status: Acute Assessment and Plan Left Lower Extremity Cellulitis: left leg worse than the right. Right lower extremity improved. Appears to be clinically improving. Reviewed: BLE Doppler U/S negative for DVT. Left tib/fib xray with soft tissue swelling, no definite fracture or osteomyelitis. Afebrile, no leukocytosis however with mild left shift. Wound culture with MRSA and GABS. Blood cultures with NGTD. Wound care consult appreciated. -Change antibiotics to by mouth clindamycin per sensitivities -Elevate lower extremity -Pain control with tylenol, oxycodone prn, and IV morphine prn breakthrough pain -continue local wound care and arrange for outpatient wound care follow-up -Continue PT Chronic RLE DVT: diagnosed on 03/12/17, s/p right hip fracture/ORIF. Repeat Doppler U/S negative for DVT. -continue patient's Xarelto Acute Hyponatremia: Na 127, previously 139 in February2017. Suspect secondary to alcohol abuse. -given IVF, improved to 134 Hypertension: BP not well-controlled. -discontinue patient's Norvasc with lower extremity edema -Add lisinopril, titrate dose as indicated -Clonidine as needed COPD: chronic, stable, does not appear to be in exacerbation -duonebs prn Alcohol Abuse: patient reportedly only drinks 2-3 beers daily, however previously drinking 4-5 beers/day -patient with allergy to Ativan, unable to initiate CIWA protocol -continue thiamine/folate/MV -seizure precautions -monitor closely for withdrawal Tobacco Abuse: chronic -patient declined nicotine patch Homeless admissions manager consult appreciated. - making arrangements for wound care follow-up and dressing changes. DVT Prophylaxis: on Xarelto Discharge Planning D/c in 1-2 days David Porter DO Jun 14, 2017 13:53
[2017-06-14] MEDS: CLINDAMYCIN 150 MG CAP PO SCH ×2 (17:12→20:50)
[2017-06-14] MEDS: LACTOBACILLUS ACIDOPHILUS TAB PO SCH (18:00)
[2017-06-14 20:00] VITALS: BP 170/89; PULSE 57; RESP 20; TEMP 97.5; O2SAT 100
[2017-06-15] VITALS: BP 148/73; PULSE 56; RESP 20; TEMP 97.3; O2SAT 98
[2017-06-15] MEDS: CLINDAMYCIN 150 MG CAP PO SCH ×3 (02:05→14:32)
[2017-06-15 04:00] VITALS: BP 160/76; PULSE 52; RESP 20; TEMP 97.5; O2SAT 99
[2017-06-15 08:00] VITALS: BP 146/68; PULSE 51; RESP 20; TEMP 98.1; O2SAT 97
[2017-06-15] MEDS: RIVAROXABAN 20 MG TAB PO SCH (08:43)
[2017-06-15] MEDS: MULTIVITAMINS/MINERALS THERAPEUTIC TAB PO SCH (08:43)
[2017-06-15] MEDS: THIAMINE HCL 100 MG TAB PO SCH (08:43)
[2017-06-15] MEDS: LACTOBACILLUS ACIDOPHILUS TAB PO SCH ×2 (08:43→14:32)
[2017-06-15] MEDS: FOLIC ACID 1 MG TAB PO SCH (08:43)
[2017-06-15] MEDS: SODIUM CHLORIDE 0.9% FLUSH 10 ML FLUSH IV FLUSH SCH (08:44)
[2017-06-15] MEDS: LISINOPRIL 10 MG TAB PO SCH (08:44)
[2017-06-15] MEDS: DOCUSATE SODIUM 50 MG/SENNA 8.6 MG TAB PO SCH (08:44)
[2017-06-15 12:00] VITALS: BP 128/73; PULSE 60; RESP 20; TEMP 98.1; O2SAT 99
[2017-06-15] MEDS ORDERED: AUGM875T3 PO (13:28)
[2017-06-15] MEDS ORDERED: CLIN150 PO (13:28)
[2017-06-15] MEDS ORDERED: SENN1TAB PO (13:28)
[2017-06-15] MEDS ORDERED: LISI10TA3 PO (13:28)
[2017-06-15] MEDS ORDERED: OXYC-392 PO (13:28)
[2017-06-15] MEDS ORDERED: LACT PO (13:28)
--- NOTE | 2017-06-15 13:30 | HHI.DCPOC ---
Discharge Care Plan Diagnosis: (1) Bilateral lower leg cellulitis (2) Venous hypertension, chronic, with ulcer and inflammation (3) Edema of lower extremity Goals to Promote Your Health * To prevent worsening of your condition and complications * To maintain your health at the optimal level Directions to Meet Your Goals Take your medications as prescribed Follow your dietary instruction Follow activity as directed Keep your appointments as scheduled Take your immunizations and boosters as scheduled If your symptoms worsen call your PCP, if no PCP go to Urgent Care Center or Emergency Room Smoking is Dangerous to Your Health. Avoid second hand smoke Call the 24-hour hour crisis hotline for domestic abuse at Isis Vela MD Jun 15, 2017 13:29
--- NOTE | 2017-06-15 13:30 | HHI.DS ---
Discharge Summary Admission Date Jun 10, 2017 at 15:04 Discharge Date: Jun 15, 2017 Admitting Diagnosis (1) Bilateral lower leg cellulitis ICD Code: L03.116 Diagnosis: Principal (2) Hyponatremia ICD Code: E87.1 Diagnosis: Principal Procedures See hospital course Brief History - From Admission Written by Kelly Collazo, acting as scribe for Dr. Porter on 06/10/17 at 13: 59. 62-year-old homeless male with history of right hip fracture, DVT on Xarelto, COPD, HTN, alcohol abuse, tobacco use, presents with a 1 week history of worsening left lower extremity erythema, edema, and pain. The patient was recently hospitalized in January2017 for right hip fracture s/p ORIF by Dr. Barth on 02/12/17, then left AMA on 03/02/17, returned to [facility] -04/01/17 diagnosed with RLE DVT, discharged on Xarelto. He has been home for 2 months now. Approximately 1 month ago he started noticing bilateral worsening ankle edema. One week ago he noticed an open wound on the left lower lateral leg. He cannot recall any recent injury or fall although does continue to drink alcohol. He reports 10/10 uncontrolled throbbing pain of bilateral legs. He has been taking tylenol without any relief. A few days ago he started to notice worsening erythema surrounding the wound with purulent drainage. He also noticed a smaller ulceration on the right anterior hartley. Denies fevers/ chills. He has been ambulating only few steps but mostly wheelchair bound since his hip fracture. He reports compliance with his Xarelto however is "almost out " of the medication. He has no other medical complaints at this time. CBC/BMP: 06/11/17 0918 06/14/17 1058 Significant Findings Laboratory Tests Test 06/14/17 10:58 Creatinine 0.58 MG/DL (0.60-1.30) Imaging Last Impressions Tibia/Fibula X-Ray 06/10/17 0000 Signed Impressions: Service Date/Time: Thursday, June 10, 2017 13:46 - CONCLUSION: Soft tissue swelling and no definite fracture or osteomyelitis for technique. Darya Valerio MD Lower Extremity Ultrasound 06/10/17 0000 Signed Impressions: Service Date/Time: Saturday, June 10, 2017 14:43 - CONCLUSION: Normal examination. Darya Valerio MD PE at Discharge GENERAL: Well-developed well-nourished. In no acute distress. SKIN: Warm and dry. Small, noninfectious appearing ulcerations on the left shoulder. Dry ulcers on the right hartley with no surrounding erythema or drainage. HEENT: Normocephalic. Pupils equal and round. Mucous membranes pink and moist. CARDIOVASCULAR: Regular rate and rhythm. No murmur appreciated. RESPIRATORY: No accessory muscle use. Clear to auscultation. Breath sounds equal bilaterally. GASTROINTESTINAL: Abdomen soft, non-tender, nondistended. Bowel sounds x4. MUSCULOSKELETAL: Lower extremities are bandaged. Pt update on day of discharge Follow-up for wound infection Patient had no complaints. Denied any pain. He remains afebrile. Hospital Course Left Lower Extremity Cellulitis: left leg worse than the right. Right lower extremity improved. Reviewed: BLE Doppler U/S negative for DVT. Left tib/fib xray with soft tissue swelling, no definite fracture or osteomyelitis. Afebrile, no leukocytosis however with mild left shift. Wound culture with MRSA and GABS. Blood cultures with NGTD. Wound care consult appreciated. -Patient was treated empirically with vancomycin. Sensitivity wound culture grew MRSA and GABS. Patient later transitioned to clindamycin based on sensitivity. Augmentin also added upon discharge. -Pain control with tylenol, oxycodone prn, and IV morphine prn breakthrough pain -Poor wound care physician patient was put on Maxorb extra AG. Change every other day. The patient can be placed on the [facility] plan he may be able to follow-up in the wound Center with Dr. Hays. Chronic RLE DVT: diagnosed on 03/12/17, s/p right hip fracture/ORIF. Repeat Doppler U/S negative for DVT. -continue patient's Xarelto Acute Hyponatremia: Na 127, previously 139 in February2017. Suspect secondary to alcohol abuse. -given IVF, improved to 134 Hypertension: BP not well-controlled. -discontinue patient's Norvasc with lower extremity edema -Patient was put on lisinopril and blood pressure was controlled. -Clonidine as needed COPD: chronic, stable, does not appear to be in exacerbation -duonebs prn Alcohol Abuse: patient reportedly only drinks 2-3 beers daily, however previously drinking 4-5 beers/day -patient with allergy to Ativan, unable to initiate CIWA protocol -continue thiamine/folate/MV -seizure precautions -No signs of alcohol withdrawals while hospitalized. Tobacco Abuse: chronic -patient declined nicotine patch Homeless managed care manager consult appreciated. -Case management was consulted and addressed outpatient follow-up in regards to his wound care. DVT Prophylaxis: on Xarelto Pt Condition on Discharge: Good Discharge Disposition: Discharge Home Discharge Time: > 30 minutes Discharge Instructions DIET: Follow Instructions for: Heart Healthy Diet Activities you can perform: Regular-No Restrictions Follow up Referrals: PCP Follow-up - 1 Week Wound Care Clinic - 1 Week New Medications: Amoxicillin-Clavulanate (Augmentin) 875-125 Mg Tab 1 TAB PO BID Infection #12 Ref 0 TAB Walker with Front Wheels (Walker with Front Wheels) 1 Mis Mis 1 EA .ROUTE DIRECTED #1 Ref 0 EA Clindamycin (Cleocin) 150 Mg Cap 450 MG PO Q6H infection Days 6 Ref 0 CAP Lactobacillus Acidophilus (Acidophilus/l-Sporogenes) 1 Tab Tab 1 TAB PO TID prevent diarrhea Days 6 Ref 0 TAB Lisinopril (Lisinopril) 10 Mg Tab 10 MG PO DAILY hypertension #30 Ref 0 TAB Oxycodone (Oxycodone) 5 Mg Tab 5 MG PO Q4H PRN moderate to severe pain #10 Ref 0 TAB Sennosides-Docusate Sodium (Senna Plus 8.6-50 mg) 1 Tab Tab 1 TAB PO BID constipation #20 Ref 0 TAB Continued Medications: Albuterol 18 GM Inh (Ventolin Hfa 18 GM Inh) 90 Mcg/Act Aer 2 PUFF INH Q4-6H PRN SHORTNESS OF BREATH #1 INHALER Rivaroxaban (Xarelto) 20 Mg Tab 20 MG PO DAILY Start morning of 04/03/17. DVT #30 TAB Discontinued Medications: Amlodipine (Norvasc) 5 Mg Tab 10 MG PO DAILY Blood Pressure Management #30 TAB Sulfamethoxazole-Trimethoprim (Bactrim DS) 800-160 Mg Tab 1 TAB PO Q12HR Start night of 04/01/17. Infection #11 TAB Isis Vela MD Jun 15, 2017 13:30
--- NOTE | 2017-06-15 13:32 | HHI.FF ---
Face to Face Verification Diagnosis: (1) Venous hypertension, chronic, with ulcer and inflammation (2) Edema of lower extremity (3) Bilateral lower leg cellulitis Home Health Nursing Order: Medical education Signs/symptoms of disease process Wound care and dressing changes Instructions: use maxorb extra AG. Change every other day. I have seen patient Lvear Ochoa on 06/15/17. My clinical findings support the need for the requested home health care services because: Med compliance is questionable I certify that my clinical findings support that this patient is homebound because: Post-op weakness Isis Vela MD Jun 15, 2017 13:31
[2017-06-15] MEDS ORDERED: WALKER WHEELS/F1 MIS (14:11)
== END 2017-06-15 15:40 | disposition home or self-care (01) | DRG 603 ==
LOC: NEPC 09:36 → NEDA 15:04 → N04B 19:41
PROVIDERS: ADMIT Family Medicine; ATTEND Family Medicine
DX: L03.116 Cellulitis of left lower limb (principal); E87.1 Hypo-osmolality and hyponatremia; I10 Essential (primary) hypertension; I87.333 Chronic venous hypertension (idiopathic) with ulcer and inflammation of bilateral lower extremity; L97.829 Non-pressure chronic ulcer of other part of left lower leg with unspecified severity; L97.819 Non-pressure chronic ulcer of other part of right lower leg with unspecified severity; J44.9 Chronic obstructive pulmonary disease, unspecified; I25.10 Atherosclerotic heart disease of native coronary artery without angina pectoris; M19.90 Unspecified osteoarthritis, unspecified site; F17.210 Nicotine dependence, cigarettes, uncomplicated; L03.115 Cellulitis of right lower limb; F10.10 Alcohol abuse, uncomplicated; B95.62 Methicillin resistant Staphylococcus aureus infection as the cause of diseases classified elsewhere; B95.0 Streptococcus, group A, as the cause of diseases classified elsewhere; G47.30 Sleep apnea, unspecified; I25.2 Old myocardial infarction; Z86.718 Personal history of other venous thrombosis and embolism; Z59.0 Homelessness
CPT/HCPCS: 73590; 80053; 80202; 82565; 85025; 86403; 87040; 87070; 87147; 87186; 93970; 96365; 96366; 96367; 96375; J0744; J1650; J2270; J2405; J3370; J7030; J7040; J7050

== ENCOUNTER → 2017-08-05 | Outpatient (CLI) | payer OTHER ==
[~2017-08-05] MED LIST changes: -AMLO5 PO; -BACT800T5 PO; +CARB6.5S5 EACH EAR; +CILO100T PO; -FOLI1TAB4 PO; +LACT PO; +LISI10TA3 PO; +OXYC-392 PO; +SENN1TAB PO; -VITA100T2 PO; +WALKER WHEELS/F1 MIS; -XARE15TA PO
--- NOTE | 2017-08-05 11:56 | RADRPT ---
EXAM DATE/TIME: 08/05/2017 00:00 [facility] COMPARISON: No previous studies available for comparison. INDICATIONS : Low Leg Pain, PVD TECHNIQUE: Four-cuff ankle and brachial pressures were obtained. Pulse cuff waveform tracings of the ankles were recorded, and ankle-brachial indices were calculated. PRESSURES (mmHg): Brachial (arm): Right 112 Left 118 Ankle: Right 140 Left 127 MARBELLA: Right 1.19 Left 1.08 TBI: Right 0.86 Left 0.51 PULSED CUFF WAVEFORMS: Demonstrate normal amplitude bilaterally. CONCLUSION: Mildly diminished toe pressures on the left. Ward Wolfe MD on August 05, 2017 at 11:53 Board Certified Radiologist. This report was verified electronically.
== END ==
LOC: HCAV 09:31
PROVIDERS: ATTEND Family Medicine
DX: M79.669 Pain in unspecified lower leg (principal); I73.9 Peripheral vascular disease, unspecified
CPT/HCPCS: 93922

== ENCOUNTER → 2017-08-26 | Outpatient (CLI) | payer OTHER ==
[2017-08-26 10:44] LABS: ANION GAP 6 MEQ/L (5-15); AST (GOT) 22 U/L (15-37); BICARBONATE 27.5 MEQ/L (21.0-32.0); BLOOD UREA NITROGEN 8 MG/DL (7-18); CHLORIDE 103 MEQ/L (98-107); GLUCOSE,FASTING 95 MG/DL (74-99); POTASSIUM 3.8 MEQ/L (3.5-5.1); SODIUM (NA) 136 MEQ/L (136-145)
[2017-08-26 10:45] LABS: GLOMERULAR FILTRATION RATE 132 ML/MIN (>89)
[2017-08-26 10:51] LABS: ALKALINE PHOSPHATASE 69 U/L (45-117); ALT (GPT) 15 U/L (12-78); HDL CHOLESTEROL 57.4 MG/DL (40.0-60.0); LDL CHOLESTEROL 89 MG/DL (0-99); TOTAL BILIRUBIN ADULT 0.5 MG/DL (0.2-1.0)
== END ==
LOC: CLAB 09:07
PROVIDERS: ATTEND Family Medicine
DX: D69.6 Thrombocytopenia, unspecified (principal); I73.9 Peripheral vascular disease, unspecified; M79.669 Pain in unspecified lower leg; L03.116 Cellulitis of left lower limb; S72.001A Fracture of unspecified part of neck of right femur, initial encounter for closed fracture; J06.9 Acute upper respiratory infection, unspecified; F10.10 Alcohol abuse, uncomplicated; X58.XXXA Exposure to other specified factors, initial encounter
CPT/HCPCS: 36415; 80053; 80061; 85049

== ENCOUNTER 2017-12-03 12:25 | Inpatient (IN) | payer OTHER ==
[~2017-12-03] VITALS: Ht 190.5 cm; Wt 97.0 kg
[~2017-12-03 12:25] MED LIST changes: -CARB6.5S5 EACH EAR; -LACT PO; -LISI10TA3 PO; -OXYC-392 PO; -SENN1TAB PO; -WALKER WHEELS/F1 MIS; -WHEEMIS3
[2017-12-03 12:27] VITALS: BP 147/67; PULSE 86; RESP 18; TEMP 99.2; O2SAT 98
[2017-12-03] MEDS ORDERED: ACETAMINOPHEN 325 MG TAB PO ONE (15:45)
[2017-12-03] MEDS ORDERED: SODIUM CHLOR 0.9% 1000 ML INJ 1,000 ML IV ONE (15:45)
[2017-12-03] MEDS ORDERED: VANCOMYCIN INJ 1,000 MG in SODIUM CHLOR 0.9% 250 ML INJ 250 ML IV ONE (15:45)
[2017-12-03] MEDS ORDERED: CLINDAMYCIN 600 MG/DEX PREMIX 50 ML IV ONE (15:45)
--- NOTE | 2017-12-03 16:04 | PD ---
HPI Chief Complaint: Skin Problem Time Seen by Provider: 15:27 Travel History International Travel<30 days: No Contact w/Intl Traveler<30days: No Traveled to known affect area: No History of Present Illness HPI The patient is a 62 year-old male who presents emergency department for left hand swelling. The patient has a history of circular scaly lesions that crossed over on the left and right upper extremity as well as over the posterior scalp and neck. However, the patient states he's had 2 days of increasing left hand pain, significantly more swollen today. He now notes blister formation on the extensor surface of the left hand. He notes limited range of motion secondary to pain and swelling. He does note the pain and swelling radius of the left arm to the right mid bicep. He notes subjective fevers without chills or sweats. He denies any history of HIV or diabetes. He denies any trauma to the left hand. The patient is right-hand dominant. He denies any known history of chronic skin infections or impetigo. Symptoms are moderate without any alleviating or exacerbating factors. He does smoke tobacco and drink one to 2 beers daily. He denies any illicit drug use. He does not currently have a primary physician. He does have a history of DVT on the right lower extremity after fracture, stopped taking Xarelto 3 months ago when he ran out of his medications. PFSH Past Medical History Hx Anticoagulant Therapy: Yes (coumadin) Arthritis: No Asthma: No Autoimmune Disease: No Blood Disorders: No Anxiety: No Depression: No Heart Rhythm Problems: No Cancer: No Cardiac Catheterization: No Cardiovascular Problems: Yes High Cholesterol: No Chemotherapy: No Chest Pain: Yes Congestive Heart Failure: No COPD: Yes Cerebrovascular Accident: No Diabetes: No Diminished Hearing: Yes ([place] ON LEFT) Endocrine: No Gastrointestinal Disorders: No GERD: No Glaucoma: No Genitourinary: No Headaches: No Hepatitis: No Hiatal Hernia: No Heparin Induced Thrombocytopen: No Hypertension: Yes Immune Disorder: No Inguinal Hernia: Yes Implanted Vascular Access Dvce: No Kidney Stones: No Musculoskeletal: No Neurologic: Yes Psychiatric: No Reproductive: No Respiratory: Yes (COPD) Immunizations Current: Yes Migraines: No Myocardial Infarction: Yes Radiation Therapy: No Renal Failure: No Seizures: No Sickle Cell Disease: No Sleep Apnea: Yes Thyroid Disease: No Ulcer: No Past Surgical History Abdominal Surgery: Yes (LEFT INGUINAL HERNIA REPAIR) AICD: No Appendectomy: No Arteriovenous Shunt: No Body Medical Devices: wire neck , plate and screws in left elbow Cardiac Surgery: No Cholecystectomy: No Coronary Artery Bypass Graft: No Ear Surgery: No Endocrine Surgery: No Eye Surgery: No Genitourinary Surgery: No Gynecologic Surgery: No Insulin Pump: No Joint Replacement: No Neurologic Surgery: Yes (C-SPINE FUSION (C5-C7 PER EMR)) Oral Surgery: No Pacemaker: No Thoracic Surgery: No Other Surgery: Yes (LT INGUINAL HERNIA REPAIR) Social History Alcohol Use: Yes (etoh-BEER (USUALLY 4 DAILY)) Tobacco Use: Yes (1/2ppd) Substance Use: No Allergies-Medications (Allergen,Severity, Reaction): Coded Allergies: cephalexin (Unverified Adverse Reaction, Intermediate, Hives, 09/18/17) PT STATED THAT THE FIRST TIME HE TOOK KEFLEX IT CAUSED HIVE AND STOMACH UPSET ibuprofen (Unverified Adverse Reaction, Intermediate, N/V, 09/18/17) lorazepam (Unverified Adverse Reaction, Intermediate, MAKES HIM CRAZY, ) *MDRO Multi-Drug Resistant Organism (Verified Adverse Reaction, Unknown, 09/18/17) MRSA (wounds) - 08/2014, 07/2014, 2007, 2005; (hip) - 03/26/17 MRSA PCR Screen POSITIVE - 02/12/2017 MRSA (leg) 06/10/17 Reported Meds & Prescriptions Reported Meds & Active Scripts Active Xarelto (Rivaroxaban) 20 Mg Tab 20 Mg PO DAILY Cilostazol 100 Mg Tab 100 Mg PO BID Ventolin Hfa 18 GM Inh (Albuterol Sulfate) 90 Mcg/Act Aer 2 Puff INH Q4-6H PRN Review of Systems General / Constitutional: Positive: Fever, No: Chills Cardiovascular: No: Chest Pain or Discomfort Respiratory: No: Shortness of Breath Gastrointestinal: No: Nausea, Vomiting, Abdominal Pain Musculoskeletal: Positive: Limited ROM, Edema, Pain Skin: Positive Other (skin lesions as noted in the history of present illness) Neurologic: No: Paresthesia, Sensory Disturbance Psychiatric: No: Substance Abuse (denies drug abuse, drinks 1-2 beers daily) Endocrine: No: Other (denies any history diabetes) Hematologic/Lymphatic: No: Other (denies any history HIV) Physical Exam Narrative GENERAL: Awake, alert, pleasant [id number] male who appears his stated age and is in no acute respiratory distress. SKIN: Focused skin assessment warm/dry. Multiple circular crusting skin lesions in the upper cherries bilaterally as well as the neck and posterior occipital area. HEAD: Atraumatic. Normocephalic. EYES: Pupils equal and round. No scleral icterus. No injection or drainage. ENT: No nasal bleeding or discharge. Mucous membranes pink and moist. NECK: Trachea midline. No JVD. CARDIOVASCULAR: Regular rate and rhythm. No murmur appreciated. RESPIRATORY: No accessory muscle use. Clear to auscultation. Breath sounds equal bilaterally. GASTROINTESTINAL: Abdomen soft, non-tender, nondistended. MUSCULOSKELETAL: The left hand is swollen with a blister formation of the extensor surface. Limited range of motion at the MCP, PIP, DIP, and at the wrist secondary to pain. Mild swelling of the distal left arm, positive calor. Mild erythema. Positive left epitrochlear lymphadenopathy but no significant axillary lymphadenopathy noted. Right upper extremity has circular scaly lesions with crusting. NEUROLOGICAL: Awake and alert. No obvious cranial nerve deficits. Motor grossly within normal limits. Normal speech. PSYCHIATRIC: Appropriate mood and affect; insight and judgment normal. Data Data Last Documented VS Vital Signs Date Time Temp Pulse Resp B/P (MAP) Pulse Ox O2 Delivery O2 Flow Rate FiO2 12/03/17 12:27 99.2 86 18 147/67 (93) 98 Room Air Orders Orders Sepsis Workup Initiated (12/03/17 ) Electrocardiogram (12/03/17 15:36) Complete Blood Count With Diff (12/03/17 15:36) Comprehensive Metabolic Panel (12/03/17 15:36) Prothrombin Time / Inr (Pt) (12/03/17 15:36) Act Partial Throm Time (Ptt) (12/03/17 15:36) Lactic Acid Sepsis Protocol (12/03/17 15:36) Urinalysis - C+S If Indicated (12/03/17 15:36) Blood Culture (12/03/17 15:36) Wound Culture And Gram Stain (12/03/17 15:36) Chest, Single Ap (12/03/17 15:36) Blood Glucose (12/03/17 15:36) Ecg Monitoring (12/03/17 15:36) Iv Access Insert/Monitor (12/03/17 15:36) Oximetry (12/03/17 15:36) Oxygen Administration (12/03/17 15:36) Acetaminophen (Tylenol) (12/03/17 15:45) Creatine Kinase (Cpk) (12/03/17 15:36) Sodium Chlor 0.9% 1000 Ml Inj (Ns 1000 M (12/03/17 15:45) Vancomycin Inj (Vancomycin Inj) (12/03/17 15:45) Us Arm Venous Doppler (12/03/17 ) Clindamycin 600 Mg/Ns Premix (Cleocin 60 (12/03/17 17:00) Albuterol Hfa Inh (Proair Hfa Inh) (12/03/17 17:15) Labs Laboratory Tests Test 12/03/17 15:40 12/03/17 15:44 12/03/17 16:10 White Blood Count 12.0 TH/MM3 Red Blood Count 3.99 MIL/MM3 Hemoglobin 12.9 GM/DL Hematocrit 36.1 % Mean Corpuscular Volume 90.4 FL Mean Corpuscular Hemoglobin 32.4 PG Mean Corpuscular Hemoglobin Concent 35.8 % Red Cell Distribution Width 13.4 % Platelet Count 228 TH/MM3 Mean Platelet Volume 8.5 FL Neutrophils (%) (Auto) 78.3 % Lymphocytes (%) (Auto) 10.4 % Monocytes (%) (Auto) 10.0 % Eosinophils (%) (Auto) 0.9 % Basophils (%) (Auto) 0.4 % Neutrophils # (Auto) 9.4 TH/MM3 Lymphocytes # (Auto) 1.2 TH/MM3 Monocytes # (Auto) 1.2 TH/MM3 Eosinophils # (Auto) 0.1 TH/MM3 Basophils # (Auto) 0.0 TH/MM3 CBC Comment DIFF FINAL Differential Comment Prothrombin Time 11.1 SEC Prothromb Time International Ratio 1.1 RATIO Activated Partial Thromboplast Time 27.5 SEC Blood Urea Nitrogen 6 MG/DL Creatinine 0.74 MG/DL Random Glucose 98 MG/DL Total Protein 8.5 GM/DL Albumin 3.9 GM/DL Calcium Level 9.2 MG/DL Alkaline Phosphatase 73 U/L Aspartate Amino Transf (AST/SGOT) 21 U/L Alanine Aminotransferase (ALT/SGPT) 18 U/L Total Bilirubin 0.6 MG/DL Sodium Level 134 MEQ/L Potassium Level 3.7 MEQ/L Chloride Level 100 MEQ/L Carbon Dioxide Level 27.1 MEQ/L Anion Gap 7 MEQ/L Estimat Glomerular Filtration Rate 108 ML/MIN Total Creatine Kinase 133 U/L Lactic Acid Level 0.7 mmol/L MDM Medical Decision Making Medical Screen Exam Complete: Yes Emergency Medical Condition: Yes Medical Record Reviewed: Yes Interpretation(s) EKG reveals normal sinus rhythm with a rate of 61. No ischemic changes or ectopy noted. Last Impressions Chest X-Ray 12/03/17 1536 Signed Impressions: Service Date/Time: November 15:46 - CONCLUSION: No acute disease. Mian Freire MD Upper Extremity Ultrasound 12/03/17 0000 Signed Impressions: Service Date/Time: November 15:50 - CONCLUSION: No DVT. Darya Valerio MD Laboratory Tests Test 12/03/17 15:40 12/03/17 15:44 12/03/17 16:10 White Blood Count 12.0 TH/MM3 Red Blood Count 3.99 MIL/MM3 Hemoglobin 12.9 GM/DL Hematocrit 36.1 % Mean Corpuscular Volume 90.4 FL Mean Corpuscular Hemoglobin 32.4 PG Mean Corpuscular Hemoglobin Concent 35.8 % Red Cell Distribution Width 13.4 % Platelet Count 228 TH/MM3 Mean Platelet Volume 8.5 FL Neutrophils (%) (Auto) 78.3 % Lymphocytes (%) (Auto) 10.4 % Monocytes (%) (Auto) 10.0 % Eosinophils (%) (Auto) 0.9 % Basophils (%) (Auto) 0.4 % Neutrophils # (Auto) 9.4 TH/MM3 Lymphocytes # (Auto) 1.2 TH/MM3 Monocytes # (Auto) 1.2 TH/MM3 Eosinophils # (Auto) 0.1 TH/MM3 Basophils # (Auto) 0.0 TH/MM3 CBC Comment DIFF FINAL Differential Comment Prothrombin Time 11.1 SEC Prothromb Time International Ratio 1.1 RATIO Activated Partial Thromboplast Time 27.5 SEC Blood Urea Nitrogen 6 MG/DL Creatinine 0.74 MG/DL Random Glucose 98 MG/DL Total Protein 8.5 GM/DL Albumin 3.9 GM/DL Calcium Level 9.2 MG/DL Alkaline Phosphatase 73 U/L Aspartate Amino Transf (AST/SGOT) 21 U/L Alanine Aminotransferase (ALT/SGPT) 18 U/L Total Bilirubin 0.6 MG/DL Sodium Level 134 MEQ/L Potassium Level 3.7 MEQ/L Chloride Level 100 MEQ/L Carbon Dioxide Level 27.1 MEQ/L Anion Gap 7 MEQ/L Estimat Glomerular Filtration Rate 108 ML/MIN Total Creatine Kinase 133 U/L Lactic Acid Level 0.7 mmol/L Differential Diagnosis Differential diagnosis includes cellulitis, abscess, infected wound, DVT, impetigo. Narrative Course IV was established, labs are drawn and sent, and the patient was placed on cardiac telemetry monitoring and continuous pulse oximetry monitoring. Ultrasound left upper extremity was ordered. Chest x-ray was obtained. A needle was placed into the blister of the extensor surface the left arm and the fluid was cultured. Patient was administered clindamycin, vancomycin, and IV fluids. Blood culture and lactic acid were sent to lab prior to antibiotics. Chest x-rays unremarkable, no Pancoast tumor. Ultrasound of the left upper extremity is negative, no DVT. White count is slightly elevated at 12.0. Patient's lactic acid is normal. The patient is part of the homeless coalition , most likely will not be able for clindamycin and Bactrim, therefore, will be 23 hour observation for culture results. If initial blood cultures are negative and hand improves, the patient be discharged home with Bactrim and possibly clindamycin from pharmacy. Therefore, the on-call medical service was paged for 23 hour observation. Procedures Procedure Narrative A needle I and D was obtained of the left hand. There is cleaned with alcohol, and 18-gauge needle was placed into the blister and the fluid was cultured. A culture was sent to lab. Dry sterile dressing was applied. The patient tolerated the procedure without difficulty and there was no obvious complications. Sepsis Criteria SIRS Criteria (2 or more): WBC > 67618, < 4000 or > 10% bands Physician Communication [facility] Communication [facility] 23 hour observation. I discussed the patient with Dr. Gomez who agrees with 23 hour observation. Diagnosis Primary Impression: Cellulitis of left hand Admitting Information Admitting Physician Requests: Observation Condition: Stable Alverto Mercado MD Dec 03, 2017 16:04
[2017-12-03 16:08] LABS: AUTOMATED NEUTROPHIL # 9.4 TH/MM3 (1.8-7.7); BASOPHIL % 0.4 % (0.0-2.0); EOSINOPHIL # 0.1 TH/MM3 (0-0.4); EOSINOPHIL % 0.9 % (0.0-4.0); HEMATOCRIT 36.1 % (39.0-51.0); HEMOGLOBIN 12.9 GM/DL (13.0-17.0); LYMPH % 10.4 % (9.0-44.0); LYMPHOCYTE # 1.2 TH/MM3 (1.0-4.8); MEAN CELL VOLUME 90.4 FL (80.0-100.0); MEAN CORPUSCULAR HEMOGLOBIN 32.4 PG (27.0-34.0); MEAN CORPUSCULAR HGB CONC 35.8 % (32.0-36.0); MEAN PLATELET VOLUME 8.5 FL (7.0-11.0); MONOCYTE # 1.2 TH/MM3 (0-0.9); NEUT % 78.3 % (16.0-70.0); PLATELET COUNT 228 TH/MM3 (150-450); RED BLOOD COUNT 3.99 MIL/MM3 (4.50-5.90); RED CELL DISTRIBUTION WIDTH 13.4 % (11.6-17.2)
--- NOTE | 2017-12-03 16:11 | RADRPT ---
EXAM DATE/TIME: 12/03/2017 15:46 [facility] COMPARISON: CHEST SINGLE AP, February 11, 2017, 18:56. INDICATIONS : Fever. MEDICAL HISTORY : Hypertension. Myocardial infarction. Chronic obstructive pulmonary disease. SURGICAL HISTORY : C-spine fusion C5-C7. Left inguinal hernia surgery. Bilateral shoulder ENCOUNTER: Initial ACUITY: 1 day PAIN SCORE: 0/10 LOCATION: Bilateral chest FINDINGS: A single view of the chest demonstrates the lungs to be symmetrically aerated without evidence of mas s, infiltrate or effusion. The cardiomediastinal contours are unremarkable. Osseous structures are intact. CONCLUSION: No acute disease. Mian Freire MD on December 03, 2017 at 16:09 Board Certified Radiologist. This report was verified electronically.
--- NOTE | 2017-12-03 16:17 | RADRPT ---
EXAM DATE/TIME: 12/03/2017 15:50 [facility] COMPARISON: No previous studies available for comparison. INDICATIONS : Left arm swelling. MEDICAL HISTORY : Chronic obstructive pulmonary disease. Deep venous thrombosis. Hypertension. Hearing loss. NM. [place] ry artery disease. Anticoagulant therapy. Sleep apnea. Measles. MRSA. SURGICAL HISTORY : Inguinal hernia repair. Fusion, cervical. Bilateral shoulder surgery. Left ankle surgery. Left elbo w surgery. ENCOUNTER: Initial ACUITY: 1 day PAIN SCORE: 6/10 LOCATION: Left arm. FINDINGS: There is spontaneous flow documented in the brachial, basilic, cephalic, axillary, and subclavian vei ns. The vessels are compressible and augmentation response is documented. No filling defects are se en. The flow is phasic with respiration. Direction of flow in the jugular vein is caudal. An approx imate 2.6 cm axillary lymph node is seen probably benign with a fatty hilum. CONCLUSION: No DVT. Darya Valerio MD on December 03, 2017 at 16:14 Board Certified Radiologist. This report was verified electronically.
[2017-12-03 16:18] LABS: INTERNATIONAL NORMALIZED RATIO 1.1 RATIO; PROTHROMBIN TIME - PATIENT 11.1 SEC (9.8-11.6)
[2017-12-03 16:34] LABS: ALBUMIN 3.9 GM/DL (3.4-5.0); ALT (GPT) 18 U/L (12-78); AST (GOT) 21 U/L (15-37); BICARBONATE 27.1 MEQ/L (21.0-32.0); BLOOD UREA NITROGEN 6 MG/DL (7-18); CALCIUM 9.2 MG/DL (8.5-10.1); CHLORIDE 100 MEQ/L (98-107); CREATININE 0.74 MG/DL (0.60-1.30); GLOMERULAR FILTRATION RATE 108 ML/MIN (>89); GLUCOSE,RANDOM 98 MG/DL (74-106); SODIUM (NA) 134 MEQ/L (136-145)
[2017-12-03 16:36] LABS: ALKALINE PHOSPHATASE 73 U/L (45-117); TOTAL BILIRUBIN ADULT 0.6 MG/DL (0.2-1.0); TOTAL PROTEIN 8.5 GM/DL (6.4-8.2)
[2017-12-03] MEDS ORDERED: CLINDAMYCIN 600 MG/NS PREMIX 50 ML IV ONE (17:00)
[2017-12-03] MEDS ORDERED: TEMAZEPAM 15 MG CAP PO PRN (17:15)
[2017-12-03] MEDS ORDERED: oxyCODONE/ACETAMINOPHEN 10 MG/325 MG TAB PO PRN (17:15)
[2017-12-03] MEDS ORDERED: ALBUTEROL SULFATE 90 MCG/ACT HFA 8 GM INHALER INH PRN (17:15)
[2017-12-03] MEDS ORDERED: LACTULOSE SYRUP 20 GM/30 ML CUP PO PRN (17:15)
[2017-12-03] MEDS ORDERED: MAGNESIUM HYDROXIDE SUSP 30 ML CUP PO PRN (17:15)
[2017-12-03] MEDS ORDERED: SENNOSIDES 8.6 MG TAB PO PRN (17:15)
[2017-12-03] MEDS ORDERED: HALOPERIDOL LACTATE 5 MG/ML AMP IM PRN (17:15)
[2017-12-03] MEDS ORDERED: NALOXONE HCL 0.4 MG/ML AMP IV PUSH PRN (17:15)
[2017-12-03] MEDS ORDERED: NICOTINE 14 MG/24 HR PATCH T-DERMAL ONE (17:15)
[2017-12-03] MEDS ORDERED: LORazepam 2 MG/ML VIAL IV PUSH PRN ×4 (17:15)
[2017-12-03] MEDS ORDERED: LORazepam 2 MG TAB PO PRN (17:15)
[2017-12-03] MEDS ORDERED: ONDANSETRON HCL 4 MG/2 ML VIAL IVP PRN (17:15)
[2017-12-03] MEDS ORDERED: SODIUM CHLORIDE 0.9% FLUSH 10 ML FLUSH IV FLUSH PRN (17:15)
[2017-12-03] MEDS ORDERED: LORazepam 1 MG TAB PO PRN (17:15)
[2017-12-03] MEDS ORDERED: FLUMAZENIL 0.5 MG/5 ML VIAL IV PUSH PRN (17:15)
[2017-12-03] MEDS ORDERED: ACETAMINOPHEN 325 MG TAB PO PRN ×2 (17:15)
[2017-12-03] MEDS ORDERED: oxyCODONE/ACETAMINOPHEN 5 MG/325 MG TAB PO PRN (17:15)
[2017-12-03] MEDS ORDERED: MULTIVITAMIN TAB PO ONE (17:15)
[2017-12-03] MEDS ORDERED: METOCLOPRAMIDE HCL 10 MG/2 ML VIAL IV PUSH PRN (17:15)
[2017-12-03] MEDS ORDERED: BISACODYL 10 MG SUPP RECTAL PRN (17:15)
[2017-12-03 17:27] LABS: BILIRUBIN, URINE NEG (NEG); BLOOD, URINE NEG (NEG); GLUCOSE,URINE NEG (NEG); KETONE, URINE NEG (NEG); NITRITE,URINE NEG (NEG); PH, URINE 7.5 (5.0-8.5); URINE COLOR YELLOW (YELLW/STRAW); URINE LEUKOCYTE ESTERASE NEG (NEG)
[2017-12-03 17:35] VITALS: O2SAT 94
[2017-12-03] MEDS ORDERED: FOLIC ACID 1 MG TAB PO ONE (19:00)
[2017-12-03] MEDS ORDERED: THIAMINE HCL 100 MG TAB PO ONE (19:00)
[2017-12-03 19:06] VITALS: BP 129/63; PULSE 69; RESP 20; TEMP 96.7; O2SAT 98
[2017-12-03] MEDS: DOCUSATE SODIUM 50 MG/SENNA 8.6 MG TAB PO SCH (21:00)
[2017-12-03 22:39] VITALS: BP 134/65; PULSE 75; RESP 21; TEMP 99; O2SAT 97
[2017-12-03] MEDS: SODIUM CHLOR 0.9% 1000 ML INJ 1,000 ML IV SCH (23:43)
[2017-12-03] MEDS: SODIUM CHLORIDE 0.9% FLUSH 10 ML FLUSH IV FLUSH SCH (23:45)
--- NOTE | 2017-12-03 23:45 | HHI.HP ---
[facility] Service [facility] Primary Care Physician No Primary Care Physician Admission Diagnosis left hand cellulitis with leukocytosis Diagnoses: Travel History International Travel<30 Days: No Contact w/Intl Traveler <30 Da: No Traveled to Known Affected Are: No History of Present Illness 62-year-old male with no known past medical history presents to the emergency department for evaluation of left-sided hand swelling. The patient reports that the dorsum of his left hand has been erythematous and swollen for the past 3-4 days. The patient reports he is having difficulty moving his hand secondary to pain. He endorses subjective fevers without chills. He has a history of multiple scaly lesions on the bilateral forearms that has been present for several months. He denies any trauma to the area. Dorsum of left hand is erythematous with a 3 cm round blister draining purulent material status post needle IND performed in the emergency department. Erythema extends from the PIP joints of the fingers to beyond the wrist. Patient able to flex and extend fingers and wrist. Laboratory values significant for a leukocytosis of 12.0. Review of Systems Subjective fever/chills Denies blurry vision, otorrhea, rhinorrhea Denies sore throat and cough No chest pain, palpitations, shortness of breath No abdominal pain Denies constipation/diarrhea/nausea/vomiting Left hand/wrist pain No rashes Past Family Social History Past Medical History History of DVT status post right lower extremity fracture Past Surgical History Right hip pin Left elbow fixation C5-6-7 fusion Bilateral shoulder surgery Multiple bilateral hand surgeries for repair of broken bones sustained in boxing trauma Reported Medications Reported Meds & Active Scripts Active Xarelto (Rivaroxaban) 20 Mg Tab 20 Mg PO DAILY Cilostazol 100 Mg Tab 100 Mg PO BID Ventolin Hfa 18 GM Inh (Albuterol Sulfate) 90 Mcg/Act Aer 2 Puff INH Q4-6H PRN Allergies: Coded Allergies: cephalexin (Unverified Adverse Reaction, Intermediate, Hives, 09/18/17) PT STATED THAT THE FIRST TIME HE TOOK KEFLEX IT CAUSED HIVE AND STOMACH UPSET ibuprofen (Unverified Adverse Reaction, Intermediate, N/V, 09/18/17) lorazepam (Unverified Adverse Reaction, Intermediate, MAKES HIM CRAZY, ) *MDRO Multi-Drug Resistant Organism (Verified Adverse Reaction, Unknown, 09/18/17) 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 Drinks 1-2 beers daily. Denies marijuana or illicit drugs. Physical Exam Vital Signs Vital Signs Date Time Temp Pulse Resp B/P (MAP) Pulse Ox O2 Delivery O2 Flow Rate FiO2 12/03/17 22:39 99.0 75 21 134/65 (88) 97 12/03/17 19:06 96.7 69 20 129/63 (85) 98 12/03/17 17:35 94 21 12/03/17 12:27 99.2 86 18 147/67 (93) 98 Room Air Physical Exam GENERAL: male sitting up in bed SKIN: Multiple raised, crusted lesions on bilateral forearms. HEAD: Atraumatic. Normocephalic. No temporal or scalp tenderness. EYES: Pupils equal round and reactive. Extraocular motions intact. No scleral icterus. No injection or drainage. ENT: Nose without bleeding, purulent drainage or septal hematoma. Throat without erythema, tonsillar hypertrophy or exudate. Uvula midline. Airway patent. NECK: Trachea midline. No JVD or lymphadenopathy. Supple, nontender, no meningeal signs. CARDIOVASCULAR: Regular rate and rhythm without murmurs, gallops, or rubs. RESPIRATORY: Clear to auscultation. Breath sounds equal bilaterally. No wheezes , rales, or rhonchi. GASTROINTESTINAL: Abdomen soft, non-tender, nondistended. No hepato-splenomegaly , or palpable masses. No guarding. MUSCULOSKELETAL: 3 cm bullous lesion on the dorsum of the left hand draining purulent material. Edema that extends from the fingers to be on the wrist. Erythema from PIP joints of the fingers to just beyond the wrist. NEUROLOGICAL: Awake and alert. Cranial nerves II through XII intact. Motor and sensory grossly within normal limits. Five out of 5 muscle strength in all muscle groups. Normal speech. Laboratory Laboratory Tests Test 1/4/18 15:40 12/03/17 15:44 12/03/17 16:10 White Blood Count 12.0 Red Blood Count 3.99 Hemoglobin 12.9 Hematocrit 36.1 Mean Corpuscular Volume 90.4 Mean Corpuscular Hemoglobin 32.4 Mean Corpuscular Hemoglobin Concent 35.8 Red Cell Distribution Width 13.4 Platelet Count 228 Mean Platelet Volume 8.5 Neutrophils (%) (Auto) 78.3 Lymphocytes (%) (Auto) 10.4 Monocytes (%) (Auto) 10.0 Eosinophils (%) (Auto) 0.9 Basophils (%) (Auto) 0.4 Neutrophils # (Auto) 9.4 Lymphocytes # (Auto) 1.2 Monocytes # (Auto) 1.2 Eosinophils # (Auto) 0.1 Basophils # (Auto) 0.0 CBC Comment DIFF FINAL Differential Comment Prothrombin Time 11.1 Prothromb Time International Ratio 1.1 Activated Partial Thromboplast Time 27.5 Blood Urea Nitrogen 6 Creatinine 0.74 Random Glucose 98 Total Protein 8.5 Albumin 3.9 Calcium Level 9.2 Alkaline Phosphatase 73 Aspartate Amino Transf (AST/SGOT) 21 Alanine Aminotransferase (ALT/SGPT) 18 Total Bilirubin 0.6 Sodium Level 134 Potassium Level 3.7 Chloride Level 100 Carbon Dioxide Level 27.1 Anion Gap 7 Estimat Glomerular Filtration Rate 108 Total Creatine Kinase 133 Lactic Acid Level 0.7 Urine Color YELLOW Urine Turbidity CLEAR Urine pH 7.5 Urine Specific [place] 1.009 Urine Protein NEG Urine Glucose (UA) NEG Urine Ketones NEG Urine Occult Blood NEG Urine Nitrite NEG Urine Bilirubin NEG Urine Urobilinogen LESS THAN 2.0 Urine Leukocyte Esterase NEG Urine WBC 2 Microscopic Urinalysis Comment CATH-CULT NOT IND Date/Time Source Procedure Growth Status 12/03/17 15:40 Blood Peripheral Aerobic Blood Culture Pending Received 12/03/17 15:40 Blood Peripheral Anaerobic Blood Culture Pending Received 12/03/17 15:30 Wound Hand Gram Stain - Final Resulted 12/03/17 15:30 Wound Hand Wound Culture Pending Resulted Result Diagram: 12/03/17 1540 12/03/17 1540 Caprini VTE Risk Assessment Caprini VTE Risk Assessment: No/Low Risk (score <= 1) Caprini Risk Assessment Model Point Value = 1 Point Value = 2 Point Value = 3 Point Value = 5 Age 41-60 Minor surgery BMI > 25 kg/m2 Swollen legs Varicose veins or History of unexplained or recurrent spontaneous Oral contraceptives or hormone replacement Sepsis (< 1 month) Serious lung disease, including pneumonia (< 1 month) Abnormal pulmonary function Acute myocardial infarction Congestive heart failure (< 1 month) History of inflammatory bowel disease Medical patient at bed rest Age 61-74 Arthroscopic surgery Major open surgery (> 45 min) Laparoscopic surgery (> 45 min) Malignancy Confined to bed (> 72 hours) Immobilizing plaster cast Central venous access Age >= 75 History of VTE Family history of VTE Factor V Leiden Prothrombin [id number] Lupus anticoagulant Anticardiolipin antibodies Elevated serum homocysteine Heparin-induced thrombocytopenia Other congenital or acquired thrombophilia Stroke (< 1 month) Elective arthroplasty Hip, pelvis, or leg fracture Acute spinal cord injury (< 1 month) Prophylaxis Regimen Total Risk Factor Score Risk Level Prophylaxis Regimen 0-1 Low Early ambulation 2 Moderate Order ONE of the following: *Sequential Compression Device (SCD) *Heparin 5000 units SQ BID 3-4 Higher Order ONE of the following medications: *Heparin 5000 units SQ TID *Enoxaparin/Lovenox 40 mg SQ daily (WT < 150 kg, CrCl > 30 mL/min) *Enoxaparin/Lovenox 30 mg SQ daily (WT < 150 kg, CrCl > 10-29 mL/min) *Enoxaparin/Lovenox 30 mg SQ BID (WT < 150 kg, CrCl > 30 mL/min) AND/OR *Sequential Compression Device (SCD) 5 or more Highest Order ONE of the following medications: *Heparin 5000 units SQ TID (Preferred with Epidurals) *Enoxaparin/Lovenox 40 mg SQ daily (WT < 150 kg, CrCl > 30 mL/min) *Enoxaparin/Lovenox 30 mg SQ daily (WT < 150 kg, CrCl > 10-29 mL/min) *Enoxaparin/Lovenox 30 mg SQ BID (WT < 150 kg, CrCl > 30 mL/min) AND *Sequential Compression Device (SCD) Assessment and Plan Assessment and Plan Assessment/plan: 1. Left hand cellulitis Ultrasound of the left upper extremity negative for DVT Status post needle I&D in the emergency department, wound cultures pending IV clindamycin Blood cultures pending Tailer antibiotics once sensitivities result Monitor for signs of sepsis 2. Skin lesions Patient with chronic raised lesions on bilateral forearms Will need outpatient follow-up for further evaluation 3. Alcohol abuse [facility] protocol Thiamine/folate/multivitamins Monitor for signs of withdrawal FEN Heart healthy diet NS at 100 cc/hr Electrolytes: Monitor and replete when necessary Angela Shannon MD Dec 03, 2017 23:45
[2017-12-04] MEDS: MORPHINE SULFATE 2 MG/ML INJ IV PUSH PRN ×4 (00:07→20:11)
[2017-12-04] MEDS: CLINDAMYCIN 900 MG/NS PREMIX 50 ML IV SCH ×3 (01:08→16:18)
[2017-12-04 01:51] VITALS: BP 127/64; PULSE 79; RESP 18; TEMP 99.3; O2SAT 94
[2017-12-04] MEDS: SODIUM CHLOR 0.9% 1000 ML INJ 1,000 ML IV SCH ×2 (03:29→16:18)
[2017-12-04 03:58] VITALS: BP 121/61; PULSE 67; RESP 20; TEMP 98.3; O2SAT 94
[2017-12-04 07:35] VITALS: BP 143/70; PULSE 60; RESP 18; TEMP 98.8; O2SAT 99
[2017-12-04 07:35] LABS: AUTOMATED NEUTROPHIL # 8.2 TH/MM3 (1.8-7.7); BASOPHIL % 0.3 % (0.0-2.0); EOSINOPHIL # 0.1 TH/MM3 (0-0.4); EOSINOPHIL % 0.9 % (0.0-4.0); HEMATOCRIT 32.7 % (39.0-51.0); HEMOGLOBIN 11.4 GM/DL (13.0-17.0); LYMPH % 11.9 % (9.0-44.0); LYMPHOCYTE # 1.3 TH/MM3 (1.0-4.8); MEAN CORPUSCULAR HEMOGLOBIN 31.4 PG (27.0-34.0); MEAN CORPUSCULAR HGB CONC 34.9 % (32.0-36.0); MEAN PLATELET VOLUME 8.6 FL (7.0-11.0); MONO % 10.1 % (0.0-8.0); MONOCYTE # 1.1 TH/MM3 (0-0.9); NEUT % 76.8 % (16.0-70.0); PLATELET COUNT 179 TH/MM3 (150-450); RED BLOOD COUNT 3.63 MIL/MM3 (4.50-5.90); RED CELL DISTRIBUTION WIDTH 13.4 % (11.6-17.2); WHITE BLOOD COUNT 10.6 TH/MM3 (4.0-11.0)
[2017-12-04 07:49] LABS: ALBUMIN 3.1 GM/DL (3.4-5.0); ALT (GPT) 12 U/L (12-78); AST (GOT) 13 U/L (15-37); BICARBONATE 26.8 MEQ/L (21.0-32.0); BLOOD UREA NITROGEN 8 MG/DL (7-18); CALCIUM 8.4 MG/DL (8.5-10.1); CHLORIDE 105 MEQ/L (98-107); GLOMERULAR FILTRATION RATE 115 ML/MIN (>89); GLUCOSE,RANDOM 142 MG/DL (74-106); MAGNESIUM 1.8 MG/DL (1.5-2.5); PHOSPHORUS 3.3 MG/DL (2.5-4.9); SODIUM (NA) 138 MEQ/L (136-145)
[2017-12-04 07:57] LABS: ALKALINE PHOSPHATASE 60 U/L (45-117); FREE T4 1.03 NG/DL (0.76-1.46); TOTAL BILIRUBIN ADULT 0.4 MG/DL (0.2-1.0); TOTAL PROTEIN 6.9 GM/DL (6.4-8.2)
[2017-12-04] MEDS: MULTIVITAMIN TAB PO SCH (09:00)
[2017-12-04] MEDS: REMOVE OLD PATCH T-DERMAL SCH (09:00)
[2017-12-04] MEDS: FOLIC ACID 1 MG TAB PO SCH (09:00)
[2017-12-04] MEDS: THIAMINE HCL 100 MG TAB PO SCH (09:00)
[2017-12-04] MEDS: SODIUM CHLORIDE 0.9% FLUSH 10 ML FLUSH IV FLUSH SCH ×2 (09:00→20:10)
[2017-12-04] MEDS: DOCUSATE SODIUM 50 MG/SENNA 8.6 MG TAB PO SCH ×2 (09:00→20:08)
[2017-12-04] MEDS: NICOTINE 14 MG/24 HR PATCH T-DERMAL SCH (09:00)
[2017-12-04 11:49] VITALS: BP 120/71; PULSE 62; RESP 18; TEMP 98.9; O2SAT 96
--- NOTE | 2017-12-04 12:56 | HHI.PR ---
Subjective Remarks f/u ; cellulitis/ abscess of the left hand in no acute distress. still with pain and swelling of the left hand. pain is moderate in intensity. afebrile. Objective Vitals Vital Signs Date Time Temp Pulse Resp B/P (MAP) Pulse Ox O2 Delivery O2 Flow Rate FiO2 12/04/17 11:49 98.9 62 18 120/71 (87) 96 12/04/17 07:35 98.8 60 18 143/70 (94) 99 12/04/17 03:58 98.3 67 20 121/61 (81) 94 12/04/17 01:51 99.3 79 18 127/64 (85) 94 12/03/17 22:39 99.0 75 21 134/65 (88) 97 12/03/17 19:06 96.7 69 20 129/63 (85) 98 12/03/17 17:35 94 21 I/O 12/03/17 12/03/17 12/03/17 12/04/17 12/04/17 12/04/17 07:00 15:00 23:00 07:00 15:00 23:00 Intake Total 1250 ml Balance 1250 ml Intake IV Total 1250 ml # Voids 1 Result Diagram: 12/04/17 0555 12/04/17 0555 Imaging Last Impressions Chest X-Ray 12/03/17 1536 Signed Impressions: Service Date/Time: November 15:46 - CONCLUSION: No acute disease. Mian Freire MD Upper Extremity Ultrasound 12/03/17 0000 Signed Impressions: Service Date/Time: November 15:50 - CONCLUSION: No DVT. K. Edgard Valerio MD Objective Remarks GENERAL: This is a well-nourished, well-developed patient, in no apparent distress. CARDIOVASCULAR: Regular rate and regular rhythm without murmurs, gallops, or rubs. RESPIRATORY: Clear to auscultation. Breath sounds equal bilaterally. No wheezes , rales, or rhonchi. GASTROINTESTINAL: Abdomen soft, non-tender, nondistended. Normal, active bowel sounds MUSCULOSKELETAL: swelling and tenderness of the left hand. NEURO: Alert & Oriented x4 to person, place, time, situation. Moves all ext x4. skin; erythema over the left hand. Medications and IVs Inpatient Medications Acetaminophen (Tylenol) 650 mg Q6H PRN PO PAIN SCALE 1 TO 2; Start 12/03/17 at 17:15 Albuterol Sulfate (Proair Hfa Inh) 2 puff Q6H PRN INH SHORTNESS OF BREATH; Start 12/03/17 at 17:15 Bisacodyl (Dulcolax Supp) 10 mg DAILY PRN RECTAL SEVERE CONSITIPATION; Start at 17:15 Clindamycin/ Sodium Chloride 50 ml @ 100 mls/hr Q8H IV Last administered on 12/04/17at 09:00; Start 12/04/17 at 01:00 Enoxaparin Sodium (Lovenox Inj) 40 mg Q24H SQ Last administered on 12/04/17at 00: 00; Start 12/03/17 at 20:00 Flumazenil (Romazicon Inj) 0.2 mg Q1M PRN IV PUSH SEE LABEL COMMENTS; Start 12/03/17 at 17:15 Folic Acid (Folate) 1 mg DAILY PO Last administered on 12/04/17at 09:00; Start at 09:00 Haloperidol Lactate (Haldol Inj) 2 mg Q15M PRN IM SEE LABEL COMMENTS; Start 12/03/17 at 17:15 Lactulose (Lactulose Liq) 30 ml DAILY PRN PO SEVERE CONSITIPATION; Start at 17:15 Lorazepam (Ativan Inj) 2 mg Q15M PRN IV PUSH CIWA > 20; Start 12/03/17 at 17:15 Lorazepam (Ativan) 2 mg Q2H PRN PO CIWA 11-14; Start 12/03/17 at 17:15 Magnesium Hydroxide (Milk Of Magnesia Liq) 30 ml Q12H PRN PO Mild constipation ; Start 12/03/17 at 17:15 Metoclopramide HCl (Reglan Inj) 5 mg Q6H PRN IV PUSH NAUSEA OR VOMITING; Start 12/03/17 at 17:15 Miscellaneous Information 1 DAILY T-DERMAL ; Start 12/04/17 at 09:00 Morphine Sulfate (Morphine Inj) 4 mg Q3H PRN IV PUSH Pain 6-10;if unable to take PO Last administered on 12/04/17at 03:30; Start 12/03/17 at 17:15 Multivitamins (Theragran) 1 tab DAILY PO Last administered on 12/04/17at 09:00; Start 12/04/17 at 09:00 Naloxone HCl (Narcan Inj) 0.4 mg UNSCH PRN IV PUSH SEE LABEL COMMENTS; Start at 17:15 Nicotine (Habitrol 14 Mg Patch.24 Hr) 1 patch DAILY T-DERMAL ; Start 12/04/17 at 09:00 Ondansetron HCl (Zofran Inj) 4 mg Q6H PRN IVP NAUSEA OR VOMITING; Start at 17:15 Oxycodone/ Acetaminophen (Percocet 5-325 Mg) 1 tab Q6H PRN PO PAIN SCALE 3 TO 5; Start 12/03/17 at 17:15 Oxycodone/ Acetaminophen (Percocet 10-325 Mg) 1 tab Q6H PRN PO PAIN SCALE 6 TO 10; Start 12/03/17 at 17:15 Senna/Docusate Sodium (Tiffanie-Colace) 1 tab BID PO ; Start 12/03/17 at 21:00 Sennosides (Senokot) 17.2 mg Q12H PRN PO Moderate constipation; Start 12/03/17 at 17:15 Sodium Chloride (NS Flush) 2 ml BID IV FLUSH Last administered on 12/04/17at 09: 00; Start 12/03/17 at 21:00 Temazepam (Restoril) 15 mg HS PRN PO INSOMNIA; Start 12/03/17 at 17:15 Thiamine HCl (Vitamin B1) 100 mg DAILY PO Last administered on 12/04/17at 09:00; Start 12/04/17 at 09:00 Vancomycin HCl 1000 mg/Sodium Chloride 250 ml @ 250 mls/hr ONCE ONCE IV Last administered on 12/03/17at 16:28; Start 12/03/17 at 15:45; Stop 12/03/17 at 16:44; Status DC A/P Assessment and Plan 1. Left hand cellulitis Ultrasound of the left upper extremity negative for DVT Status post needle I&D in the emergency department, wound cultures pending started on IV Clindamycin XR of the left hand and will consult hand surgery. Blood cultures pending Tailer antibiotics once sensitivities result Monitor for signs of sepsis 2. Skin lesions Patient with chronic raised lesions on bilateral forearms Will need outpatient follow-up for further evaluation 3. Alcohol abuse [facility] protocol Thiamine/folate/multivitamins Monitor for signs of withdrawal FEN Heart healthy diet NS at 100 cc/hr Electrolytes: Monitor and replete when necessary Devorah Harkins MD Dec 04, 2017 12:56
--- NOTE | 2017-12-04 13:46 | RADRPT ---
EXAM DATE/TIME: 12/04/2017 13:19 [place] COMPARISON: No previous studies available for comparison. INDICATIONS : Left hand pain, swelling, and inflammation around 4th or 5th metatarsal. MEDICAL HISTORY : Chronic obstructive pulmonary disease. Deep venous thrombosis. Hypertens ion.Hearing loss. MT. Coronary artery disease. Anticoagulant therapy. Sleep apnea. Measles. MRSA. SURGICAL HISTORY : Inguinal hernia repair. Fusion, cervical. Bilateral shoulder surgery. Left ankle surgery. Left elbow surgery. ENCOUNTER: Subsequent ACUITY: 3 days PAIN SCORE: 10/10 LOCATION: Left hand FINDINGS: Performing of the fifth metacarpal that looks chronic with significant associated soft tissue swellin g. Subtle fracture would be difficult to exclude. . CONCLUSION: Soft tissue swelling. Exclude fracture clinically. Marty Aden MD FACR on December 04, 2017 at 13:25 Board Certified Radiologist. This report was verified electronically.
[2017-12-04 17:16] LABS: HEMOGLOBIN A1C 5.3 % (4.3-6.0)
[2017-12-04 20:00] VITALS: BP 132/66; PULSE 57; RESP 16; TEMP 99.8; O2SAT 97
[2017-12-04] MEDS: ENOXAPARIN SODIUM 40 MG/0.4 ML SYRINGE SQ SCH ×2 (20:09)
--- NOTE | 2017-12-04 22:54 | EKG ---
Date Performed: 12/03/2017 Time Performed: 16:21:17 PTAGE: 62 years EKG: Sinus rhythm NORMAL ECG PREVIOUS TRACING : 02/11/2017 19.38 Compared to prior tracing no significant change DOCTOR: Pablo Hammonds Interpretating Date/Time 12/04/2017 22:52:46
[2017-12-05] VITALS (7 sets, daily range): BP systolic 118–142; BP diastolic 58–70; PULSE 55–63; RESP 16–20; TEMP 97.8–98.6; O2SAT 96–98
[2017-12-05] MEDS: CLINDAMYCIN 900 MG/NS PREMIX 50 ML IV SCH ×3 (01:12→18:31)
[2017-12-05] MEDS: FOLIC ACID 1 MG TAB PO SCH (08:35)
[2017-12-05] MEDS: MULTIVITAMIN TAB PO SCH (08:35)
[2017-12-05] MEDS: THIAMINE HCL 100 MG TAB PO SCH (08:35)
[2017-12-05] MEDS: SODIUM CHLORIDE 0.9% FLUSH 10 ML FLUSH IV FLUSH SCH ×2 (08:36→21:00)
[2017-12-05] MEDS: REMOVE OLD PATCH T-DERMAL SCH (08:36)
[2017-12-05] MEDS: DOCUSATE SODIUM 50 MG/SENNA 8.6 MG TAB PO SCH ×2 (08:36→21:27)
[2017-12-05] MEDS: NICOTINE 14 MG/24 HR PATCH T-DERMAL SCH (08:36)
--- NOTE | 2017-12-05 09:28 | HHI.PR ---
Subjective Remarks f/u; cellulitis/abscess of the left hand. still with swelling and pain of the left hand-slightly better today. no fever. Objective Vitals Vital Signs Date Time Temp Pulse Resp B/P (MAP) Pulse Ox O2 Delivery O2 Flow Rate FiO2 12/05/17 04:00 98.6 55 16 118/67 (84) 98 12/05/17 00:51 98.0 62 16 120/58 (78) 98 12/04/17 20:00 99.8 57 16 132/66 (88) 97 12/04/17 16:33 20 12/04/17 11:49 98.9 62 18 120/71 (87) 96 I/O 12/04/17 12/04/17 12/04/17 12/05/17 12/05/17 12/05/17 07:00 15:00 23:00 07:00 15:00 23:00 Intake Total 720 ml Balance 720 ml Intake Oral 720 ml # Voids 1 4 Result Diagram: 12/04/17 0555 12/04/17 0555 Imaging Last Impressions Hand X-Ray 12/04/17 0000 Signed Impressions: Service Date/Time: Monday, December 04, 2017 13:19 - CONCLUSION: Soft tissue swelling. Exclude fracture clinically. Marty Aden MD FACR Chest X-Ray 12/03/17 1536 Signed Impressions: Service Date/Time: November 15:46 - CONCLUSION: No acute disease. Mian Freire MD Upper Extremity Ultrasound 12/03/17 0000 Signed Impressions: Service Date/Time: November 15:50 - CONCLUSION: No DVT. K. Edgard Valerio MD Objective Remarks GENERAL: This is a well-nourished, well-developed patient, in no apparent distress. CARDIOVASCULAR: Regular rate and regular rhythm without murmurs, gallops, or rubs. RESPIRATORY: Clear to auscultation. Breath sounds equal bilaterally. No wheezes , rales, or rhonchi. GASTROINTESTINAL: Abdomen soft, non-tender, nondistended. Normal, active bowel sounds MUSCULOSKELETAL: swelling and tenderness of the left hand. NEURO: Alert & Oriented x4 to person, place, time, situation. Moves all ext x4. skin; erythema over the left hand. Medications and IVs Inpatient Medications Acetaminophen (Tylenol) 650 mg Q6H PRN PO PAIN SCALE 1 TO 2; Start 12/03/17 at 17:15 Albuterol Sulfate (Proair Hfa Inh) 2 puff Q6H PRN INH SHORTNESS OF BREATH; Start 12/03/17 at 17:15 Bisacodyl (Dulcolax Supp) 10 mg DAILY PRN RECTAL SEVERE CONSITIPATION; Start at 17:15 Clindamycin/ Sodium Chloride 50 ml @ 100 mls/hr Q8H IV Last administered on 12/05/17at 01:12; Start 12/04/17 at 01:00 Enoxaparin Sodium (Lovenox Inj) 40 mg Q24H SQ Last administered on 12/04/17at 20: 09; Start 12/03/17 at 20:00 Flumazenil (Romazicon Inj) 0.2 mg Q1M PRN IV PUSH SEE LABEL COMMENTS; Start 12/03/17 at 17:15 Folic Acid (Folate) 1 mg DAILY PO Last administered on 12/05/17at 08:35; Start at 09:00 Haloperidol Lactate (Haldol Inj) 2 mg Q15M PRN IM SEE LABEL COMMENTS; Start 12/03/17 at 17:15 Lactulose (Lactulose Liq) 30 ml DAILY PRN PO SEVERE CONSITIPATION; Start at 17:15 Lorazepam (Ativan Inj) 2 mg Q15M PRN IV PUSH CIWA > 20; Start 12/03/17 at 17:15 Lorazepam (Ativan) 2 mg Q2H PRN PO CIWA 11-14; Start 12/03/17 at 17:15 Magnesium Hydroxide (Milk Of Magnesia Liq) 30 ml Q12H PRN PO Mild constipation ; Start 12/03/17 at 17:15 Metoclopramide HCl (Reglan Inj) 5 mg Q6H PRN IV PUSH NAUSEA OR VOMITING; Start 12/03/17 at 17:15 Miscellaneous Information 1 DAILY T-DERMAL ; Start 12/04/17 at 09:00 Morphine Sulfate (Morphine Inj) 4 mg Q3H PRN IV PUSH Pain 6-10;if unable to take PO Last administered on 12/04/17at 16:20; Start 12/03/17 at 17:15 Multivitamins (Theragran) 1 tab DAILY PO Last administered on 12/05/17at 08:35; Start 12/04/17 at 09:00 Naloxone HCl (Narcan Inj) 0.4 mg UNSCH PRN IV PUSH SEE LABEL COMMENTS; Start at 17:15 Nicotine (Habitrol 14 Mg Patch.24 Hr) 1 patch DAILY T-DERMAL ; Start 12/04/17 at 09:00 Ondansetron HCl (Zofran Inj) 4 mg Q6H PRN IVP NAUSEA OR VOMITING; Start at 17:15 Oxycodone/ Acetaminophen (Percocet 5-325 Mg) 1 tab Q6H PRN PO PAIN SCALE 3 TO 5; Start 12/03/17 at 17:15 Oxycodone/ Acetaminophen (Percocet 10-325 Mg) 1 tab Q6H PRN PO PAIN SCALE 6 TO 10; Start 12/03/17 at 17:15 Senna/Docusate Sodium (Tiffanie-Colace) 1 tab BID PO Last administered on 12/05/17at 08:36; Start 12/03/17 at 21:00 Sennosides (Senokot) 17.2 mg Q12H PRN PO Moderate constipation; Start 12/03/17 at 17:15 Sodium Chloride (NS Flush) 2 ml BID IV FLUSH Last administered on 12/04/17at 20: 10; Start 12/03/17 at 21:00 Temazepam (Restoril) 15 mg HS PRN PO INSOMNIA; Start 12/03/17 at 17:15 Thiamine HCl (Vitamin B1) 100 mg DAILY PO Last administered on 12/05/17at 08:35; Start 12/04/17 at 09:00 Vancomycin HCl 1000 mg/Sodium Chloride 250 ml @ 250 mls/hr ONCE ONCE IV Last administered on 12/03/17at 16:28; Start 12/03/17 at 15:45; Stop 12/03/17 at 16:44; Status DC A/P Assessment and Plan 1. Left hand cellulitis Ultrasound of the left upper extremity negative for DVT. XR of the left hand with soft tissue swelling. Status post needle I&D in the emergency department, wound cultures with strep and staph- awaiting sensitivity. started on IV Clindamycin hand surgery consulted. Blood cultures negative so far. Tailer antibiotics once sensitivities result Monitor for signs of sepsis 2. Skin lesions Patient with chronic raised lesions on bilateral forearms Will need outpatient follow-up for further evaluation 3. Alcohol abuse [facility] protocol Thiamine/folate/multivitamins Monitor for signs of withdrawal FEN Heart healthy diet NS at 100 cc/hr Electrolytes: Monitor and replete when necessary Lovenox Discharge Planning not ready for discharge today. Devorah Leonard MD Dec 05, 2017 09:28
[2017-12-05] MEDS: SODIUM CHLOR 0.9% 1000 ML INJ 1,000 ML IV SCH (10:12)
--- NOTE | 2017-12-05 17:02 | PD.ORT.PN ---
Subjective Subjective Remarks Please see dictated consult note for full details. Patient reports mild pain left hand. Denies paresthesias. Patient repeatedly declined injury to left hand. Objective Vitals Vital Signs Date Time Temp Pulse Resp B/P (MAP) Pulse Ox O2 Delivery O2 Flow Rate FiO2 12/05/17 12:59 97.8 56 18 133/70 (91) 98 12/05/17 09:30 97.9 57 16 126/65 (85) 97 12/05/17 04:00 98.6 55 16 118/67 (84) 98 12/05/17 00:51 98.0 62 16 120/58 (78) 98 12/04/17 20:00 99.8 57 16 132/66 (88) 97 I/O 12/04/17 12/04/17 12/04/17 12/05/17 12/05/17 12/05/17 07:00 15:00 23:00 07:00 15:00 23:00 Intake Total 720 ml 50 ml Balance 720 ml 50 ml Intake Oral 720 ml IV Total 50 ml # Voids 1 4 Result Diagram: 12/04/17 0555 12/04/17 0555 Objective Remarks Superficial blister with purulent drainage left hand, compartments soft and compressible, no pain with passive ROM fingers, wrist or elbow. Erythema left hand and forearm. Sensation intact median/ulnar/radial distribution, 2+ radial pulse Assessment & Plan Assessment and Plan 62yM superficial abscess left hand -No indication for surgical intervention at this time. ER physician aspirated abscess and remainder of abscess decompressed through aspiration opening. No indication of deep abscess. -Follow cultures, Recommend continued Ab per primary team or infectious disease -Elevate left hand -Followup hand surgery Patricia Kamara MD Dec 05, 2017 17:02
--- NOTE | 2017-12-05 20:35 | MB ---
cc: CARMEL MORALES DATE OF CONSULTATION: 12/05/2017. REASON FOR CONSULTATION: Abscess left hand. HISTORY OF PRESENT ILLNESS: Levar Ochoa is a right hand dominant male with chronic skin lesions on both upper extremities who states that he does not know how the swelling began but states that approximately four to five days ago he noted swelling of the dorsum of the hand. He presented to the emergency room on 12/03/2017. He was started on antibiotics. I was called for evaluation on 12/04/2017. He states that in the past he did have an abscess over his left leg, which resolved with admission and antibiotics. He denies any drug use or diabetes. Again, he denies any trauma. He denies any paresthesias. He denies any fevers or chills. Aspiration was performed by the emergency room physician which is growing Strep and Staph. He is on antibiotics. He has an old fracture of the fifth metacarpal. PAST MEDICAL HISTORY: DVT. PAST SURGICAL HISTORY: 1. Prior open reduction internal fixation of the left elbow. 2. C5-6-7 fusion. 3. Shoulder surgery. 4. Hand surgery. He is not the best historian. MEDICATIONS: 1. Xarelto. ALLERGIES: 1. KEFLEX. 2. IBUPROFEN. 3. LORAZEPAM. SOCIAL HISTORY: Smokes half a pack per day. Social alcohol use. He denies drug use. White count is 10.6. PHYSICAL EXAMINATION: The patient is alert and oriented. Dressing removed from the left hand. There is a blister over the dorsum of the hand with purulent fluid. There appears to be no deep abscess. The patient is able to range his fingers and wrist with no significant pain. He does have moderate swelling over the forearm but compartments are soft and compressible. No pain with passive range of motion of the elbow or wrist. Sensation intact of the median, ulnar and radial distribution. 2+ radial pulse. IMAGING STUDIES: X-rays again show old fracture of the left fifth metacarpal. No evidence of acute fracture. ASSESSMENT AND PLAN: This is a 64-year-old male with a superficial abscess of the left hand. The remainder of the fluid was drained through the prior aspiration hole. At this time, I recommend continued conservative management including antibiotics. The patient may follow up with his primary care physician. MD RAEANN Ivy 8:01 PM 8:13 PM [id number]
[2017-12-05] MEDS: ENOXAPARIN SODIUM 40 MG/0.4 ML SYRINGE SQ SCH (21:27)
[2017-12-06 00:50] VITALS: BP 152/69; PULSE 53; RESP 18; TEMP 98.7; O2SAT 96
[2017-12-06] MEDS: CLINDAMYCIN 900 MG/NS PREMIX 50 ML IV SCH ×2 (01:32→08:48)
[2017-12-06] MEDS: SODIUM CHLOR 0.9% 1000 ML INJ 1,000 ML IV SCH ×4 (02:37→21:46)
[2017-12-06 04:30] VITALS: BP 146/79; PULSE 60; RESP 18; TEMP 97.8; O2SAT 95
[2017-12-06] MEDS ORDERED: THIA100 PO (08:38)
[2017-12-06] MEDS ORDERED: FOLI1TAB6 PO (08:38)
[2017-12-06] MEDS ORDERED: THERTAB15 PO (08:38)
[2017-12-06] MEDS ORDERED: NICO14DI23 T-DERMAL (08:38)
[2017-12-06] MEDS: FOLIC ACID 1 MG TAB PO SCH (08:46)
[2017-12-06] MEDS: THIAMINE HCL 100 MG TAB PO SCH (08:46)
[2017-12-06] MEDS: MULTIVITAMIN TAB PO SCH (08:46)
[2017-12-06] MEDS: REMOVE OLD PATCH T-DERMAL SCH (08:47)
[2017-12-06] MEDS: DOCUSATE SODIUM 50 MG/SENNA 8.6 MG TAB PO SCH ×2 (08:47→21:34)
[2017-12-06] MEDS: SODIUM CHLORIDE 0.9% FLUSH 10 ML FLUSH IV FLUSH SCH ×2 (08:47→21:00)
[2017-12-06] MEDS: NICOTINE 14 MG/24 HR PATCH T-DERMAL SCH (08:48)
[2017-12-06 09:00] VITALS: BP 153/73; PULSE 53; RESP 18; TEMP 98.3; O2SAT 95
--- NOTE | 2017-12-06 10:42 | HHI.PR ---
Subjective Remarks in no acute distress. swelling of the left hand is better but still has some pain. no fever. Objective Vitals Vital Signs Date Time Temp Pulse Resp B/P (MAP) Pulse Ox O2 Delivery O2 Flow Rate FiO2 12/06/17 09:00 98.3 53 18 153/73 (99) 95 12/06/17 04:30 97.8 60 18 146/79 (101) 95 12/06/17 00:50 98.7 53 18 152/69 (96) 96 12/05/17 21:01 98.3 63 20 142/67 (92) 96 12/05/17 21:00 97 12/05/17 18:39 98.0 61 18 136/65 (88) 96 12/05/17 12:59 97.8 56 18 133/70 (91) 98 I/O 12/05/17 12/05/17 12/05/17 12/06/17 12/06/17 12/06/17 07:00 15:00 23:00 07:00 15:00 23:00 Intake Total 720 ml 50 ml 600 ml Balance 720 ml 50 ml 600 ml Intake Oral 720 ml 600 ml IV Total 50 ml # Voids 4 1 Result Diagram: 12/04/17 0555 12/04/17 0555 Imaging Last Impressions Hand X-Ray 12/04/17 0000 Signed Impressions: Service Date/Time: Monday, December 04, 2017 13:19 - CONCLUSION: Soft tissue swelling. Exclude fracture clinically. Marty Aden MD FACR Chest X-Ray 12/03/17 1536 Signed Impressions: Service Date/Time: November 15:46 - CONCLUSION: No acute disease. Mian Freire MD Upper Extremity Ultrasound 12/03/17 0000 Signed Impressions: Service Date/Time: November 15:50 - CONCLUSION: No DVT. K. Edgard Valerio MD Objective Remarks GENERAL: This is a well-nourished, well-developed patient, in no apparent distress. CARDIOVASCULAR: Regular rate and regular rhythm without murmurs, gallops, or rubs. RESPIRATORY: Clear to auscultation. Breath sounds equal bilaterally. No wheezes , rales, or rhonchi. GASTROINTESTINAL: Abdomen soft, non-tender, nondistended. Normal, active bowel sounds MUSCULOSKELETAL: swelling and tenderness of the left hand. NEURO: Alert & Oriented x4 to person, place, time, situation. Moves all ext x4. skin; erythema over the left hand. Medications and IVs Inpatient Medications Acetaminophen (Tylenol) 650 mg Q6H PRN PO PAIN SCALE 1 TO 2; Start 12/03/17 at 17:15 Albuterol Sulfate (Proair Hfa Inh) 2 puff Q6H PRN INH SHORTNESS OF BREATH; Start 12/03/17 at 17:15 Bisacodyl (Dulcolax Supp) 10 mg DAILY PRN RECTAL SEVERE CONSITIPATION; Start at 17:15 Clindamycin/ Sodium Chloride 50 ml @ 100 mls/hr Q8H IV Last administered on 12/06/17at 08:48; Start 12/04/17 at 01:00 Enoxaparin Sodium (Lovenox Inj) 40 mg Q24H SQ Last administered on 12/05/17at 21: 27; Start 12/03/17 at 20:00 Flumazenil (Romazicon Inj) 0.2 mg Q1M PRN IV PUSH SEE LABEL COMMENTS; Start 12/03/17 at 17:15 Folic Acid (Folate) 1 mg DAILY PO Last administered on 12/06/17at 08:46; Start at 09:00 Haloperidol Lactate (Haldol Inj) 2 mg Q15M PRN IM SEE LABEL COMMENTS; Start 12/03/17 at 17:15 Lactulose (Lactulose Liq) 30 ml DAILY PRN PO SEVERE CONSITIPATION; Start at 17:15 Lorazepam (Ativan Inj) 2 mg Q15M PRN IV PUSH CIWA > 20; Start 12/03/17 at 17:15 Lorazepam (Ativan) 2 mg Q2H PRN PO CIWA 11-14; Start 12/03/17 at 17:15 Magnesium Hydroxide (Milk Of Magnesia Liq) 30 ml Q12H PRN PO Mild constipation ; Start 12/03/17 at 17:15 Metoclopramide HCl (Reglan Inj) 5 mg Q6H PRN IV PUSH NAUSEA OR VOMITING; Start 12/03/17 at 17:15 Miscellaneous Information 1 DAILY T-DERMAL ; Start 12/04/17 at 09:00 Morphine Sulfate (Morphine Inj) 4 mg Q3H PRN IV PUSH Pain 6-10;if unable to take PO Last administered on 12/04/17at 16:20; Start 12/03/17 at 17:15 Multivitamins (Theragran) 1 tab DAILY PO Last administered on 12/06/17at 08:46; Start 12/04/17 at 09:00 Naloxone HCl (Narcan Inj) 0.4 mg UNSCH PRN IV PUSH SEE LABEL COMMENTS; Start at 17:15 Nicotine (Habitrol 14 Mg Patch.24 Hr) 1 patch DAILY T-DERMAL ; Start 12/04/17 at 09:00 Ondansetron HCl (Zofran Inj) 4 mg Q6H PRN IVP NAUSEA OR VOMITING; Start at 17:15 Oxycodone/ Acetaminophen (Percocet 5-325 Mg) 1 tab Q6H PRN PO PAIN SCALE 3 TO 5; Start 12/03/17 at 17:15 Oxycodone/ Acetaminophen (Percocet 10-325 Mg) 1 tab Q6H PRN PO PAIN SCALE 6 TO 10; Start 12/03/17 at 17:15 Senna/Docusate Sodium (Tiffanie-Colace) 1 tab BID PO Last administered on 12/05/17at 21:27; Start 12/03/17 at 21:00 Sennosides (Senokot) 17.2 mg Q12H PRN PO Moderate constipation; Start 12/03/17 at 17:15 Sodium Chloride (NS Flush) 2 ml BID IV FLUSH Last administered on 12/04/17at 20: 10; Start 12/03/17 at 21:00 Temazepam (Restoril) 15 mg HS PRN PO INSOMNIA; Start 12/03/17 at 17:15 Thiamine HCl (Vitamin B1) 100 mg DAILY PO Last administered on 12/06/17at 08:46; Start 12/04/17 at 09:00 Vancomycin HCl 1000 mg/Sodium Chloride 250 ml @ 250 mls/hr ONCE ONCE IV Last administered on 12/03/17at 16:28; Start 12/03/17 at 15:45; Stop 12/03/17 at 16:44; Status DC A/P Assessment and Plan 1. Left hand cellulitis Ultrasound of the left upper extremity negative for DVT. XR of the left hand with soft tissue swelling. Status post needle I&D in the emergency department, wound cultures with strep and MRSA- awaiting sensitivity. started on IV Clindamycin- Vanco will be added hand surgery consult appreciated and no surgical intervention at this time. Blood cultures negative so far. Tailer antibiotics once sensitivities result Monitor for signs of sepsis 2. Skin lesions Patient with chronic raised lesions on bilateral forearms Will need outpatient follow-up for further evaluation 3. Alcohol abuse [facility] protocol Thiamine/folate/multivitamins Monitor for signs of withdrawal FEN Heart healthy diet NS at 100 cc/hr Electrolytes: Monitor and replete when necessary Lovenox Discharge Planning not ready for discharge today. Devorah Leonard MD Dec 06, 2017 10:42
[2017-12-06] MEDS ORDERED: Vancomycin Consult Pharmacy 1 EA OTHER SCH (10:45)
[2017-12-06] MEDS ORDERED: VANCOMYCIN INJ 1,000 MG in SODIUM CHLOR 0.9% 250 ML INJ 250 ML IV ONE (12:00)
[2017-12-06] MEDS: VANCOMYCIN INJ 1,500 MG in SODIUM CHLORID 0.9% 500 ML INJ 500 ML IV SCH (12:20)
[2017-12-06 13:28] VITALS: BP 150/82; PULSE 53; RESP 18; TEMP 97.4; O2SAT 99
[2017-12-06] MEDS: CLINDAMYCIN 300 MG/NS PREMIX 50 ML IV SCH ×2 (16:00→21:34)
[2017-12-06 16:04] VITALS: BP 165/75; PULSE 54; RESP 18; TEMP 97.9; O2SAT 98
[2017-12-06] MEDS: ENOXAPARIN SODIUM 40 MG/0.4 ML SYRINGE SQ SCH (21:34)
[2017-12-06 21:51] VITALS: BP 168/77; PULSE 57; RESP 16; TEMP 98.8; O2SAT 98
[2017-12-07] VITALS: BP 155/72; PULSE 57; RESP 18; TEMP 97.7; O2SAT 98
[2017-12-07] MEDS: CLINDAMYCIN 300 MG/NS PREMIX 50 ML IV SCH ×3 (03:56→15:00)
[2017-12-07 04:00] VITALS: BP 148/69; PULSE 68; RESP 17; TEMP 97.9; O2SAT 97
[2017-12-07 08:54] VITALS: BP 168/77; PULSE 50; RESP 16; TEMP 97.6; O2SAT 98
[2017-12-07] MEDS: REMOVE OLD PATCH T-DERMAL SCH (09:00)
[2017-12-07] MEDS: SODIUM CHLORIDE 0.9% FLUSH 10 ML FLUSH IV FLUSH SCH (09:00)
[2017-12-07] MEDS: DOCUSATE SODIUM 50 MG/SENNA 8.6 MG TAB PO SCH (09:00)
[2017-12-07] MEDS: NICOTINE 14 MG/24 HR PATCH T-DERMAL SCH (09:00)
[2017-12-07] MEDS: THIAMINE HCL 100 MG TAB PO SCH (09:45)
[2017-12-07] MEDS: FOLIC ACID 1 MG TAB PO SCH (09:46)
[2017-12-07] MEDS: MULTIVITAMIN TAB PO SCH (09:46)
[2017-12-07] MEDS: SODIUM CHLOR 0.9% 1000 ML INJ 1,000 ML IV SCH (11:12)
[2017-12-07] MEDS ORDERED: DOXY100T PO (12:29)
[2017-12-07] MEDS ORDERED: CEPH-460 PO (12:29)
--- NOTE | 2017-12-07 12:29 | HHI.PR ---
Subjective Remarks in no acute distress. resting comfortably with no distress. swelling and erythema of the left hand has much improved. no fever. d/w the RN. Objective Vitals Vital Signs Date Time Temp Pulse Resp B/P (MAP) Pulse Ox O2 Delivery O2 Flow Rate FiO2 12/07/17 08:54 97.6 50 16 168/77 (107) 98 12/07/17 04:00 97.9 68 17 148/69 (95) 97 12/07/17 00:00 97.7 57 18 155/72 (99) 98 12/06/17 21:51 98.8 57 16 168/77 (107) 98 12/06/17 16:04 97.9 54 18 165/75 (105) 98 12/06/17 13:28 97.4 53 18 150/82 (104) 99 I/O 12/06/17 12/06/17 12/06/17 12/07/17 12/07/17 12/07/17 07:00 15:00 23:00 07:00 15:00 23:00 Intake Total 600 ml 1465 ml 1659 ml 50 ml Output Total 1 ml Balance 600 ml 1465 ml 1658 ml 50 ml Intake Oral 600 ml IV Total 1465 ml 1659 ml 50 ml Output Stool Total 1 ml # Voids 1 1 Result Diagram: 12/04/17 0555 12/04/17 0555 Imaging Last Impressions Hand X-Ray 12/04/17 0000 Signed Impressions: Service Date/Time: Monday, December 04, 2017 13:19 - CONCLUSION: Soft tissue swelling. Exclude fracture clinically. Marty Aden MD FACR Chest X-Ray 12/03/17 1536 Signed Impressions: Service Date/Time: November 15:46 - CONCLUSION: No acute disease. Mian Freire MD Upper Extremity Ultrasound 12/03/17 0000 Signed Impressions: Service Date/Time: November 15:50 - CONCLUSION: No DVT. K. Edgard Valerio MD Objective Remarks GENERAL: This is a well-nourished, well-developed patient, in no apparent distress. CARDIOVASCULAR: Regular rate and regular rhythm without murmurs, gallops, or rubs. RESPIRATORY: Clear to auscultation. Breath sounds equal bilaterally. No wheezes , rales, or rhonchi. GASTROINTESTINAL: Abdomen soft, non-tender, nondistended. Normal, active bowel sounds MUSCULOSKELETAL: swelling and tenderness of the left hand has much improved. NEURO: Alert & Oriented x4 to person, place, time, situation. Moves all ext x4. skin; erythema over the left hand has much improved. Medications and IVs Inpatient Medications Acetaminophen (Tylenol) 650 mg Q6H PRN PO PAIN SCALE 1 TO 2; Start 12/03/17 at 17:15 Albuterol Sulfate (Proair Hfa Inh) 2 puff Q6H PRN INH SHORTNESS OF BREATH; Start 12/03/17 at 17:15 Bisacodyl (Dulcolax Supp) 10 mg DAILY PRN RECTAL SEVERE CONSITIPATION; Start at 17:15 Clindamycin/ Sodium Chloride 50 ml @ 100 mls/hr Q6H IV Last administered on 12/07/17at 09:46; Start 12/06/17 at 15:00 Enoxaparin Sodium (Lovenox Inj) 40 mg Q24H SQ Last administered on 12/06/17at 21: 34; Start 12/03/17 at 20:00 Flumazenil (Romazicon Inj) 0.2 mg Q1M PRN IV PUSH SEE LABEL COMMENTS; Start 12/03/17 at 17:15 Folic Acid (Folate) 1 mg DAILY PO Last administered on 12/07/17at 09:46; Start at 09:00 Haloperidol Lactate (Haldol Inj) 2 mg Q15M PRN IM SEE LABEL COMMENTS; Start 12/03/17 at 17:15 Lactulose (Lactulose Liq) 30 ml DAILY PRN PO SEVERE CONSITIPATION; Start at 17:15 Lorazepam (Ativan Inj) 2 mg Q15M PRN IV PUSH CIWA > 20; Start 12/03/17 at 17:15 Lorazepam (Ativan) 2 mg Q2H PRN PO CIWA 11-14; Start 12/03/17 at 17:15 Magnesium Hydroxide (Milk Of Magnesia Liq) 30 ml Q12H PRN PO Mild constipation ; Start 12/03/17 at 17:15 Metoclopramide HCl (Reglan Inj) 5 mg Q6H PRN IV PUSH NAUSEA OR VOMITING; Start 12/03/17 at 17:15 Miscellaneous Information SPECIFIC LAB TO BE DRAWN:VANCOMYCIN TROUGH DATE TO... ONCE ONCE .XX ; Start 12/08/17 at 11:45; Stop 12/08/17 at 11:46 Morphine Sulfate (Morphine Inj) 4 mg Q3H PRN IV PUSH Pain 6-10;if unable to take PO Last administered on 12/04/17at 16:20; Start 12/03/17 at 17:15 Multivitamins (Theragran) 1 tab DAILY PO Last administered on 12/07/17at 09:46; Start 12/04/17 at 09:00 Naloxone HCl (Narcan Inj) 0.4 mg UNSCH PRN IV PUSH SEE LABEL COMMENTS; Start at 17:15 Nicotine (Habitrol 14 Mg Patch.24 Hr) 1 patch DAILY T-DERMAL ; Start 12/04/17 at 09:00 Ondansetron HCl (Zofran Inj) 4 mg Q6H PRN IVP NAUSEA OR VOMITING; Start at 17:15 Oxycodone/ Acetaminophen (Percocet 5-325 Mg) 1 tab Q6H PRN PO PAIN SCALE 3 TO 5; Start 12/03/17 at 17:15 Oxycodone/ Acetaminophen (Percocet 10-325 Mg) 1 tab Q6H PRN PO PAIN SCALE 6 TO 10; Start 12/03/17 at 17:15 Pharmacy Profile Note 0 ml @ 0 mls/hr UNSCH OTHER ; Start 12/06/17 at 10:45 Senna/Docusate Sodium (Tiffanie-Colace) 1 tab BID PO Last administered on 12/06/17at 21:34; Start 12/03/17 at 21:00 Sennosides (Senokot) 17.2 mg Q12H PRN PO Moderate constipation; Start 12/03/17 at 17:15 Sodium Chloride (NS Flush) 2 ml BID IV FLUSH Last administered on 12/07/17at 09: 00; Start 12/03/17 at 21:00 Temazepam (Restoril) 15 mg HS PRN PO INSOMNIA; Start 12/03/17 at 17:15 Thiamine HCl (Vitamin B1) 100 mg DAILY PO Last administered on 12/07/17at 09:45; Start 12/04/17 at 09:00 Vancomycin HCl 1000 mg/Sodium Chloride 250 ml @ 250 mls/hr ONCE ONCE IV Last administered on 12/03/17at 16:28; Start 12/03/17 at 15:45; Stop 12/03/17 at 16:44; Status DC Vancomycin HCl 1500 mg/Sodium Chloride 515 ml @ 250 mls/hr Q12H IV Last administered on 12/07/17at 00:00; Start 12/06/17 at 12:00 A/P Assessment and Plan 1. Left hand cellulitis Ultrasound of the left upper extremity negative for DVT. XR of the left hand with soft tissue swelling. Status post needle I&D in the emergency department, wound cultures with strep and MRSA- awaiting sensitivity. will switch to po antibiotics upon discharge. hand surgery consult appreciated and no surgical intervention needed. Blood cultures negative so far. 2. Skin lesions Patient with chronic raised lesions on bilateral forearms Will need outpatient follow-up for further evaluation 3. Alcohol abuse [facility] protocol Thiamine/folate/multivitamins Monitor for signs of withdrawal FEN Heart healthy diet NS at 100 cc/hr Electrolytes: Monitor and replete when necessary Lovenox Discharge Planning dc home today with oral antibiotics and f/u with his pcp. see med list. d/w the patient and RN. Devorah Leonard MD Dec 07, 2017 12:29
--- NOTE | 2017-12-07 12:33 | HHI.DS ---
Discharge Summary Admission Date Dec 04, 2017 at 12:30 Discharge Date: Dec 07, 2017 Admitting Diagnosis left hand cellulitis with leukocytosis (1) Cellulitis of left hand ICD Code: L03.114 - Cellulitis of left upper limb Diagnosis: Principal Status: Acute Procedures none Brief History - From Admission 62-year-old male with no known past medical history presents to the emergency department for evaluation of left-sided hand swelling. The patient reports that the dorsum of his left hand has been erythematous and swollen for the past 3-4 days. The patient reports he is having difficulty moving his hand secondary to pain. He endorses subjective fevers without chills. He has a history of multiple scaly lesions on the bilateral forearms that has been present for several months. He denies any trauma to the area. Dorsum of left hand is erythematous with a 3 cm round blister draining purulent material status post needle IND performed in the emergency department. Erythema extends from the PIP joints of the fingers to beyond the wrist. Patient able to flex and extend fingers and wrist. Laboratory values significant for a leukocytosis of 12.0. CBC/BMP: 12/04/17 0555 12/04/17 0555 Imaging Last Impressions Hand X-Ray 12/04/17 0000 Signed Impressions: Service Date/Time: Monday, December 04, 2017 13:19 - CONCLUSION: Soft tissue swelling. Exclude fracture clinically. Marty Aden MD FACR Chest X-Ray 12/03/17 1536 Signed Impressions: Service Date/Time: November 15:46 - CONCLUSION: No acute disease. Mian Freire MD Upper Extremity Ultrasound 12/03/17 0000 Signed Impressions: Service Date/Time: November 15:50 - CONCLUSION: No DVT. K. Edgard Valerio MD PE at Discharge GENERAL: This is a well-nourished, well-developed patient, in no apparent distress. CARDIOVASCULAR: Regular rate and regular rhythm without murmurs, gallops, or rubs. RESPIRATORY: Clear to auscultation. Breath sounds equal bilaterally. No wheezes , rales, or rhonchi. GASTROINTESTINAL: Abdomen soft, non-tender, nondistended. Normal, active bowel sounds MUSCULOSKELETAL: swelling and tenderness of the left hand has much improved. NEURO: Alert & Oriented x4 to person, place, time, situation. Moves all ext x4. skin; erythema over the left hand has much improved. Hospital Course patient was admitted with the cellulitis and abscess of the left hand. he was started on IV antibiotics. he was seen by hand surgery who recommended no intervention. the swelling and erythema of the left hand has much improved. he remained afebrile. he will be discharged home with follow-up by his pcp. Pt Condition on Discharge: Stable Discharge Disposition: Discharge Home Discharge Time: <= 30 minutes Discharge Instructions DIET: Follow Instructions for: Heart Healthy Diet Activities you can perform: Regular-No Restrictions Other Activity Instructions: Keep left hand elevated when possible Follow up Referrals: Dermatology - 1 Week PCP Follow-up - 1 Week New Medications: Cephalexin (Keflex) 500 Mg Cap 500 MG PO Q12H for Infection for 7 Days, #14 CAP 0 Refills Doxycycline Hyclate (Doxycycline Hyclate) 100 Mg Tab 100 MG PO BID for INFECTION for 7 Days, #14 TAB Folic Acid (Folic Acid) 1 Mg Tablet 1 MG PO DAILY for Nutritional Supplement, #30 TAB Multivitamin with Folic Acid (Thera Tablet) 400 Mcg Tablet 1 TAB PO DAILY for Nutritional Supplement, #30 TAB Nicotine (Eq Nicotine) 14 Mg/24 Hour Dis 1 PATCH T-DERMAL DAILY for TOBACCO CESSATION, #7 PATCH Thiamine HCl (Gnp Vitamin B-1) 100 Mg Tab 100 MG PO DAILY for Nutritional Supplement, #30 TAB Continued Medications: Albuterol 18 GM Inh (Ventolin Hfa 18 GM Inh) 90 Mcg/Act Aer 2 PUFF INH Q4-6H PRN for SHORTNESS OF BREATH, #1 INHALER 3 Refills Cilostazol (Cilostazol) 100 Mg Tab 100 MG PO BID for INTERMITTENT CLAUDICATION, #60 TAB 3 Refills Rivaroxaban (Xarelto) 20 Mg Tab 20 MG PO DAILY for Blood Clot Prevention, #30 TAB 3 Refills Devorah Leonard MD Dec 07, 2017 12:33
--- NOTE | 2017-12-07 12:35 | HHI.DCPOC ---
Discharge Care Plan Diagnosis: (1) MRSA (methicillin resistant Staphylococcus aureus) infection (2) Abscess of left hand (3) Skin lesion (4) Cellulitis of left hand (5) Group A streptococcal infection (6) Alcohol abuse Goals to Promote Your Health * To prevent worsening of your condition and complications * To maintain your health at the optimal level Directions to Meet Your Goals Strongly advise to stop drinking alcohol Follow up with outpatient dermatology for evaluation of skin lesions Take your medications as prescribed Follow your dietary instruction Follow activity as directed Keep your appointments as scheduled Take your immunizations and boosters as scheduled If your symptoms worsen call your PCP, if no PCP go to Urgent Care Center or Emergency Room Smoking is Dangerous to Your Health. Avoid second hand smoke Call the 24-hour hour crisis hotline for domestic abuse at Marilyn Parks Dec 07, 2017 12:35
[2017-12-07] MEDS: VANCOMYCIN INJ 1,500 MG in SODIUM CHLORID 0.9% 500 ML INJ 500 ML IV SCH ×3 (13:09)
[2017-12-07 13:52] VITALS: BP 156/74; PULSE 50; RESP 18; TEMP 97.6; O2SAT 95
[2017-12-07 15:01] VITALS: BP 159/79; PULSE 54; RESP 16; TEMP 97.3; O2SAT 98
[2017-12-08] MEDS ORDERED: PHARMACY ORDERED LAB ONE (11:45)
== END 2017-12-07 16:27 | disposition home or self-care (01) | DRG 603 ==
LOC: NEPC 12:25 → NEDA 17:13 → NEPGCP 18:58 → OBSVTOIN 12-04 12:30
PROVIDERS: ADMIT Internal Medicine; ATTEND Internal Medicine
PROC: 0H9GXZX Drainage of Left Hand Skin, External Approach, Diagnostic (ICD-10-PCS; principal; 2017-12-03)
DX: L03.114 Cellulitis of left upper limb (principal); L02.512 Cutaneous abscess of left hand; B95.62 Methicillin resistant Staphylococcus aureus infection as the cause of diseases classified elsewhere; B95.5 Unspecified streptococcus as the cause of diseases classified elsewhere; L98.9 Disorder of the skin and subcutaneous tissue, unspecified; F10.10 Alcohol abuse, uncomplicated; F17.210 Nicotine dependence, cigarettes, uncomplicated; Z79.02 Long term (current) use of antithrombotics/antiplatelets; Z86.718 Personal history of other venous thrombosis and embolism; Z91.14 Patient's other noncompliance with medication regimen; Z59.0 Homelessness; Z98.1 Arthrodesis status
CPT/HCPCS: 10060; 71045; 73130; 80053; 81001; 82550; 83036; 83605; 83735; 84100; 84439; 84443; 85025; 85610; 85730; 86403; 87040; 87070; 87147; 87186; 93005; 93971; 96365; 96366; 96375; G0378; G8987-GO; G8988-GO; J1650; J2270; J3370; J7030; J7040; J7050